=== PATIENT | female | born 1940 | race Caucasian/White ===

== ENCOUNTER 2016-05-14 21:40 | Inpatient (IN) | payer MEDICARE, MEDICAID ==
[2016-05-14 22:51] VITALS: BP 131/67
[2016-05-14] MEDS ORDERED: D5-0.45NS 1,000 ML IV SCH (23:45)
[2016-05-14] MEDS ORDERED: Maalox 30 mL Cup PO PRN (23:47)
[2016-05-14] MEDS ORDERED: Magnesium Hydroxide (MOM) 30 mL UDC PO PRN (23:47)
[2016-05-15] MEDS ORDERED: Maalox 30 mL Cup PO PRN (00:17)
[2016-05-15] MEDS ORDERED: Magnesium Hydroxide (MOM) 30 mL UDC PO PRN (00:17)
[2016-05-15] MEDS ORDERED: Diltiazem CD 120 mg 24H PO PRN ×2 (00:23→19:03)
[2016-05-15] MEDS: methylPREDNISolone SS 40 mg Vial IVP SCH ×3 (04:25→22:22)
[2016-05-15 05:41] LABS: % EOSINOPHILS 0.2 % (0.0-5.0); % LYMPHOCYTES 18.3 % (20.0-50.0); % MONOCYTES 6.9 % (2.0-10.0); % NEUTROPHILS 74.6 % (40.0-80.0); HEMATOCRIT 28.4 % (35.0-45.0); HEMOGLOBIN 9.6 gm/dL (11.7-16.1); MEAN CELL VOLUME 92.4 fl (81-100); MEAN CORPUSCULAR HEMOGLOBIN 31.4 pg (27.0-31.0); MEAN CORPUSCULAR HGB CONC 33.9 pg (28.0-36.0); MEAN PLATELET VOLUME 9.3 fl; NEUTROPHILE ABSOLUTE 6.2 Th/cmm (1.8-8.0); PLATELET COUNT 147 Th/cmm (150-400); RED BLOOD COUNT 3.07 Mil/cmm (3.80-5.20); RED CELL DISTRIBUTION WIDTH 13.2 % (11.5-20.0); WHITE BLOOD COUNT 8.3 Th/cmm (4.8-10.8)
[2016-05-15 06:04] LABS: ALKALINE PHOSPHATASE 77 U/L (34-104); ANION GAP 7.4 (7.0-16.0); BILIRUBIN,TOTAL 0.4 mg/dL (0.3-1.0); BUN - UREA NITROGEN 40 mg/dL (7-25); CALCIUM SERUM 9.4 mg/dL (8.6-10.3); CARBON DIOXIDE 27.9 mEq/L (21.0-31.0); CHLORIDE 106 mEq/L (98-107); CREATININE - SERUM 1.6 mg/dL (0.6-1.2); GLUCOSE 159 mg/dL (70-105); MAGNESIUM 1.9 mg/dL (1.9-2.7); POTASSIUM SERUM 4.3 mEq/L (3.5-5.1); SGOT 10 U/L (13-39); SGPT/ALT 11 U/L (7-52); SODIUM SERUM 137 mEq/L (136-145)
[2016-05-15] MEDS: Albuterol/Ipratropium Neb 3 ML AERS HHN SCH ×5 (07:01→19:10)
[2016-05-15] MEDS: Enoxaparin 30 mg/0.3 mL 0.3mL Syr SUBQ SCH (09:00)
[2016-05-15] MEDS: Pantoprazole 40 mg EC Tab PO SCH ×2 (09:03→16:46)
[2016-05-15] MEDS: Polyvinyl Alcohol Ophth Soln 15 mL Bottle EACH EYE SCH ×2 (09:04→16:51)
--- NOTE | 2016-05-15 10:42 | Diagnostic Imaging Report ---
CHEST X-RAY: AP view INDICATION: Pneumonia COMPARISON: None FINDINGS: The patient is rotated. Left basal density is noted. No focal consolidation identified. Cardiomegaly is noted with atherosclerosis. Degenerative changes of the spine are noted with scoliosis. IMPRESSION: Left basal density suggestive of a small left pleural effusion. Atelectasis versus less likely infiltrate of the left lung base cannot be excluded. Cardiomegaly and atherosclerotic vascular disease.
[2016-05-15] MEDS ORDERED: Sodium Chloride 0.45% 1,000 ML IV SCH (13:00)
--- NOTE | 2016-05-15 16:01 | Diagnostic Imaging Report ---
CT Chest without IV contrast HISTORY: Mass COMPARISON: Chest x-ray earlier the same day. Technique: Axial images were obtained from the base of the neck to the upper abdomen without IV contrast. Reconstructions were made. Total DLP 370, CTD I 9.5 Findings: Evaluation of mediastinum is limited due to lack of IV contrast. Few borderline prominent mediastinal lymph nodes are noted. Diffuse atherosclerotic vascular disease is noted including coronary artery calcifications. Mild cardiomegaly is noted. Trace pericardial fluid is noted. Mild chronic changes and mild emphysematous changes of the lungs are noted. There is a faint 3 mm nodule of the right upper lobe (image 3, series 32). Additional faint nodular infiltrates are seen involving the posterior/inferior aspect of the right upper lobe measuring up to 6 mm. An additional few faint nodular infiltrates of the left lung are noted. Bibasal focal infiltrates and consolidative changes also noted. No pleural effusions. Degenerative changes of the spine are noted with spinal scoliosis. The upper abdomen demonstrates diffuse pneumobilia. There appears to be previous cholecystectomy. There may be minimal fluid within the postsurgical bed. IMPRESSION: Bibasal focal infiltrates and consolidative changes which may be due to focal pneumonia in these regions. Small nodular opacities of the lungs as detailed above. Findings may be due to infectious/inflammatory or less likely neoplastic process. Clinical correlation and follow-up surveillance in 6 months is recommended for further assessment/monitoring. Mild emphysematous changes. Diffuse atherosclerotic vascular disease Mild cardiomegaly and trace pericardial effusion Borderline prominent mediastinal lymph nodes, nonspecific Diffuse pneumobilia noted. There also appears to be a probable recent cholecystectomy with small amount of fluid in the gallbladder fossa. Please correlate with patient's clinical findings. If indicated dedicated, CT abdomen and pelvis and ultrasound may be obtained for further assessment.
[2016-05-15] MEDS: Lidocaine 5% Patch TD SCH (16:42)
[2016-05-15] MEDS: Levothyroxine 0.1 Mg Tab PO SCH (16:50)
[2016-05-15] MEDS ORDERED: Diltiazem 30 mg Tab ONE (18:50)
[2016-05-15] MEDS: Budesonide 0.5 Mg/2 mL Ud HHN SCH (19:10)
[2016-05-16] MEDS: methylPREDNISolone SS 40 mg Vial IVP SCH ×3 (05:49→21:05)
--- NOTE | 2016-05-16 06:07 | Consultation ---
The patient of Dr. Olivas. Thank you very much Dr. Olivas for this consultation. HISTORY OF PRESENT ILLNESS: This is a 75-year-old female, presents with cough, congestion, and shortness of breath and also episode of hemoptysis. Her past medical history COPD, multiple admissions to different hospitals. The patient is feeling better, has less shortness of breath, difficult to deal with, it is hard to get information from her. PAST MEDICAL HISTORY: As above. SOCIAL HISTORY: Smoking for many years, quit 10 years ago. PHYSICAL EXAMINATION: GENERAL: Awake, alert, not in acute distress. VITAL SIGNS: Temperature is 98.9, pulse 85, respirations 22, blood pressure 138/58 saturating 98%. CHEST: good breath sounds, few rhonchi in the bases. HEART: Regular rate and rhythm. ABDOMEN: Soft. LOWER EXTREMITIES: No edema. DIAGNOSTIC DATA: Chest x-ray atelectasis lower lobe area. No masses. LABORATORY DATA: WBC is 8.3, hemoglobin 9.6, hematocrit 28.4. Sodium is 137, IMPRESSION: 1. Chronic obstructive pulmonary disease exacerbation. 2. Acute bronchitis. 3. Early pneumonia. PLAN: 1. IV antibiotics. 2. Nebulizer. 3. IV Solu-Medrol. 4. CT of the chest to rule out any masses. Thank you very much. I will follow the patient with you. JOB# [id number] NATALYA
[2016-05-16 07:21] LABS: BUN - UREA NITROGEN 43 mg/dL (7-25); BUN/CREATININE RATIO 26.9; CALCIUM SERUM 9.5 mg/dL (8.6-10.3); CARBON DIOXIDE 28.6 mEq/L (21.0-31.0); CHLORIDE 106 mEq/L (98-107); CREATININE - SERUM 1.6 mg/dL (0.6-1.2); GLUCOSE 176 mg/dL (70-105); POTASSIUM SERUM 4.6 mEq/L (3.5-5.1); SODIUM SERUM 134 mEq/L (136-145)
[2016-05-16] MEDS: Levothyroxine 0.1 Mg Tab PO SCH (07:21)
[2016-05-16] MEDS: Albuterol/Ipratropium Neb 3 ML AERS HHN SCH ×4 (08:10→15:43)
[2016-05-16] MEDS: Budesonide 0.5 Mg/2 mL Ud HHN SCH (08:10)
[2016-05-16] MEDS ORDERED: LEVOTHYROXINE SODIUM 200 MCG PO SCH (09:00)
[2016-05-16] MEDS: Diltiazem 30 mg Tab PO SCH ×2 (09:24→17:27)
[2016-05-16] MEDS: Pantoprazole 40 mg EC Tab PO SCH (09:24)
[2016-05-16] MEDS: Polyvinyl Alcohol Ophth Soln 15 mL Bottle EACH EYE SCH (09:27)
[2016-05-16] MEDS: Enoxaparin 30 mg/0.3 mL 0.3mL Syr SUBQ SCH (09:28)
[2016-05-16] MEDS: Lidocaine 5% Patch TD SCH (09:55)
--- NOTE | 2016-05-16 13:50 | Internal Medicine Prog Note ---
Internal Medicine Subjective - Subjective Patient seen and examined:: with staff, chart reviewed Patient is:: awake, verbal, interactive Patient Complaints of:: congestion Per staff patient is:: no adverse event, combative, noncompliant Internal Medicine Objective - Results Result Diagrams: 05/15/16 05:15 05/16/16 06:15 Recent Labs: Laboratory Last Values WBC 8.3 Th/cmm (4.8-10.8) 05/15/16 05:15 RBC 3.07 Mil/cmm (3.80-5.20) L 05/15/16 05:15 Hgb 9.6 gm/dL (11.7-16.1) L 05/15/16 05:15 Hct 28.4 % (35.0-45.0) L 05/15/16 05:15 MCV 92.4 fl (81-100) 05/15/16 05:15 MCH 31.4 pg (27.0-31.0) H 05/15/16 05:15 MCHC Differential 33.9 pg (28.0-36.0) 05/15/16 05:15 RDW 13.2 % (11.5-20.0) 05/15/16 05:15 Plt Count 147 Th/cmm (150-400) L 05/15/16 05:15 MPV 9.3 fl 05/15/16 05:15 Neutrophils % 74.6 % (40.0-80.0) 05/15/16 05:15 Lymphocytes % 18.3 % (20.0-50.0) L 05/15/16 05:15 Monocytes % 6.9 % (2.0-10.0) 05/15/16 05:15 Eosinophils % 0.2 % (0.0-5.0) 05/15/16 05:15 Basophils % 0.0 % (0.0-2.0) 05/15/16 05:15 Sodium 134 mEq/L (136-145) L 05/16/16 06:15 Potassium 4.6 mEq/L (3.5-5.1) 05/16/16 06:15 Chloride 106 mEq/L (98-107) 05/16/16 06:15 Carbon Dioxide 28.6 mEq/L (21.0-31.0) 05/16/16 06:15 Anion Gap 4.0 (7.0-16.0) L 05/16/16 06:15 BUN 43 mg/dL (7-25) H 05/16/16 06:15 Creatinine 1.6 mg/dL (0.6-1.2) H 05/16/16 06:15 Est GFR ( Amer) TNP 05/16/16 06:15 Est GFR (Non-Af Amer) TNP 05/16/16 06:15 BUN/Creatinine Ratio 26.9 05/16/16 06:15 Glucose 176 mg/dL (70-105) H 05/16/16 06:15 Hemoglobin A1c % 5.7 % (4.0-6.0) 05/16/16 06:15 Calcium 9.5 mg/dL (8.6-10.3) 05/16/16 06:15 Magnesium 1.9 mg/dL (1.9-2.7) 05/15/16 05:15 Total Bilirubin 0.4 mg/dL (0.3-1.0) 05/15/16 05:15 AST 10 U/L (13-39) L 05/15/16 05:15 ALT 11 U/L (7-52) 05/15/16 05:15 Alkaline Phosphatase 77 U/L (34-104) 05/15/16 05:15 Ammonia 53 umol/L (16-53) 05/16/16 06:15 B-Natriuretic Peptide 314.0 pg/mL (5.0-100.0) H 05/15/16 05:15 Total Protein 6.9 gm/dL (6.0-8.3) 05/15/16 05:15 Albumin 3.4 gm/dL (3.7-5.3) L 05/15/16 05:15 Globulin 3.5 gm/dL 05/15/16 05:15 Albumin/Globulin Ratio 1.0 (1.0-1.8) 05/15/16 05:15 TSH 0.09 uIU/ml (0.34-5.60) L 05/15/16 05:15 - Physical Exam Vitals and I&O: Vital Signs Temp 97.0 F 05/16/16 07:43 Pulse 91 05/16/16 12:00 Resp 18 05/16/16 12:00 BP 161/81 05/16/16 07:43 Pulse Ox 97 05/16/16 12:00 Intake & Output 05/15/16 05/16/16 05/16/16 18:59 06:59 18:59 Intake Total 600 Balance 600 Intake: Intake, IV Amount 50 Cefepime 1 gm In Dextrose 50 5% 50 ml @ 100 mls/hr IV Q12H [facility] Rx#:[id number] Oral 550 Other: # Voids 5 Active Medications: Current Medications Acetaminophen (Tylenol) 650 mg PO Q6H PRN PRN Reason: Mild Pain/Headache/T above 101 Stop: 07/13/16 23:46 Last Admin: 05/16/16 11:38 Dose: 650 mg Al Hydrox/Mg Hydrox/Simethicone (Maalox) 30 ml PO Q4HR PRN PRN Reason: GI DISTRESS Stop: 07/14/16 00:16 Albuterol Sulfate (Albuterol 2.5mg/3ml Neb Ud) 2.5 mg HHN Q6HR PRN PRN Reason: Shortness of Breath Stop: 07/14/16 00:16 Albuterol/Ipratropium (Duoneb Neb) 3 ml HHN QIDRT [facility] Stop: 07/15/16 06:59 Last Admin: 05/16/16 12:00 Dose: 3 ml Alprazolam (Xanax) 0.25 mg PO Q6HR PRN; Protocol PRN Reason: Anxiety Stop: 07/14/16 22:03 Last Admin: 05/16/16 09:46 Dose: 0.25 mg Artificial Tears (Artificial Tears Ophth Soln) 1 drop EACH EYE BID [facility] Stop: 07/14/16 08:59 Last Admin: 05/16/16 09:27 Dose: 1 drop Budesonide (Pulmicort) 0.5 mg HHN BIDRT [facility] Stop: 07/14/16 08:59 Last Admin: 05/16/16 08:10 Dose: 0.5 mg Diltiazem HCl (Cardizem) 120 mg PO BID [facility] Stop: 07/15/16 08:59 Last Admin: 05/16/16 09:24 Dose: 120 mg Enoxaparin Sodium (Lovenox) 30 mg SUBQ DAILY [facility] Stop: 07/14/16 08:59 Last Admin: 05/16/16 09:28 Dose: 30 mg Folic Acid (Folate) 1 mg PO DAILY [facility] Stop: 07/14/16 08:59 Last Admin: 05/16/16 09:24 Dose: 1 mg Cefepime HCl 1 gm/ Dextrose 50 mls @ 100 mls/hr IV Q12H [facility] Stop: 07/14/16 00:59 Last Admin: 05/16/16 00:49 Dose: 100 mls/hr Sodium Chloride (Nacl 0.45%) 1,000 mls @ 60 mls/hr IV .[id number] [facility] Stop: 07/14/16 12:59 Last Admin: 05/15/16 13:25 Dose: 60 mls/hr Levothyroxine Sodium (Synthroid) 0.2 mg PO QDAC [facility] Stop: 07/14/16 16:29 Last Admin: 05/16/16 07:21 Dose: Not Given Lidocaine (Lidoderm 5% Patch) 1 patch TD DAILY [facility] Stop: 07/14/16 13:59 Last Admin: 05/16/16 09:55 Dose: 1 patch Magnesium Hydroxide (Milk Of Magnesia) 30 ml PO Q8HR PRN PRN Reason: Constipation Stop: 07/14/16 00:16 Methylprednisolone Sodium Succinate (Solu-Medrol) 40 mg IVP Q8HR [facility] Stop: 07/14/16 14:43 Last Admin: 05/16/16 05:49 Dose: Not Given Ondansetron HCl (Zofran) 4 mg IVP Q6H PRN PRN Reason: Nausea / Vomiting Stop: 07/13/16 23:46 Pantoprazole Sodium (Protonix) 40 mg PO DAILY [facility] Stop: 07/15/16 08:59 Last Admin: 05/16/16 09:24 Dose: 40 mg Sertraline HCl (Zoloft) 25 mg PO DAILY [facility] PRN Reason: Protocol Stop: 07/15/16 08:59 Last Admin: 05/16/16 09:24 Dose: 25 mg Zolpidem Tartrate (Ambien) 5 mg PO HS PRN PRN Reason: Insomnia Stop: 07/14/16 00:16 Last Admin: 05/16/16 00:42 Dose: 5 mg General: alert, obese HEENT: NC/AT, PERRLA Neck: Supple Lungs: congested, rales Cardiovascular: RRR, Normal S1, Normal S2 Abdomen: soft non-tender, globular, positive bowel sound Extremities: excoriation, contracture Neurological: disorganized Internal Medicine Assmt/Plan - Assessment Assessment: acute copd exac acute bronchitis early pnnm obesity hypothyroidism - Plan Plan: cont on iv abx cont on steroid jonny rn had long discussion w pt at [facility]
[2016-05-16 14:11] LABS: FOLIC ACID >20.0 ng/mL (>3.0)
[2016-05-16 22:01] LABS: URINE BILIRUBIN NEGATIVE (NEGATIVE); URINE BLOOD TRACE (NEGATIVE); URINE COLOR YELLOW; URINE GLUCOSE (UA) NEGATIVE (NEGATIVE); URINE KETONE NEGATIVE (NEGATIVE); URINE PROTEIN TRACE mg/dL (NEGATIVE); URINE UROBILINOGEN 0.2 E.U./dL (0.2 - 1.0)
[2016-05-16 22:02] LABS: URINE BACTERIA FEW /hpf (NONE SEEN); URINE EPITHELIAL CELLS RARE /lpf (FEW); URINE RBC 0-1 /hpf (0-5); URINE WBC 0-2 /hpf (0-5)
[2016-05-17] MEDS: Budesonide 0.5 Mg/2 mL Ud HHN SCH ×2 (00:38→08:05)
[2016-05-17] MEDS: Albuterol/Ipratropium Neb 3 ML AERS HHN SCH ×4 (00:38→15:53)
[2016-05-17] MEDS: methylPREDNISolone SS 40 mg Vial IVP SCH ×3 (05:20→20:46)
[2016-05-17 06:02] LABS: % EOSINOPHILS 0.2 % (0.0-5.0); % LYMPHOCYTES 9.4 % (20.0-50.0); % MONOCYTES 5.1 % (2.0-10.0); % NEUTROPHILS 85.3 % (40.0-80.0); HEMOGLOBIN 10.2 gm/dL (11.7-16.1); MEAN CELL VOLUME 92.9 fl (81-100); MEAN CORPUSCULAR HEMOGLOBIN 31.5 pg (27.0-31.0); MEAN CORPUSCULAR HGB CONC 33.9 pg (28.0-36.0); MEAN PLATELET VOLUME 9.3 fl; NEUTROPHILE ABSOLUTE 7.9 Th/cmm (1.8-8.0); RED BLOOD COUNT 3.23 Mil/cmm (3.80-5.20); RED CELL DISTRIBUTION WIDTH 13.6 % (11.5-20.0); WHITE BLOOD COUNT 9.3 Th/cmm (4.8-10.8)
[2016-05-17 06:17] LABS: ALKALINE PHOSPHATASE 72 U/L (34-104); ANION GAP 10.1 (7.0-16.0); BILIRUBIN,TOTAL 0.3 mg/dL (0.3-1.0); BUN - UREA NITROGEN 51 mg/dL (7-25); CALCIUM SERUM 9.4 mg/dL (8.6-10.3); CARBON DIOXIDE 27.3 mEq/L (21.0-31.0); CHLORIDE 102 mEq/L (98-107); CREATININE - SERUM 1.7 mg/dL (0.6-1.2); GLUCOSE 142 mg/dL (70-105); MAGNESIUM 1.8 mg/dL (1.9-2.7); POTASSIUM SERUM 4.4 mEq/L (3.5-5.1); SGOT 14 U/L (13-39); SGPT/ALT 21 U/L (7-52); SODIUM SERUM 135 mEq/L (136-145)
[2016-05-17 06:24] LABS: PLATELET COUNT 186 Th/cmm (150-400)
[2016-05-17] MEDS: Albuterol Nebulizer 2.5mg/3mL HHN PRN ×2 (08:55→17:08)
[2016-05-17] MEDS: Lidocaine 5% Patch TD SCH (09:09)
[2016-05-17] MEDS: Polyvinyl Alcohol Ophth Soln 15 mL Bottle EACH EYE SCH ×2 (09:11→16:09)
[2016-05-17] MEDS: Diltiazem 30 mg Tab PO SCH ×4 (09:11→16:09)
[2016-05-17] MEDS: Pantoprazole 40 mg EC Tab PO SCH (09:11)
[2016-05-17] MEDS: Enoxaparin 30 mg/0.3 mL 0.3mL Syr SUBQ SCH (09:12)
[2016-05-17] MEDS: Levothyroxine 0.1 Mg Tab PO SCH ×2 (09:12→09:19)
--- NOTE | 2016-05-17 15:26 | Internal Medicine Prog Note ---
Internal Medicine Subjective - Subjective Patient seen and examined:: with staff, chart reviewed Patient is:: awake, verbal, interactive Patient Complaints of:: congestion Per staff patient is:: no adverse event, eating well, agitated, combative ( yells profanities at staff), noncompliant Internal Medicine Objective - Results Result Diagrams: 05/17/16 04:57 05/17/16 04:57 Recent Labs: Laboratory Last Values WBC 9.3 Th/cmm (4.8-10.8) 05/17/16 04:57 RBC 3.23 Mil/cmm (3.80-5.20) L 05/17/16 04:57 Hgb 10.2 gm/dL (11.7-16.1) L 05/17/16 04:57 Hct 30.0 % (35.0-45.0) L 05/17/16 04:57 MCV 92.9 fl (81-100) 05/17/16 04:57 MCH 31.5 pg (27.0-31.0) H 05/17/16 04:57 MCHC Differential 33.9 pg (28.0-36.0) 05/17/16 04:57 RDW 13.6 % (11.5-20.0) 05/17/16 04:57 Plt Count 186 Th/cmm (150-400) D 05/17/16 04:57 MPV 9.3 fl 05/17/16 04:57 Neutrophils % 85.3 % (40.0-80.0) H 05/17/16 04:57 Lymphocytes % 9.4 % (20.0-50.0) L 05/17/16 04:57 Monocytes % 5.1 % (2.0-10.0) 05/17/16 04:57 Eosinophils % 0.2 % (0.0-5.0) 05/17/16 04:57 Basophils % 0.0 % (0.0-2.0) 05/17/16 04:57 Sodium 135 mEq/L (136-145) L 05/17/16 04:57 Potassium 4.4 mEq/L (3.5-5.1) 05/17/16 04:57 Chloride 102 mEq/L (98-107) 05/17/16 04:57 Carbon Dioxide 27.3 mEq/L (21.0-31.0) 05/17/16 04:57 Anion Gap 10.1 (7.0-16.0) 05/17/16 04:57 BUN 51 mg/dL (7-25) H 05/17/16 04:57 Creatinine 1.7 mg/dL (0.6-1.2) H 05/17/16 04:57 Est GFR ( Amer) TNP 05/17/16 04:57 Est GFR (Non-Af Amer) TNP 05/17/16 04:57 BUN/Creatinine Ratio 30.0 05/17/16 04:57 Glucose 142 mg/dL (70-105) H 05/17/16 04:57 Hemoglobin A1c % 5.7 % (4.0-6.0) 05/16/16 06:15 Calcium 9.4 mg/dL (8.6-10.3) 05/17/16 04:57 Magnesium 1.8 mg/dL (1.9-2.7) L 05/17/16 04:57 Total Bilirubin 0.3 mg/dL (0.3-1.0) 05/17/16 04:57 AST 14 U/L (13-39) 05/17/16 04:57 ALT 21 U/L (7-52) 05/17/16 04:57 Alkaline Phosphatase 72 U/L (34-104) 05/17/16 04:57 Ammonia 53 umol/L (16-53) 05/16/16 06:15 B-Natriuretic Peptide 291.0 pg/mL (5.0-100.0) H 05/17/16 04:57 Total Protein 6.6 gm/dL (6.0-8.3) 05/17/16 04:57 Albumin 3.3 gm/dL (3.7-5.3) L 05/17/16 04:57 Globulin 3.3 gm/dL 05/17/16 04:57 Albumin/Globulin Ratio 1.0 (1.0-1.8) 05/17/16 04:57 Vitamin B12 300 pg/mL (211-946) 05/15/16 05:15 Folic Acid >20.0 ng/mL (>3.0) 05/15/16 05:15 TSH 0.09 uIU/ml (0.34-5.60) L 05/15/16 05:15 Urine Source CLEAN C 05/16/16 21:43 Urine Color YELLOW 05/16/16 21:43 Urine Clarity CLEAR (CLEAR) 05/16/16 21:43 Urine pH 5.0 05/16/16 21:43 Ur Specific Only 1.010 (1.005-1.030) 05/16/16 21:43 Urine Protein TRACE mg/dL (NEGATIVE) 05/16/16 21:43 Urine Glucose (UA) NEGATIVE mg/dL (NEGATIVE) 05/16/16 21:43 Urine Ketones NEGATIVE mg/dL (NEGATIVE) 05/16/16 21:43 Urine Blood TRACE (NEGATIVE) 05/16/16 21:43 Urine Nitrate NEGATIVE (NEGATIVE) 05/16/16 21:43 Urine Bilirubin NEGATIVE (NEGATIVE) 05/16/16 21:43 Urine Urobilinogen 0.2 E.U./dL (0.2 - 1.0) 05/16/16 21:43 Ur Leukocyte Esterase NEGATIVE (NEGATIVE) 05/16/16 21:43 Urine RBC 0-1 /hpf (0-5) 05/16/16 21:43 Urine WBC 0-2 /hpf (0-5) 05/16/16 21:43 Ur Epithelial Cells RARE /lpf (FEW) 05/16/16 21:43 Urine Bacteria FEW /hpf (NONE SEEN) 05/16/16 21:43 - Physical Exam Vitals and I&O: Vital Signs Temp 98.3 F 05/17/16 08:00 Pulse 120 05/17/16 12:01 Resp 18 05/17/16 11:25 BP 130/85 05/17/16 08:00 Pulse Ox 96 05/17/16 11:25 Intake & Output 05/16/16 05/17/16 05/17/16 18:59 06:59 18:59 Intake Total 410 450 Output Total 1 Balance 410 449 Intake: Intake, IV Amount 50 50 Cefepime 1 gm In Dextrose 50 50 5% 50 ml @ 100 mls/hr IV Q12H [facility] Rx#:[id number] Oral 360 400 Output: Stool 1 Other: # Voids 2 3 Stool Characteristics Soft Formed Active Medications: Current Medications Acetaminophen (Tylenol) 650 mg PO Q6H PRN PRN Reason: Mild Pain/Headache/T above 101 Stop: 07/13/16 23:46 Last Admin: 05/16/16 11:38 Dose: 650 mg Al Hydrox/Mg Hydrox/Simethicone (Maalox) 30 ml PO Q4HR PRN PRN Reason: GI DISTRESS Stop: 07/14/16 00:16 Albuterol Sulfate (Albuterol 2.5mg/3ml Neb Ud) 2.5 mg HHN Q6HR PRN PRN Reason: Shortness of Breath Stop: 07/14/16 00:16 Last Admin: 05/17/16 08:55 Dose: 2.5 mg Albuterol/Ipratropium (Duoneb Neb) 3 ml HHN QIDRT [facility] Stop: 07/15/16 06:59 Last Admin: 05/17/16 11:20 Dose: 3 ml Alprazolam (Xanax) 0.25 mg PO Q6HR PRN; Protocol PRN Reason: Anxiety Stop: 07/14/16 22:03 Last Admin: 05/17/16 09:19 Dose: 0.25 mg Artificial Tears (Artificial Tears Ophth Soln) 1 drop EACH EYE BID [facility] Stop: 07/14/16 08:59 Last Admin: 05/17/16 09:11 Dose: 1 drop Budesonide (Pulmicort) 0.5 mg HHN BIDRT [facility] Stop: 07/14/16 08:59 Last Admin: 05/17/16 08:05 Dose: Not Given Diltiazem HCl (Cardizem) 120 mg PO BID [facility] Stop: 07/15/16 08:59 Last Admin: 05/17/16 12:01 Dose: 120 mg Enoxaparin Sodium (Lovenox) 30 mg SUBQ DAILY [facility] Stop: 07/14/16 08:59 Last Admin: 05/17/16 09:12 Dose: 30 mg Folic Acid (Folate) 1 mg PO DAILY [facility] Stop: 07/14/16 08:59 Last Admin: 05/17/16 09:11 Dose: 1 mg Cefepime HCl 1 gm/ Dextrose 50 mls @ 100 mls/hr IV Q12H [facility] Stop: 07/14/16 00:59 Last Admin: 05/17/16 12:02 Dose: 100 mls/hr Levothyroxine Sodium (Synthroid) 0.2 mg PO QDAC [facility] Stop: 07/14/16 16:29 Last Admin: 05/17/16 09:19 Dose: 0.2 mg Lidocaine (Lidoderm 5% Patch) 1 patch TD DAILY [facility] Stop: 07/14/16 13:59 Last Admin: 05/17/16 09:09 Dose: 1 patch Magnesium Hydroxide (Milk Of Magnesia) 30 ml PO Q8HR PRN PRN Reason: Constipation Stop: 07/14/16 00:16 Methylprednisolone Sodium Succinate (Solu-Medrol) 40 mg IVP Q8HR [facility] Stop: 07/14/16 14:43 Last Admin: 05/17/16 14:21 Dose: 40 mg Ondansetron HCl (Zofran) 4 mg IVP Q6H PRN PRN Reason: Nausea / Vomiting Stop: 07/13/16 23:46 Pantoprazole Sodium (Protonix) 40 mg PO DAILY [facility] Stop: 07/15/16 08:59 Last Admin: 05/17/16 09:11 Dose: 40 mg Sertraline HCl (Zoloft) 25 mg PO DAILY [facility] PRN Reason: Protocol Stop: 07/15/16 08:59 Last Admin: 05/17/16 09:12 Dose: 25 mg Zolpidem Tartrate (Ambien) 5 mg PO HS PRN PRN Reason: Insomnia Stop: 07/14/16 00:16 Last Admin: 05/17/16 02:50 Dose: 5 mg General: alert, obese HEENT: NC/AT, PERRLA Neck: Supple, No JVD Lungs: congested, rales, ronchi Cardiovascular: RRR, Normal S1, Normal S2 Abdomen: soft non-tender, globular, distended, positive bowel sound Extremities: excoriation Neurological: no change, disorganized Internal Medicine Assmt/Plan - Assessment Assessment: acute copd exac acute bronchitis early pnnm obesity hypothyroidism noncompliance poss psych - Plan Plan: cont on iv abx cont on steroid dw rn had long discussion w pt at [facility]
[2016-05-17] MEDS: Mag Sulfate 2gm/50mL Premix 2 GM/50 ML BAG IV ONE ×2 (16:07→16:20)
[2016-05-18] MEDS: Albuterol/Ipratropium Neb 3 ML AERS HHN SCH ×5 (00:40→19:02)
[2016-05-18] MEDS: Budesonide 0.5 Mg/2 mL Ud HHN SCH ×3 (00:41→19:02)
[2016-05-18 06:39] LABS: ANION GAP 9.8 (7.0-16.0); BUN - UREA NITROGEN 54 mg/dL (7-25); BUN/CREATININE RATIO 28.4; CALCIUM SERUM 9.5 mg/dL (8.6-10.3); CARBON DIOXIDE 27.4 mEq/L (21.0-31.0); CHLORIDE 102 mEq/L (98-107); CREATININE - SERUM 1.9 mg/dL (0.6-1.2); GLUCOSE 176 mg/dL (70-105); MAGNESIUM 1.9 mg/dL (1.9-2.7); POTASSIUM SERUM 4.2 mEq/L (3.5-5.1); SODIUM SERUM 135 mEq/L (136-145)
[2016-05-18 06:42] LABS: % EOSINOPHILS 0.2 % (0.0-5.0); % LYMPHOCYTES 7.7 % (20.0-50.0); % MONOCYTES 3.9 % (2.0-10.0); % NEUTROPHILS 88.2 % (40.0-80.0); HEMATOCRIT 31.2 % (35.0-45.0); HEMOGLOBIN 10.3 gm/dL (11.7-16.1); MEAN CELL VOLUME 93.1 fl (81-100); MEAN CORPUSCULAR HEMOGLOBIN 30.8 pg (27.0-31.0); MEAN CORPUSCULAR HGB CONC 33.1 pg (28.0-36.0); MEAN PLATELET VOLUME 9.3 fl; NEUTROPHILE ABSOLUTE 7.5 Th/cmm (1.8-8.0); PLATELET COUNT 178 Th/cmm (150-400); RED BLOOD COUNT 3.34 Mil/cmm (3.80-5.20); RED CELL DISTRIBUTION WIDTH 13.5 % (11.5-20.0); WHITE BLOOD COUNT 8.5 Th/cmm (4.8-10.8)
[2016-05-18] MEDS: Polyvinyl Alcohol Ophth Soln 15 mL Bottle EACH EYE SCH ×2 (09:29→16:49)
[2016-05-18] MEDS: Enoxaparin 30 mg/0.3 mL 0.3mL Syr SUBQ SCH (09:29)
[2016-05-18] MEDS: Diltiazem 30 mg Tab PO SCH ×3 (09:30→17:34)
[2016-05-18] MEDS: Pantoprazole 40 mg EC Tab PO SCH (09:31)
[2016-05-18] MEDS: Levothyroxine 0.1 Mg Tab PO SCH (09:31)
[2016-05-18] MEDS: Lidocaine 5% Patch TD SCH (09:31)
[2016-05-18] MEDS: methylPREDNISolone SS 40 mg Vial IVP SCH ×2 (09:33→20:57)
--- NOTE | 2016-05-18 09:57 | History & Physical ---
ADMIT DATE: 05/15/2016 CHIEF COMPLAINT: Increased shortness of breath diagnosed with acute COPD exacerbation. HISTORY OF PRESENT ILLNESS: This is a 75-year-old female with history of CAD, chronic AFib, hypertension, COPD, hypothyroidism, anemia, obesity, and renal insufficiency, who was admitted from residential initially to [facility] where the patient was diagnosed with acute COPD exacerbation. The patient was transferred for continued care and treatment as the patient is a non-[employer] member. PAST MEDICAL HISTORY: As mentioned in history present illness. PAST SURGICAL HISTORY: Status post appendectomy and hernia surgery. ALLERGIES: LEVAQUIN, NIACIN, ____ TETRACYCLINE. MEDICATIONS: The patient ____ she was on Synthroid, also on Maalox, albuterol, Cardizem, ____, folic acid, magnesium, Ambien, artificial tears. FAMILY HISTORY: Noncontributory. SOCIAL HISTORY: The patient was an avid smoker and nondrinker. The patient has been 3 times, has no children. REVIEW OF SYSTEMS: GENERAL: ____ feeling well. HEENT: Complains of coughing blood tinged. There is no weight loss and no night sweats. LUNGS: ____ COPD. HEART: The patient with atrial fibrillation and hypertension. ABDOMEN: No nausea, vomiting, pain. GENITOURINARY: The patient denies increased frequency or dysuria. NEUROLOGIC: No headache, seizure or syncope. PSYCHIATRIC: Stable. PHYSICAL EXAMINATION: VITAL SIGNS: Blood pressure 140/83, respirations 19, pulse 104, temperature ____. GENERAL: Elderly female, morbidly obese. NECK: Supple. No mass. LUNGS: Equal breath sounds with few rhonchi. HEART: ____ rhythm without appreciable murmurs. ABDOMEN: Soft, nontender, positive bowel sounds, obese, globular. EXTREMITIES: Positive excoriations. NEUROLOGIC: Limited, moving all 4 extremities. Gait not seen. LABORATORY DATA: WBC 8.3, hemoglobin 9.6, platelets is 147. Sodium 137, potassium 4.3, BUN 40, creatinine 1.6, blood sugar 159, AST and ALT 10 and 11. Albumin 3.5. BNP 314, TSH 0.09. ASSESSMENT AND PLAN: Acute chronic obstructive pulmonary disease exacerbation, acute bronchitis, coronary artery disease, chronic atrial fibrillation, hypertension, hypothyroidism, anemia, chronic renal insufficiency, hyperglycemia, low albumin. We will continue the patient on ____ IV steroids. We will perform CT of the chest. We will send sputum culture for C and S. We will monitor the patient's renal function, check the patient's hemoglobin A1c. We will continue to follow. JOB# [id number]
--- NOTE | 2016-05-18 10:28 | Diagnostic Imaging Report ---
Portable chest x-ray HISTORY: Shortness of breath Compared with prior exam of May 15, 2016, patient is rotated. The heart remains enlarged. No definite focal pulmonary processes. Atherosclerotic calcination seen in the aorta. Severe degenerative changes noted throughout the spine. IMPRESSION: 1. No definite focal pulmonary processes 2. Cardiomegaly with atherosclerotic vascular changes
[2016-05-18] MEDS: Albuterol Nebulizer 2.5mg/3mL HHN PRN (11:34)
--- NOTE | 2016-05-18 15:39 | Internal Medicine Prog Note ---
Internal Medicine Subjective - Subjective Patient seen and examined:: with staff, chart reviewed Patient is:: awake, verbal, interactive, denies any new complaints, denies CP, other (agitated, apparently refused to be dc to snf) Per staff patient is:: no adverse event, no episodes of fall, eating well, agitated, noncompliant Internal Medicine Objective - Results Result Diagrams: 05/18/16 05:46 05/18/16 05:46 Recent Labs: Laboratory Last Values WBC 8.5 Th/cmm (4.8-10.8) 05/18/16 05:46 RBC 3.34 Mil/cmm (3.80-5.20) L 05/18/16 05:46 Hgb 10.3 gm/dL (11.7-16.1) L 05/18/16 05:46 Hct 31.2 % (35.0-45.0) L 05/18/16 05:46 MCV 93.1 fl (81-100) 05/18/16 05:46 MCH 30.8 pg (27.0-31.0) 05/18/16 05:46 MCHC Differential 33.1 pg (28.0-36.0) 05/18/16 05:46 RDW 13.5 % (11.5-20.0) 05/18/16 05:46 Plt Count 178 Th/cmm (150-400) 05/18/16 05:46 MPV 9.3 fl 05/18/16 05:46 Neutrophils % 88.2 % (40.0-80.0) H 05/18/16 05:46 Lymphocytes % 7.7 % (20.0-50.0) L 05/18/16 05:46 Monocytes % 3.9 % (2.0-10.0) 05/18/16 05:46 Eosinophils % 0.2 % (0.0-5.0) 05/18/16 05:46 Basophils % 0.0 % (0.0-2.0) 05/18/16 05:46 Sodium 135 mEq/L (136-145) L 05/18/16 05:46 Potassium 4.2 mEq/L (3.5-5.1) 05/18/16 05:46 Chloride 102 mEq/L (98-107) 05/18/16 05:46 Carbon Dioxide 27.4 mEq/L (21.0-31.0) 05/18/16 05:46 Anion Gap 9.8 (7.0-16.0) 05/18/16 05:46 BUN 54 mg/dL (7-25) H 05/18/16 05:46 Creatinine 1.9 mg/dL (0.6-1.2) H 05/18/16 05:46 Est GFR ( Amer) TNP 05/18/16 05:46 Est GFR (Non-Af Amer) TNP 05/18/16 05:46 BUN/Creatinine Ratio 28.4 05/18/16 05:46 Glucose 176 mg/dL (70-105) H 05/18/16 05:46 Hemoglobin A1c % 5.7 % (4.0-6.0) 05/16/16 06:15 Calcium 9.5 mg/dL (8.6-10.3) 05/18/16 05:46 Magnesium 1.9 mg/dL (1.9-2.7) 05/18/16 05:46 Total Bilirubin 0.3 mg/dL (0.3-1.0) 05/17/16 04:57 AST 14 U/L (13-39) 05/17/16 04:57 ALT 21 U/L (7-52) 05/17/16 04:57 Alkaline Phosphatase 72 U/L (34-104) 05/17/16 04:57 Ammonia 53 umol/L (16-53) 05/16/16 06:15 B-Natriuretic Peptide 336.0 pg/mL (5.0-100.0) H 05/18/16 05:46 Total Protein 6.6 gm/dL (6.0-8.3) 05/17/16 04:57 Albumin 3.3 gm/dL (3.7-5.3) L 05/17/16 04:57 Globulin 3.3 gm/dL 05/17/16 04:57 Albumin/Globulin Ratio 1.0 (1.0-1.8) 05/17/16 04:57 Vitamin B12 300 pg/mL (211-946) 05/15/16 05:15 Folic Acid >20.0 ng/mL (>3.0) 05/15/16 05:15 TSH 0.09 uIU/ml (0.34-5.60) L 05/15/16 05:15 Urine Source CLEAN C 05/16/16 21:43 Urine Color YELLOW 05/16/16 21:43 Urine Clarity CLEAR (CLEAR) 05/16/16 21:43 Urine pH 5.0 05/16/16 21:43 Ur Specific [place] 1.010 (1.005-1.030) 05/16/16 21:43 Urine Protein TRACE mg/dL (NEGATIVE) 05/16/16 21:43 Urine Glucose (UA) NEGATIVE mg/dL (NEGATIVE) 05/16/16 21:43 Urine Ketones NEGATIVE mg/dL (NEGATIVE) 05/16/16 21:43 Urine Blood TRACE (NEGATIVE) 05/16/16 21:43 Urine Nitrate NEGATIVE (NEGATIVE) 05/16/16 21:43 Urine Bilirubin NEGATIVE (NEGATIVE) 05/16/16 21:43 Urine Urobilinogen 0.2 E.U./dL (0.2 - 1.0) 05/16/16 21:43 Ur Leukocyte Esterase NEGATIVE (NEGATIVE) 05/16/16 21:43 Urine RBC 0-1 /hpf (0-5) 05/16/16 21:43 Urine WBC 0-2 /hpf (0-5) 05/16/16 21:43 Ur Epithelial Cells RARE /lpf (FEW) 05/16/16 21:43 Urine Bacteria FEW /hpf (NONE SEEN) 05/16/16 21:43 - Physical Exam Vitals and I&O: Vital Signs Temp 97.4 F 05/18/16 14:11 Pulse 140 05/18/16 14:29 Resp 20 05/18/16 14:29 BP 131/74 05/18/16 14:11 Pulse Ox 97 05/18/16 14:29 Intake & Output 05/17/16 05/18/16 05/18/16 18:59 06:59 18:59 Intake Total 1000 650 50 Balance 1000 650 50 Intake: Intake, IV Amount 50 50 50 Cefepime 1 gm In Dextrose 50 50 50 5% 50 ml @ 100 mls/hr IV Q12H [facility] Rx#:[id number] Oral 950 600 Other: # Voids 4 3 # Bowel Movements 0 1 Stool Characteristics Soft Active Medications: Current Medications Acetaminophen (Tylenol) 650 mg PO Q6H PRN PRN Reason: Mild Pain/Headache/T above 101 Stop: 07/13/16 23:46 Last Admin: 05/16/16 11:38 Dose: 650 mg Al Hydrox/Mg Hydrox/Simethicone (Maalox) 30 ml PO Q4HR PRN PRN Reason: GI DISTRESS Stop: 07/14/16 00:16 Albuterol Sulfate (Albuterol 2.5mg/3ml Neb Ud) 2.5 mg HHN Q6HR PRN PRN Reason: Shortness of Breath Stop: 07/14/16 00:16 Last Admin: 05/18/16 11:34 Dose: 2.5 mg Albuterol/Ipratropium (Duoneb Neb) 3 ml HHN QIDRT ARMAAN Stop: 07/15/16 06:59 Last Admin: 05/18/16 14:25 Dose: 3 ml Alprazolam (Xanax) 0.25 mg PO Q6HR PRN; Protocol PRN Reason: Anxiety Stop: 07/14/16 22:03 Last Admin: 05/18/16 05:00 Dose: 0.25 mg Artificial Tears (Artificial Tears Ophth Soln) 1 drop EACH EYE BID ARMAAN Stop: 07/14/16 08:59 Last Admin: 05/18/16 09:29 Dose: 1 drop Budesonide (Pulmicort) 0.5 mg HHN BIDRT ARMAAN Stop: 07/14/16 08:59 Last Admin: 05/18/16 07:11 Dose: 0.5 mg Diltiazem HCl (Cardizem) 120 mg PO BID ARMAAN Stop: 07/15/16 08:59 Last Admin: 05/18/16 09:30 Dose: 120 mg Docusate Sodium (Colace) 250 mg PO BID ARMAAN Stop: 07/16/16 20:29 Last Admin: 05/18/16 09:29 Dose: 250 mg Enoxaparin Sodium (Lovenox) 30 mg SUBQ DAILY ARMAAN Stop: 07/14/16 08:59 Last Admin: 05/18/16 09:29 Dose: 30 mg Folic Acid (Folate) 1 mg PO DAILY ARMAAN Stop: 07/14/16 08:59 Last Admin: 05/18/16 09:31 Dose: 1 mg Cefepime HCl 1 gm/ Dextrose 50 mls @ 100 mls/hr IV Q12H ARMAAN Stop: 07/14/16 00:59 Last Infusion: 05/18/16 13:30 Dose: Infused Levothyroxine Sodium (Synthroid) 0.2 mg PO QDAC ARMAAN Stop: 07/14/16 16:29 Last Admin: 05/18/16 09:31 Dose: 0.2 mg Lidocaine (Lidoderm 5% Patch) 1 patch TD DAILY ARMAAN Stop: 07/14/16 13:59 Last Admin: 05/18/16 09:31 Dose: 1 patch Magnesium Hydroxide (Milk Of Magnesia) 30 ml PO Q8HR PRN PRN Reason: Constipation Stop: 07/14/16 00:16 Methylprednisolone Sodium Succinate (Solu-Medrol) 40 mg IVP Q12HR ARMAAN Stop: 07/16/16 20:59 Last Admin: 05/18/16 09:33 Dose: 40 mg Morphine Sulfate (Morphine) 2 mg IVP Q4HR PRN PRN Reason: Chest Pain Stop: 07/16/16 15:23 Nitroglycerin (Nitrostat) 0.4 mg SL Q5MIN PRN PRN Reason: Chest Pain Stop: 07/16/16 15:22 Ondansetron HCl (Zofran) 4 mg IVP Q6H PRN PRN Reason: Nausea / Vomiting Stop: 07/13/16 23:46 Pantoprazole Sodium (Protonix) 40 mg PO DAILY ARMAAN Stop: 07/15/16 08:59 Last Admin: 05/18/16 09:31 Dose: 40 mg Sertraline HCl (Zoloft) 25 mg PO DAILY ARMAAN PRN Reason: Protocol Stop: 07/15/16 08:59 Last Admin: 05/18/16 09:30 Dose: 25 mg Zolpidem Tartrate (Ambien) 5 mg PO HS PRN PRN Reason: Insomnia Stop: 07/14/16 00:16 Last Admin: 05/17/16 23:03 Dose: 5 mg General: alert HEENT: NC/AT, PERRLA Neck: Supple, No JVD Lungs: congested Cardiovascular: RRR, Normal S1, Normal S2 Abdomen: soft non-tender, globular, positive bowel sound Extremities: excoriation Neurological: no change, alert Internal Medicine Assmt/Plan - Assessment Assessment: acute copd exac acute bronchitis early pnnm, neg cxr obesity hypothyroidism noncompliance poss psych d/o - Plan Plan: cont on iv abx cont on steroid , may switch to oral dw rn had long discussion w pt at [facility] refused placement
[2016-05-18] MEDS: Morphine Sulfate 2 mg/mL 1mL Syr IVP PRN (16:49)
--- NOTE | 2016-05-18 23:19 | Admit Criteria Form ---
Admit Criteria Forms - Admit Criteria Diagnosis: COPD Clinical Indications for Admission to Inpatient Care (Place 'X' for any and all applicable criteria): Admission is indicated for ANY ONE of the following (1)(2)(3): [X]I. Acute exacerbation by high-risk comorbidity (e.g., pneumonia, dysrhythmia, heart failure, pleural effusion, pneumothorax) or severe underlying COPD (e.g., steroid dependent) [ ]II. Inpatient admission required rather than observation care (see Chronic Obstructive Pulmonary Disease: Observation Care) because of ANY ONE of the following: [ ]a) New or pre-existing signs or symptoms of COPD (eg, dyspnea or Tachypnea at rest or with minimal activity) that persist despite outpatient and observation care treatment [ ]b) New-onset hypoxemia (room air SaO2 less than 90%, PO2 less than 60 mm Hg (8.0 kPa)) that persists despite outpatient and observation care treatment [ ]c) Worsening of pre-existing hypoxemia (eg, new or increased requirement for supplemental oxygen to maintain oxygenation at baseline level) that persists despite outpatient and observation care treatment, with oxygen treatment needs performable only in acute inpatient setting [ ]d) Hypercarbia (PCO2 greater than 40 mm Hg (5.3 kPa))-induced respiratory acidosis (pH less than 7.35) that persists despite outpatient and observation care treatment [ ]e) Supplemental oxygen or respiratory treatments for over 24 hours that are performable only in acute inpatient setting [ ]f) Chest tube placement with active evacuation (e.g., suction, drainage) (5) [ ]g) Other condition, treatment or monitoring requiring inpatient admission [ ]III. Planned invasive surgical or diagnostic procedures requiring acute- care hospitalization [ ]IV. Acute respiratory failure (e.g., uncompensated hypercarbia, severe hypoxemia) [ ]V. Severe comorbid condition (e.g., severe steroid myopathy, acute vertebral fracture) that has acutely worsened pulmonary function [ ]. Confusion state, lethargy, obtundation, stupor or coma Extended stay beyond goal length of stay may be needed for (31)(32): [ ]a ) Respiratory Failure. [ ]b) Severe or persisting hypoxemia or hypercarbia [ ]c) Severe or persistent dyspnea [ ]d) Comorbidities (e.g. chronic heart failure, atrial fibrillation with rapid response, pneumonia) [ ]e) Malnutrition The original [place] [facility] content created by [facility] has been revised. The portions of the content which have been revised are identified through the use of italic text or in bold, and [facility] has neither reviewed nor approved the modified material. All other unmodified content is copyright [facility]. Please see references footnoted in the original [facility] edition 2016 Admit Criteria Met?: Yes
[2016-05-19] MEDS: Albuterol/Ipratropium Neb 3 ML AERS HHN SCH ×4 (06:59→18:35)
[2016-05-19] MEDS: Budesonide 0.5 Mg/2 mL Ud HHN SCH ×3 (07:00→18:38)
[2016-05-19] MEDS: methylPREDNISolone SS 40 mg Vial IVP SCH ×2 (09:22→20:30)
[2016-05-19] MEDS: Pantoprazole 40 mg EC Tab PO SCH (09:23)
[2016-05-19] MEDS: Diltiazem 30 mg Tab PO SCH ×2 (09:23→16:16)
[2016-05-19] MEDS: Lidocaine 5% Patch TD SCH (09:24)
[2016-05-19] MEDS: Polyvinyl Alcohol Ophth Soln 15 mL Bottle EACH EYE SCH ×2 (09:35→16:17)
[2016-05-19] MEDS: Enoxaparin 30 mg/0.3 mL 0.3mL Syr SUBQ SCH (09:36)
[2016-05-19] MEDS: Levothyroxine 0.1 Mg Tab PO SCH (09:46)
--- NOTE | 2016-05-19 13:16 | Internal Medicine Prog Note ---
Internal Medicine Subjective - Subjective Patient seen and examined:: with staff, chart reviewed Patient is:: awake, verbal, interactive, denies CP Per staff patient is:: no adverse event, eating well Internal Medicine Objective - Results Result Diagrams: 05/18/16 05:46 05/18/16 05:46 Recent Labs: Laboratory Last Values WBC 8.5 Th/cmm (4.8-10.8) 05/18/16 05:46 RBC 3.34 Mil/cmm (3.80-5.20) L 05/18/16 05:46 Hgb 10.3 gm/dL (11.7-16.1) L 05/18/16 05:46 Hct 31.2 % (35.0-45.0) L 05/18/16 05:46 MCV 93.1 fl (81-100) 05/18/16 05:46 MCH 30.8 pg (27.0-31.0) 05/18/16 05:46 MCHC Differential 33.1 pg (28.0-36.0) 05/18/16 05:46 RDW 13.5 % (11.5-20.0) 05/18/16 05:46 Plt Count 178 Th/cmm (150-400) 05/18/16 05:46 MPV 9.3 fl 05/18/16 05:46 Neutrophils % 88.2 % (40.0-80.0) H 05/18/16 05:46 Lymphocytes % 7.7 % (20.0-50.0) L 05/18/16 05:46 Monocytes % 3.9 % (2.0-10.0) 05/18/16 05:46 Eosinophils % 0.2 % (0.0-5.0) 05/18/16 05:46 Basophils % 0.0 % (0.0-2.0) 05/18/16 05:46 Sodium 135 mEq/L (136-145) L 05/18/16 05:46 Potassium 4.2 mEq/L (3.5-5.1) 05/18/16 05:46 Chloride 102 mEq/L (98-107) 05/18/16 05:46 Carbon Dioxide 27.4 mEq/L (21.0-31.0) 05/18/16 05:46 Anion Gap 9.8 (7.0-16.0) 05/18/16 05:46 BUN 54 mg/dL (7-25) H 05/18/16 05:46 Creatinine 1.9 mg/dL (0.6-1.2) H 05/18/16 05:46 Est GFR ( Amer) TNP 05/18/16 05:46 Est GFR (Non-Af Amer) TNP 05/18/16 05:46 BUN/Creatinine Ratio 28.4 05/18/16 05:46 Glucose 176 mg/dL (70-105) H 05/18/16 05:46 Hemoglobin A1c % 5.7 % (4.0-6.0) 05/16/16 06:15 Calcium 9.5 mg/dL (8.6-10.3) 05/18/16 05:46 Magnesium 1.9 mg/dL (1.9-2.7) 05/18/16 05:46 Total Bilirubin 0.3 mg/dL (0.3-1.0) 05/17/16 04:57 AST 14 U/L (13-39) 05/17/16 04:57 ALT 21 U/L (7-52) 05/17/16 04:57 Alkaline Phosphatase 72 U/L (34-104) 05/17/16 04:57 Ammonia 53 umol/L (16-53) 05/16/16 06:15 B-Natriuretic Peptide 336.0 pg/mL (5.0-100.0) H 05/18/16 05:46 Total Protein 6.6 gm/dL (6.0-8.3) 05/17/16 04:57 Albumin 3.3 gm/dL (3.7-5.3) L 05/17/16 04:57 Globulin 3.3 gm/dL 05/17/16 04:57 Albumin/Globulin Ratio 1.0 (1.0-1.8) 05/17/16 04:57 Vitamin B12 300 pg/mL (211-946) 05/15/16 05:15 Folic Acid >20.0 ng/mL (>3.0) 05/15/16 05:15 TSH 0.09 uIU/ml (0.34-5.60) L 05/15/16 05:15 Urine Source CLEAN C 05/16/16 21:43 Urine Color YELLOW 05/16/16 21:43 Urine Clarity CLEAR (CLEAR) 05/16/16 21:43 Urine pH 5.0 05/16/16 21:43 Ur Specific [place] 1.010 (1.005-1.030) 05/16/16 21:43 Urine Protein TRACE mg/dL (NEGATIVE) 05/16/16 21:43 Urine Glucose (UA) NEGATIVE mg/dL (NEGATIVE) 05/16/16 21:43 Urine Ketones NEGATIVE mg/dL (NEGATIVE) 05/16/16 21:43 Urine Blood TRACE (NEGATIVE) 05/16/16 21:43 Urine Nitrate NEGATIVE (NEGATIVE) 05/16/16 21:43 Urine Bilirubin NEGATIVE (NEGATIVE) 05/16/16 21:43 Urine Urobilinogen 0.2 E.U./dL (0.2 - 1.0) 05/16/16 21:43 Ur Leukocyte Esterase NEGATIVE (NEGATIVE) 05/16/16 21:43 Urine RBC 0-1 /hpf (0-5) 05/16/16 21:43 Urine WBC 0-2 /hpf (0-5) 05/16/16 21:43 Ur Epithelial Cells RARE /lpf (FEW) 05/16/16 21:43 Urine Bacteria FEW /hpf (NONE SEEN) 05/16/16 21:43 - Physical Exam Vitals and I&O: Vital Signs Temp 98.8 F 05/19/16 12:00 Pulse 80 05/19/16 12:00 Resp 20 05/19/16 12:00 BP 106/60 05/19/16 12:00 Pulse Ox 97 05/19/16 12:00 Intake & Output 05/18/16 05/19/16 05/19/16 18:59 06:59 18:59 Intake Total 50 300 Balance 50 300 Intake: Intake, IV Amount 50 Cefepime 1 gm In Dextrose 50 5% 50 ml @ 100 mls/hr IV Q12H [facility] Rx#:[id number] Oral 300 Other: Stool Characteristics Soft Soft Formed Active Medications: Current Medications Acetaminophen (Tylenol) 650 mg PO Q6H PRN PRN Reason: Mild Pain/Headache/T above 101 Stop: 07/13/16 23:46 Last Admin: 05/19/16 09:50 Dose: 650 mg Al Hydrox/Mg Hydrox/Simethicone (Maalox) 30 ml PO Q4HR PRN PRN Reason: GI DISTRESS Stop: 07/14/16 00:16 Albuterol Sulfate (Albuterol 2.5mg/3ml Neb Ud) 2.5 mg HHN Q6HR PRN PRN Reason: Shortness of Breath Stop: 07/14/16 00:16 Last Admin: 05/18/16 11:34 Dose: 2.5 mg Albuterol/Ipratropium (Duoneb Neb) 3 ml HHN QIDRT ARMAAN Stop: 07/15/16 06:59 Last Admin: 05/19/16 11:24 Dose: 3 ml Alprazolam (Xanax) 0.25 mg PO Q6HR PRN; Protocol PRN Reason: Anxiety Stop: 07/14/16 22:03 Last Admin: 05/19/16 00:34 Dose: 0.25 mg Artificial Tears (Artificial Tears Ophth Soln) 1 drop EACH EYE BID ARMAAN Stop: 07/14/16 08:59 Last Admin: 05/19/16 09:35 Dose: 1 drop Budesonide (Pulmicort) 0.5 mg HHN BIDRT ARMAAN Stop: 07/14/16 08:59 Last Admin: 05/19/16 07:04 Dose: Not Given Diltiazem HCl (Cardizem) 120 mg PO BID ARMAAN Stop: 07/15/16 08:59 Last Admin: 05/19/16 09:23 Dose: 120 mg Docusate Sodium (Colace) 250 mg PO BID ARMAAN Stop: 07/16/16 20:29 Last Admin: 05/19/16 09:24 Dose: 250 mg Enoxaparin Sodium (Lovenox) 30 mg SUBQ DAILY ARMAAN Stop: 07/14/16 08:59 Last Admin: 05/19/16 09:36 Dose: 30 mg Folic Acid (Folate) 1 mg PO DAILY ARMAAN Stop: 07/14/16 08:59 Last Admin: 05/19/16 09:24 Dose: 1 mg Guaifenesin (Mucinex) 600 mg PO Q12HR PRN PRN Reason: Cough or Congestion Stop: 07/17/16 19:14 Cefepime HCl 1 gm/ Dextrose 50 mls @ 100 mls/hr IV Q12H ARMAAN Stop: 07/14/16 00:59 Last Admin: 05/19/16 00:20 Dose: 100 mls/hr Levothyroxine Sodium (Synthroid) 0.2 mg PO QDAC ARMAAN Stop: 07/14/16 16:29 Last Admin: 05/19/16 09:46 Dose: 0.2 mg Lidocaine (Lidoderm 5% Patch) 1 patch TD DAILY ARMAAN Stop: 07/14/16 13:59 Last Admin: 05/19/16 09:24 Dose: 1 patch Magnesium Hydroxide (Milk Of Magnesia) 30 ml PO Q8HR PRN PRN Reason: Constipation Stop: 07/14/16 00:16 Methylprednisolone Sodium Succinate (Solu-Medrol) 40 mg IVP Q12HR ARMAAN Stop: 07/16/16 20:59 Last Admin: 05/19/16 09:22 Dose: 40 mg Morphine Sulfate (Morphine) 2 mg IVP Q4HR PRN PRN Reason: Chest Pain Stop: 07/16/16 15:23 Last Admin: 05/18/16 16:49 Dose: 2 mg Nitroglycerin (Nitrostat) 0.4 mg SL Q5MIN PRN PRN Reason: Chest Pain Stop: 07/16/16 15:22 Ondansetron HCl (Zofran) 4 mg IVP Q6H PRN PRN Reason: Nausea / Vomiting Stop: 07/13/16 23:46 Pantoprazole Sodium (Protonix) 40 mg PO DAILY ARMAAN Stop: 07/15/16 08:59 Last Admin: 05/19/16 09:23 Dose: 40 mg Sertraline HCl (Zoloft) 25 mg PO DAILY ARMAAN PRN Reason: Protocol Stop: 07/15/16 08:59 Last Admin: 05/19/16 09:23 Dose: 25 mg Zolpidem Tartrate (Ambien) 5 mg PO HS PRN PRN Reason: Insomnia Stop: 07/14/16 00:16 Last Admin: 05/17/16 23:03 Dose: 5 mg Internal Medicine Assmt/Plan - Assessment Assessment: acute copd exac acute bronchitis early pnnm, neg cxr obesity hypothyroidism noncompliance poss psych d/o - Plan Plan: cont on iv abx cont on steroid , may switch to oral dw rn had long discussion w pt at [facility] refused placement Nutritional Asmnt/Malnutr-PDOC - Dietary Evaluation Malnutrition Findings (Please click <Entered> for more info): Nutritional Asmnt/Malnutrition Start: 05/19/16 10: 16 Text: Status: Complete Freq: Document 05/19/16 10:16 ROBB (Rec: 05/19/16 10:39 [email or web address]) Nutritional Asmnt/Malnutrition Patient General Information Nutritional Screening Moderate Risk Screening Diagnosis Acute COPD exacerbation, acute bronchitis Pertinent Medical Hx/Surgical Hx CAD, chronic AFib, HTN, COPD, hypothyroidism, anemia, obesity, chronic renal insufficiency Subjective Information 75 year old female from SNF. Pt was seen sitting in a chair next to bed eating breakfast, no difficulties noted. Pt requested for a banana, RD explained high potassium vs. declining renal labs. RD recommended a renal diet for chronic renal insufficiency, pt refused and became very agitated, stating she knows her body the best, then asked RD to leave. Avg PO intake 100 % of meals, meeting nutritional needs. Current Diet Order/ Nutrition Support Cardiac Pertinent Medications Maalox, Colace, Folate, Synthroid, MOM, Solu-Medrol, Morphine, Zofran, Protonix Pertinent Labs 05/15: BUN 40H, creaitnine 1.6H, glucose 159H, potassium 4.3 05/16: A1c 5.7 05/18: BUN 54H (declining), creatinine 1.9H (declining), glucose 176H, potassium 4.2 Nutritional Hx/Data Height 1.68 m Height (Calculated Centimeters) 167.6 Current Weight (lbs) 99.79 kg Weight (Calculated Kilograms) 99.8 Weight (Calculated Grams) 07083.3 [place] Body Weight 130 Weight Status Obese GI Symptoms Food Allergies No Skin Integrity/Comment: Pa 20. Skin intact. Current %PO Good (75-100%) Estimated Nutritional Goals BEE in Kcals: Adj wt of IBW Calories/Kcals/Kg AdjBW 152.5lb/69.3kg Kcals Calculated 1733-2079kcal (25-30kcal/kg) Protein: Adj wt of IBW Protein Calculated 55-83g (0.8-1.2g/kg) Fluid: ml 1733-2079ml (1ml/kcal) Nutritional Problem 1. Problem Problem Impaired nutrient utilization related to Etiology dx. chronic renal insuffiency aeb Signs/Symptoms: declining renal labs: rn radiation oncology 1.9, BUN 54 Intervention/Recommendation Comments 1. Continue cardiac diet. Avg PO intake is adequate. 2. RD recommended renal diet, dx chronic renal insufficiency with declining renal labs since adm noted. Pt was agitated and refused plan of care. RD will continue to monitor renal labs. Expected Outcomes/Goals Expected Outcomes/Goals 1. PO intake conitnue to meet at least 75% of estimated nutritional needs. 2. Renal labs to stabilize.
[2016-05-19] MEDS: Morphine Sulfate 2 mg/mL 1mL Syr IVP PRN ×2 (16:24→21:06)
[2016-05-19] MEDS: Albuterol Nebulizer 2.5mg/3mL HHN PRN (22:51)
[2016-05-20] MEDS ORDERED: Piperacillin Sodium/Tazobact 3.375 gm Vial IV ONE (05:24)
[2016-05-20] MEDS: Levothyroxine 0.1 Mg Tab PO SCH (06:52)
[2016-05-20] MEDS: Budesonide 0.5 Mg/2 mL Ud HHN SCH ×2 (07:30→19:17)
[2016-05-20] MEDS: Albuterol/Ipratropium Neb 3 ML AERS HHN SCH ×4 (07:30→19:17)
[2016-05-20] MEDS: Diltiazem 30 mg Tab PO SCH ×4 (09:27→17:27)
[2016-05-20] MEDS: Pantoprazole 40 mg EC Tab PO SCH ×2 (09:27→09:36)
[2016-05-20] MEDS: methylPREDNISolone SS 40 mg Vial IVP SCH ×2 (09:29→20:58)
[2016-05-20] MEDS: Enoxaparin 30 mg/0.3 mL 0.3mL Syr SUBQ SCH (09:30)
[2016-05-20] MEDS: Polyvinyl Alcohol Ophth Soln 15 mL Bottle EACH EYE SCH ×3 (10:08→17:29)
[2016-05-20] MEDS: Lidocaine 5% Patch TD SCH (10:08)
--- NOTE | 2016-05-20 23:33 | Discharge Summary ---
DATE OF DISCHARGE: 05/20/2016 CHIEF COMPLAINT: Increased shortness of breath and acute chronic obstructive pulmonary disease exacerbation. FINAL DIAGNOSES: Acute chronic obstructive pulmonary disease exacerbation, acute bronchitis, possible pneumonia, coronary artery disease, chronic atrial fibrillation, hypertension, hypothyroidism, anemia, chronic renal insufficiency, hyperglycemia, low albumin, debilitation, and morbid obesity. HISTORY: This is a 75-year-old female with history of CAD, chronic AFib, hypertension, COPD, hypothyroidism, anemia, obesity, renal insufficiency, was seen initially at [facility]. She then transported here for continued care and treatment. The patient admitted for further management. PHYSICAL EXAMINATION: VITAL SIGNS: Blood pressure 131/83, respirations 17, pulse 95, and temperature is 77. GENERAL: Elderly female, appears her stated age. NECK: Supple. No mass. LUNGS: Equal breath sounds, a few rhonchi. HEART: Regular rate and rhythm without systolic ejection murmur. ABDOMEN: Soft and nontender. EXTREMITIES: Positive excoriations, trace edema. HOSPITAL COURSE: The patient was admitted to telemetry initially. The patient was referred to Dr. Jane. The patient is on IV steroids. Chest x-ray showed no definite focal pulmonary process. CT of the chest showed old chronic lesion in the lungs. The patient was cleared for discharge, but the patient refused placement medical care. CONDITION ON DISCHARGE: Fair. DISCHARGE INSTRUCTIONS: We are [facility]. JOB# [id number]
[2016-05-21] MEDS: Levothyroxine 0.1 Mg Tab PO SCH (07:28)
[2016-05-21] MEDS: Budesonide 0.5 Mg/2 mL Ud HHN SCH (07:42)
[2016-05-21] MEDS: Albuterol/Ipratropium Neb 3 ML AERS HHN SCH (07:42)
[2016-05-21] MEDS: methylPREDNISolone SS 40 mg Vial IVP SCH (08:56)
[2016-05-21] MEDS: Pantoprazole 40 mg EC Tab PO SCH (08:56)
[2016-05-21] MEDS: Enoxaparin 30 mg/0.3 mL 0.3mL Syr SUBQ SCH (08:57)
[2016-05-21] MEDS: Lidocaine 5% Patch TD SCH (09:04)
[2016-05-21] MEDS: Polyvinyl Alcohol Ophth Soln 15 mL Bottle EACH EYE SCH (09:07)
[2016-05-21] MEDS: Diltiazem 30 mg Tab PO SCH (09:12)
[2016-05-21] MEDS: Morphine Sulfate 2 mg/mL 1mL Syr IVP PRN (09:17)
== END 2016-05-21 11:00 | DRG 190 ==
LOC: MSI 21:40 → TELE 05-15 02:54
PROVIDERS: ADMIT Internal Medicine; ATTEND Internal Medicine
DX: J44.0 Chronic obstructive pulmonary disease with (acute) lower respiratory infection (principal); J18.9 Pneumonia, unspecified organism; I48.2 Chronic atrial fibrillation; D64.9 Anemia, unspecified; E66.01 Morbid (severe) obesity due to excess calories; J44.1 Chronic obstructive pulmonary disease with (acute) exacerbation; J20.9 Acute bronchitis, unspecified; I25.10 Atherosclerotic heart disease of native coronary artery without angina pectoris; E03.9 Hypothyroidism, unspecified; I12.9 Hypertensive chronic kidney disease with stage 1 through stage 4 chronic kidney disease, or unspecified chronic kidney disease; N18.9 Chronic kidney disease, unspecified; R73.9 Hyperglycemia, unspecified; Z68.35 Body mass index [BMI] 35.0-35.9, adult; Z88.1 Allergy status to other antibiotic agents; Z88.8 Allergy status to other drugs, medicaments and biological substances; Z90.49 Acquired absence of other specified parts of digestive tract; Z91.14 Patient's other noncompliance with medication regimen
CPT/HCPCS: 36415-UA; 71010-TC; 71250-TC; 80048-TC; 80053-TC; 81001-TC; 82140-TC; 82607-90; 82746-90; 83036-90; 83735-TC; 83880-TC; 84443-TC; 85025-TC; 87070; 94760; J0692; J1650; J2270; J2543; J2920; J3475; J7040; J7613; Z7610

== ENCOUNTER 2016-08-30 01:54 | Emergency (ER) | payer MEDICARE, MEDICAID ==
[2016-08-30] MEDS ORDERED: Aspirin 81mg Chewable Tab PO ONE (02:17)
[2016-08-30] MEDS ORDERED: Aspirin 81mg Chewable Tab ONE (02:24)
--- NOTE | 2016-08-30 02:37 | ED Physician Chart ---
Chief Complaint/HPI - Patient Information Date Seen:: 08/30/16 Time Seen:: 02:00 Chief Complaint:: chest pain History of Present Illness:: 76-year-old female complains of acute, constant, moderate, aching, nonradiating , 6 out of 10, generalized, chest pain since about 1:00 yesterday afternoon. Denies nausea, vomiting, diaphoresis, shortness of breath, headache, acute vision changes, nausea, vomiting, abdominal pain, numbness, tingling. Allergies:: Allergies Allergy/AdvReac Type Severity Reaction Status Date / Time levofloxacin [From Levaquin] Allergy Verified 08/30/16 02:05 niacin Allergy Verified 08/30/16 02:05 pregabalin [From Lyrica] Allergy Verified 08/30/16 02:05 Tetracyclines Allergy Verified 08/30/16 02:05 Vitals:: Vital Signs - 8 hr 08/30/16 01:54 Temp 98.8 F HR 90 RR 20 BP 145/79 O2 Sat % 94 Historian:: Patient, EMS Review:: Nurse's Note Reviewed, EMS run form Reviewed, Transfer documents Reviewed Review of Systems - Review of Systems Other: Complete system review otherwise unremarkable except as noted in history of present illness. Past Medical History - Past Medical History Past Medical History: HTN, CAD, Asthma/COPD, PUD/GERD, Other (anemia, hypothyroidism, hyperlipidemia, depressive disorder, anxiety disorder, insomnia , dry syndrome, angina pectoris, gastroesophageal reflux disease, tachycardia, shortness of breath, edema, long-term use of antibiotics, atrial fibrillation) Family History: None Social History: Non Smoker, No Alcohol, No Drug Use, Care Facility Surgical History: None Psychiatricy History: Depression Medication: Reviewed Family Medical History - Family Member Mother History Unknown: Yes Physical Exam - Physical Examination Other:: INITIAL VITAL SIGNS: Reviewed by me GENERAL: Alert and interactive. No acute distress HEAD: Head is normocephalic and atraumatic EYES: EOMI. PERRL. No scleral icterus. No conjunctival injection ENT: Moist mucous membranes. NECK: Supple. No masses. Full range of motion RESPIRATORY: No tachypnea. Clear breath sounds bilaterally. No wheezing, rales, or rhonchi CV: Regular rate and rhythm. No murmurs, rubs, or gallops ABDOMEN: Soft, non-distended, non-tender. No guarding. No rebound. No masses. EXTREMITIES: No deformity. No cyanosis. No edema. SKIN: Warm and dry. No obvious rashes. NEUROLOGIC: Alert and oriented. Face is symmetric. Speech is normal. Moves all extremities equally. Motor and sensory distally intact. Labs/Radiology/EKG Results - Lab Results Results: Lab Results 08/30/16 08/30/16 08/30/16 Range/Units 02:20 02:20 02:20 PT 9.7 (9.5-11.5) SECONDS INR 0.93 (0.5-1.4) Sodium 133 L (136-145) mEq/L Potassium 4.3 (3.5-5.1) mEq/L Chloride 99 (98-107) mEq/L Carbon Dioxide 29.9 (21.0-31.0) mEq/L Anion Gap 8.4 (7.0-16.0) BUN 42 H (7-25) mg/dL Creatinine 1.9 H (0.6-1.2) mg/dL Est GFR ( Amer) TNP Est GFR (Non-Af Amer) TNP BUN/Creatinine Ratio 22.1 Glucose 109 H (70-105) mg/dL Calcium 9.8 (8.6-10.3) mg/dL Creatine Kinase 40 (30-223) U/L Troponin I 0.03 (0.01-0.05) ng/mL B-Natriuretic Peptide 93.4 (5.0-100.0) pg/mL Triglycerides 243 H (<150) mg/dL Cholesterol 206 H (<200) mg/dL LDL Cholesterol Direct 127 (75-193) mg/dL HDL Cholesterol 39 (23-92) mg/dL - Radiology Results Comments:: Single AP VIEW Portable Chest X-ray was interpreted independently and contemporaneously by Tatyana Calero MD: No cardiomegaly Normal mediastinum No lung infiltrates No pneumothorax No soft tissue or bony abnormalities - EKG Interpretations Comments:: 12-lead EKG Interpretation by Tatyana Calero MD: Normal Sinus Rhythm with ventricular rate of 75 beats per minute Normal axis Normal intervals No acute ST or T wave changes. No obvious STEMI ED Septic Shock - . Is Septic Shock (SBP<90, OR Lactate>4 mmol\L) present?: No - <6hrs of presentation: Vital Signs: Vital Signs - 8 hr 08/30/16 01:54 Temp 98.8 F HR 90 RR 20 BP 145/79 O2 Sat % 94 Reassessment (Disposition) - Reassessment Reassessment:: 76-year-old female with history of angina pectoris, complains of chest pain since about 1 PM this afternoon. Apparently she has already been to a different emergency room this afternoon and was discharged back to her long-term facility. Troponins are negative. EKG shows A. fib which is chronic. Patient is on Lovenox. Labs essentially unremarkable. Discussed with her primary physician. Apparently, per the primary care physician, this patient has a history of calling 911 for inappropriate nonemergency reasons. Patient discharged back to the nursing facility. Regular follow-up with primary 1-2 days recommended. Return to ER precautions given. Patient says she understands and agrees with the plan. Reassessment Condition:: Improved - Diagnosis Diagnosis:: Chest pain, acute, unspecified - Aftercare/Follow up Instructions Aftercare/Follow-Up Instructions:: Counseled pt regarding lab results/diagnosis & need follow up, Refer to Discharge Instructions - Patient Disposition Discharge/Transfer:: Home Time:: 03:17 Condition at Disposition:: Improved ED Discharge Plan - Patient Disposition Admit/Discharge/Transfer: PT DISCHARGED HOME Condition at Disposition: Improved Instructions: Chest Pain Observation
[2016-08-30 02:46] LABS: TROP I 0.03 ng/mL (0.01-0.05)
[2016-08-30 02:49] LABS: INR 0.93 (0.5-1.4)
[2016-08-30 02:59] LABS: ANION GAP 8.4 (7.0-16.0); BUN - UREA NITROGEN 42 mg/dL (7-25); BUN/CREATININE RATIO 22.1; CALCIUM SERUM 9.8 mg/dL (8.6-10.3); CARBON DIOXIDE 29.9 mEq/L (21.0-31.0); CHLORIDE 99 mEq/L (98-107); CHOLESTEROL 206 mg/dL (<200); CREATININE - SERUM 1.9 mg/dL (0.6-1.2); GLUCOSE 109 mg/dL (70-105); POTASSIUM SERUM 4.3 mEq/L (3.5-5.1); SODIUM SERUM 133 mEq/L (136-145); TRIGLYCERIDES 243 mg/dL (<150)
[2016-08-30 03:02] LABS: BNP 93.4 pg/mL (5.0-100.0)
[2016-08-30 03:34] LABS: PROTHROMBIN TIME (TEST) 9.7 SECONDS (9.5-11.5)
[2016-08-30 09:04] LABS: HEMOGLOBIN 11.5 gm/dL (11.7-16.1); RED BLOOD COUNT 3.61 Mil/cmm (3.80-5.20); WHITE BLOOD COUNT 7.8 Th/cmm (4.8-10.8)
[2016-08-30 09:05] LABS: HEMATOCRIT 35.1 % (35.0-45.0); MEAN CELL VOLUME 97.2 fl (81-100); MEAN CORPUSCULAR HEMOGLOBIN 31.9 pg (27.0-31.0); MEAN CORPUSCULAR HGB CONC 32.8 pg (28.0-36.0); RED CELL DISTRIBUTION WIDTH 14.4 % (11.5-20.0)
[2016-08-30 09:06] LABS: % BASOPHILS 0.3 % (0.0-2.0); % EOSINOPHILS 3.2 % (0.0-5.0); % LYMPHOCYTES 30.7 % (20.0-50.0); % MONOCYTES 9.7 % (2.0-10.0); % NEUTROPHILS 56.1 % (40.0-80.0)
--- NOTE | 2016-08-30 11:10 | Diagnostic Imaging Report ---
Exam: Portable examination of the chest HISTORY: Chest pain Findings: Portable upright examination of the chest at 0314 hours was reviewed. The study demonstrates severe rotation of patient. The aortic arch calcified. COPD changes are noted. Bony thorax remarkable for degenerative osteopenia. No acute pulmonic infiltrates or effusions appreciated. IMPRESSION: COPD changes, no acute disease
== END 2016-08-30 03:45 | disposition home or self-care (01) ==
LOC: ER 01:54
DX: R07.89 Other chest pain (principal); I10 Essential (primary) hypertension; I25.10 Atherosclerotic heart disease of native coronary artery without angina pectoris; J45.909 Unspecified asthma, uncomplicated; J44.9 Chronic obstructive pulmonary disease, unspecified; K21.9 Gastro-esophageal reflux disease without esophagitis; Z88.1 Allergy status to other antibiotic agents; Z88.8 Allergy status to other drugs, medicaments and biological substances
CPT/HCPCS: 36415-UA; 71010-TC; 80048-TC; 80061-TC; 82550-TC; 83880-TC; 84484-TC; 85025-TC; 85610-TC; 93005; Z7610

== ENCOUNTER 2016-10-06 20:26 | Inpatient (IN) | payer MEDICARE, MEDICAID ==
[2016-10-06] MEDS ORDERED: Hydrocodone/APAP 5mg/325mg Tab PO ONE (20:45)
[2016-10-06] MEDS ORDERED: Hydrocodone/APAP 5mg/325mg Tab ONE (20:45)
[2016-10-06] MEDS ORDERED: EPINEPHRine /Lidocaine 1% 20 mL Vial INJ ONE (20:45)
[2016-10-06] MEDS ORDERED: Morphine Sulfate 4 mg/mL 1mL Syr IM STA (20:50)
[2016-10-06] MEDS ORDERED: Morphine Sulfate 4 mg/mL 1mL Syr ONE (20:55)
--- NOTE | 2016-10-06 21:05 | ED Physician Chart ---
Chief Complaint/HPI - Patient Information Date Seen:: 10/06/16 Time Seen:: 20:52 Chief Complaint:: l leg injury History of Present Illness:: pt has l leg injury since 1 hr ago...she was in her NH and was attempting to get to bathroom on her own but walker and weelchair were not nearby so she attempted to walk by holding onto bedside table. lost balance and had a fall which she recalls well. no head impact or ALICIA or neck pain. has lrg cut on ant rt chung. can move leg ok. sensation in leg ok. bleeding ctrld. Allergies:: Allergies Allergy/AdvReac Type Severity Reaction Status Date / Time levofloxacin [From Levaquin] Allergy Verified 08/30/16 02:05 niacin Allergy Verified 08/30/16 02:05 pregabalin [From Lyrica] Allergy Verified 08/30/16 02:05 Tetracyclines Allergy Verified 08/30/16 02:05 Historian:: Patient Review of Systems - Review of Systems General/Constitutional: No fever, No chills, No weight loss, No weakness, No diaphoresis, No edema, No loss of appetite Skin: No skin lesions, No rash, No bruising Head: No headache, No light-headedness Eyes: No loss of vision, No pain, No diplopia ENT: No earache, No nasal drainage, No sore throat, No tinnitus Neck: No neck pain, No swelling, No thyromegaly, No stiffness, No mass noted Cardio Vascular: No chest pain, No palpitations, No PND, No orthopnea, No edema Pulmonary: No SOB, No cough, No sputum, No wheezing GI: No nausea, No vomiting, No diarrhea, No pain, No melena, No hematochezia, No constipation, No hematemesis G/U: No dysuria, No frequency, No hematuria Musculoskeletal: Bone or joint pain, No back pain, No muscle pain Endocrine: No polyuria, No polydipsia Psychiatric: No prior psych history, No depression, No anxiety, No suicidal ideation Hematopoietic: No bruising, No lymphadenopathy Allergic/Immuno: No urticaria, No angioedema Neurological: No syncope, No focal symptoms, No weakness, No paresthesia, No headache, No seizure, No dizziness, No confusion, No vertigo Past Medical History - Past Medical History Social History: Care Facility Medication: Reviewed Family Medical History - Family Member Mother History Unknown: Yes Physical Exam - Physical Examination General/Constitutional: Awake, Well-developed, well-nourished, Alert, No distress, GCS 15, Non-toxic appearing, Ambulatory Other Gen/Cons comments:: alert female. conversive. nad. nrml neuro status. wn/wh. lrg lac on ant rt chung. Head: Atraumatic Eyes: Lids, conjuctiva normal, PERRL, EOMI Skin: Nl inspection, No rash, No skin lesions, No ecchymosis, Well hydrated, No lymphadenopathy ENMT: External ears, nose nl, Nasal exam nl, Lips, teeth, gums nl Neck: Nontender, Full ROM w/o pain, No JVD, No nuchal rigidity, No bruit, No mass, No stridor Respiratory: Nl effort/Exclusion, Clear to Auscultation, No Wheeze/Rhonchi/Rales Cardio Vascular: RRR, No murmur, gallop, rubs, NL S1 S2 GI: No tenderness/rebounding/guarding, No organomegaly, No hernia, Normal BS's, Nondistended, No mass/bruits, No McBurney tenderness : No CVA tenderness Extremities: No tenderness or effusion, Full ROM, normal strength in all extremities, No edema, Normal digits & nails Other Extremities comments:: lrg lac on ant rt chung. sq fat exposed. pt can straight leg raise on on lower leg. ok distal pulses. Neuro/Psych: Alert/oriented, DTR's symmetric, Normal sensory exam, Normal motor strength, Judgement/insight normal, Mood normal, Normal gait, No focal deficits Misc: normal gait, Normal back, No paraspinal tenderness Labs/Radiology/EKG Results - EKG Interpretations EKG Time:: 20:00 Rate & Rhythm: a fib w vent rate 105 Ferdinand: 91 Intervals: t+st segs ok Assessment Location:: rt anterior chung LAC - scaphoid about 10 inch length large lac w exposed sq fat. clean without dirt of f.b. no vascular bleed. no nerve injury. pt can straight leg raise and has no bony pain on stress above/below wound. betadyne prep. washed w copious NS. explored. closed w 3 horrizontal mattress 3.0 nylon sutures for approximation and 15 simple 3.0 sutures to complete closure. ( of note the pts wound is very large and under sig tension. I asked pharmacist in charge owner [place] to procure a stronger suture materila than 3.0 as I was concerned it might not be strong enough for this job..especially w initial tension of first approximation sutures...I was informed stronger suture is not available as pharmacist in charge owner does not have access to OR supplies) Laceration Type:: Complex Wound Length: 25.4 cm ED Septic Shock - . Is Septic Shock (SBP<90, OR Lactate>4 mmol\L) present?: No Reassessment (Disposition) - Reassessment Reassessment:: 9:47pm case dw Dr Olivas...after a vague message from staff about Dr Shah wanting to do labs...per Dr Shah staff has had concern lately w weakness progressive...also there was a recent pneumonia that was of concern... I was not given info on this at time of arrival. Dr Shah is planning admit for obsevation. Reassessment Condition:: Improved - Diagnosis Diagnosis:: 1 10 inch leg lac s/p sutured in ed 2 progressive weakness - Patient Disposition Admitted to:: Med/Surg Condition at Disposition:: Improved ED Discharge Plan - Patient Disposition Admit/Discharge/Transfer: Acute Care w/in this hosp Condition at Disposition: Stable
[2016-10-06] MEDS ORDERED: Albuterol/Ipratropium Neb 3 ML AERS HHN PRN (21:47)
[2016-10-06] MEDS ORDERED: Bacitracin pkt 1 gm Pkt TP ONE (21:49)
[2016-10-06] MEDS ORDERED: guaiFENesin 200 MG/10 ML UDC PO PRN (21:52)
[2016-10-06] MEDS ORDERED: Bacitracin pkt 1 gm Pkt TP STA (22:05)
[2016-10-06 22:26] LABS: % EOSINOPHILS 2.1 % (0.0-5.0); HEMOGLOBIN 10.3 gm/dL (11.7-16.1)
[2016-10-06 22:29] LABS: % BASOPHILS 0.2 % (0.0-2.0); % LYMPHOCYTES 19.2 % (20.0-50.0); % MONOCYTES 6.5 % (2.0-10.0); MEAN CELL VOLUME 97.4 fl (81-100); MEAN CORPUSCULAR HEMOGLOBIN 32.5 pg (27.0-31.0); MEAN CORPUSCULAR HGB CONC 33.3 pg (28.0-36.0); MEAN PLATELET VOLUME 8.1 fl; NEUTROPHILE ABSOLUTE 7.7 Th/cmm (1.8-8.0); PLATELET COUNT 180 Th/cmm (150-400); RED BLOOD COUNT 3.18 Mil/cmm (3.80-5.20); RED CELL DISTRIBUTION WIDTH 13.4 % (11.5-20.0)
[2016-10-06 22:31] LABS: HEMATOCRIT 30.9 % (35.0-45.0); WHITE BLOOD COUNT 10.7 Th/cmm (4.8-10.8)
[2016-10-06 22:41] LABS: ALB/GLOB RATIO 1.2 (1.0-1.8); ALKALINE PHOSPHATASE 91 U/L (34-104); ANION GAP 6.7 (7.0-16.0); BILIRUBIN,TOTAL 0.3 mg/dL (0.3-1.0); BUN - UREA NITROGEN 46 mg/dL (7-25); BUN/CREATININE RATIO 21.9; CALCIUM SERUM 9.1 mg/dL (8.6-10.3); CARBON DIOXIDE 30.8 mEq/L (21.0-31.0); CHLORIDE 101 mEq/L (98-107); CREATININE - SERUM 2.1 mg/dL (0.6-1.2); GLUCOSE 145 mg/dL (70-105); POTASSIUM SERUM 4.5 mEq/L (3.5-5.1); SGOT 13 U/L (13-39); SGPT/ALT 11 U/L (7-52); SODIUM SERUM 134 mEq/L (136-145)
[2016-10-06] MEDS ORDERED: Bacitracin pkt 1 gm Pkt TP SCH (22:45)
[2016-10-06 23:59] VITALS: BP 110/65
[2016-10-07] MEDS: Atorvastatin Calcium 10 MG TAB PO SCH ×2 (00:05→09:29)
[2016-10-07] MEDS: D5-0.45NS 1,000 ML IV SCH ×2 (00:12→12:40)
[2016-10-07] MEDS: Hydrocodone/APAP 10 mg/325 mg Tab PO PRN ×4 (01:11→22:54)
[2016-10-07] MEDS: Levothyroxine 0.075 Mg Tab PO SCH (07:49)
[2016-10-07] MEDS: Levothyroxine 0.1 Mg Tab PO SCH (07:50)
[2016-10-07] MEDS ORDERED: VTE Chemical Prophylaxis Screen/Admission MC PRN (07:53)
[2016-10-07] MEDS: Albuterol Nebulizer 2.5mg/3mL HHN SCH ×4 (08:02→19:26)
[2016-10-07] MEDS ORDERED: Enoxaparin 30 mg/0.3 mL 0.3mL Syr SUBQ SCH (09:00)
[2016-10-07] MEDS: Budesonide 0.5 Mg/2 mL Ud HHN SCH ×2 (09:00→19:27)
[2016-10-07] MEDS: Lidocaine 5% Patch TD SCH (09:25)
[2016-10-07] MEDS: Polyvinyl Alcohol Ophth Soln 15 mL Bottle EACH EYE SCH ×2 (09:27→16:59)
[2016-10-07] MEDS: Diltiazem CD 120 mg 24H PO SCH (09:28)
[2016-10-07] MEDS: Aspirin 81mg Chewable Tab PO SCH (09:28)
[2016-10-07] MEDS: NIFEdipine 30 mg ER Tab PO SCH (09:31)
[2016-10-07] MEDS: Ferrous Sulfate 325 MG TAB PO SCH (09:31)
[2016-10-07] MEDS: Pantoprazole 40 mg EC Tab PO SCH (09:32)
--- NOTE | 2016-10-07 13:38 | History & Physical ---
ADMIT DATE: 10/07/2016 CHIEF COMPLAINT: Status post fall, generalized weakness. HISTORY OF PRESENT ILLNESS: This is a 76-year-old female with history of renal failure, hypothyroidism, CAD, atrial fibrillation, COPD, obesity, who was admitted from nursing facility, apparently fell in the restroom. The patient has a large laceration in the right chung, which was referred by ____ in the ER. She is complaining of being weak and sleepy. PAST MEDICAL HISTORY: As mentioned in history present illness. PAST SURGICAL HISTORY: Status post appendectomy and hernia repair, rhinoplasty. ALLERGIES: LEVAQUIN, NIACIN, PREGABALIN, TETRACYCLINE. MEDICATIONS: Tylenol, alprazolam, amiodarone, aspirin, Lipitor, Pulmicort, Colace, folic acid, Phelps, nifedipine, Zoloft. FAMILY HISTORY: Noncontributory. SOCIAL HISTORY: The patient is a fdc patient requiring 24-hour total care. REVIEW OF SYSTEMS: This is limited secondary to the patient's current mental state. We will try to obtain more detailed review of systems at a later date by talking to family member ____ service conservator, Shawna Allred from [facility] #[phone]. We will also try to get information from nursing staff at [facility], #[phone] as well as from Dr. Tran, who normally follows the patient at the nursing facility. PHYSICAL EXAMINATION: VITAL SIGNS: Blood pressure 124/60, respirations 18, pulse 103, temperature 98.0. GENERAL: Elderly female, morbidly obese. NECK: Supple. No mass. LUNGS: Equal breath sounds, few rhonchi. HEART: Regular rate and rhythm with systolic ejection murmur. Positive ectopic beats. ABDOMEN: Soft, globular, positive bowel sounds. EXTREMITIES: Positive excoriations. Wound on the right chung. NEUROLOGIC: Limited. LABORATORY DATA: WBC 7.7, hemoglobin 10.3, platelets 180. Sodium 134, potassium 4.5, BUN 46, creatinine 2.1, blood sugar 145, albumin 3.6. ASSESSMENT: Right lower extremity laceration status post suture, generalized weakness, status post fall, acute renal failure, dehydration, hyponatremia, anemia, hypothyroidism, coronary artery disease, paroxysmal atrial fibrillation, chronic obstructive pulmonary disease, obesity, hypertension. PLAN: We will continue the patient with wound care. We will provide the patient with empiric IV antibiotic. We will place the patient on fall precaution. We will referred the patient to Physical Therapy as well as Psychiatry for adjustment of her psychotropic medication. We will continue to monitor the patient closely. Case was discussed with nursing staff. JOB# [id number]
[2016-10-07] MEDS ORDERED: CEFAZOLIN IV SCH (21:00)
[2016-10-07] MEDS ORDERED: NS 0.9% IV SCH (21:00)
[2016-10-08] MEDS: Hydrocodone/APAP 10 mg/325 mg Tab PO PRN ×3 (05:56→23:04)
[2016-10-08] MEDS: Levothyroxine 0.075 Mg Tab PO SCH (06:52)
[2016-10-08] MEDS: Levothyroxine 0.1 Mg Tab PO SCH (06:52)
[2016-10-08 07:04] LABS: % BASOPHILS 0.4 % (0.0-2.0); % LYMPHOCYTES 23.3 % (20.0-50.0); % MONOCYTES 11.1 % (2.0-10.0); % NEUTROPHILS 62.2 % (40.0-80.0); HEMOGLOBIN 8.8 gm/dL (11.7-16.1); MEAN CELL VOLUME 97.4 fl (81-100); MEAN CORPUSCULAR HEMOGLOBIN 32.3 pg (27.0-31.0); MEAN CORPUSCULAR HGB CONC 33.1 pg (28.0-36.0); MEAN PLATELET VOLUME 8.2 fl; RED BLOOD COUNT 2.73 Mil/cmm (3.80-5.20); RED CELL DISTRIBUTION WIDTH 13.3 % (11.5-20.0)
[2016-10-08 07:23] LABS: ANION GAP 6.9 (7.0-16.0); BUN - UREA NITROGEN 44 mg/dL (7-25); CALCIUM SERUM 8.9 mg/dL (8.6-10.3); CARBON DIOXIDE 30.7 mEq/L (21.0-31.0); CHLORIDE 103 mEq/L (98-107); CREATININE - SERUM 2.2 mg/dL (0.6-1.2); GLUCOSE 105 mg/dL (70-105); POTASSIUM SERUM 4.6 mEq/L (3.5-5.1); SODIUM SERUM 136 mEq/L (136-145)
[2016-10-08 07:48] LABS: WHITE BLOOD COUNT 6.4 Th/cmm (4.8-10.8)
[2016-10-08 07:49] LABS: HEMATOCRIT 26.6 % (35.0-45.0); PLATELET COUNT 139 Th/cmm (150-400)
[2016-10-08] MEDS: Budesonide 0.5 Mg/2 mL Ud HHN SCH ×2 (07:52→19:48)
[2016-10-08] MEDS: Albuterol Nebulizer 2.5mg/3mL HHN SCH ×4 (07:52→19:48)
[2016-10-08 08:06] LABS: BNP 68.3 pg/mL (5.0-100.0)
[2016-10-08] MEDS: Aspirin 81mg Chewable Tab PO SCH (08:40)
[2016-10-08] MEDS: Ferrous Sulfate 325 MG TAB PO SCH (08:40)
[2016-10-08] MEDS: Atorvastatin Calcium 10 MG TAB PO SCH (08:42)
[2016-10-08] MEDS: Diltiazem CD 120 mg 24H PO SCH (08:43)
[2016-10-08] MEDS: Pantoprazole 40 mg EC Tab PO SCH (08:51)
[2016-10-08] MEDS: NIFEdipine 30 mg ER Tab PO SCH (08:52)
[2016-10-08] MEDS: Polyvinyl Alcohol Ophth Soln 15 mL Bottle EACH EYE SCH ×2 (09:37→18:39)
[2016-10-08] MEDS: Lidocaine 5% Patch TD SCH (09:38)
[2016-10-08] MEDS: D5-0.45NS 1,000 ML IV SCH ×2 (09:47→21:22)
--- NOTE | 2016-10-08 12:42 | Internal Medicine Prog Note ---
Internal Medicine Subjective - Subjective Patient seen and examined:: with staff, chart reviewed, other (co headache) Patient is:: awake, verbal, interactive, in bed, talking Patient Complaints of:: LBP Per staff patient has:: poor appetite, unstable gait, tolerating meds Internal Medicine Objective - Results Result Diagrams: 10/08/16 06:16 10/08/16 06:16 Recent Labs: Laboratory Last Values WBC 6.4 Th/cmm (4.8-10.8) D 10/08/16 06:16 RBC 2.73 Mil/cmm (3.80-5.20) L 10/08/16 06:16 Hgb 8.8 gm/dL (11.7-16.1) L 10/08/16 06:16 Hct 26.6 % (35.0-45.0) L D 10/08/16 06:16 MCV 97.4 fl (81-100) 10/08/16 06:16 MCH 32.3 pg (27.0-31.0) H 10/08/16 06:16 MCHC Differential 33.1 pg (28.0-36.0) 10/08/16 06:16 RDW 13.3 % (11.5-20.0) 10/08/16 06:16 Plt Count 139 Th/cmm (150-400) L D 10/08/16 06:16 MPV 8.2 fl 10/08/16 06:16 Neutrophils % 62.2 % (40.0-80.0) 10/08/16 06:16 Lymphocytes % 23.3 % (20.0-50.0) 10/08/16 06:16 Monocytes % 11.1 % (2.0-10.0) H 10/08/16 06:16 Eosinophils % 3.0 % (0.0-5.0) 10/08/16 06:16 Basophils % 0.4 % (0.0-2.0) 10/08/16 06:16 Sodium 136 mEq/L (136-145) 10/08/16 06:16 Potassium 4.6 mEq/L (3.5-5.1) 10/08/16 06:16 Chloride 103 mEq/L (98-107) 10/08/16 06:16 Carbon Dioxide 30.7 mEq/L (21.0-31.0) 10/08/16 06:16 Anion Gap 6.9 (7.0-16.0) L 10/08/16 06:16 BUN 44 mg/dL (7-25) H 10/08/16 06:16 Creatinine 2.2 mg/dL (0.6-1.2) H 10/08/16 06:16 Est GFR ( Amer) TNP 10/08/16 06:16 Est GFR (Non-Af Amer) TNP 10/08/16 06:16 BUN/Creatinine Ratio 20.0 10/08/16 06:16 Glucose 105 mg/dL (70-105) 10/08/16 06:16 Hemoglobin A1c % 5.2 % (4.0-6.0) 10/08/16 06:16 Calcium 8.9 mg/dL (8.6-10.3) 10/08/16 06:16 Magnesium 2.0 mg/dL (1.9-2.7) 10/08/16 06:16 Total Bilirubin 0.3 mg/dL (0.3-1.0) 10/06/16 22:01 AST 13 U/L (13-39) 10/06/16 22:01 ALT 11 U/L (7-52) 10/06/16 22:01 Alkaline Phosphatase 91 U/L (34-104) 10/06/16 22:01 B-Natriuretic Peptide 68.3 pg/mL (5.0-100.0) 10/08/16 06:16 Total Protein 6.5 gm/dL (6.0-8.3) 10/06/16 22:01 Albumin 3.6 gm/dL (3.7-5.3) L 10/06/16 22:01 Globulin 2.9 gm/dL 10/06/16 22:01 Albumin/Globulin Ratio 1.2 (1.0-1.8) 10/06/16 22:01 TSH 0.50 uIU/ml (0.34-5.60) 10/08/16 06:16 - Physical Exam Vitals and I&O: Vital Signs Temp 98.6 F 10/08/16 08:00 Pulse 103 10/08/16 11:23 Resp 18 10/08/16 11:23 BP 146/76 10/08/16 08:00 Pulse Ox 96 10/08/16 11:23 Intake & Output 10/07/16 10/08/16 10/08/16 18:59 06:59 18:59 Intake Total 2847.333 1400 Balance 2847.333 1400 Weight (lbs) 108.409 kg 108.664 kg Intake: Intake, IV Amount 5609.348 6521 D5-0.45NS 1,000 ml @ 80 732.665 4826 mls/hr IV .[id number] [facility] Rx #:[id number] ceFAZolin 1 gm In 50 Dextrose 5% 50 ml @ 100 mls/hr IV Q8H [facility] Rx#: [id number] Oral 1800 400 Other: # Voids 4 3 # Bowel Movements 0 0 Active Medications: Current Medications Acetaminophen (Tylenol) 650 mg PO Q6HR PRN PRN Reason: Pain or Fever >101 Stop: 12/05/16 21:46 Acetaminophen/Hydrocodone Bitart ([place] 10 Mg/325 Mg) 1 tab PO Q4H PRN PRN Reason: Pain (Severe) Stop: 12/05/16 21:46 Last Admin: 10/08/16 05:56 Dose: 1 tab Albuterol Sulfate (Albuterol 2.5mg/3ml Neb Ud) 2.5 mg HHN QIDRT [facility] Stop: 12/06/16 06:59 Last Admin: 10/08/16 11:23 Dose: Not Given Albuterol/Ipratropium (Duoneb Neb) 3 ml HHN Q8HRT PRN PRN Reason: Shortness of Breath Stop: 12/05/16 21:46 Alprazolam (Xanax) 0.25 mg PO Q6HR PRN; Protocol PRN Reason: Anxiety Stop: 12/05/16 21:46 Amiodarone HCl (Cordarone) 400 mg PO DAILY [facility] Stop: 12/06/16 08:59 Last Admin: 10/08/16 08:44 Dose: 400 mg Artificial Tears (Artificial Tears Ophth Soln) 2 drop EACH EYE BID [facility] Stop: 12/06/16 08:59 Last Admin: 10/08/16 09:37 Dose: 2 drop Aspirin (Aspirin Chewable) 81 mg PO DAILY [facility] Stop: 12/06/16 08:59 Last Admin: 10/08/16 08:40 Dose: Not Given Atorvastatin Calcium (Lipitor) 20 mg PO DAILY [facility] Stop: 12/05/16 22:59 Last Admin: 10/08/16 08:42 Dose: Not Given Budesonide (Pulmicort) 0.5 mg HHN BIDRT [facility] Stop: 12/06/16 08:59 Last Admin: 10/08/16 07:52 Dose: Not Given Diltiazem HCl (Cardizem Cd) 120 mg PO DAILY [facility] Stop: 12/06/16 08:59 Last Admin: 10/08/16 08:43 Dose: 120 mg Docusate Sodium (Colace) 100 mg PO DAILY [facility] Stop: 12/06/16 08:59 Last Admin: 10/08/16 08:39 Dose: 100 mg Ferrous Sulfate (Iron) 324 mg PO DAILY [facility] Stop: 12/06/16 08:59 Last Admin: 10/08/16 08:40 Dose: 324 mg Folic Acid (Folate) 1 mg PO DAILY [facility] Stop: 12/06/16 08:59 Last Admin: 10/08/16 08:51 Dose: 1 mg Guaifenesin (Robitussin) 200 mg PO Q4HR PRN PRN Reason: Cough or Congestion Stop: 12/05/16 21:51 Dextrose/Sodium Chloride (D5-0.45ns) 1,000 mls @ 80 mls/hr IV .[id number] [facility] Stop: 12/05/16 21:59 Last Admin: 10/08/16 09:47 Dose: 80 mls/hr Cefazolin Sodium 1 gm/ (Dextrose) 50 mls @ 100 mls/hr IV Q8H [facility] Stop: 12/06/16 13:59 Last Admin: 10/07/16 21:31 Dose: 100 mls/hr Levothyroxine Sodium (Synthroid) 0.1 mg PO QDAC [facility] Stop: 12/06/16 06:59 Last Admin: 10/08/16 06:52 Dose: 0.1 mg Levothyroxine Sodium (Synthroid) 0.075 mg PO QDAC [facility] Stop: 12/06/16 07:29 Last Admin: 10/08/16 06:52 Dose: 0.075 mg Lidocaine (Lidoderm 5% Patch) 1 patch TD DAILY [facility] Stop: 12/06/16 08:59 Last Admin: 10/08/16 09:38 Dose: 1 patch Magnesium Hydroxide (Milk Of Magnesia) 30 ml PO DAILY PRN PRN Reason: Constipation Stop: 12/05/16 21:46 Miscellaneous (Vte Chemical Prophylaxis Screen/ Admission) 1 ea MC PRN PRN PRN Reason: PROTOCOL Stop: 12/06/16 07:52 Miscellaneous (Clinical Monitoring) 1 ea MC DAILY PRN PRN Reason: RENAL Stop: 12/06/16 07:56 Nifedipine (Procardia Xl) 30 mg PO DAILY [facility] Stop: 12/06/16 08:59 Last Admin: 10/08/16 08:52 Dose: Not Given Nitroglycerin (Nitrostat) 0.4 mg SL Q5MIN PRN PRN Reason: Chest Pain Stop: 12/05/16 21:46 Ondansetron HCl (Zofran) 4 mg IV Q8H PRN PRN Reason: Nausea / Vomiting Stop: 12/05/16 21:51 Pantoprazole Sodium (Protonix) 40 mg PO DAILY [facility] Stop: 12/06/16 08:59 Last Admin: 10/08/16 08:51 Dose: 40 mg Sertraline HCl (Zoloft) 50 mg PO BID [facility] Stop: 12/05/16 22:59 Last Admin: 10/08/16 08:42 Dose: 50 mg Zolpidem Tartrate (Ambien) 5 mg PO HS PRN PRN Reason: Insomnia Stop: 12/05/16 21:46 Last Admin: 10/08/16 00:14 Dose: 5 mg General: obese, appears younger HEENT: NC/AT, PERRLA, EOMI Neck: Supple, No JVD Lungs: congested Cardiovascular: RRR, Normal S1, Normal S2, with murmur Abdomen: soft, globular, positive bowel sound Extremities: edema (lle), excoriation Neurological: no change, unsteady, bedbound - Procedures Procedures: Procedures Procedure Code Date REPAIR R LOW LEG SUBCU/FASCIA, OPEN APPROACH [id number] 10/06/16 SKIN TISSUE PROCEDURE 69523 10/06/16 Internal Medicine Assmt/Plan - Assessment Assessment: Right lower extremity laceration status post suture, generalized weakness, status post fall, acute renal failure, dehydration, hyponatremia, anemia, hypothyroidism, coronary artery disease, paroxysmal atrial fibrillation, chronic obstructive pulmonary disease, obesity, hypertension. headache - Plan Plan: will do head ct and xray rle PLAN: We will continue the patient with wound care. We will provide the patient with empiric IV antibiotic. We will place the patient on fall precaution. We will referred the patient to Physical Therapy as well as Psychiatry for adjustment of her psychotropic medication. We will continue to monitor the patient closely. Case was discussed with pt
--- NOTE | 2016-10-08 15:51 | Diagnostic Imaging Report ---
Right knee (2 views) HISTORY: Pain, trauma Marked medial joint space narrowing. Spur formation noted about the medial tibial plateau. Irregularity noted along the articular surfaces of the medial joint compartment. Small spur formation also noted about the lateral femoral condyle and lateral tibial plateau regions. Narrowing and hypertrophic bone formation seen about the patellofemoral joint area. Atherosclerotic vascular calcination is noted. No acute abnormalities. No fractures are seen at this time. IMPRESSION: 1. No acute bony abnormalities 2. Relatively severe degenerative joint disease 3. Atherosclerotic vascular changes
--- NOTE | 2016-10-08 23:59 | Consultation ---
DATE OF CONSULTATION: 10/08/2016 HISTORY OF PRESENT ILLNESS: A 76-year-old female apparently conserved, history of renal failure, hypothyroidism, CAD, AFib, COPD, obesity, states she was diagnosed with dementia in the past, also depression. On [id number], the patient was rambling, tangential, needs to be redirected. Denies any overt depression at this time. No sadness. States she is sleeping well and states that she wants to get off the conservatorship and wants my help. PAST PSYCHIATRIC HISTORY: Unclear, but she tells me that she was diagnosed with dementia. She states that it was a false diagnosis, also depression, and also conserved. FAMILY HISTORY: Noncontributory. SOCIAL HISTORY: The patient was born in [place]. States she was a few times. States that she was to the man who was the heir of the [employer] referring to the store, and that she is very wealthy. No children. Unclear drug history. MENTAL STATUS EXAMINATION: Overweight female appearing in poor health. Speech is rambling, pressured. Mood is "okay." Affect constricted. Thought processes were tangential. No SI, no HI, but she appears quite grandiose. Insight diminished. Judgment diminished. PROVISIONAL DIAGNOSIS: The patient notes that she was diagnosed with dementia, also mood, unspecified. MEDICAL: Multiple medical problems as noted. RECOMMENDATIONS AND PLAN: We will continue to monitor and followup. Continue Zoloft. The patient may also benefit from dosing of Aricept and Namenda. [facility]# [id number]
[2016-10-09] MEDS: D5-0.45NS 1,000 ML IV SCH ×2 (05:59→11:29)
[2016-10-09] MEDS: Levothyroxine 0.1 Mg Tab PO SCH (06:35)
[2016-10-09] MEDS: Albuterol Nebulizer 2.5mg/3mL HHN SCH ×4 (07:29→19:01)
[2016-10-09] MEDS: Budesonide 0.5 Mg/2 mL Ud HHN SCH ×2 (07:29→19:01)
[2016-10-09] MEDS: Hydrocodone/APAP 10 mg/325 mg Tab PO PRN ×3 (07:51→22:30)
[2016-10-09] MEDS: Diltiazem CD 120 mg 24H PO SCH (09:32)
[2016-10-09] MEDS: Pantoprazole 40 mg EC Tab PO SCH (09:34)
[2016-10-09] MEDS: Lidocaine 5% Patch TD SCH (09:36)
[2016-10-09] MEDS: Polyvinyl Alcohol Ophth Soln 15 mL Bottle EACH EYE SCH ×2 (09:36→17:32)
[2016-10-09] MEDS: Atorvastatin Calcium 10 MG TAB PO SCH (09:38)
[2016-10-09] MEDS: Levothyroxine 0.075 Mg Tab PO SCH ×2 (09:38→09:52)
[2016-10-09] MEDS: Ferrous Sulfate 325 MG TAB PO SCH (09:38)
[2016-10-09] MEDS: Aspirin 81mg Chewable Tab PO SCH (09:38)
[2016-10-09] MEDS: NIFEdipine 30 mg ER Tab PO SCH (09:38)
[2016-10-09] MEDS: Magnesium Hydroxide (MOM) 30 mL UDC PO PRN (11:28)
--- NOTE | 2016-10-09 11:29 | Internal Medicine Prog Note ---
Internal Medicine Subjective - Subjective Patient seen and examined:: with staff, chart reviewed Patient is:: awake, verbal, interactive, in bed, talking Patient Complaints of:: LBP Per staff patient has:: poor appetite, unstable gait, tolerating meds Internal Medicine Objective - Results Result Diagrams: 10/08/16 06:16 10/08/16 06:16 Recent Labs: Laboratory Last Values WBC 6.4 Th/cmm (4.8-10.8) D 10/08/16 06:16 RBC 2.73 Mil/cmm (3.80-5.20) L 10/08/16 06:16 Hgb 8.8 gm/dL (11.7-16.1) L 10/08/16 06:16 Hct 26.6 % (35.0-45.0) L D 10/08/16 06:16 MCV 97.4 fl (81-100) 10/08/16 06:16 MCH 32.3 pg (27.0-31.0) H 10/08/16 06:16 MCHC Differential 33.1 pg (28.0-36.0) 10/08/16 06:16 RDW 13.3 % (11.5-20.0) 10/08/16 06:16 Plt Count 139 Th/cmm (150-400) L D 10/08/16 06:16 MPV 8.2 fl 10/08/16 06:16 Neutrophils % 62.2 % (40.0-80.0) 10/08/16 06:16 Lymphocytes % 23.3 % (20.0-50.0) 10/08/16 06:16 Monocytes % 11.1 % (2.0-10.0) H 10/08/16 06:16 Eosinophils % 3.0 % (0.0-5.0) 10/08/16 06:16 Basophils % 0.4 % (0.0-2.0) 10/08/16 06:16 Sodium 136 mEq/L (136-145) 10/08/16 06:16 Potassium 4.6 mEq/L (3.5-5.1) 10/08/16 06:16 Chloride 103 mEq/L (98-107) 10/08/16 06:16 Carbon Dioxide 30.7 mEq/L (21.0-31.0) 10/08/16 06:16 Anion Gap 6.9 (7.0-16.0) L 10/08/16 06:16 BUN 44 mg/dL (7-25) H 10/08/16 06:16 Creatinine 2.2 mg/dL (0.6-1.2) H 10/08/16 06:16 Est GFR ( Amer) TNP 10/08/16 06:16 Est GFR (Non-Af Amer) TNP 10/08/16 06:16 BUN/Creatinine Ratio 20.0 10/08/16 06:16 Glucose 105 mg/dL (70-105) 10/08/16 06:16 Hemoglobin A1c % 5.2 % (4.0-6.0) 10/08/16 06:16 Calcium 8.9 mg/dL (8.6-10.3) 10/08/16 06:16 Magnesium 2.0 mg/dL (1.9-2.7) 10/08/16 06:16 Total Bilirubin 0.3 mg/dL (0.3-1.0) 10/06/16 22:01 AST 13 U/L (13-39) 10/06/16 22:01 ALT 11 U/L (7-52) 10/06/16 22:01 Alkaline Phosphatase 91 U/L (34-104) 10/06/16 22:01 B-Natriuretic Peptide 68.3 pg/mL (5.0-100.0) 10/08/16 06:16 Total Protein 6.5 gm/dL (6.0-8.3) 10/06/16 22:01 Albumin 3.6 gm/dL (3.7-5.3) L 10/06/16 22:01 Globulin 2.9 gm/dL 10/06/16 22:01 Albumin/Globulin Ratio 1.2 (1.0-1.8) 10/06/16 22:01 TSH 0.50 uIU/ml (0.34-5.60) 10/08/16 06:16 - Physical Exam Vitals and I&O: Vital Signs Temp 97.7 F 10/09/16 07:58 Pulse 105 10/09/16 09:56 Resp 18 10/09/16 07:58 BP 131/59 10/09/16 09:38 Pulse Ox 95 10/09/16 07:58 Intake & Output 10/08/16 10/09/16 10/09/16 18:59 06:59 18:59 Intake Total 50 976.667 Balance 50 976.667 Weight (lbs) 116.573 kg Intake: Intake, IV Amount 50 976.667 D5-0.45NS 1,000 ml @ 80 926.667 mls/hr IV .[id number] [facility] Rx #:[id number] ceFAZolin 1 gm In 50 50 Dextrose 5% 50 ml @ 100 mls/hr IV Q8H [facility] Rx#: [id number] Active Medications: Current Medications Acetaminophen (Tylenol) 650 mg PO Q6HR PRN PRN Reason: Pain or Fever >101 Stop: 12/05/16 21:46 Acetaminophen/Hydrocodone Bitart ([place] 10 Mg/325 Mg) 1 tab PO Q4H PRN PRN Reason: Pain (Severe) Stop: 12/05/16 21:46 Last Admin: 10/09/16 07:51 Dose: 1 tab Albuterol Sulfate (Albuterol 2.5mg/3ml Neb Ud) 2.5 mg HHN QIDRT [facility] Stop: 12/06/16 06:59 Last Admin: 10/09/16 07:29 Dose: Not Given Albuterol/Ipratropium (Duoneb Neb) 3 ml HHN Q8HRT PRN PRN Reason: Shortness of Breath Stop: 12/05/16 21:46 Alprazolam (Xanax) 0.25 mg PO Q6HR PRN; Protocol PRN Reason: Anxiety Stop: 12/05/16 21:46 Last Admin: 10/09/16 09:52 Dose: 0.25 mg Amiodarone HCl (Cordarone) 400 mg PO DAILY [facility] Stop: 12/06/16 08:59 Last Admin: 10/09/16 09:56 Dose: 400 mg Artificial Tears (Artificial Tears Ophth Soln) 2 drop EACH EYE BID [facility] Stop: 12/06/16 08:59 Last Admin: 10/09/16 09:36 Dose: 2 drop Aspirin (Aspirin Chewable) 81 mg PO DAILY [facility] Stop: 12/06/16 08:59 Last Admin: 10/09/16 09:38 Dose: Not Given Atorvastatin Calcium (Lipitor) 20 mg PO DAILY [facility] Stop: 12/05/16 22:59 Last Admin: 10/09/16 09:38 Dose: Not Given Budesonide (Pulmicort) 0.5 mg HHN BIDRT [facility] Stop: 12/06/16 08:59 Last Admin: 10/09/16 07:29 Dose: Not Given Diltiazem HCl (Cardizem Cd) 120 mg PO DAILY [facility] Stop: 12/06/16 08:59 Last Admin: 10/09/16 09:32 Dose: 120 mg Docusate Sodium (Colace) 100 mg PO DAILY [facility] Stop: 12/06/16 08:59 Last Admin: 10/09/16 09:33 Dose: 100 mg Ferrous Sulfate (Iron) 324 mg PO DAILY [facility] Stop: 12/06/16 08:59 Last Admin: 10/09/16 09:38 Dose: Not Given Folic Acid (Folate) 1 mg PO DAILY [facility] Stop: 12/06/16 08:59 Last Admin: 10/09/16 09:38 Dose: Not Given Guaifenesin (Robitussin) 200 mg PO Q4HR PRN PRN Reason: Cough or Congestion Stop: 12/05/16 21:51 Dextrose/Sodium Chloride (D5-0.45ns) 1,000 mls @ 80 mls/hr IV .[id number] [facility] Stop: 12/05/16 21:59 Last Admin: 10/09/16 05:59 Dose: Not Given Cefazolin Sodium 1 gm/ (Dextrose) 50 mls @ 100 mls/hr IV Q8H [facility] Stop: 12/06/16 13:59 Last Admin: 10/09/16 06:34 Dose: 100 mls/hr Levothyroxine Sodium (Synthroid) 0.1 mg PO QDAC [facility] Stop: 12/06/16 06:59 Last Admin: 10/09/16 06:35 Dose: 0.1 mg Levothyroxine Sodium (Synthroid) 0.075 mg PO QDAC [facility] Stop: 12/06/16 07:29 Last Admin: 10/09/16 09:52 Dose: 0.075 mg Lidocaine (Lidoderm 5% Patch) 1 patch TD DAILY [facility] Stop: 12/06/16 08:59 Last Admin: 10/09/16 09:36 Dose: 1 patch Magnesium Hydroxide (Milk Of Magnesia) 30 ml PO DAILY PRN PRN Reason: Constipation Stop: 12/05/16 21:46 Miscellaneous (Vte Chemical Prophylaxis Screen/ Admission) 1 ea MC PRN PRN PRN Reason: PROTOCOL Stop: 12/06/16 07:52 Miscellaneous (Clinical Monitoring) 1 ea MC DAILY PRN PRN Reason: RENAL Stop: 12/06/16 07:56 Mupirocin (Bactroban Oint) 1 appl NS BID [facility] Stop: 10/13/16 17:01 Last Admin: 10/09/16 09:37 Dose: 1 appl Nifedipine (Procardia Xl) 30 mg PO DAILY [facility] Stop: 12/06/16 08:59 Last Admin: 10/09/16 09:38 Dose: Not Given Nitroglycerin (Nitrostat) 0.4 mg SL Q5MIN PRN PRN Reason: Chest Pain Stop: 12/05/16 21:46 Last Admin: 10/08/16 16:48 Dose: 0.4 mg Ondansetron HCl (Zofran) 4 mg IV Q8H PRN PRN Reason: Nausea / Vomiting Stop: 12/05/16 21:51 Pantoprazole Sodium (Protonix) 40 mg PO DAILY [facility] Stop: 12/06/16 08:59 Last Admin: 10/09/16 09:34 Dose: 40 mg Sertraline HCl (Zoloft) 50 mg PO BID [facility] Stop: 12/05/16 22:59 Last Admin: 10/09/16 09:36 Dose: 50 mg Zolpidem Tartrate (Ambien) 5 mg PO HS PRN PRN Reason: Insomnia Stop: 12/05/16 21:46 Last Admin: 10/08/16 22:28 Dose: 5 mg General: obese, appears younger HEENT: NC/AT, PERRLA, EOMI Neck: Supple, No JVD Lungs: congested Cardiovascular: RRR, Normal S1, Normal S2, with murmur Abdomen: soft, globular, positive bowel sound Extremities: edema (lle), excoriation, other (dressing below r knee) Neurological: no change, unsteady, bedbound - Procedures Procedures: Procedures Procedure Code Date REPAIR R LOW LEG SUBCU/FASCIA, OPEN APPROACH [id number] 10/06/16 SKIN TISSUE PROCEDURE 28506 10/06/16 Internal Medicine Assmt/Plan - Assessment Assessment: Right lower extremity laceration status post suture, generalized weakness, status post fall, acute renal failure, dehydration, hyponatremia, anemia, hypothyroidism, coronary artery disease, paroxysmal atrial fibrillation, chronic obstructive pulmonary disease, obesity, hypertension. headache - Plan Plan: will do head ct and xray rle PLAN: We will continue the patient with wound care. We will provide the patient with empiric IV antibiotic. We will place the patient on fall precaution. We will referred the patient to Physical Therapy as well as Psychiatry for adjustment of her psychotropic medication. We will continue to monitor the patient closely. Case was discussed with pt xray rle showed djd dw pt refused head ct Nutritional Asmnt/Malnutr-PDOC - Dietary Evaluation Malnutrition Findings (Please click <Entered> for more info): Nutritional Asmnt/Malnutrition Start: 10/08/16 15: 42 Text: Status: Complete Freq: Document 10/08/16 15:42 GSUN (Rec: 10/08/16 16:03 GSUN [email or web address]) Nutritional Asmnt/Malnutrition Patient General Information Nutritional Screening Consult Diagnosis Right lower extremity laceration s/p suture, s/p fall, acute renal failure Pertinent Medical Hx/Surgical Hx Renal failure, hypothyroidism, CAD, atrial fibrillation, COPD, obesity, appendectomy, hernia repair, rhinoplasty Subjective Information 76 year old female from SNF. RD consult for large laceration right chung. Avg PO intake 75% of meals yesterday, meeting nutritional needs. Pt report usually with good appetite, however noted to be picky and meals and preference for desserts, pt has been requesting for ice cream, cookies. RD noted of pt's food preferences and explained improtance of nutrition for wound healing. Pt report UBW 200lb, stated CBW 239lb via bedscale is inaccurate. Most teeth intact, pt report unable to chew salad and bread, but able to tolerate all other food items provided. Current Diet Order/ Nutrition Support JIMBO Pertinent Medications D5-0.45ns, Colace, Iron, Folate, MOM, Zofran, Protonix Pertinent Labs 10/08: BUN 44H, creatinine 2.2H Nutritional Hx/Data Height 1.68 m Height (Calculated Centimeters) 167.6 Current Weight (lbs) 108.409 kg Weight (Calculated Kilograms) 108.4 Weight (Calculated Grams) 506249.6 Usual body Weight (lbs) 200 [place] Body Weight 130 Weight Status Obese GI Symptoms Difficult in: Chewing Usual diet at home [facility]: [facility], regular texture Skin Integrity/Comment: Pa 17. Right lower extremity laceration. Current %PO Good (75-100%) Estimated Nutritional Goals BEE in Kcals: Adj wt of IBW Calories/Kcals/Kg AdjBW 157.3lb/71.5kg Kcals Calculated 1788-2145kcal (25-30kcal/kg) Protein: Adj wt of IBW Protein Calculated 72-100g (1-1.4g/kg) Fluid: ml 1788-2145ml (1ml/kcal) Nutritional Problem 3. Problem Problem Increased protein needs related to Etiology skin integrity aeb Signs/Symptoms: right lower extremity laceration 2. Problem Problem Undesirable food choices related to Etiology pt's preference aeb Signs/Symptoms: constant request for ice cream , cookies, sweets 1. Problem Problem Impaired nutrient utilization related to Etiology acute renal failure, hx renal failure aeb Signs/Symptoms: [employer] 2.2H, BUN 44H Intervention/Recommendation Comments 1. Recommend low sodium diet to aid in renal function. Avg PO intake is adequate. Expected Outcomes/Goals Expected Outcomes/Goals 1. PO itnake continue to meet at least 75% of estimated nutritional needs.
--- NOTE | 2016-10-09 22:03 | Progress Notes ---
DATE: 10/09/2016 SUBJECTIVE: The patient was seen, chart reviewed, and discussed with staff. The patient is not really interactive during the interview, asking if I have spoken with the judges in regards to her conservatorship, I informed her that I am not involved in the conservatorship process at current level of care. The patient initially states that she does not want to go back to __SNF__ but then after some thought, considers the loss of her belongings there and does agree to go back to the half-way. The patient states she is sleeping okay, eating okay. Asks if I am getting paid for the visit today. PAST PSYCHIATRIC HISTORY: As noted. FAMILY HISTORY: Noncontributory. SOCIAL HISTORY: The patient is living at [facility]. MENTAL STATUS EXAMINATION: Overweight female of stated age, somewhat suspicious, asking if I recorded the conversation and shared with Dr. Fiore, hesitant to believe me when I say no. Mood "okay." Affect constricted. Thought processes were grossly linear, no overt SI or HI. No overt psychotic symptoms, but she is somewhat suspicious. Insight and judgment questionable. PROVISIONAL DIAGNOSIS: Major depression, recurrent, severe, no overt evidence of psychosis. It is unclear if she has an alternative diagnosis, she denies but does tell me she has been diagnosed with dementia in the past, that is what she told me yesterday. MEDICAL: Please see full H and P. RECOMMENDATIONS AND PLAN: No events per staff. No agitation. No escalation of behaviors. No SI, no HI, no 5150 criteria at this time. PLAN: We will continue to monitor, follow up as needed. JOB# [id number] NATALYA
[2016-10-10] MEDS: D5-0.45NS 1,000 ML IV SCH (06:03)
[2016-10-10] MEDS: Hydrocodone/APAP 10 mg/325 mg Tab PO PRN ×4 (06:06→22:00)
[2016-10-10] MEDS: Levothyroxine 0.075 Mg Tab PO SCH (07:21)
[2016-10-10] MEDS: Levothyroxine 0.1 Mg Tab PO SCH (07:21)
[2016-10-10] MEDS: Budesonide 0.5 Mg/2 mL Ud HHN SCH ×2 (07:32→18:51)
[2016-10-10] MEDS: Albuterol Nebulizer 2.5mg/3mL HHN SCH ×4 (07:32→18:51)
[2016-10-10 07:38] LABS: MEAN CELL VOLUME 97.7 fl (81-100); MEAN CORPUSCULAR HEMOGLOBIN 32.3 pg (27.0-31.0); MEAN CORPUSCULAR HGB CONC 33.1 pg (28.0-36.0); MEAN PLATELET VOLUME 8.2 fl; PLATELET COUNT 126 Th/cmm (150-400); RED BLOOD COUNT 2.45 Mil/cmm (3.80-5.20); RED CELL DISTRIBUTION WIDTH 13.6 % (11.5-20.0); WHITE BLOOD COUNT 5.5 Th/cmm (4.8-10.8)
[2016-10-10 07:46] LABS: ANION GAP 4.9 (7.0-16.0); BUN - UREA NITROGEN 30 mg/dL (7-25); BUN/CREATININE RATIO 16.7; CALCIUM SERUM 9.1 mg/dL (8.6-10.3); CARBON DIOXIDE 32.6 mEq/L (21.0-31.0); CHLORIDE 104 mEq/L (98-107); CREATININE - SERUM 1.8 mg/dL (0.6-1.2); GLUCOSE 117 mg/dL (70-105); POTASSIUM SERUM 4.5 mEq/L (3.5-5.1); SODIUM SERUM 137 mEq/L (136-145)
[2016-10-10 08:21] LABS: HEMOGLOBIN 7.9 gm/dL (11.7-16.1)
[2016-10-10] MEDS: Diltiazem CD 120 mg 24H PO SCH (09:08)
[2016-10-10] MEDS: Polyvinyl Alcohol Ophth Soln 15 mL Bottle EACH EYE SCH ×2 (09:09→17:17)
[2016-10-10] MEDS: Lidocaine 5% Patch TD SCH (09:09)
[2016-10-10] MEDS: Aspirin 81mg Chewable Tab PO SCH (09:14)
[2016-10-10] MEDS: Ferrous Sulfate 325 MG TAB PO SCH (09:15)
[2016-10-10] MEDS: NIFEdipine 30 mg ER Tab PO SCH (09:15)
[2016-10-10] MEDS: Pantoprazole 40 mg EC Tab PO SCH (09:15)
[2016-10-10] MEDS: Atorvastatin Calcium 10 MG TAB PO SCH (09:15)
[2016-10-10 10:44] LABS: TOTAL CELLS COUNTED 100
[2016-10-10 10:47] LABS: EOSINOPHIL 2 % (0-5); NEUTROPHILS 66 % (40-80)
[2016-10-10 10:48] LABS: PLATELET ESTIMATE DECREASED PLATELETS (NORMAL); PLATELET MORPHOLOGY NORMAL (NORMAL)
--- NOTE | 2016-10-10 11:40 | Internal Medicine Prog Note ---
Internal Medicine Subjective - Subjective Service Date: 10/10/16 Patient is:: awake, verbal, interactive, in bed, talking Patient Complaints of:: LBP Per staff patient has:: poor appetite, unstable gait, tolerating meds Internal Medicine Objective - Results Result Diagrams: 10/10/16 06:50 10/10/16 06:50 Recent Labs: Laboratory Last Values WBC 5.5 Th/cmm (4.8-10.8) 10/10/16 06:50 RBC 2.45 Mil/cmm (3.80-5.20) L 10/10/16 06:50 Hgb 7.9 gm/dL (11.7-16.1) L* 10/10/16 06:50 Hct 24.0 % (35.0-45.0) L 10/10/16 06:50 MCV 97.7 fl (81-100) 10/10/16 06:50 MCH 32.3 pg (27.0-31.0) H 10/10/16 06:50 MCHC Differential 33.1 pg (28.0-36.0) 10/10/16 06:50 RDW 13.6 % (11.5-20.0) 10/10/16 06:50 Plt Count 126 Th/cmm (150-400) L 10/10/16 06:50 MPV 8.2 fl 10/10/16 06:50 Neutrophils % 62.2 % (40.0-80.0) 10/08/16 06:16 Lymphocytes % 23.3 % (20.0-50.0) 10/08/16 06:16 Monocytes % 11.1 % (2.0-10.0) H 10/08/16 06:16 Eosinophils % 3.0 % (0.0-5.0) 10/08/16 06:16 Basophils % 0.4 % (0.0-2.0) 10/08/16 06:16 Neutrophils (Manual) 66 % (40-80) 10/10/16 06:50 Lymphocytes 28 % (20-50) 10/10/16 06:50 Monocytes 4 % (2-10) 10/10/16 06:50 Eosinophils 2 % (0-5) 10/10/16 06:50 Platelet Estimate DECREASED PLATELETS (NORMAL) 10/10/16 06:50 Platelet Morphology NORMAL (NORMAL) 10/10/16 06:50 RBC Morph Micro Appear NORMAL (NORMAL) 10/10/16 06:50 Sodium 137 mEq/L (136-145) 10/10/16 06:50 Potassium 4.5 mEq/L (3.5-5.1) 10/10/16 06:50 Chloride 104 mEq/L (98-107) 10/10/16 06:50 Carbon Dioxide 32.6 mEq/L (21.0-31.0) H 10/10/16 06:50 Anion Gap 4.9 (7.0-16.0) L 10/10/16 06:50 BUN 30 mg/dL (7-25) H 10/10/16 06:50 Creatinine 1.8 mg/dL (0.6-1.2) H 10/10/16 06:50 Est GFR ( Amer) TNP 10/10/16 06:50 Est GFR (Non-Af Amer) TNP 10/10/16 06:50 BUN/Creatinine Ratio 16.7 10/10/16 06:50 Glucose 117 mg/dL (70-105) H 10/10/16 06:50 Hemoglobin A1c % 5.2 % (4.0-6.0) 10/08/16 06:16 Calcium 9.1 mg/dL (8.6-10.3) 10/10/16 06:50 Magnesium 2.0 mg/dL (1.9-2.7) 10/08/16 06:16 Total Bilirubin 0.3 mg/dL (0.3-1.0) 10/06/16 22:01 AST 13 U/L (13-39) 10/06/16 22:01 ALT 11 U/L (7-52) 10/06/16 22:01 Alkaline Phosphatase 91 U/L (34-104) 10/06/16 22:01 B-Natriuretic Peptide 126.0 pg/mL (5.0-100.0) H 10/10/16 06:42 Total Protein 6.5 gm/dL (6.0-8.3) 10/06/16 22:01 Albumin 3.6 gm/dL (3.7-5.3) L 10/06/16 22:01 Globulin 2.9 gm/dL 10/06/16 22:01 Albumin/Globulin Ratio 1.2 (1.0-1.8) 10/06/16 22:01 TSH 0.50 uIU/ml (0.34-5.60) 10/08/16 06:16 - Physical Exam Vitals and I&O: Vital Signs Temp 97.6 F 10/09/16 11:00 Pulse 74 10/10/16 11:07 Resp 16 10/10/16 11:07 BP 121/72 10/10/16 09:15 Pulse Ox 98 10/10/16 11:07 Intake & Output 10/09/16 10/10/16 10/10/16 18:59 06:59 18:59 Intake Total 1050 1050 200 Balance 1050 1050 200 Weight (lbs) 258 lb 2 oz Intake: Intake, IV Amount 1050 1050 D5-0.45NS 1,000 ml @ 80 1000 1000 mls/hr IV .[id number] [facility] Rx #:[id number] ceFAZolin 1 gm In 50 50 Dextrose 5% 50 ml @ 100 mls/hr IV Q8H [facility] Rx#: [id number] Oral 200 Other: # Voids 2 # Bowel Movements 0 Active Medications: Current Medications Acetaminophen (Tylenol) 650 mg PO Q6HR PRN PRN Reason: Pain or Fever >101 Stop: 12/05/16 21:46 Last Admin: 10/10/16 08:32 Dose: 650 mg Acetaminophen/Hydrocodone Bitart ([place] 10 Mg/325 Mg) 1 tab PO Q4H PRN PRN Reason: Pain (Severe) Stop: 12/05/16 21:46 Last Admin: 10/10/16 06:06 Dose: 1 tab Albuterol Sulfate (Albuterol 2.5mg/3ml Neb Ud) 2.5 mg HHN QIDRT [facility] Stop: 12/06/16 06:59 Last Admin: 10/10/16 11:05 Dose: Not Given Albuterol/Ipratropium (Duoneb Neb) 3 ml HHN Q8HRT PRN PRN Reason: Shortness of Breath Stop: 12/05/16 21:46 Last Admin: 10/09/16 21:47 Dose: 3 ml Alprazolam (Xanax) 0.25 mg PO Q6HR PRN; Protocol PRN Reason: Anxiety Stop: 12/05/16 21:46 Last Admin: 10/09/16 23:14 Dose: 0.25 mg Amiodarone HCl (Cordarone) 400 mg PO DAILY [facility] Stop: 12/06/16 08:59 Last Admin: 10/10/16 09:14 Dose: Not Given Artificial Tears (Artificial Tears Ophth Soln) 2 drop EACH EYE BID [facility] Stop: 12/06/16 08:59 Last Admin: 10/10/16 09:09 Dose: 2 drop Aspirin (Aspirin Chewable) 81 mg PO DAILY [facility] Stop: 12/06/16 08:59 Last Admin: 10/10/16 09:14 Dose: Not Given Atorvastatin Calcium (Lipitor) 20 mg PO DAILY [facility] Stop: 12/05/16 22:59 Last Admin: 10/10/16 09:15 Dose: Not Given Budesonide (Pulmicort) 0.5 mg HHN BIDRT [facility] Stop: 12/06/16 08:59 Last Admin: 10/10/16 07:32 Dose: Not Given Diltiazem HCl (Cardizem Cd) 120 mg PO DAILY [facility] Stop: 12/06/16 08:59 Last Admin: 10/10/16 09:08 Dose: 120 mg Docusate Sodium (Colace) 100 mg PO DAILY [facility] Stop: 12/06/16 08:59 Last Admin: 10/10/16 09:08 Dose: 100 mg Ferrous Sulfate (Iron) 324 mg PO DAILY [facility] Stop: 12/06/16 08:59 Last Admin: 10/10/16 09:15 Dose: Not Given Folic Acid (Folate) 1 mg PO DAILY [facility] Stop: 12/06/16 08:59 Last Admin: 10/10/16 09:08 Dose: 1 mg Guaifenesin (Robitussin) 200 mg PO Q4HR PRN PRN Reason: Cough or Congestion Stop: 12/05/16 21:51 Dextrose/Sodium Chloride (D5-0.45ns) 1,000 mls @ 80 mls/hr IV .[id number] [facility] Stop: 12/05/16 21:59 Last Admin: 10/10/16 06:03 Dose: 80 mls/hr Cefazolin Sodium 1 gm/ (Dextrose) 50 mls @ 100 mls/hr IV Q8H [facility] Stop: 12/06/16 13:59 Last Infusion: 10/10/16 01:37 Dose: Infused Levothyroxine Sodium (Synthroid) 0.1 mg PO QDAC [facility] Stop: 12/06/16 06:59 Last Admin: 10/10/16 07:21 Dose: 0.1 mg Levothyroxine Sodium (Synthroid) 0.075 mg PO QDAC [facility] Stop: 12/06/16 07:29 Last Admin: 10/10/16 07:21 Dose: 0.075 mg Lidocaine (Lidoderm 5% Patch) 1 patch TD DAILY [facility] Stop: 12/06/16 08:59 Last Admin: 10/10/16 09:09 Dose: 1 patch Magnesium Hydroxide (Milk Of Magnesia) 30 ml PO DAILY PRN PRN Reason: Constipation Stop: 12/05/16 21:46 Last Admin: 10/09/16 11:28 Dose: 30 ml Miscellaneous (Vte Chemical Prophylaxis Screen/ Admission) 1 ea MC PRN PRN PRN Reason: PROTOCOL Stop: 12/06/16 07:52 Miscellaneous (Clinical Monitoring) 1 ea MC DAILY PRN PRN Reason: RENAL Stop: 12/06/16 07:56 Mupirocin (Bactroban Oint) 1 appl NS BID [facility] Stop: 10/13/16 17:01 Last Admin: 10/10/16 09:09 Dose: 1 appl Nifedipine (Procardia Xl) 30 mg PO DAILY [facility] Stop: 12/06/16 08:59 Last Admin: 10/10/16 09:15 Dose: Not Given Nitroglycerin (Nitrostat) 0.4 mg SL Q5MIN PRN PRN Reason: Chest Pain Stop: 12/05/16 21:46 Last Admin: 10/08/16 16:48 Dose: 0.4 mg Ondansetron HCl (Zofran) 4 mg IV Q8H PRN PRN Reason: Nausea / Vomiting Stop: 12/05/16 21:51 Pantoprazole Sodium (Protonix) 40 mg PO DAILY [facility] Stop: 12/06/16 08:59 Last Admin: 10/10/16 09:15 Dose: Not Given Sertraline HCl (Zoloft) 50 mg PO BID [facility] Stop: 12/05/16 22:59 Last Admin: 10/10/16 09:09 Dose: 50 mg Zolpidem Tartrate (Ambien) 5 mg PO HS PRN PRN Reason: Insomnia Stop: 12/05/16 21:46 Last Admin: 10/10/16 00:09 Dose: 5 mg General: obese, appears younger HEENT: NC/AT, PERRLA, EOMI Neck: Supple, No JVD Lungs: congested Cardiovascular: RRR, Normal S1, Normal S2, with murmur Abdomen: soft, globular, positive bowel sound Extremities: edema (lle), excoriation, other (dressing below r knee) Neurological: no change, unsteady, bedbound - Procedures Procedures: Procedures Procedure Code Date REPAIR R LOW LEG SUBCU/FASCIA, OPEN APPROACH [id number] 10/06/16 SKIN TISSUE PROCEDURE 79389 10/06/16 Internal Medicine Assmt/Plan - Assessment Assessment: Right lower extremity laceration status post suture generalized weakness status post fall acute renal failure dehydration hyponatremia anemia hypothyroidism coronary artery disease paroxysmal atrial fibrillation, chronic obstructive pulmonary disease obesity hypertension headache - Plan Plan: will add fesO4 monitor h/h dc in am once h/h stable continue current plan of care Nutritional Asmnt/Malnutr-PDOC - Dietary Evaluation Malnutrition Findings (Please click <Entered> for more info): Nutritional Asmnt/Malnutrition Start: 10/08/16 15: 42 Text: Status: Complete Freq: Document 10/08/16 15:42 GSUN (Rec: 10/08/16 16:03 GSUN [email or web address]) Nutritional Asmnt/Malnutrition Patient General Information Nutritional Screening Consult Diagnosis Right lower extremity laceration s/p suture, s/p fall, acute renal failure Pertinent Medical Hx/Surgical Hx Renal failure, hypothyroidism, CAD, atrial fibrillation, COPD, obesity, appendectomy, hernia repair, rhinoplasty Subjective Information 76 year old female from SNF. RD consult for large laceration right chung. Avg PO intake 75% of meals yesterday, meeting nutritional needs. Pt report usually with good appetite, however noted to be picky and meals and preference for desserts, pt has been requesting for ice cream, cookies. RD noted of pt's food preferences and explained improtance of nutrition for wound healing. Pt report UBW 200lb, stated CBW 239lb via bedscale is inaccurate. Most teeth intact, pt report unable to chew salad and bread, but able to tolerate all other food items provided. Current Diet Order/ Nutrition Support JIMBO Pertinent Medications D5-0.45ns, Colace, Iron, Folate, MOM, Zofran, Protonix Pertinent Labs 10/08: BUN 44H, creatinine 2.2H Nutritional Hx/Data Height 5 ft 6 in Height (Calculated Centimeters) 167.6 Current Weight (lbs) 239 lb Weight (Calculated Kilograms) 108.4 Weight (Calculated Grams) 860479.6 Usual body Weight (lbs) 200 [place] Body Weight 130 Weight Status Obese GI Symptoms Difficult in: Chewing Usual diet at home [facility]: [facility], regular texture Skin Integrity/Comment: Pa 17. Right lower extremity laceration. Current %PO Good (75-100%) Estimated Nutritional Goals BEE in Kcals: Adj wt of IBW Calories/Kcals/Kg AdjBW 157.3lb/71.5kg Kcals Calculated 1788-2145kcal (25-30kcal/kg) Protein: Adj wt of IBW Protein Calculated 72-100g (1-1.4g/kg) Fluid: ml 1788-2145ml (1ml/kcal) Nutritional Problem 3. Problem Problem Increased protein needs related to Etiology skin integrity aeb Signs/Symptoms: right lower extremity laceration 2. Problem Problem Undesirable food choices related to Etiology pt's preference aeb Signs/Symptoms: constant request for ice cream , cookies, sweets 1. Problem Problem Impaired nutrient utilization related to Etiology acute renal failure, hx renal failure aeb Signs/Symptoms: Pulverizer Tender 2.2H, BUN 44H Intervention/Recommendation Comments 1. Recommend low sodium diet to aid in renal function. Avg PO intake is adequate. Expected Outcomes/Goals Expected Outcomes/Goals 1. PO itnake continue to meet at least 75% of estimated nutritional needs.
[2016-10-11 05:39] LABS: MEAN CELL VOLUME 97.2 fl (81-100); MEAN CORPUSCULAR HGB CONC 31.9 pg (28.0-36.0); MEAN PLATELET VOLUME 8.2 fl; PLATELET COUNT 133 Th/cmm (150-400); RED BLOOD COUNT 2.44 Mil/cmm (3.80-5.20); RED CELL DISTRIBUTION WIDTH 13.2 % (11.5-20.0); WHITE BLOOD COUNT 5.2 Th/cmm (4.8-10.8)
[2016-10-11 05:53] LABS: HEMATOCRIT 23.7 % (35.0-45.0); HEMOGLOBIN 7.6 gm/dL (11.7-16.1)
[2016-10-11] MEDS: Levothyroxine 0.1 Mg Tab PO SCH (07:02)
[2016-10-11] MEDS: Levothyroxine 0.075 Mg Tab PO SCH (07:02)
[2016-10-11 07:13] LABS: BAND NEUTROPHILE 3 % (0-10); NEUTROPHILS 53 % (40-80); PLATELET ESTIMATE ADEQUATE (NORMAL); TOTAL CELLS COUNTED 100
[2016-10-11 07:14] LABS: HYPOCHROMIA 1+; POLYCHROMASIA 1+
[2016-10-11] MEDS: Hydrocodone/APAP 10 mg/325 mg Tab PO PRN ×3 (07:34→21:21)
[2016-10-11] MEDS: Albuterol Nebulizer 2.5mg/3mL HHN SCH ×2 (09:18→10:36)
[2016-10-11] MEDS: Budesonide 0.5 Mg/2 mL Ud HHN SCH ×4 (09:20→20:42)
[2016-10-11] MEDS: Diltiazem CD 120 mg 24H PO SCH (09:52)
[2016-10-11] MEDS: Pantoprazole 40 mg EC Tab PO SCH (09:52)
[2016-10-11] MEDS: Polyvinyl Alcohol Ophth Soln 15 mL Bottle EACH EYE SCH ×2 (09:54→16:51)
[2016-10-11] MEDS: Ferrous Sulfate 325 MG TAB PO SCH ×2 (09:54→15:05)
[2016-10-11] MEDS: Atorvastatin Calcium 10 MG TAB PO SCH (10:08)
[2016-10-11] MEDS: NIFEdipine 30 mg ER Tab PO SCH (10:08)
[2016-10-11] MEDS: Aspirin 81mg Chewable Tab PO SCH (10:08)
[2016-10-11] MEDS: Lidocaine 5% Patch TD SCH (10:59)
--- NOTE | 2016-10-11 13:55 | Internal Medicine Prog Note ---
Internal Medicine Subjective - Subjective Service Date: 10/11/16 (dictated dc [id number]) Patient is:: awake, verbal, interactive, in bed, talking Patient Complaints of:: LBP Per staff patient has:: poor appetite, unstable gait, tolerating meds Internal Medicine Objective - Results Result Diagrams: 10/11/16 05:25 10/10/16 06:50 Recent Labs: Laboratory Last Values WBC 5.2 Th/cmm (4.8-10.8) 10/11/16 05:25 RBC 2.44 Mil/cmm (3.80-5.20) L 10/11/16 05:25 Hgb 7.6 gm/dL (11.7-16.1) L* 10/11/16 05:25 Hct 23.7 % (35.0-45.0) L* 10/11/16 05:25 MCV 97.2 fl (81-100) 10/11/16 05:25 MCH 31.0 pg (27.0-31.0) 10/11/16 05:25 MCHC Differential 31.9 pg (28.0-36.0) 10/11/16 05:25 RDW 13.2 % (11.5-20.0) 10/11/16 05:25 Plt Count 133 Th/cmm (150-400) L 10/11/16 05:25 MPV 8.2 fl 10/11/16 05:25 Neutrophils % 62.2 % (40.0-80.0) 10/08/16 06:16 Band Neutrophils % 3 % (0-10) 10/11/16 05:25 Lymphocytes % 23.3 % (20.0-50.0) 10/08/16 06:16 Monocytes % 11.1 % (2.0-10.0) H 10/08/16 06:16 Eosinophils % 3.0 % (0.0-5.0) 10/08/16 06:16 Basophils % 0.4 % (0.0-2.0) 10/08/16 06:16 Neutrophils (Manual) 53 % (40-80) 10/11/16 05:25 Lymphocytes 34 % (20-50) 10/11/16 05:25 Monocytes 10 % (2-10) 10/11/16 05:25 Eosinophils 2 % (0-5) 10/10/16 06:50 Hypochromia 1+ 10/11/16 05:25 Platelet Estimate ADEQUATE (NORMAL) 10/11/16 05:25 Platelet Morphology NORMAL (NORMAL) 10/10/16 06:50 Polychromasia 1+ 10/11/16 05:25 RBC Morph Micro Appear NORMAL (NORMAL) 10/10/16 06:50 Sodium 137 mEq/L (136-145) 10/10/16 06:50 Potassium 4.5 mEq/L (3.5-5.1) 10/10/16 06:50 Chloride 104 mEq/L (98-107) 10/10/16 06:50 Carbon Dioxide 32.6 mEq/L (21.0-31.0) H 10/10/16 06:50 Anion Gap 4.9 (7.0-16.0) L 10/10/16 06:50 BUN 30 mg/dL (7-25) H 10/10/16 06:50 Creatinine 1.8 mg/dL (0.6-1.2) H 10/10/16 06:50 Est GFR ( Amer) TNP 10/10/16 06:50 Est GFR (Non-Af Amer) TNP 10/10/16 06:50 BUN/Creatinine Ratio 16.7 10/10/16 06:50 Glucose 117 mg/dL (70-105) H 10/10/16 06:50 Hemoglobin A1c % 5.2 % (4.0-6.0) 10/08/16 06:16 Calcium 9.1 mg/dL (8.6-10.3) 10/10/16 06:50 Magnesium 2.0 mg/dL (1.9-2.7) 10/08/16 06:16 Total Bilirubin 0.3 mg/dL (0.3-1.0) 10/06/16 22:01 AST 13 U/L (13-39) 10/06/16 22:01 ALT 11 U/L (7-52) 10/06/16 22:01 Alkaline Phosphatase 91 U/L (34-104) 10/06/16 22:01 B-Natriuretic Peptide 126.0 pg/mL (5.0-100.0) H 10/10/16 06:42 Total Protein 6.5 gm/dL (6.0-8.3) 10/06/16 22:01 Albumin 3.6 gm/dL (3.7-5.3) L 10/06/16 22:01 Globulin 2.9 gm/dL 10/06/16 22:01 Albumin/Globulin Ratio 1.2 (1.0-1.8) 10/06/16 22:01 TSH 0.50 uIU/ml (0.34-5.60) 10/08/16 06:16 - Physical Exam Vitals and I&O: Vital Signs Temp 97.1 F 10/11/16 12:00 Pulse 105 10/11/16 12:02 Resp 16 10/11/16 12:02 BP 142/68 10/11/16 12:00 Pulse Ox 95 10/11/16 12:02 Intake & Output 10/10/16 10/11/16 10/11/16 18:59 06:59 18:59 Intake Total 200 100 Balance 200 100 Weight (lbs) 258 lb 2 oz 252 lb 8 oz Intake: Intake, IV Amount 100 ceFAZolin 1 gm In 100 Dextrose 5% 50 ml @ 100 mls/hr IV Q8H [facility] Rx#: [id number] Oral 200 Other: # Voids 4 3 # Bowel Movements 2 Stool Characteristics Soft Soft Soft Formed Formed Formed Active Medications: Current Medications Acetaminophen (Tylenol) 650 mg PO Q6HR PRN PRN Reason: Pain or Fever >101 Stop: 12/05/16 21:46 Last Admin: 10/10/16 08:32 Dose: 650 mg Acetaminophen/Hydrocodone Bitart ([place] 10 Mg/325 Mg) 1 tab PO Q4H PRN PRN Reason: Pain (Severe) Stop: 12/05/16 21:46 Last Admin: 10/11/16 07:34 Dose: 1 tab Albuterol Sulfate (Albuterol 2.5mg/3ml Neb Ud) 2.5 mg HHN QIDRT [facility] Stop: 12/06/16 06:59 Last Admin: 10/11/16 10:36 Dose: 2.5 mg Albuterol/Ipratropium (Duoneb Neb) 3 ml HHN Q8HRT PRN PRN Reason: Shortness of Breath Stop: 12/05/16 21:46 Last Admin: 10/09/16 21:47 Dose: 3 ml Alprazolam (Xanax) 0.25 mg PO Q6HR PRN; Protocol PRN Reason: Anxiety Stop: 12/05/16 21:46 Last Admin: 10/11/16 07:33 Dose: 0.25 mg Amiodarone HCl (Cordarone) 400 mg PO DAILY [facility] Stop: 12/06/16 08:59 Last Admin: 10/11/16 10:08 Dose: Not Given Artificial Tears (Artificial Tears Ophth Soln) 2 drop EACH EYE BID [facility] Stop: 12/06/16 08:59 Last Admin: 10/11/16 09:54 Dose: 2 drop Aspirin (Aspirin Chewable) 81 mg PO DAILY [facility] Stop: 12/06/16 08:59 Last Admin: 10/11/16 10:08 Dose: Not Given Atorvastatin Calcium (Lipitor) 20 mg PO DAILY [facility] Stop: 12/05/16 22:59 Last Admin: 10/11/16 10:08 Dose: Not Given Budesonide (Pulmicort) 0.5 mg HHN BIDRT [facility] Stop: 12/06/16 08:59 Last Admin: 10/11/16 11:59 Dose: 0.5 mg Cephalexin Monohydrate (Keflex) 500 mg PO TID [facility] Stop: 10/21/16 08:59 Last Admin: 10/11/16 09:51 Dose: 500 mg Diltiazem HCl (Cardizem Cd) 120 mg PO DAILY [facility] Stop: 12/06/16 08:59 Last Admin: 10/11/16 09:52 Dose: 120 mg Docusate Sodium (Colace) 100 mg PO DAILY [facility] Stop: 12/06/16 08:59 Last Admin: 10/11/16 09:52 Dose: 100 mg Ferrous Sulfate (Iron) 324 mg PO TID [facility] Stop: 12/10/16 08:59 Last Admin: 10/11/16 09:54 Dose: 324 mg Folic Acid (Folate) 1 mg PO DAILY [facility] Stop: 12/06/16 08:59 Last Admin: 10/11/16 09:53 Dose: 1 mg Guaifenesin (Robitussin) 200 mg PO Q4HR PRN PRN Reason: Cough or Congestion Stop: 12/05/16 21:51 Dextrose/Sodium Chloride (D5-0.45ns) 1,000 mls @ 80 mls/hr IV .[id number] [facility] Stop: 12/05/16 21:59 Last Admin: 10/10/16 06:03 Dose: 80 mls/hr Levothyroxine Sodium (Synthroid) 0.1 mg PO QDAC [facility] Stop: 12/06/16 06:59 Last Admin: 10/11/16 07:02 Dose: 0.1 mg Levothyroxine Sodium (Synthroid) 0.075 mg PO QDAC [facility] Stop: 12/06/16 07:29 Last Admin: 10/11/16 07:02 Dose: 0.075 mg Lidocaine (Lidoderm 5% Patch) 1 patch TD DAILY [facility] Stop: 12/06/16 08:59 Last Admin: 10/11/16 10:59 Dose: 1 patch Magnesium Hydroxide (Milk Of Magnesia) 30 ml PO DAILY PRN PRN Reason: Constipation Stop: 12/05/16 21:46 Last Admin: 10/09/16 11:28 Dose: 30 ml Miscellaneous (Vte Chemical Prophylaxis Screen/ Admission) 1 ea PRN PRN PRN Reason: PROTOCOL Stop: 12/06/16 07:52 Miscellaneous (Clinical Monitoring) 1 ea DAILY PRN PRN Reason: RENAL Stop: 12/06/16 07:56 Mupirocin (Bactroban Oint) 1 appl NS BID [facility] Stop: 10/13/16 17:01 Last Admin: 10/11/16 09:54 Dose: 1 appl Nifedipine (Procardia Xl) 30 mg PO DAILY [facility] Stop: 12/06/16 08:59 Last Admin: 10/11/16 10:08 Dose: Not Given Nitroglycerin (Nitrostat) 0.4 mg SL Q5MIN PRN PRN Reason: Chest Pain Stop: 12/05/16 21:46 Last Admin: 10/08/16 16:48 Dose: 0.4 mg Ondansetron HCl (Zofran) 4 mg IV Q8H PRN PRN Reason: Nausea / Vomiting Stop: 12/05/16 21:51 Pantoprazole Sodium (Protonix) 40 mg PO DAILY [facility] Stop: 12/06/16 08:59 Last Admin: 10/11/16 09:52 Dose: 40 mg Sertraline HCl (Zoloft) 50 mg PO BID [facility] Stop: 12/05/16 22:59 Last Admin: 10/11/16 09:52 Dose: 50 mg Zolpidem Tartrate (Ambien) 5 mg PO HS PRN PRN Reason: Insomnia Stop: 12/05/16 21:46 Last Admin: 10/11/16 00:01 Dose: 5 mg General: obese, appears younger HEENT: NC/AT, PERRLA, EOMI Neck: Supple, No JVD Lungs: congested Cardiovascular: RRR, Normal S1, Normal S2, with murmur Abdomen: soft, globular, positive bowel sound Extremities: edema (lle), excoriation, other (dressing below r knee) Neurological: no change, unsteady, bedbound - Procedures Procedures: Procedures Procedure Code Date REPAIR R LOW LEG SUBCU/FASCIA, OPEN APPROACH [id number] 10/06/16 SKIN TISSUE PROCEDURE 58808 10/06/16 Internal Medicine Assmt/Plan - Assessment Assessment: Right lower extremity laceration status post suture generalized weakness status post fall acute renal failure dehydration hyponatremia anemia hypothyroidism coronary artery disease paroxysmal atrial fibrillation, chronic obstructive pulmonary disease obesity hypertension headache - Plan Plan: will add fesO4 monitor h/h dc in am once h/h stable continue current plan of care Nutritional Asmnt/Malnutr-PDOC - Dietary Evaluation Malnutrition Findings (Please click <Entered> for more info): Nutritional Asmnt/Malnutrition Start: 10/08/16 15: 42 Text: Status: Complete Freq: Document 10/08/16 15:42 GSUN (Rec: 10/08/16 16:03 GSITALIA [email or web address]) Nutritional Asmnt/Malnutrition Patient General Information Nutritional Screening Consult Diagnosis Right lower extremity laceration s/p suture, s/p fall, acute renal failure Pertinent Medical Hx/Surgical Hx Renal failure, hypothyroidism, CAD, atrial fibrillation, COPD, obesity, appendectomy, hernia repair, rhinoplasty Subjective Information 76 year old female from SNF. RD consult for large laceration right chung. Avg PO intake 75% of meals yesterday, meeting nutritional needs. Pt report usually with good appetite, however noted to be picky and meals and preference for desserts, pt has been requesting for ice cream, cookies. RD noted of pt's food preferences and explained improtance of nutrition for wound healing. Pt report UBW 200lb, stated CBW 239lb via bedscale is inaccurate. Most teeth intact, pt report unable to chew salad and bread, but able to tolerate all other food items provided. Current Diet Order/ Nutrition Support JIMBO Pertinent Medications D5-0.45ns, Colace, Iron, Folate, MOM, Zofran, Protonix Pertinent Labs 10/08: BUN 44H, creatinine 2.2H Nutritional Hx/Data Height 5 ft 6 in Height (Calculated Centimeters) 167.6 Current Weight (lbs) 239 lb Weight (Calculated Kilograms) 108.4 Weight (Calculated Grams) 386235.6 Usual body Weight (lbs) 200 [place] Body Weight 130 Weight Status Obese GI Symptoms Difficult in: Chewing Usual diet at home [facility]: [facility], regular texture Skin Integrity/Comment: Pa 17. Right lower extremity laceration. Current %PO Good (75-100%) Estimated Nutritional Goals BEE in Kcals: Adj wt of IBW Calories/Kcals/Kg AdjBW 157.3lb/71.5kg Kcals Calculated 1788-2145kcal (25-30kcal/kg) Protein: Adj wt of IBW Protein Calculated 72-100g (1-1.4g/kg) Fluid: ml 1788-2145ml (1ml/kcal) Nutritional Problem 3. Problem Problem Increased protein needs related to Etiology skin integrity aeb Signs/Symptoms: right lower extremity laceration 2. Problem Problem Undesirable food choices related to Etiology pt's preference aeb Signs/Symptoms: constant request for ice cream , cookies, sweets 1. Problem Problem Impaired nutrient utilization related to Etiology acute renal failure, hx renal failure aeb Signs/Symptoms: Research Technologist 2.2H, BUN 44H Intervention/Recommendation Comments 1. Recommend low sodium diet to aid in renal function. Avg PO intake is adequate. Expected Outcomes/Goals Expected Outcomes/Goals 1. PO itnake continue to meet at least 75% of estimated nutritional needs.
[2016-10-11] MEDS ORDERED: Ferrous Sulfate 325 MG TAB PO ONE (21:30)
--- NOTE | 2016-10-11 22:14 | Discharge Summary ---
DATE OF DISCHARGE: 10/11/2016 DISCHARGE DIAGNOSES: Right lower extremity laceration status post suture, generalized weakness status post fall, acute renal failure, dehydration, hyponatremia, which has improved, anemia, hypothyroidism, CAD, paroxysmal atrial fibrillation, chronic obstructive pulmonary disease, obesity, hypertension, noncompliance. HISTORY OF PRESENT ILLNESS: A 76-year-old female with a history of renal failure, hypothyroidism, CAD, atrial fibrillation, COPD, obesity, who was admitted from snf, apparently found in the restroom. The patient had a large laceration in the right chung. The patient had sutures done in the ER. PHYSICAL EXAMINATION: GENERAL: The patient is awake, alert, in no apparent distress. VITAL SIGNS: Stable. HEENT: Head, normocephalic, atraumatic. NECK: Supple. No mass. LUNGS: Clear bilaterally. CARDIOVASCULAR: Regular rate and rhythm. ABDOMEN: Soft, nontender. HOSPITAL COURSE: During the hospital stay, the patient was admitted to the Med/Surg Unit. The patient had a knee x-ray done due to status post fall and the impression is no acute bony abnormalities. The patient was also on empiric IV antibiotics. Psychiatry was on the case as well. The patient was given ferrous sulfate. The patient refused to have ferrous sulfate. She refused her iron supplement. The patient's hemoglobin on October 10, 2016, 7.9 and 24.0 and on October 11, 2016, 7.6 and 23.7. The patient refuses further treatment. For this reason, the patient will be discharged to SNF to continue with Keflex and to have followup outpatient GI. CONDITION UPON DISCHARGE: Fair. DISPOSITION: [facility]. JOB# [id number]
[2016-10-12] MEDS: Levothyroxine 0.1 Mg Tab PO SCH (06:57)
[2016-10-12] MEDS: Budesonide 0.5 Mg/2 mL Ud HHN SCH ×2 (07:23→18:26)
[2016-10-12] MEDS: Pantoprazole 40 mg EC Tab PO SCH (09:16)
[2016-10-12] MEDS: Aspirin 81mg Chewable Tab PO SCH (09:16)
[2016-10-12] MEDS: Ferrous Sulfate 325 MG TAB PO SCH ×3 (09:16→20:51)
[2016-10-12] MEDS: Diltiazem CD 120 mg 24H PO SCH (09:16)
[2016-10-12] MEDS: Polyvinyl Alcohol Ophth Soln 15 mL Bottle EACH EYE SCH ×2 (09:17→17:41)
[2016-10-12] MEDS: NIFEdipine 30 mg ER Tab PO SCH (09:17)
[2016-10-12] MEDS: Lidocaine 5% Patch TD SCH (09:17)
[2016-10-12] MEDS: Atorvastatin Calcium 10 MG TAB PO SCH (09:18)
[2016-10-12] MEDS: Hydrocodone/APAP 10 mg/325 mg Tab PO PRN ×3 (09:24→23:31)
[2016-10-12] MEDS: Magnesium Hydroxide (MOM) 30 mL UDC PO PRN (13:39)
--- NOTE | 2016-10-12 14:04 | Internal Medicine Prog Note ---
Internal Medicine Subjective - Subjective Service Date: 10/12/16 Patient is:: awake, verbal, interactive, in bed, talking Patient Complaints of:: LBP Per staff patient has:: poor appetite, unstable gait, tolerating meds Internal Medicine Objective - Results Result Diagrams: 10/11/16 05:25 10/10/16 06:50 Recent Labs: Laboratory Last Values WBC 5.2 Th/cmm (4.8-10.8) 10/11/16 05:25 RBC 2.44 Mil/cmm (3.80-5.20) L 10/11/16 05:25 Hgb 7.6 gm/dL (11.7-16.1) L* 10/11/16 05:25 Hct 23.7 % (35.0-45.0) L* 10/11/16 05:25 MCV 97.2 fl (81-100) 10/11/16 05:25 MCH 31.0 pg (27.0-31.0) 10/11/16 05:25 MCHC Differential 31.9 pg (28.0-36.0) 10/11/16 05:25 RDW 13.2 % (11.5-20.0) 10/11/16 05:25 Plt Count 133 Th/cmm (150-400) L 10/11/16 05:25 MPV 8.2 fl 10/11/16 05:25 Neutrophils % 62.2 % (40.0-80.0) 10/08/16 06:16 Band Neutrophils % 3 % (0-10) 10/11/16 05:25 Lymphocytes % 23.3 % (20.0-50.0) 10/08/16 06:16 Monocytes % 11.1 % (2.0-10.0) H 10/08/16 06:16 Eosinophils % 3.0 % (0.0-5.0) 10/08/16 06:16 Basophils % 0.4 % (0.0-2.0) 10/08/16 06:16 Neutrophils (Manual) 53 % (40-80) 10/11/16 05:25 Lymphocytes 34 % (20-50) 10/11/16 05:25 Monocytes 10 % (2-10) 10/11/16 05:25 Eosinophils 2 % (0-5) 10/10/16 06:50 Hypochromia 1+ 10/11/16 05:25 Platelet Estimate ADEQUATE (NORMAL) 10/11/16 05:25 Platelet Morphology NORMAL (NORMAL) 10/10/16 06:50 Polychromasia 1+ 10/11/16 05:25 RBC Morph Micro Appear NORMAL (NORMAL) 10/10/16 06:50 Sodium 137 mEq/L (136-145) 10/10/16 06:50 Potassium 4.5 mEq/L (3.5-5.1) 10/10/16 06:50 Chloride 104 mEq/L (98-107) 10/10/16 06:50 Carbon Dioxide 32.6 mEq/L (21.0-31.0) H 10/10/16 06:50 Anion Gap 4.9 (7.0-16.0) L 10/10/16 06:50 BUN 30 mg/dL (7-25) H 10/10/16 06:50 Creatinine 1.8 mg/dL (0.6-1.2) H 10/10/16 06:50 Est GFR ( Amer) TNP 10/10/16 06:50 Est GFR (Non-Af Amer) TNP 10/10/16 06:50 BUN/Creatinine Ratio 16.7 10/10/16 06:50 Glucose 117 mg/dL (70-105) H 10/10/16 06:50 Hemoglobin A1c % 5.2 % (4.0-6.0) 10/08/16 06:16 Calcium 9.1 mg/dL (8.6-10.3) 10/10/16 06:50 Magnesium 2.0 mg/dL (1.9-2.7) 10/08/16 06:16 Total Bilirubin 0.3 mg/dL (0.3-1.0) 10/06/16 22:01 AST 13 U/L (13-39) 10/06/16 22:01 ALT 11 U/L (7-52) 10/06/16 22:01 Alkaline Phosphatase 91 U/L (34-104) 10/06/16 22:01 B-Natriuretic Peptide 126.0 pg/mL (5.0-100.0) H 10/10/16 06:42 Total Protein 6.5 gm/dL (6.0-8.3) 10/06/16 22:01 Albumin 3.6 gm/dL (3.7-5.3) L 10/06/16 22:01 Globulin 2.9 gm/dL 10/06/16 22:01 Albumin/Globulin Ratio 1.2 (1.0-1.8) 10/06/16 22:01 TSH 0.50 uIU/ml (0.34-5.60) 10/08/16 06:16 - Physical Exam Vitals and I&O: Vital Signs Temp 98.2 F 10/12/16 12:00 Pulse 90 10/12/16 12:00 Resp 18 10/12/16 12:00 BP 122/55 10/12/16 12:00 Pulse Ox 98 10/12/16 12:00 Intake & Output 10/11/16 10/12/16 10/12/16 18:59 06:59 18:59 Intake Total 1000 Balance 1000 Weight (lbs) 252 lb 8 oz 257 lb 6.4 oz Intake: Oral 1000 Other: # Voids 3 3 # Bowel Movements 1 Stool Characteristics Soft Soft Soft Formed Formed Formed Active Medications: Current Medications Acetaminophen (Tylenol) 650 mg PO Q6HR PRN PRN Reason: Pain or Fever >101 Stop: 12/05/16 21:46 Last Admin: 10/12/16 12:31 Dose: 650 mg Acetaminophen/Hydrocodone Bitart ([place] 10 Mg/325 Mg) 1 tab PO Q4H PRN PRN Reason: Pain (Severe) Stop: 12/05/16 21:46 Last Admin: 10/12/16 09:24 Dose: 1 tab Albuterol/Ipratropium (Duoneb Neb) 3 ml HHN Q8HRT PRN PRN Reason: Shortness of Breath Stop: 12/05/16 21:46 Last Admin: 10/09/16 21:47 Dose: 3 ml Alprazolam (Xanax) 0.25 mg PO Q6HR PRN; Protocol PRN Reason: Anxiety Stop: 12/05/16 21:46 Last Admin: 10/12/16 09:30 Dose: 0.25 mg Amiodarone HCl (Cordarone) 400 mg PO DAILY [facility] Stop: 12/06/16 08:59 Last Admin: 10/12/16 09:17 Dose: 400 mg Artificial Tears (Artificial Tears Ophth Soln) 2 drop EACH EYE BID [facility] Stop: 12/06/16 08:59 Last Admin: 10/12/16 09:17 Dose: 2 drop Aspirin (Aspirin Chewable) 81 mg PO DAILY [facility] Stop: 12/06/16 08:59 Last Admin: 10/12/16 09:16 Dose: 81 mg Atorvastatin Calcium (Lipitor) 20 mg PO DAILY [facility] Stop: 12/05/16 22:59 Last Admin: 10/12/16 09:18 Dose: Not Given Budesonide (Pulmicort) 0.5 mg HHN BIDRT [facility] Stop: 12/06/16 08:59 Last Admin: 10/12/16 07:23 Dose: Not Given Diltiazem HCl (Cardizem Cd) 120 mg PO DAILY [facility] Stop: 12/06/16 08:59 Last Admin: 10/12/16 09:16 Dose: 120 mg Docusate Sodium (Colace) 100 mg PO DAILY [facility] Stop: 12/06/16 08:59 Last Admin: 10/12/16 09:16 Dose: 100 mg Ferrous Sulfate (Iron) 325 mg PO TID [facility] Stop: 12/10/16 08:59 Last Admin: 10/12/16 13:39 Dose: 325 mg Folic Acid (Folate) 1 mg PO DAILY [facility] Stop: 12/06/16 08:59 Last Admin: 10/12/16 09:16 Dose: 1 mg Levothyroxine Sodium (Synthroid) 0.1 mg PO QDAC [facility] Stop: 12/06/16 06:59 Last Admin: 10/12/16 06:57 Dose: 0.1 mg Lidocaine (Lidoderm 5% Patch) 1 patch TD DAILY [facility] Stop: 12/06/16 08:59 Last Admin: 10/12/16 09:17 Dose: 1 patch Magnesium Hydroxide (Milk Of Magnesia) 30 ml PO DAILY PRN PRN Reason: Constipation Stop: 12/05/16 21:46 Last Admin: 10/12/16 13:39 Dose: 30 ml Nifedipine (Procardia Xl) 30 mg PO DAILY [facility] Stop: 12/06/16 08:59 Last Admin: 10/12/16 09:17 Dose: 30 mg Nitroglycerin (Nitrostat) 0.4 mg SL Q5MIN PRN PRN Reason: Chest Pain Stop: 12/05/16 21:46 Last Admin: 10/08/16 16:48 Dose: 0.4 mg Pantoprazole Sodium (Protonix) 40 mg PO DAILY [facility] Stop: 12/06/16 08:59 Last Admin: 10/12/16 09:16 Dose: 40 mg Sertraline HCl (Zoloft) 50 mg PO BID [facility] Stop: 12/05/16 22:59 Last Admin: 10/12/16 09:16 Dose: 50 mg Zolpidem Tartrate (Ambien) 5 mg PO HS PRN PRN Reason: Insomnia Stop: 12/05/16 21:46 Last Admin: 10/11/16 23:08 Dose: 5 mg General: obese, appears younger HEENT: NC/AT, PERRLA, EOMI Neck: Supple, No JVD Lungs: congested Cardiovascular: RRR, Normal S1, Normal S2, with murmur Abdomen: soft, globular, positive bowel sound Extremities: edema (lle), excoriation, other (dressing below r knee) Neurological: no change, unsteady, bedbound - Procedures Procedures: Procedures Procedure Code Date REPAIR R LOW LEG SUBCU/FASCIA, OPEN APPROACH [id number] 10/06/16 SKIN TISSUE PROCEDURE 38413 10/06/16 Internal Medicine Assmt/Plan - Assessment Assessment: Right lower extremity laceration status post suture generalized weakness status post fall acute renal failure dehydration hyponatremia anemia hypothyroidism coronary artery disease paroxysmal atrial fibrillation, chronic obstructive pulmonary disease obesity hypertension headache - Plan Plan: dc planning in am continue current plan of care Nutritional Asmnt/Malnutr-PDOC - Dietary Evaluation Malnutrition Findings (Please click <Entered> for more info): Nutritional Asmnt/Malnutrition Start: 10/08/16 15: 42 Text: Status: Complete Freq: Document 10/08/16 15:42 GSUN (Rec: 10/08/16 16:03 GSUN [email or web address]) Nutritional Asmnt/Malnutrition Patient General Information Nutritional Screening Consult Diagnosis Right lower extremity laceration s/p suture, s/p fall, acute renal failure Pertinent Medical Hx/Surgical Hx Renal failure, hypothyroidism, CAD, atrial fibrillation, COPD, obesity, appendectomy, hernia repair, rhinoplasty Subjective Information 76 year old female from SNF. RD consult for large laceration right chung. Avg PO intake 75% of meals yesterday, meeting nutritional needs. Pt report usually with good appetite, however noted to be picky and meals and preference for desserts, pt has been requesting for ice cream, cookies. RD noted of pt's food preferences and explained improtance of nutrition for wound healing. Pt report UBW 200lb, stated CBW 239lb via bedscale is inaccurate. Most teeth intact, pt report unable to chew salad and bread, but able to tolerate all other food items provided. Current Diet Order/ Nutrition Support JIMBO Pertinent Medications D5-0.45ns, Colace, Iron, Folate, MOM, Zofran, Protonix Pertinent Labs 10/08: BUN 44H, creatinine 2.2H Nutritional Hx/Data Height 5 ft 6 in Height (Calculated Centimeters) 167.6 Current Weight (lbs) 239 lb Weight (Calculated Kilograms) 108.4 Weight (Calculated Grams) 361070.6 Usual body Weight (lbs) 200 [place] Body Weight 130 Weight Status Obese GI Symptoms Difficult in: Chewing Usual diet at home [facility]: [facility], regular texture Skin Integrity/Comment: Pa 17. Right lower extremity laceration. Current %PO Good (75-100%) Estimated Nutritional Goals BEE in Kcals: Adj wt of IBW Calories/Kcals/Kg AdjBW 157.3lb/71.5kg Kcals Calculated 1788-2145kcal (25-30kcal/kg) Protein: Adj wt of IBW Protein Calculated 72-100g (1-1.4g/kg) Fluid: ml 1788-2145ml (1ml/kcal) Nutritional Problem 3. Problem Problem Increased protein needs related to Etiology skin integrity aeb Signs/Symptoms: right lower extremity laceration 2. Problem Problem Undesirable food choices related to Etiology pt's preference aeb Signs/Symptoms: constant request for ice cream , cookies, sweets 1. Problem Problem Impaired nutrient utilization related to Etiology acute renal failure, hx renal failure aeb Signs/Symptoms: Insulation Blanket Maker 2.2H, BUN 44H Intervention/Recommendation Comments 1. Recommend low sodium diet to aid in renal function. Avg PO intake is adequate. Expected Outcomes/Goals Expected Outcomes/Goals 1. PO itnake continue to meet at least 75% of estimated nutritional needs.
--- NOTE | 2016-10-12 23:41 | Admit Criteria Form ---
Admit Criteria Forms - Admit Criteria Diagnosis: GENERAL ADMISSION CRITERIA (Place 'X' for any and all applicable criteria): Admission is indicated for ANY ONE of the following: [ ]I. Hemodynamic instability as indicated by ANY ONE of the following(1)(2) (3)(4)(5): [ ]a) Vital sign abnormality not readily corrected by appropriate treatment within 12 to 24 hours indicated by ANY ONE of the following: [ ]i) Hypotension [ ]ii) Symptomatic Tachycardia unresponsive to treatment (eg , analgesia, fluids, sedation as indicated) [ ]iii) Orthostatic vital sign changes unresponsive to treatment (eg, fluids) [ ]b) Vital sign abnormality that is severe indicated by ANY ONE of the following: [ ]i) Inadequate perfusion indicated by ANY ONE of the following: [ ]1) Lactic acidosis (greater than 2 mmol/L) [ ]2) New abnormal capillary refill (greater than 3 seconds) [ ]3) Other metabolic acidosis (arterial pH less than 7.35) not otherwise explained [ ]4) Reduced urine output [ ]5) Altered mental status [ ]6) Myocardial Ischemia [ ]v) Mean arterial pressure[A] less than 60 mm Hg [ ]vi) Mean arterial pressure[A] less than 70 mm Hg after 30 minutes of appropriate treatment (eg, fluid resuscitation) [ ]vii) IV inotropic or vasopressor medication required to maintain adequate blood pressure or perfusion [ ]viii) Sustained heart rate greater than 120 beats per minute in adult or child 6 years or older[B]] [ ]II. Hypertension requiring inpatient treatment as indicated by ANY ONE of the following(6)(7)(8): [ ]a) SBP greater than 220 mm Hg or DBP greater than 120 mm Hg despite treatment [ ]b) SBP greater than 140 mm Hg or DBP greater than 100 mm Hg with evidence of acute end organ damage as indicated by ANY ONE of the following: [ ]i) Encephalopathy [ ]ii) Acute renal failure as indicated by new onset of ANY ONE of the following(9)(10)(11)(12)(13): [ ]1) A 3-fold rise in serum creatinine from baseline [ ]2) Serum creatinine greater than 4 mg/dL ( 354 micromoles/L) with acute rise greater than 0.5 mg/dL (44.2 micromoles/L) [ ]3) Reduction of more than 75% in estimated glomerular filtration rate from baseline [ ]4) Estimated glomerular filtration rate less than 35 mL/min/1.73m2 (0.59 mL/sec/1.73m2) in child up to 18 years of age [ ]5) Cessation of urine output indicated by ALL of the following: [ ]A. Adequate volume status [ ]B. Inadequate urine output as indicated by ANY ONE of the following: [ ]a. Urine output less than 0.3 mL/kg/hr for 24 hours [ ]b. Anuria (urine output less than 0.1 mL/kg/hr) for 12 hours [ ]iii) Aortic dissection [ ]iv) Myocardial ischemia [ ]v) Left ventricular heart failure [ ]vi) Retinal hemorrhage [ ]vii) Other significant finding [ ]c) Hypertension in child requiring inpatient treatment as indicated by ALL of the following(14)(15)(16): [ ]i) Outpatient treatment not effective, not available, or not appropriate [ ]ii) SBP or DBP greater than 95th percentile for age [ ]iii) Evidence of acute end organ damage as indicated by ANY ONE of the following: [ ]1) Altered mental status [ ]2) Acute renal failure as indicated by new onset of ANY ONE of the following(9)(10)(11)(12)(13): [ ]A. A 3-fold rise in serum creatinine from baseline [ ]B. Serum creatinine greater than 4 mg/dL (354 micromoles/L) with acute rise greater than 0.5 mg/dL (44.2 micromoles/L) [ ]C. Reduction of more than 75% in estimated glomerular filtration rate from baseline [ ]D. Estimated glomerular filtration rate less than 35 mL/min/1.73m2 (0.59 mL/sec/1.73m2)in child up to 18 years of age [ ]E. Cessation of urine output indicated by ALL of the following: [ ]a. Adequate volume status [ ]b. Inadequate urine output as indicated by ANY ONE of the following: [ ]1) Urine output less than 0.3 mL/kg/hr for 24 hours [ ]2) Anuria (urine output less than 0.1 mL/kg/hr) for 12 hours [ ]3) Severe headache [ ]4) Visual disturbance [ ]5) Retinal hemorrhage [ ]6) Other significant finding [ ]III. Acute cardiac or peripheral ischemia as indicated by ANY ONE of the following: [ ]a) Acute coronary syndrome(17)(18) [ ]b) Acute peripheral ischemia (eg, pulseless, cool, mottled, or cyanotic extremity)(19) [ ]IV. Cardiac arrhythmias or findings of immediate concern indicated by ANY ONE of the following(20)(21): [ ]a) Heart rhythms that are inherently dangerous or unstable indicated by ANY ONE of the following(22)(23)(24): [ ]i) Resuscitated ventricular fibrillation or cardiac arrest [ ]ii) Ventricular escape rhythm [ ]iii) Sustained ventricular tachycardia (30 seconds or more of ventricular rhythm at greater than 100 beats per minute) [ ]iv) Nonsustained ventricular tachycardia and ANY ONE of the following: [ ]1) Suspected cardiac ischemia as cause or consequence of ventricular tachycardia [ ]2) In setting of acute myocarditis [ ]b) Unstable cardiac conduction defects indicated by ANY ONE of the following(24)(25)(26): [ ]i) Type II second-degree atrioventricular block [ ]ii) Third-degree atrioventricular block [ ]iii) New-onset left bundle branch block with suspected myocardial ischemia [ ]c) Any heart rhythm and ANY ONE of the following(22)(23)(27)(28)( 29): [ ] i) Continuous long-term ECG monitoring needed (eg, initiation of drug requiring monitoring for more than 24 hours) [ ] ii) Patient has automatic implanted cardioverter defibrillator that is repeatedly firing, malfunctioning, or in need of immediate adjustment of settings beyond the scope of ambulatory or observation care. [ ]d) Heart rhythms of concern due to ANY ONE of the following: [ ]i) Hypotension [ ]ii) Respiratory distress [ ]iii) Association with other significant symptoms (eg, bradycardia with syncope or ongoing dizziness, supraventricular tachycardia with chest pain) (27)(28) (30) [ ] V. Severe heart failure as indicated by ANY ONE of the following ( 31)(32): [ ]a) Respiratory distress [ ]b) Hypotension [ ]c) Anasarca (refractory to outpatient therapy) [ ]d) Cardiac arrhythmias of immediate concern [ ]e) Myocardial ischemia [ ]. Respiratory abnormalities, including ANY ONE of the following(33)(34) (35)(36): [ ]a) Respiratory rate greater than 30 breaths per minute unresponsive to treatment [A] [ ]b) New saturation of arterial oxygen less than 90% [ ]c) New partial pressure of carbon dioxide greater than 44 mm Hg ( 5.9 kPa) [ ]d) Supplemental oxygen or respiratory treatments needed that are new or not performable at other levels of care [ ]e) New-onset cyanosis [ ]f) Inability to protect airway [ ]g) Chronic lung disease with severe deterioration (not responsive to emergency and observation care treatment as appropriate) as indicated by ANY ONE of the following(34)(36 ): [ ]i) SaO2 5% below baseline in patient with chronic hypoxemia [ ]ii) New requirement for supplemental oxygen to keep SaO2 at baseline or acceptable level [ ]iii) Required supplemental oxygen performable only in acute inpatient setting [ ]iv) Severe airflow or ventilation abnormalities [ ]v) Previously mobile patient unable to walk between rooms [ ]vi Inability to eat or sleep due to dyspnea [ ]vii) Rapid rate of exacerbation onset [ ]viii) Altered mental status ]VII. Severe airflow or ventilation abnormalities (not responsive to emergency and observation care treatment as appropriate) as indicated by ANY ONE of the following(33)(34)(35)(37): [ ]a) PCO2 greater than 42 mm Hg (5.6 kPa) and pH less than 7.35 (new ) [ ]b) Documented PCO2 increased more than 5 mm Hg (0.7 kPa) from disease baseline [ ]c) Airflow measurements [B] less than 60% of previous best or predicted (eg, peak expiratory flow rate less than 300 L/minute) despite intensive emergent treatment [C] [ ]d) Required respiratory treatments that are performable only in acute inpatient setting [ ]VIII. Impending or actual respiratory arrest ( Also use Respiratory Failure GRG for severe respiratory disease and long-term mechanical ventilation patients) [ ]IX. Neurologic abnormalities, including ANY ONE of the following: [ ]a) New findings that suggest ANY ONE of the following: [ ]i) BARK SCALER infection(38) [ ]ii) Cerebral bleeding, ischemia, or vasospasm(39)(40) [ ]iii) Increased intracranial pressure, hydrocephalus, or cerebral edema(41)(42)(43) [ ]iv) Spinal cord injury(44) [ ]b) Uncontrolled seizures(45) [ ]c) New-onset coma (eg, Tracey coma scale score less than 9) or unexplained abnormal mental status (eg, Tracey coma scale score less than 14) [D](41)(46)(47) [ ]X. New-onset severe neurologic findings requiring inpatient care; examples include(42)(48)(49): [ ]a) Papilledema [ ]b) Cerebral edema [ ]c) Mass effect on CT scan [ ]XI. Suspected acute intra-abdominal process with peritoneal signs, abdominal mass, or similar findings (50)(51)(52) [ ]XII. Severe physiologic disorder remaining after emergency or observation level care (as appropriate) as indicated by ANY ONE of the following (53): [ ]a) Significant dehydration [ ]b) Diabetic ketoacidosis [ ]c) Hyperglycemic hyperosmolar state (eg, osmolality greater than 320 mOsm/kg (mmol/kg) [ ]d) Hypoglycemia [ ]e) Other (new) acid-base disorder with pH less than 7.35 or greater than 7.5(54) [ ]f) Thyroid storm (55) [ ]g) Myxedema coma (55) [ ]XIII. Abdominal abnormalities with ANY ONE of the following(56)(57): [ ]a) Absent bowel sounds with complete ileus [ ]b) Signs of intestinal obstruction or peritonitis [E] [ ]c) Nausea and vomiting that cannot be controlled with outpatient or observation care [ ]XIV. Acute renal failure as indicated by new onset of ANY ONE of the following(9)(10)(11)(12)(13): [ ]a) A 3-fold rise in serum creatinine from baseline [ ]b) Serum creatinine greater than 4 mg/dL (354 micromoles/L) with acute rise greater than 0.5 mg/dL (44.2 micromoles/L) [ ]c) Reduction of more than 75% in estimated glomerular filtration rate from baseline [ ]d) Estimated glomerular filtration rate less than 35 mL/min/ 1.73m2 (0.59 mL/sec/1.73m2) in child up to 18 years of age [ ]e) Cessation of urine output indicated by ALL of the following: [ ]i) Adequate volume status [ ]ii) Inadequate urine output as indicated by ANY ONE of the following: [ ]1) Urine output less than 0.3 mL/kg/hr for 24 hours [ ]2) Anuria (urine output less than 0.1 mL/kg/hr) for 12 hours [ ]XV. Significant uremic complications as indicated by ANY ONE of the following(58)(59)(60): [ ]a) Outpatient therapy is ineffective or not feasible for ANY ONE of the following: [ ]i) Severe heart failure [ ]ii) Severehypertension [ ]iii) Pleural effusion [ ]iv) Pericarditis or pericardial effusion [ ]b) Cardiac arrhythmias of immediate concern [ ]c) Intractable nausea or vomiting [ ]d) Recurrent seizures [ ]e) Encephalopathy [ ]f) Bleeding abnormalities (eg, platelet dysfunction) with active (eg, gastrointestinal) bleeding [ ]g) Dialysis indicated before long-term access or ambulatory arrangements can be made [ ]h) Significant metabolic or electrolyte abnormalities (eg, severe acidosis or hyperkalemia) [ ]XVI. High fever or other high-risk infection situation as indicated by ANY ONE of the following(61)(62)(63)(64): [ ]a) Outpatient and observation care antimicrobial treatment unavailable, not effective, or not appropriate [ ]b) Documented bacteremia [ ]c) Temperature greater than 40.5 degrees C (104.9 degrees F) ( oral) [ ]d) Temperature greater than 39.5 degrees C (103.1 degrees F) ( oral) or less than 36 degrees C (96.8 degrees F) (rectal) that does not respond to e treatment and observation care [ ] XVII. Temperature less than 95 degrees F (35 degrees C)(rectal)(65) [ ] XVIII. Severe nutritional abnormalities as indicated by ALL of the following (66)(67): [ ]a) Inability to tolerate or establish sufficient oral or other enteral nutrition in outpatient setting [ ]b) Parenteral nutrition regimen need that must be implemented on inpatient basis [ ] XIX. Severe electrolyte abnormalities indicated by ALL of the following(68) (69)(70): [ ]a) Electrolytes and associated findings are not as expected for patient baseline or acceptable treatment effects. [ ]b) Severe abnormalities indicated by ANY ONE of the following: [ ]i) Sodium less than 130 mEq/L (mmol/L) (new) [ ]ii)Sodium less than 135 mEq/L (mmol/L) with ANY ONE of the following: [ ]1) Uncorrectable (to near normal or chronic baseline) after trial of outpatient and emergency treatment [ ]2) Altered mental status [ ]3) Seizures [ ]4) Severe medical etiology requiring inpatient management (eg, heart failure, hypovolemia) [ ]iii) Sodium greater than 155 mEq/L (mmol/L) [ ]iv) Sodium greater than 150 mEq/L (mmol/L) with ANY ONE of the following: [ ]1) Uncorrectable (to near normal or chronic baseline) with outpatient and emergency treatment [ ]2) Altered mental status [ ]3) Seizures [ ]4) Severe medical etiology (eg, hypovolemia, diabetes insipidus) [ ]v) Potassium less than 2.5 mEq/L (mmol/L) despite outpatient and emergency treatment [ ]vi) Potassium less than 3 mEq/L (mmol/L) with ANY ONE of the following: [ ]1) Weakness [ ]2) Cardiac abnormality (eg, arrhythmia, conduction disturbance) [ ]3) Cardiac ischemia [ ]4) Ileus [ ]5) Ongoing medical cause requiring inpatient management (eg, acute renal wasting or SIADH) [ ]6) Other severe symptoms [ ]vii) Potassium greater than 6.5 mEq/L (mmol/L) [ ]viii) Potassium greater than 5 mEq/L (mmol/L) with ANY ONE of the following: [ ]1) Uncorrectable (to near normal or chronic baseline) with outpatient and emergency treatment [ ]2) Severe ECG findings [F] [ ]3) Acute worsening of renal failure (creatinine greater than 2.5 mg/dL (221 micromoles/L) or significant elevation for age and size) [ ]4) Severe weakness [ ]5) Severe medical etiology (eg, hemolysis, infection, drug overdose) [ ]ix) Calcium less than 7 mg/dL (1.75 mmol/L) despite outpatient and emergency treatment (72) [ ]x) Calcium less than 8 mg/dL (2 mmol/L) with significant symptoms or findings; examples include(72): [ ]1) Altered mental status [ ]2) Muscle spasms [ ]3) Seizures [ ]4) Breathing difficulty [ ]5) Cardiac abnormality (eg, arrhythmia or conduction disturbance) [ ]xi) Calcium greater than 14 mg/dL (3.5 mmol/L)(72) [ ]xii) Calcium greater than 12 mg/dL (3 mmol/L) with ANY ONE of the following(72): [ ]1) Uncorrectable (to near normal or chronic baseline) with outpatient and emergency treatment [ ]2) Significant dehydration or hypovolemia as indicated by ALL of the following(70)(73)(74): [ ]A. Not resolved with initial treatments [ ]B. Clinically significant dehydration as indicated by ANY ONE of the following: [ ]a. Vomiting refractory to outpatient treatment (ie, precluding oral rehydration) [ ]b. Inability to drink [ ]c. Hypernatremia or other electrolyte abnormality unable to be corrected with outpatient and emergency treatment [ ]d. Failure to remain hydrated with outpatient therapy [ ]e. Reduced urine output [ ]f. Hypotension [ ]g. Serious cause for dehydration requiring acute hospitalization (eg, bowel obstruction, increased intracranial pressure, infectious cause) [ ]h. Child with ANY ONE of the following(75): [ ]1) Severe abdominal tenderness [ ]2) Adequate care not available at home [ ]3) Severe dehydration ( greater than 9% loss of body weight) [ ]4) Significant symptoms or findings; examples include: [ ]A. Altered mental status [ ]B. Cardiac abnormality (eg, arrhythmia, conduction disturbance) [ ]C. Malignant etiology requiring inpatient treatment [ ]xiii) Phosphorus less than 1 mg/dL (0.32 mmol/L) [ ]xiv) Phosphorus less than 1.5 mg/dL (0.48 mmol/L) with ANY ONE of the following: [ ]1) Patient unresponsive to outpatient and emergency treatment [ ]2) Significant symptoms or findings; examples include: [ ]A. Weakness [ ]B. Altered mental status [ ]C. Breathing difficulty [ ]D. Seizures [ ]E. Rhabdomyolysis [ ]xv) Phosphorus greater than 10 mg/dL (3.2 mmol/L) [ ]xvi) Phosphorus greater than 4.5 mg/dL (1.45 mmol/L) (new) with ANY ONE of the following: [ ]1) Severe medical etiology (eg, crush injury, acute renal failure) [ ]2) Associated hypocalcemia with significant findings; examples include: [ ]A. Neurologic symptoms [ ]B. Altered mental status [ ]C. Muscle spasms [ ]D. Seizures [ ]E. Breathing difficulty [ ]F. Cardiac abnormality (eg, arrhythmia, conduction disturbance) [ ]xvii) Magnesium less than 1 mg/dL (0.41 mmol/L) [ ]xviii) Magnesium less than 1.5 mg/dL (0.62 mmol/L) with ANY ONE of the following: [ ]1) Patient unresponsive to outpatient and emergency treatment [ ]2) Associated hypocalcemia with significant findings; examples include: [ ]A. Altered mental status [ ]B. Muscle spasms [ ]C. Seizures [ ]D. Breathing difficulty [ ]E. Cardiac abnormality (eg, arrhythmia , conduction disturbance) [ ]3) Associated hypokalemia (potassium less than 3 mEq/L (mmol/L)) with risk of arrhythmia [ ]xix) Magnesium greater than 4 mEq/L (2 mmol/L) [ ]xx) Magnesium greater than 2.5 mEq/L (1.25 mmol/L) with significant symptoms or findings; examples include: [ ]1) Weakness [ ]2) Altered mental status [ ]3) Cardiac abnormality (eg, arrhythmia, conduction disturbance) [ ]4) Breathing difficulty [ ]5) Severe medical etiology (eg, renal failure, hypovolemia) [ ]xxi) Uric acid greater than 20 mg/dL (1190 micromoles/L)(76) [ ]xxii) Uric acid greater than 8 mg/dL (476 micromoles/L) with significant symptoms or findings of tumor lysis syndrome; examples include(76): [ ]1) Creatinine greater than 1.5 times upper limit of normal [ ]2) Cardiac abnormality (eg, arrhythmia, conduction disturbance) [ ]3) Seizure [ ]XX. Acute blood loss causing significant abnormality as indicated by ANY ONE of the following(77)(78): [ ]a) Hemoglobin less than 10 g/dL (100 g/L) (not baseline) [ ]b) Hematocrit less than 30% (0.30) (not baseline) [ ]c) Repeat hematocrit decreased more than 2% (0.02) [ ]d) Uncontrolled bleeding [ ]XXI. Severe anemia indicated by ANY ONE of the following(78)(79): [ ]a) Altered mental status [ ]b) Chest pain [ ]c) Exertional dyspnea [ ]d) Syncope [ ]e) Other findings suggesting inadequate perfusion [ ]f) Treatment with transfusion or volume replacement is ineffective at resolving ANY ONE of the following [G]: [ ]i) Tachycardia for age [ ]ii) Orthostatic vital sign changes as indicated by ANY ONE of the following(80): [ ]1) Fall in SBP of 20 mm Hg or more 1 to 3 minutes after patient sits or stands from recumbent position [ ]2) Fall in DBP of 10 mm Hg or more 1 to 3 minutes after patient sits or stands from recumbent position [ ]XXII. High-risk low platelet count as indicated by ANY ONE of the following( 81)(82): [ ]a) Severe or life-threatening bleeding (eg, intracranial, major gastrointestinal, or extensive mucosal bleeding), with any reduced platelet count [ ]b) Platelet count less than 20,000/mm3 (20 x109/L) with any active bleeding [ ]c) Platelet count less than 10,000/mm3 (10 x109/L) with minor purpura or petechiae [ ]d) Platelet count less than 5000/mm3 (5 x109/L) [ ]e) Low platelet count with hemolytic anemia [ ]XXIII. Disseminated intravascular coagulation(77)(83) [ ]XXIV. Severe adverse drug or systemic toxin reaction requiring inpatient treatment; examples include(84)(85): [ ]a) Serotonin syndrome(86) [ ]b) Neuroleptic malignant syndrome(86) [ ]c) Cholinergic syndrome with severe symptoms (eg, bronchorrhea, weakness, mental status changes, seizures) [ ]d) Sympathetic syndrome with severe symptoms (eg, seizures, mental status changes, cardiac dysrhythmias) [ ]e) Anticholinergic syndrome [ ]XXV. Severe pain requiring acute inpatient management as indicated by ALL of the following (87)(88)(89): [ ]a) Continuous or frequent (eg, every 2 to 4 hours) parenteral analgesics required [H] [ ]b) Rapid improvement expected from treatment or acute intervention (eg, surgery, anesthesia procedure) [ ]XXVI.Severe behavioral health issues judged unmanageable at a lower level of care (eg, residential) in a patient who is ANY ONE of the following(91) [ ]a) Acutely suicidal [ ]b) A danger to self (eg, self-mutilating or suicidal behavior) [ ]c) A danger to others (eg, assaultive or homicidal behavior) [ ]d) Incapacitated because of grave disability (eg, inability to provide for self at lower level of care) (92) [ X]XXVII. Inpatient monitoring needed; examples include(1)(3)(87)(93)(94)(95)( 96): [X ]a) Vital signs, neurologic signs, or vascular checks more frequently than every 4 hours [ ]b) Cardiac or respiratory monitoring beyond the scope (eg, over 24 hours) of observation care [ ]c) Pulmonary artery catheter monitoring [ ]d) Suspected compartment syndrome(97) (98) [ ]e) Cerebral bleeding, hydrocephalus, or vasospasm monitoring [ ]f) Increased intracranial pressure or cerebral edema monitoring [ ]g) monitoring [ ]XXVIII. Treatment requiring inpatient care; examples include: [ ]a) IV fluid to replace significant ongoing losses (greater than 3 L/m2 per day)(53) [ ]b) High concentration oxygen (greater than 40%)(33)(99)(100) [ ]c) Frequent respiratory therapy (more frequently than every 4 hours) to maintain airflow rates greater than 60% of baseline(33)(99)(100) [ ]d) Epidural analgesia(87) [ ]e) IV anticoagulation, vasoactive, or antiarrhythmic medication(19 )(23) [ ]f) Acute thrombolytics (generally require 24 hours of observation )(101)(102) [ ]XXIX. Emergency procedures needed; examples include: [ ]a) Emergency inpatient surgery [ ]b) Temporary pacemaker placement(103) [ ]c) Chest tube placement with active evacuation (eg, suction, drainage)(104) [ ]d) Emergent cardioversion(105) [ ]e) Emergent cardiac or vascular procedures (eg, cardiac catheterization, angioplasty) (17)(18) [ ]f) Emergent dialysis access placement and institution(10)(106) [ ]g) Emergent pericardiocentesis(107) [ ]h) Emergent plasmapheresis or leukapheresis(83) [ ]i) Emergent tracheostomy The original [employer] content created by [employer] has been revised. The portions of the content which have been revised are identified through the use of italic text or in bold, and [facility] has neither reviewed nor approved the modified material. All other unmodified content is copyright [employer]. Please see references footnoted in the original [employer] edition 2016 Admit Criteria Met?: Yes
[2016-10-13] MEDS: Levothyroxine 0.1 Mg Tab PO SCH (06:54)
[2016-10-13] MEDS: Budesonide 0.5 Mg/2 mL Ud HHN SCH (07:36)
[2016-10-13 08:40] LABS: WHITE BLOOD COUNT 5.1 Th/cmm (4.8-10.8)
[2016-10-13 08:41] LABS: HEMATOCRIT 23.5 % (35.0-45.0); HEMOGLOBIN 7.8 gm/dL (11.7-16.1); MEAN CELL VOLUME 97.4 fl (81-100); MEAN CORPUSCULAR HEMOGLOBIN 32.3 pg (27.0-31.0); RED BLOOD COUNT 2.41 Mil/cmm (3.80-5.20)
[2016-10-13 08:42] LABS: MEAN CORPUSCULAR HGB CONC 33.1 pg (28.0-36.0); MEAN PLATELET VOLUME 8.3 fl; PLATELET COUNT 156 Th/cmm (150-400)
[2016-10-13 08:45] LABS: EOSINOPHIL 5 % (0-5); NEUTROPHILS 50 % (40-80)
[2016-10-13] MEDS: Hydrocodone/APAP 10 mg/325 mg Tab PO PRN (08:59)
[2016-10-13] MEDS: Aspirin 81mg Chewable Tab PO SCH (09:03)
[2016-10-13] MEDS: Diltiazem CD 120 mg 24H PO SCH (09:04)
[2016-10-13] MEDS: Ferrous Sulfate 325 MG TAB PO SCH (09:05)
[2016-10-13] MEDS: Polyvinyl Alcohol Ophth Soln 15 mL Bottle EACH EYE SCH (09:09)
[2016-10-13] MEDS: Pantoprazole 40 mg EC Tab PO SCH (09:09)
[2016-10-13] MEDS: Lidocaine 5% Patch TD SCH (09:09)
[2016-10-13] MEDS: Atorvastatin Calcium 10 MG TAB PO SCH (09:10)
[2016-10-13] MEDS: NIFEdipine 30 mg ER Tab PO SCH (09:11)
--- NOTE | 2016-10-13 20:03 | Progress Notes ---
DATE: 10/13/2016 HISTORY OF PRESENT ILLNESS: The patient was seen, chart reviewed, discussed with staff. This is a 76-year-old female who I have seen after the past 1-2 days. On [id number], the patient was initially calm and friendly, but quickly escalates when finding out that I cannot help her get off her conservatorship, and I have no ties to the pot liner in regards to conservatorship. She states, "I don't want to talk to anymore. Please do not come back and visit me. I don't want to come and see me anymore." The patient does not answer any further questions that I asked at length. PAST PSYCHIATRIC HISTORY: Noted. FAMILY HISTORY: Noncontributory. SOCIAL HISTORY: Please see full H and P. The patient is living in [place]. Seems to live at a longterm facility. MENTAL STATUS EXAMINATION: Stated age, a little eye contact, irritable on exam. Mood is "fine." Affect flat. Thought processes are grossly linear. No overt SI or HI. PROVISIONAL DIAGNOSIS: No changes. MEDICAL DIAGNOSIS: Please see full H and P. RECOMMENDATIONS AND PLAN: The patient is essentially refusing to speak with me today after finding that I have no jurisdiction in regards to the conservatorship. She asked me not to come and see her anymore. Therefore, I will sign off. If there are any urgent matters, Psychiatry. JOB# [id number]
--- NOTE | 2016-10-14 20:37 | Discharge Summary ---
DATE OF DISCHARGE: 10/13/2016 DISCHARGE DIAGNOSES: Right lower extremity laceration ____ due to generalized weakness, status post fall, acute renal failure, dehydration, hyponatremia, anemia, hypothyroidism, coronary artery disease, paroxysmal atrial fibrillation, chronic obstructive pulmonary disease, obesity, hypertension. HISTORY OF PRESENT ILLNESS: A 76-year-old female with a history of renal failure, hypothyroidism, CAD, AFib, COPD, obesity, was admitted from the nursing facility secondary to status post fall. The patient obtained a laceration on the right chin. PHYSICAL EXAMINATION: GENERAL: The patient is well developed, well nourished, no acute distress. VITAL SIGNS: Stable. HEENT: Head: Normocephalic, atraumatic. NECK: Supple. No mass. LUNGS: Clear bilaterally. ABDOMEN: Soft, nontender. HOSPITAL COURSE: During the hospital stay, the patient was admitted to the Med/Surg Unit. The patient was kept on empiric IV antibiotics and wound care was also done. The patient also had a PT eval and also Psychiatry was also on board. The patient did not have any fevers during the hospital stay. For this reason, the patient was stable for discharge. The patient was refusing to be discharged. She stated that she would appeal her stay from Medicare, unfortunately Medicare denied her appeal. For this reason, the patient is stable for discharge. CONDITION UPON DISCHARGE: Fair. DISPOSITION: [facility]. JOB# [id number]
== END 2016-10-13 15:00 | DRG 580 ==
LOC: ER 20:26 → MSI 21:55
PROVIDERS: ADMIT Internal Medicine; ATTEND Internal Medicine
PROC: 0JQN0ZZ Repair Right Lower Leg Subcutaneous Tissue and Fascia, Open Approach (ICD-10-PCS; principal; 2016-10-06)
DX: S81.811A Laceration without foreign body, right lower leg, initial encounter (principal); N17.9 Acute kidney failure, unspecified; F33.2 Major depressive disorder, recurrent severe without psychotic features; I48.0 Paroxysmal atrial fibrillation; E86.0 Dehydration; F03.90 Unspecified dementia, unspecified severity, without behavioral disturbance, psychotic disturbance, mood disturbance, and anxiety; E87.1 Hypo-osmolality and hyponatremia; I10 Essential (primary) hypertension; Z68.41 Body mass index [BMI] 40.0-44.9, adult; J44.9 Chronic obstructive pulmonary disease, unspecified; E03.9 Hypothyroidism, unspecified; R51 Headache; E66.9 Obesity, unspecified; D64.9 Anemia, unspecified; I25.10 Atherosclerotic heart disease of native coronary artery without angina pectoris; W18.30XA Fall on same level, unspecified, initial encounter; Y93.89 Activity, other specified; Y92.121 Bathroom in nursing home as the place of occurrence of the external cause; Y99.8 Other external cause status; Z91.14 Patient's other noncompliance with medication regimen; Z88.1 Allergy status to other antibiotic agents; Z88.8 Allergy status to other drugs, medicaments and biological substances; Z90.49 Acquired absence of other specified parts of digestive tract
CPT/HCPCS: 36415-UA; 73560-TC-RT; 80048-TC; 80053-TC; 83036-90; 83735-TC; 83880-TC; 84443-TC; 85007-TC; 85025-TC; 85027-TC; 93005; 94640; 94760; A4217; J0690; J1650; J7042; J7613; Q0162; X6444; X6488; Z7610

== ENCOUNTER 2017-01-27 21:27 | Inpatient (IN) | payer MEDICARE, MEDICAID ==
--- NOTE | 2017-01-27 21:51 | ED Physician Chart ---
ED Chief Complaint/HPI - Patient Information Date Seen:: 01/27/17 Time Seen:: 21:20 Chief Complaint:: Chest Pain History of Present Illness:: onset x 3 days of intermittent exertional, pressuire type retrostrnal chest pain with dyspnea; no N/V, diaphoreis, Abd. Pain, A/N/V/D/c, neck pain, H/As, fever, chills, or urinary s/s Allergies:: Allergies Allergy/AdvReac Type Severity Reaction Status Date / Time levofloxacin [From Levaquin] Allergy Verified 01/27/17 21:45 niacin Allergy Verified 01/27/17 21:45 pregabalin [From Lyrica] Allergy Verified 01/27/17 21:45 Tetracyclines Allergy Verified 01/27/17 21:45 Historian:: Patient, EMS Review:: Nurse's Note Reviewed, EMS run form Reviewed ED Review of Systems - Review of Systems General/Constitutional: No fever, No chills, No weight loss, No weakness, No diaphoresis, No edema, No loss of appetite Skin: No skin lesions, No rash, No bruising Head: No headache, No light-headedness Eyes: No loss of vision, No pain, No diplopia ENT: No earache, No nasal drainage, No sore throat, No tinnitus Neck: No neck pain, No swelling, No thyromegaly, No stiffness, No mass noted Cardio Vascular: Chest pain, Palpitations, No PND, No orthopnea, No edema Pulmonary: SOB, No cough, No sputum, No wheezing GI: No nausea, No vomiting, No diarrhea, No pain, No melena, No hematochezia, No constipation, No hematemesis G/U: No dysuria, No frequency, No hematuria, No nacturia 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: No vaginal discharge, No abnormal vaginal bleed, No contraction Musculoskeletal: No bone or joint pain, No back pain, No muscle pain Endocrine: No polyuria, No polydipsia Psychiatric: Prior psych history, Depression, Anxiety, No suicidal ideation, No homicidal ideation, No auditory hallucination, No visual hallucination Hematopoietic: No bruising, No lymphadenopathy Allergic/Immuno: No urticaria, No angioedema Neurological: No syncope, No focal symptoms, No weakness, No paresthesia, No headache, No seizure, No dizziness, No confusion, No vertigo ED Past Medical History - Past Medical History Obtainable: Yes Past Medical History: HTN, CAD, Asthma/COPD, Dyslipidemia, Thyroid disorder, Arthritis, Dementia Family History: Diabetes Melitus, HTN Social History: Non Smoker, No Alcohol, No Drug Use, Single, Care Facility Surgical History: None Psychiatricy History: Depression, Bipolar, Dementia Medication: Reviewed Family Medical History - Family Member Mother History Unknown: Yes ED Physical Exam - Physical Examination General/Constitutional: Awake, Well-developed, well-nourished, Alert, No distress, GCS 15, Non-toxic appearing, Ambulatory Head: Atraumatic Eyes: Lids, conjuctiva normal, PERRL, EOMI Skin: Nl inspection, No rash, No skin lesions, No ecchymosis, Well hydrated, No lymphadenopathy ENMT: External ears, nose nl, TM canals nl, Nasal exam nl, Lips, teeth, gums nl , Oropharynx nl, Tonsils nl Neck: Nontender, Full ROM w/o pain, No JVD, No nuchal rigidity, No bruit, No mass, No stridor Respiratory: Nl effort/Exclusion, Clear to Auscultation, No Wheeze/Rhonchi/Rales Cardio Vascular: No murmur, gallop, rubs, NL S1 S2, Carotid/Femoral/Distal pulses equal bilaterally Other Cardio Vascular comments:: Irregular Irregular Rhythm GI: No tenderness/rebounding/guarding, No organomegaly, No hernia, Normal BS's, Nondistended, No mass/bruits, No McBurney tenderness : No CVA tenderness Extremities: No tenderness or effusion, Full ROM, normal strength in all extremities, No edema, Normal digits & nails Neuro/Psych: Alert/oriented, DTR's symmetric, Normal sensory exam, Normal motor strength, Judgement/insight normal, Mood normal, Normal gait, No focal deficits Misc: Normal back, No paraspinal tenderness ED Labs/Radiology/EKG Results - Lab Results Comments:: H/H: + Anemia - Radiology Results Comments:: NAD - EKG Interpretations EKG Time:: 21:30 Rate & Rhythm: 88; Atrial Fibrillation Comments:: non-specific st-t changes ED Septic Shock - . Is Septic Shock (SBP<90, OR Lactate>4 mmol\L) present?: No ED Reassessment (Disposition) - Reassessment Reassessment Condition:: Improved - Diagnosis Diagnosis:: Anemia; Chest Pain; Atrial Fibrillation; Angina Pectoris - Aftercare/Follow up Instructions Aftercare/Follow-Up Instructions:: Counseled pt regarding lab results/diagnosis & need follow up, Counseled pt & family regarding lab results/diagnosis & need follow up - Patient Disposition Discharge/Transfer:: Acute Care w/in this hosp Accepting Physician:: Dr. Tran Time Called:: 2059 Time Responded:: 23:15 Admitted to:: Telemetry Spoke to:: Dr. Tran Admitting Medical Physician:: Dr. Tran Condition at Disposition:: Stable, Improved
[2017-01-27] MEDS ORDERED: Aspirin 325 mg EC PO ONE (22:28)
[2017-01-27] MEDS ORDERED: Morphine Sulfate 2 mg/mL 1mL Syr IV STA (22:29)
[2017-01-27 23:03] LABS: % BASOPHILS 0.3 % (0.0-2.0); % EOSINOPHILS 2.6 % (0.0-5.0); % LYMPHOCYTES 22.7 % (20.0-50.0); % MONOCYTES 7.2 % (2.0-10.0); % NEUTROPHILS 67.2 % (40.0-80.0); EOSINOPHILE ABSOLUTE 0.2 Th/cmm (0.1-0.4); LYMPHOCYTE ABSOLUTE 1.3 Th/cmm (1.5-3.0); MEAN CELL VOLUME 94.3 fl (81-100); MEAN CORPUSCULAR HEMOGLOBIN 31.8 pg (27.0-31.0); MEAN CORPUSCULAR HGB CONC 33.8 pg (28.0-36.0); MEAN PLATELET VOLUME 7.6 fl; MONOCYTE ABSOLUTE 0.4 Th/cmm (0.3-1.0); PLATELET COUNT 165 Th/cmm (150-400); RED BLOOD COUNT 3.65 Mil/cmm (3.80-5.20); RED CELL DISTRIBUTION WIDTH 14.6 % (11.5-20.0); WHITE BLOOD COUNT 5.9 Th/cmm (4.8-10.8)
[2017-01-27 23:05] LABS: HEMOGLOBIN 11.6 gm/dL (12-16)
[2017-01-27 23:06] LABS: HEMATOCRIT 34.5 % (41.0-60)
[2017-01-27 23:16] LABS: INR 0.99 (0.5-1.4); PROTHROMBIN TIME (TEST) 10.3 SECONDS (9.5-11.5)
[2017-01-27 23:19] LABS: ALB/GLOB RATIO 1.3 (1.0-1.8); ALKALINE PHOSPHATASE 70 U/L (34-104); ANION GAP 12.3 (7.0-16.0); BILIRUBIN,TOTAL 0.3 mg/dL (0.3-1.0); BUN - UREA NITROGEN 40 mg/dL (7-25); CALCIUM SERUM 9.5 mg/dL (8.6-10.3); CARBON DIOXIDE 25.9 mEq/L (21.0-31.0); CHLORIDE 100 mEq/L (98-107); CHOLESTEROL 224 mg/dL (<200); CREATININE - SERUM 2.5 mg/dL (0.6-1.2); CREATININE KINASE 101 U/L (30-223); GLUCOSE 109 mg/dL (70-105); HDL -HIGH DENSITY LIPOPROTEIN 61 mg/dL (23-92); POTASSIUM SERUM 4.2 mEq/L (3.5-5.1); SGOT 18 U/L (13-39); SGPT/ALT 18 U/L (7-52); SODIUM SERUM 134 mEq/L (136-145); TRIGLYCERIDES 123 mg/dL (<150)
[2017-01-28] MEDS ORDERED: Aspirin 81mg Chewable Tab ONE
[2017-01-28] MEDS ORDERED: Morphine Sulfate 2 mg/mL 1mL Syr ONE (00:01)
[2017-01-28] MEDS ORDERED: Sodium Chloride 0.9% 1,000 ML IV SCH ×2 (03:34→07:00)
[2017-01-28 03:42] VITALS: BP 150/80
[2017-01-28] MEDS ORDERED: Potassium Chloride 20 mEq ER Tab PO PRN (06:50)
[2017-01-28] MEDS ORDERED: Morphine Sulfate 2 mg/mL 1mL Syr IVP PRN (06:50)
--- NOTE | 2017-01-28 07:45 | Diagnostic Imaging Report ---
Exam: Portable chest x-ray. HISTORY: Chest pain Findings: Portable examination of chest at 2240 hours was reviewed. The study is limited due to severe rotation of patient. The study demonstrates no evidence for active pulmonic infiltrates small left pleural effusion cannot be excluded. Extensive degenerative changes are noted throughout the thoracic spine. The aortic arch calcified. IMPRESSION: Somewhat limited examination due to severe rotation of patient. Question of small left pleural effusion. Follow-up dictation recommended. COPD changes.
[2017-01-28] MEDS ORDERED: LEVOTHYROXINE SODIUM 175 MCG PO SCH (09:00)
[2017-01-28] MEDS ORDERED: FERROUS GLUCONATE 324 MG PO SCH (09:00)
[2017-01-28] MEDS ORDERED: Enoxaparin 30 mg/0.3 mL 0.3mL Syr SUBQ SCH (09:00)
[2017-01-28] MEDS ORDERED: SERTRALINE HCL 50 MG PO SCH (09:00)
[2017-01-28] MEDS: NIFEdipine 30 mg ER Tab PO SCH (09:00)
[2017-01-28] MEDS ORDERED: Non-Formulary Item 1 EA (Atorvastatin Calcium [Lipitor] 20 MG) PO SCH (09:00)
[2017-01-28] MEDS ORDERED: Diltiazem 30 mg Tab PO SCH (09:00)
[2017-01-28] MEDS: Aspirin 81mg Chewable Tab PO SCH (09:01)
[2017-01-28] MEDS: Budesonide 0.5 Mg/2 mL Ud HHN SCH ×3 (10:06→19:03)
[2017-01-28] MEDS: Lidocaine 5% Patch TD SCH (10:49)
[2017-01-28 12:41] LABS: A1C % 5.9 % (4.0-6.0)
--- NOTE | 2017-01-28 12:46 | History & Physical ---
ADMIT DATE: 01/28/2017 CHIEF COMPLAINT: Chest pain. HISTORY OF PRESENT ILLNESS: The patient is a 76-year-old female who is a longstanding patient of mine at alf facility. She has history of AFib, hypertension, dyslipidemia, COPD, hypothyroidism. She takes nitroglycerin for chest pain. She has been to hospital several times before for chest pain. Yesterday, in spite of nitroglycerin her chest pain did not resolve, so she was sent to the hospital for further workup and treatment. PAST MEDICAL HISTORY: Significant for dyslipidemia, AFib, COPD, hypothyroidism and history of chest pain in the past. SOCIAL HISTORY: She lives in a alf facility. Denies any alcohol, tobacco or drug abuse. FAMILY HISTORY: Noncontributory. ALLERGIES: She is allergic to LEVAQUIN, NIACIN, PREGABALIN, TETRACYCLINE. PAST SURGICAL HISTORY: Denies any recent major surgeries. SOCIAL HISTORY: Denies any alcohol, tobacco, or drug abuse. MEDICATIONS: All medication reviewed and reconciled. REVIEW OF SYSTEMS: GENERAL: Positive for recent fatigue, but no fevers or chills. HEENT: Denies any head trauma or change in vision, taste, hearing, or smell. Oral: Denies any pain or discharge. NECK: No recent tracheal deviation. CARDIOVASCULAR: Positive for history of AFib and chest pain. ABDOMEN: No recent pain or distention. GASTROINTESTINAL: Denies any nausea, vomiting or diarrhea. GENITOURINARY: Positive for increased urinary frequency and mild dysuria according to the patient. SKIN: No recent rashes. NEUROLOGIC: No history of stroke or seizures. MUSCULOSKELETAL: Positive for muscle weakness. PHYSICAL EXAMINATION: VITAL SIGNS: Temperature is 98.2 degrees, heart rate is 84, respirations 18, blood pressure 150/80. Currently, no pain. GENERAL: No acute distress, awake, alert. HEENT: No acute issues. NECK: Trachea is midline. CARDIOVASCULAR: Regular rate and rhythm. ABDOMEN: Nontender, nondistended. SKIN: No rashes. PSYCHIATRIC: No psychosis or hallucinations, but she feels depressed. She states that she has had thoughts of ending her life in the past, but she is not actively suicidal. EXTREMITIES: 1+ edema in lower extremities. GENITOURINARY: No hematuria is noted. LABORATORY DATA: UA is pending. White count is 5.9, hemoglobin 11.6, platelet count is 165,000. Sodium 134, potassium 4.2, chloride 100, bicarbonate 25.9, BUN 40, creatinine 2.5, glucose is 109. The patient's chest x-ray does not show any acute abnormalities. There is a question of small left pleural effusion. ASSESSMENT/PLAN: 1. Chest pain. 2. Vasomotor nephropathy. 3. Dyslipidemia. 4. Atrial fibrillation. 5. Chronic obstructive pulmonary disease. 6. Hypothyroidism. 7. Obesity. 8. Hyponatremia. PLAN: The patient is on IV fluids. Check chem panel tomorrow. Continue anticoagulation. She is on amiodarone as well. She has been monitored on telemetry. Cardiology already saw the patient. Echo has been ordered. Follow up on UA. Continue rest of the medications. JOB# [id number]
[2017-01-28] MEDS: Hydrocodone/APAP 10 mg/325 mg Tab PO PRN ×2 (15:03→21:01)
[2017-01-28] MEDS: Polyvinyl Alcohol Ophth Soln 15 mL Bottle EACH EYE SCH (17:10)
--- NOTE | 2017-01-28 17:35 | Consultation ---
DATE OF CONSULTATION: 01/28/[address] Tran. HISTORY AND PHYSICAL: This is 76 years old morbidly obese female patient who apparently has been complaining of chest pain. Following this, the patient came to the Emergency Room. The patient is depressed. PAST MEDICAL HISTORY: The patient has a history of CKD, stage III; morbid obesity; hyperlipidemia; iron deficiency anemia; atrial fibrillation; COPD; hypothyroidism and dementia. FAMILY HISTORY: Unremarkable. SOCIAL HISTORY: No history of smoking or alcohol abuse. ALLERGIES: No known allergies. PHYSICAL EXAMINATION: VITAL SIGNS: Blood pressure 130/80, pulse 70 and irregular and respirations 28. HEAD: Normocephalic. No lumps or bumps. EYES: Pupils equal, reactive to light. Fundi show AV nicking, sclerae white, conjunctivae pink. NECK: Carotid 2+. Normal upstroke. JVD flat. Thyroid not palpable. Lymph nodes not palpable. CHEST: Shows increased AP diameter. No kyphosis or scoliosis. LUNGS: Bilateral bronchovesicular breath sounds. HEART: PMI, fifth intercostal space with lateral to midclavicular line. S1 irregular. S2, S3, S4, soft systolic murmur. ABDOMEN: Soft. Liver and spleen not palpable. No organomegaly. Bowel sounds active. NEUROLOGIC: Unremarkable. EXTREMITIES: Peripheral pulses 2+. No pedal edema. CLINICAL IMPRESSION: Atrial fibrillation and chest pain, unlikely coronary artery disease. The patient recently had been admitted and worked up at [facility]. Morbid obesity, hyperlipidemia, iron deficiency anemia, hypothyroidism, chronic obstructive pulmonary disease, dementia, atrial fibrillation, bipolar and psychosis. PLAN: Admit the patient. We will get troponin level, EKG and monitor the patient. JOB# [id number]
[2017-01-29] MEDS: Atorvastatin Calcium 10 MG TAB PO SCH ×2 (00:12→20:36)
[2017-01-29] MEDS: Budesonide 0.5 Mg/2 mL Ud HHN SCH ×2 (08:15→19:28)
--- NOTE | 2017-01-29 08:44 | Discharge Progress Note ---
Discharge Progress Notes Admitting Diagnoses: Diagnoses HYPOTHYROIDISM, UNSPECIFIED 01/28/17 OBESITY, UNSPECIFIED 01/28/17 HYPERLIPIDEMIA, UNSPECIFIED 01/28/17 HYPO-OSMOLALITY AND HYPONATREMIA 01/28/17 UNSPECIFIED ATRIAL FIBRILLATION 01/28/17 CHRONIC OBSTRUCTIVE PULMONARY DISEASE, UNSPECIFIED 01/28/17 ACUTE KIDNEY FAILURE WITH TUBULAR NECROSIS 01/28/17 CHEST PAIN, UNSPECIFIED 01/28/17 BODY MASS INDEX (BMI) 40.0-44.9, ADULT 01/28/17 Discharge Diagnoses: chest pain, acs ruled out vmn DLD a fib copd hypothyroidism obesity hyponatremia psychosis bipolar disorder Disposition: Discharge/Transfered to [facility] Procedures Performed: 01/28/17 PULSE OXIMETRY CHECK [RT] Routine 01/28/17 01:28 Transfer Order Routine 01/28/17 03:34 ADMIT ORDERS ONCE PHYSICIAN [CONS] ONCE Sodium Chloride 0.9% [NaCL 0.9%] 1,000 ml IV 70 mls/hr 01/28/17 06:46 Acetaminophen [Tylenol] 650 mg PO Q6HR PRN Hydrocodone/APAP 10 mg/325 mg [Decker 10 mg/325 mg] 1 tab PO Q4H PRN Nitroglycerin [Nitrostat] 0.4 mg SL Q5MIN PRN 01/28/17 06:50 A1C PANEL Routine URINALYSIS W/REFLEX Routine Lorazepam [Ativan] 2 mg IVP Q4HR PRN Morphine Sulfate [Morphine] 2 mg IVP Q4H PRN Ondansetron HCl [Zofran] 4 mg IVP Q6H PRN Potassium Chloride ER [Klor-Con] 40 meq PO DAILY PRN Zolpidem Tartrate [Ambien] 10 mg PO HS PRN 01/28/17 07:00 Sodium Chloride 0.9% [NaCL 0.9%] 1,000 ml IV 80 mls/hr 01/28/17 09:00 Amiodarone [Cordarone] 400 mg PO DAILY Aspirin [Aspirin Chewable] 81 mg PO DAILY Atorvastatin Calcium [Lipitor] 20 mg PO DAILY Budesonide [Pulmicort] 0.5 mg HHN BID Diltiazem [Cardizem] 120 mg PO DAILY Enoxaparin [Lovenox] 30 mg SUBQ DAILY Ferrous Gluconate [Ferrous Gluconate] 324 mg PO DAILY Folic Acid [Folate] 1 mg PO DAILY Levothyroxine Sodium [Levothyroxine Sodium] 175 mcg PO DAILY Lidocaine 5% Patch [Lidoderm 5% Patch] 1 patch TD DAILY NIFEdipine [Procardia XL] 30 mg PO DAILY Polyvinyl Alcohol Ophth Soln [Artificial Tears Ophth Soln] 2 drop EACH EYE BID Sertraline HCl [Zoloft] 50 mg PO BID 01/28/17 11:47 ECHOCARDIOGRAM Routine 01/28/17 12:16 PHYSICIAN [CONS] ONCE 01/28/17 12:22 Docusate Sodium [Colace] 100 mg PO BID PRN 01/28/17 17:00 Docusate Sodium [Colace] 100 mg PO BID Sertraline [Zoloft] 50 mg PO BID 01/28/17 21:00 Atorvastatin Calcium [Lipitor] 20 mg PO HS 01/28/17 Breakfast CARDIAC [DIET] 01/29/17 06:00 BMP (BASIC METABOLIC) DAILY 01/29/17 08:31 DISCHARGE PATIENT ONCE 01/29/17 09:00 Diltiazem CD [Cardizem CD] 120 mg PO DAILY Ferrous Sulfate [Iron] 325 mg PO DAILY Levothyroxine [Synthroid] 0.175 mg PO DAILY Rivaroxaban [Xarelto] 20 mg PO DAILY Sertraline [Zoloft] 50 mg PO DAILY EKG-ELECTROCARDIOGRAM Routine 01/30/17 06:00 BMP (BASIC METABOLIC) DAILY 01/31/17 06:00 BMP (BASIC METABOLIC) DAILY 02/01/17 06:00 BMP (BASIC METABOLIC) DAILY 02/02/17 06:00 BMP (BASIC METABOLIC) DAILY 01/28/17 06:50 A1C PANEL Routine URINALYSIS W/REFLEX Routine 01/29/17 06:00 BMP (BASIC METABOLIC) DAILY 01/30/17 06:00 BMP (BASIC METABOLIC) DAILY 01/31/17 06:00 BMP (BASIC METABOLIC) DAILY 02/01/17 06:00 BMP (BASIC METABOLIC) DAILY 02/02/17 06:00 BMP (BASIC METABOLIC) DAILY 01/29/17 07:36 Nurse Notes by Kindra Marie RN INITIAL CARE RECEIVED PATIENT IN BED LYING IN BED ASLEPT RESP EVEN AND UNLABORED PATIENT IS AFIB IN TELE MONITOR HR 81 ANTICIPATED NEEDS AND SAFETY ENSURED WILL CONTINUE TO PROVIDE CARE Initialized on 01/29/17 07:36 - END OF NOTE 01/29/17 06:46 Nurse Notes by Vicki Figueroa NURSE NOTE PT REFUSED TO TURN SIDE TO SIDE LIKES TO TURN ON SUPINE POSITION ONLY Initialized on 01/29/17 06:46 - END OF NOTE 01/29/17 06:39 Nurse Notes by Vicki Figueroa NURSE NOTE PT REFUSED AM LAB DRAW AND AM CARE SLEPT 5-6 HRS VITAL SIGN WNL Initialized on 01/29/17 06:39 - END OF NOTE 01/29/17 01:41 Nurse Notes by Vicki Figueroa NURSE NOTE 2100 PT REFUSEDTO TAKE LIPITOR COMPLAINE OF GENERALIZED PAIN NORCO 10 GIVEN 2240 PT ANXIOS AND RESTLESS ASKING FOR SLEEPING PILL AMBIEN 10 MG PO GIVEN 2400 PT SLEEPING VITAL SIGN WNL CONTINUE TO MONITOR Initialized on 01/29/17 01:41 - END OF NOTE 01/28/17 19:52 Nurse Notes by Kindra Marie PATIENT CON MEDS AND PLAN OF CARE PATIENT REFUSED IVF REINSERTION 2 D ECHO DONRE TO FOLLOW UP MED DR TRAN DC LOVENOX AND CONT XARELTO PATIENT COBT TO FABRICATE STORIES Initialized on 01/28/17 19:52 - END OF NOTE 01/28/17 19:47 Nurse Notes by Vicki Figueroa NURSE NOTE RECIEVED PT AWAKE ALERT AND ORIENTED RESP EVEN AND EASY VITAL SIGN WNL DENIES PAIN AT THIS TIME NO IV ACCESS NOTED PT REFUSED TO HAVE ONE A-FIB ON BIN WORKER WITH HR 100-107 PM CARE GIVEN REPOSITIONED Initialized on 01/28/17 19:47 - END OF NOTE 01/28/17 09:30 (created 01/28/17 11:39) Nurse Notes by Kindra Marie RN INITIAL NOTES 0730 RECEIVED PATIENT IN BED ALERT AWAKE AND SAID SHE IS COLD NOT IN ANY DISTRESS NO FACIAL GRIMACE PATIENT IS COVERED WITH THICK BLANKETS PATIENT ABLE TO SIT IN THE BSC AND ASSISTED PATIENT CONSTANTLY CALLED AND STATED THAT SHE WAS NEVER HELPED AT ALL PATIENT NEEDS ATTENDED AND WHEN HAUL CANE BRAKEMAN GOES AND ATTENDS HER SHE WOULD SAY LATER PATIENT ALSO WITNESSED THAT WHEN HAUL CANE BRAKEMAN ASKED WHAT SHE NEEDS SHE WILL FABRICATE STORY VERIFIED WITH PATIENT WHAT SHE NEEDS SHE STATES SHE FEEL TERRIBLE THAT DR CHEN NOT COME EXPLAINED TO PATIENT THAT DR TRAN WILL MAKE HIS AM ROUNDS ANY TIME TODAY PATIENT UNDERSTOOD AND STATED THAT SHE COULD WAIT AM MEDS GIVEN AND [id number] PATIENT CONSTANTLY CALLS BEC. SHE FELT LEFT OUT CONSTANT VISIT TRIP TO THE ROOM AND PATIENT STATED SHE DONT NEED ANYTHING AT THIS TIME WILL ANTICIPATE NEEDS AND ATTEND PATIENT Initialized on 01/28/17 11:39 - END OF NOTE 01/28/17 04:50 Nurse Notes by Vicki Figueroa NURSE NOTE RECIEVED PT AWAKE ALERT UNCOPPERATIVE RESP EVEN AND EASY WITH 2L NC SATS 96 % VITAL SIGN WNL A-FIB WITH HR 80-84 ON THE MONITOR DENIES ANY CHEST PAIN NS @ 75 INFUSING ON LT HAND CONTINUE TO MONITOR Initialized on 01/28/17 04:50 - END OF NOTE 01/28/17 02:37 Nurse Notes by Raeann Stahl 0230 - TRANSFERRED TO ROOM VIA GURNEY Initialized on 01/28/17 02:37 - END OF NOTE 01/28/17 02:37 Nurse Notes by Raeann Stahl 0215 - REPORT GIVEN TO LUDIN BERGER Initialized on 01/28/17 02:37 - END OF NOTE 01/28/17 01:27 Nurse Notes by Raeann Stahl 0125 - DR LYNNE SPOKE TO DR TRAN AND DISCUSSED MORENA'S CONDITION AND ADMISSION Initialized on 01/28/17 01:27 - END OF NOTE 01/28/17 01:25 Nurse Notes by Raeann Stahl 0030 - IV INSERTION: IV PLACEMENT: #[22] gauge angiocath placed to [LEFT HAND]. Use of aseptic technique. Opsite placed over site. Blood return noted. . Flushed with [10] cc of normal saline. No evidence of infiltration noted. Patient tolerated [WELL]. Initialized on 01/28/17 01:25 - END OF NOTE Reason for Hospitalization: chest pain Hospital Course (Significant Findings/Progress/Treatments): This 76-year-old female presented from [facility] with the complaint of chest pain for 1 day. The patient has a history of atrial fibrillation, hypertension, dyslipidemia, psychosis, bipolar disorder and COPD who presented with the complaint of chest pain for 1 day. The patient has a history of using nitroglycerin for coronary artery disease and intermittent chest pain. She has been known to abuse the nitroglycerin while the nursing homes and attempt to come to the hospital because she no longer wants to stay at [facility] and she has been sent to the hospital approximately 15-20 times the last year. ACS protocol was initiated and her troponins were within normal limits. Cardiology was consult and to assess the patient for acute coronary syndrome. Cardiology stated patient was not experiencing acute coronary syndrome at this time and she was cleared from a cardiac standpoint. Due to her psychiatric history the patient attempts to use the nitroglycerin and attempt to go to the hospital and there is concern that patient may want to harm herself and Dr. So was consulted. Dr. So evaluated the patient and deemed that she did not meet requirements for geropsych. Dr. So restart the patient's sertraline and stated that she needed to have continued psychiatric workup at [facility]. Patient Aware of Diagnosis & Prognosis?: Yes Complications: None Allergies/Adverse Reactions: Allergies Allergy/AdvReac Type Severity Reaction Status Date / Time levofloxacin [From Levaquin] Allergy Verified 01/27/17 21:45 niacin Allergy Verified 01/27/17 21:45 pregabalin [From Lyrica] Allergy Verified 01/27/17 21:45 Tetracyclines Allergy Verified 01/27/17 21:45 Condition at Discharge: Stable Treatment Plan: continue care at [facility] Home Medications: Home Medication Medication Instructions Recorded Type Amiodarone [Cordarone] 400 mg PO DAILY 08/30/16 History Aspirin [Aspirin Chewable] 81 mg PO DAILY 08/30/16 History Budesonide [Pulmicort] 0.5 mg IH BID 08/30/16 History Nifedipine [Nifedipine ER] 30 mg PO DAILY 08/30/16 History Nitroglycerin [Nitrostat*] 0.4 mg SL Q5MIN PRN 08/30/16 History Polyvinyl Alcohol Ophth Soln 2 drop EACH EYE BID 08/30/16 History [Artificial Tears Ophth Soln*] Folic Acid [Folate*] 1 mg PO DAILY 10/06/16 History Acetaminophen [Tylenol] 650 mg PO Q6HR PRN tab 01/29/17 Rx Atorvastatin Calcium [Lipitor] 20 mg PO HS #30 tab 01/29/17 Rx Diltiazem CD [Cardizem Cd] 120 mg PO DAILY c24 01/29/17 Rx Docusate Sodium [Colace] 100 mg PO BID cap 01/29/17 Rx Ferrous Sulfate [Iron] 325 mg PO DAILY tab 01/29/17 Rx Levothyroxine [Synthroid] 0.175 mg PO DAILY tab 01/29/17 Rx Lidocaine 5% Patch [Lidoderm 5% 1 patch TD DAILY tdm 01/29/17 Rx Patch] Rivaroxaban [Xarelto] 20 mg PO DAILY #0 tab 01/29/17 Rx Sertraline [Zoloft] 50 mg PO DAILY tab 01/29/17 Rx Zolpidem Tartrate [Ambien] 10 mg PO HS PRN tab 01/29/17 Rx Pain Management: none Referrals: Lenin Tran [Primary Care Provider] - Rehab Potential: Good Diet: CCHO, 60 grams Reason for Transfer (If applicable): none Copy Given to Patient & Patient's Legal [employer]in[employer] 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
[2017-01-29] MEDS: Aspirin 81mg Chewable Tab PO SCH (09:10)
[2017-01-29] MEDS: Ferrous Sulfate 325 MG TAB PO SCH ×2 (09:12→09:18)
[2017-01-29] MEDS: Lidocaine 5% Patch TD SCH (09:13)
[2017-01-29] MEDS: Diltiazem CD 120 mg 24H PO SCH (09:13)
[2017-01-29] MEDS: NIFEdipine 30 mg ER Tab PO SCH (09:14)
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
[2017-01-29] MEDS: Polyvinyl Alcohol Ophth Soln 15 mL Bottle EACH EYE SCH ×3 (10:14→17:04)
[2017-01-29] MEDS: Hydrocodone/APAP 10 mg/325 mg Tab PO PRN ×3 (10:15→20:28)
[2017-01-29 10:31] LABS: ANION GAP 11.3 (7.0-16.0); BUN - UREA NITROGEN 30 mg/dL (7-25); CARBON DIOXIDE 28.9 mEq/L (21.0-31.0); CHLORIDE 101 mEq/L (98-107); CREATININE - SERUM 2.2 mg/dL (0.6-1.2); GLUCOSE 127 mg/dL (70-105); POTASSIUM SERUM 4.2 mEq/L (3.5-5.1); SODIUM SERUM 137 mEq/L (136-145)
--- NOTE | 2017-01-29 16:44 | Cardiology ---
01/28/[address] Tran. PROCEDURE: Echocardiogram. M-MODE ECHOCARDIOGRAM: Mitral valve, anterior leaflet of mitral valve shows normal excursion, EF velocity. Posterior leaflet of mitral valve shows normal excursion. Left ventricular posterior wall shows increased thickness, normal excursion. Interventricular septum shows increased thickness, normal excursion, hypertrophy of the left ventricle, ejection fraction 50%. Left atrium enlarged at 4.1 cm. Aortic root shows normal dimension, normal excursion of aortic leaflets. CONCLUSION: Hypertrophy of the left ventricle, left atrial enlargement, ejection fraction 50%. 2D ECHO: Long axis view showed normal sized left ventricle with hypertrophy of the left ventricle. Left atrium enlarged. Aortic root showed normal dimension, normal excursion of aortic leaflets. Short axis view of mitral valve normal. Short axis view of aortic valve normal. Apical four chamber view showed normal sized left ventricle with hypertrophy of the left ventricle. Left atrium enlarged. Right ventricular cavity, right atrium normal, no pericardial effusion. CONCLUSION: Hypertrophy of the left ventricle. Left atrial enlargement, ejection fraction 50%. Doppler study shows mild tricuspid regurgitation, mild pulmonary regurgitation, right ventricular systolic pressure 22 mmHg. JOB# [id number]
[2017-01-30] MEDS: Hydrocodone/APAP 10 mg/325 mg Tab PO PRN ×4 (04:57→21:08)
[2017-01-30 06:57] LABS: ANION GAP 11.2 (7.0-16.0); BUN - UREA NITROGEN 34 mg/dL (7-25); CARBON DIOXIDE 28.9 mEq/L (21.0-31.0); CHLORIDE 102 mEq/L (98-107); CREATININE - SERUM 2.3 mg/dL (0.6-1.2); GLUCOSE 106 mg/dL (70-105); POTASSIUM SERUM 4.1 mEq/L (3.5-5.1); SODIUM SERUM 138 mEq/L (136-145)
[2017-01-30] MEDS: Budesonide 0.5 Mg/2 mL Ud HHN SCH ×2 (08:38→20:11)
[2017-01-30] MEDS: Polyvinyl Alcohol Ophth Soln 15 mL Bottle EACH EYE SCH ×3 (09:52→17:22)
[2017-01-30] MEDS: Diltiazem CD 120 mg 24H PO SCH (10:51)
[2017-01-30] MEDS: Aspirin 81mg Chewable Tab PO SCH (10:51)
[2017-01-30] MEDS: NIFEdipine 30 mg ER Tab PO SCH (10:52)
[2017-01-30] MEDS: Ferrous Sulfate 325 MG TAB PO SCH (10:52)
[2017-01-30] MEDS: Lidocaine 5% Patch TD SCH (13:08)
--- NOTE | 2017-01-30 14:15 | General Progress Note ---
Subjective - Review of Systems Service Date: 01/30/17 Events since last encounter: The patient was to be discharged back to [facility], however, she appealed the discharge with medicare and were awaiting medicares response. Subjective: The patient is resting comfortably in bed and she has no compliants. No fevers, chills, abd pain, dysuria or falls. Objective - Results Result Diagrams: 01/27/17 22:53 01/30/17 05:40 Recent Labs: Laboratory Last Values WBC 5.9 Th/cmm (4.8-10.8) 01/27/17 22:53 RBC 3.65 Mil/cmm (3.80-5.20) L 01/27/17 22:53 Hgb 11.6 gm/dL (12-16) L D 01/27/17 22:53 Hct 34.5 % (41.0-60) L D 01/27/17 22:53 MCV 94.3 fl (81-100) 01/27/17 22:53 MCH 31.8 pg (27.0-31.0) H 01/27/17 22:53 MCHC Differential 33.8 pg (28.0-36.0) 01/27/17 22:53 RDW 14.6 % (11.5-20.0) 01/27/17 22:53 Plt Count 165 Th/cmm (150-400) 01/27/17 22:53 MPV 7.6 fl 01/27/17 22:53 Neutrophils % 67.2 % (40.0-80.0) 01/27/17 22:53 Lymphocytes % 22.7 % (20.0-50.0) 01/27/17 22:53 Monocytes % 7.2 % (2.0-10.0) 01/27/17 22:53 Eosinophils % 2.6 % (0.0-5.0) 01/27/17 22:53 Basophils % 0.3 % (0.0-2.0) 01/27/17 22:53 PT 10.3 SECONDS (9.5-11.5) 01/27/17 22:53 INR 0.99 (0.5-1.4) 01/27/17 22:53 Sodium 138 mEq/L (136-145) 01/30/17 05:40 Potassium 4.1 mEq/L (3.5-5.1) 01/30/17 05:40 Chloride 102 mEq/L (98-107) 01/30/17 05:40 Carbon Dioxide 28.9 mEq/L (21.0-31.0) 01/30/17 05:40 Anion Gap 11.2 (7.0-16.0) 01/30/17 05:40 BUN 34 mg/dL (7-25) H 01/30/17 05:40 Creatinine 2.3 mg/dL (0.6-1.2) H 01/30/17 05:40 Est GFR ( Amer) TNP 01/30/17 05:40 Est GFR (Non-Af Amer) TNP 01/30/17 05:40 BUN/Creatinine Ratio 14.8 01/30/17 05:40 Glucose 106 mg/dL (70-105) H 01/30/17 05:40 Hemoglobin A1c % 5.9 % (4.0-6.0) 01/27/17 22:53 Calcium 9.0 mg/dL (8.6-10.3) 01/30/17 05:40 Total Bilirubin 0.3 mg/dL (0.3-1.0) 01/27/17 22:53 AST 18 U/L (13-39) 01/27/17 22:53 ALT 18 U/L (7-52) 01/27/17 22:53 Alkaline Phosphatase 70 U/L (34-104) 01/27/17 22:53 Creatine Kinase 101 U/L (30-223) 01/27/17 22:53 Troponin I 0.03 ng/mL (0.01-0.05) 01/27/17 22:53 B-Natriuretic Peptide 68.4 pg/mL (5.0-100.0) 01/30/17 05:40 Total Protein 7.0 gm/dL (6.0-8.3) 01/27/17 22:53 Albumin 4.0 gm/dL (3.7-5.3) 01/27/17 22:53 Globulin 3.0 gm/dL 01/27/17 22:53 Albumin/Globulin Ratio 1.3 (1.0-1.8) 01/27/17 22:53 Triglycerides 123 mg/dL (<150) 01/27/17 22:53 Cholesterol 224 mg/dL (<200) H 01/27/17 22:53 LDL Cholesterol Direct 183 mg/dL (75-193) 01/27/17 22:53 HDL Cholesterol 61 mg/dL (23-92) 01/27/17 22:53 - Physical Exam Vitals and I&O: Vital Signs Temp 98.0 F 01/30/17 12:00 Pulse 99 01/30/17 12:00 Resp 18 01/30/17 12:00 BP 133/70 01/30/17 12:00 Pulse Ox 97 01/30/17 12:00 Intake & Output 01/29/17 01/30/17 01/30/17 18:59 06:59 18:59 Intake Total 600 Balance 600 Weight (lbs) 121.563 kg 121.563 kg Intake: Oral 600 Other: # Voids 4 # Bowel Movements 0 Active Medications: Current Medications Acetaminophen (Tylenol) 650 mg PO Q6HR PRN PRN Reason: Pain or Fever >101 Stop: 03/29/17 06:45 Acetaminophen/Hydrocodone Bitart (Christiana 10 Mg/325 Mg) 1 tab PO Q4H PRN PRN Reason: Pain (Severe) Stop: 03/29/17 06:45 Last Admin: 01/30/17 10:35 Dose: 1 tab Amiodarone HCl (Cordarone) 400 mg PO DAILY [facility] Stop: 03/29/17 08:59 Last Admin: 01/30/17 10:36 Dose: 400 mg Artificial Tears (Artificial Tears Ophth Soln) 2 drop EACH EYE BID [facility] Stop: 03/29/17 08:59 Last Admin: 01/30/17 10:52 Dose: Not Given Aspirin (Aspirin Chewable) 81 mg PO DAILY [facility] Stop: 03/29/17 08:59 Last Admin: 01/30/17 10:51 Dose: 81 mg Atorvastatin Calcium (Lipitor) 20 mg PO HS [facility] Stop: 03/29/17 20:59 Last Admin: 01/29/17 20:36 Dose: Not Given Budesonide (Pulmicort) 0.5 mg HHN BID [facility] Stop: 03/29/17 08:59 Last Admin: 01/30/17 08:38 Dose: Not Given Diltiazem HCl (Cardizem Cd) 120 mg PO DAILY [facility] Stop: 03/30/17 08:59 Last Admin: 01/30/17 10:51 Dose: 120 mg Docusate Sodium (Colace) 100 mg PO BID [facility] Stop: 03/29/17 16:59 Last Admin: 01/30/17 10:51 Dose: 100 mg Ferrous Sulfate (Iron) 325 mg PO DAILY [facility] Stop: 03/30/17 08:59 Last Admin: 01/30/17 10:52 Dose: Not Given Folic Acid (Folate) 1 mg PO DAILY [facility] Stop: 03/29/17 08:59 Last Admin: 01/30/17 10:51 Dose: 1 mg Levothyroxine Sodium 0.075 mg/ (Levothyroxine Sodium 0.1 mg) 0.175 mg PO DAILY [facility] Stop: 03/30/17 08:59 Last Admin: 01/30/17 10:36 Dose: 0.175 mg Lidocaine (Lidoderm 5% Patch) 1 patch TD DAILY [facility] Stop: 03/29/17 08:59 Last Admin: 01/30/17 13:08 Dose: Not Given Lorazepam (Ativan) 0.5 mg PO Q4H PRN; Protocol PRN Reason: Anxiety Stop: 03/30/17 14:22 Nifedipine (Procardia Xl) 30 mg PO DAILY [facility] Stop: 03/29/17 08:59 Last Admin: 01/30/17 10:52 Dose: 30 mg Nitroglycerin (Nitrostat) 0.4 mg SL Q5MIN PRN PRN Reason: Chest Pain Stop: 03/29/17 06:45 Last Admin: 01/29/17 21:36 Dose: 0.4 mg Rivaroxaban (Xarelto) 20 mg PO DAILY [facility] Stop: 03/30/17 08:59 Last Admin: 01/30/17 10:51 Dose: 20 mg Sertraline HCl (Zoloft) 50 mg PO DAILY [facility] PRN Reason: Protocol Stop: 03/30/17 16:59 Last Admin: 01/30/17 10:52 Dose: 50 mg Zolpidem Tartrate (Ambien) 10 mg PO HS PRN PRN Reason: Insomnia Stop: 03/29/17 06:49 Last Admin: 01/29/17 22:09 Dose: 10 mg General: Alert, Oriented x3, Cooperative HEENT: Atraumatic, PERRLA Neck: Supple, JVD Cardiovascular: Regular rate, Normal S1, Normal S2 Lungs: Clear to auscultation, Normal air movement Abdomen: Bowel sounds, Soft Extremities: no Clubbing, no Cyanosis, no Edema, no Pulses, no Tender, no Other Neurological: no Normal gait, no Normal speech, no 9, no Strength at 5/5 X4 ext , no Normal tone, no Sensation intact, no Cranial nerves 3-12 NL, no Reflexes 2+ , no 10, no Other, no 11 Skin: no Rash, no Breakdown, no Significant lesion, no Other Psych/Mental Status: no Mental status NL, no Mood NL, no 10, no Other, no 6, no 9, no 4, no 7, no 5, no 8 - Procedures Procedures: Procedures Procedure Code Date REPAIR R LOW LEG SUBCU/FASCIA, OPEN APPROACH [id number] 10/06/16 SKIN TISSUE PROCEDURE 97560 10/06/16 Assessment/Plan - Assessment Assessment: chest pain, acs ruled out vmn DLD a fib copd hypothyroidism obesity hyponatremia psychosis bipolar disorder - Plan Plan: Medicare appeal has been placed. Pending dc back to [facility]. Continue zoloft for bipolar disorder. Dr So is following. Nitro for chest pain. Ambulate with assistance.
[2017-01-31] MEDS: Atorvastatin Calcium 10 MG TAB PO SCH (00:32)
[2017-01-31 07:08] LABS: ANION GAP 8.6 (7.0-16.0); BUN - UREA NITROGEN 34 mg/dL (7-25); CALCIUM SERUM 8.9 mg/dL (8.6-10.3); CARBON DIOXIDE 29.7 mEq/L (21.0-31.0); CHLORIDE 103 mEq/L (98-107); CREATININE - SERUM 2.3 mg/dL (0.6-1.2); GLUCOSE 100 mg/dL (70-105); POTASSIUM SERUM 4.3 mEq/L (3.5-5.1); SODIUM SERUM 137 mEq/L (136-145)
[2017-01-31] MEDS: Budesonide 0.5 Mg/2 mL Ud HHN SCH ×2 (07:15→08:01)
[2017-01-31] MEDS: Aspirin 81mg Chewable Tab PO SCH (09:19)
[2017-01-31] MEDS: Polyvinyl Alcohol Ophth Soln 15 mL Bottle EACH EYE SCH (09:19)
[2017-01-31] MEDS: Diltiazem CD 120 mg 24H PO SCH (09:19)
[2017-01-31] MEDS: NIFEdipine 30 mg ER Tab PO SCH (09:20)
[2017-01-31] MEDS: Lidocaine 5% Patch TD SCH (09:20)
[2017-01-31] MEDS: Hydrocodone/APAP 10 mg/325 mg Tab PO PRN (09:26)
[2017-01-31] MEDS: Ferrous Sulfate 325 MG TAB PO SCH (10:26)
--- NOTE | 2017-01-31 20:00 | Progress Notes ---
DATE: 01/31/[address] Tran. SUBJECTIVE: This 76-year-old morbidly obese female patient who has depression complained of chest pain. The patient's troponin level was unremarkable. The patient had palpitation with atrial fibrillation, which is controlled. OBJECTIVE: VITAL SIGNS: Blood pressure 130/80, pulse 70, respirations 20, temperature 98. LUNGS: Clear. HEART: Regular rhythm S1, S2. No S3, S4. S1 irregular. ABDOMEN: Soft. Liver, spleen not palpable. Obesity. No organomegaly. EXTREMITIES: No pedal edema. ASSESSMENT: Chest pain, unlikely coronary artery disease, atrial fibrillation, stable angina, morbid obesity, iron deficiency anemia, hypothyroidism, chronic obstructive pulmonary disease, dementia, bipolar, and psychosis. PLAN: The patient to continue present care. The patient is stable. The patient can be discharged. JOB# [id number]
--- NOTE | 2017-02-02 03:31 | Discharge Summary ---
DATE OF DISCHARGE: 01/31/2017 DISCHARGE DIAGNOSES: Chest pain, acute coronary syndrome ruled out; vasomotor nephropathy, hyperlipidemia, atrial fibrillation, chronic obstructive pulmonary disease, hypothyroidism, obesity, hyponatremia, psychosis, bipolar disorder, anxiety and depression. The patient is going to be discharged to [facility]. ADMITTING DIAGNOSES: Hypothyroidism, obesity, hyperlipidemia, hyponatremia, AFib, chronic obstructive pulmonary disease, acute kidney injury, chest pain and obesity. MEDICATIONS: Reviewed and reconciled. There were no procedures performed. REASON FOR ACUTE HOSPITALIZATION: Chest pain. HOSPITAL COURSE: This is a 76-year-old female who presented from [facility] with complaint of chest pain for 1 day. The patient has history of atrial fibrillation, hypertension, dyslipidemia, psychosis, bipolar disorder, and COPD who presented with chest pain for 1 day. The patient has history of using nitroglycerin for coronary artery disease and intermittent chest pain. She has been known to abuse the nitroglycerin while at the retirement and attempt to come to the hospital because she no longer wants to stat at [facility] and she has been sent to the hospital approximately 15-20 times in the last year for the same reason. The ACS protocol was initiated and troponins were within normal limits. Cardio was consulted and assessed the patient for acute coronary syndrome and ruled out. Due to patient's psychiatric history, Dr. So was consulted for possible placement per Geropsych. Dr. So evaluated the patient and said the patient did not meet the requirements for Geropsych and he restarted the patient's home medication, sertraline. The patient was stable and will be discharged back to [place]. ALLERGIES: LEVAQUIN, RASH; NIACIN, RASH; PREGABALIN, RASH; TETRACYCLINE, RASH. CONDITION UPON DISCHARGE: Stable. TREATMENT PLAN: Continue care at [facility]. Followup is Dr. Goss. Rehabilitation potential is good. DIET: CCHO. JOB# [id number]
== END 2017-01-31 12:25 | disposition home or self-care (01) | DRG 391 ==
LOC: ER 21:27 → TELE 01-28 01:15
PROVIDERS: ADMIT General Practice; ATTEND General Practice
DX: K21.9 Gastro-esophageal reflux disease without esophagitis (principal); N17.0 Acute kidney failure with tubular necrosis; F33.2 Major depressive disorder, recurrent severe without psychotic features; J90 Pleural effusion, not elsewhere classified; E87.1 Hypo-osmolality and hyponatremia; Z68.41 Body mass index [BMI] 40.0-44.9, adult; I25.119 Atherosclerotic heart disease of native coronary artery with unspecified angina pectoris; F41.9 Anxiety disorder, unspecified; E78.5 Hyperlipidemia, unspecified; I48.91 Unspecified atrial fibrillation; J44.9 Chronic obstructive pulmonary disease, unspecified; E03.9 Hypothyroidism, unspecified; M19.90 Unspecified osteoarthritis, unspecified site; F03.90 Unspecified dementia, unspecified severity, without behavioral disturbance, psychotic disturbance, mood disturbance, and anxiety; E66.01 Morbid (severe) obesity due to excess calories; N18.3 Chronic kidney disease, stage 3 (moderate); I12.9 Hypertensive chronic kidney disease with stage 1 through stage 4 chronic kidney disease, or unspecified chronic kidney disease; D50.9 Iron deficiency anemia, unspecified; Z88.1 Allergy status to other antibiotic agents; Z88.8 Allergy status to other drugs, medicaments and biological substances; Z83.3 Family history of diabetes mellitus; Z82.49 Family history of ischemic heart disease and other diseases of the circulatory system
CPT/HCPCS: 36415-UA; 71010-TC; 80048-TC; 80053-TC; 80061-TC; 82550-TC; 83036-90; 83880-TC; 84484-TC; 85025-TC; 85610-TC; 93005; 94760; 96374; J1650; J2270; J7030; Z7610

== ENCOUNTER 2017-04-14 12:38 | Inpatient (IN) | payer MEDICARE, MEDICAID ==
--- NOTE | 2017-04-14 12:49 | ED Physician Chart ---
ED Chief Complaint/HPI - Patient Information Date Seen:: 04/14/17 Time Seen:: 12:40 Chief Complaint:: Fall History of Present Illness:: onset since last night of a reported unwitnessed fall with C/O of right frontal H/As and head bruise; ? syncopal episode; pt denies neck pain, C/P, SOB, Abd. Pain, A/N/V/D/C, fever, chills, or urinary s/s; pt 's last tetanus shot: < 5 years; UTD Allergies:: Allergies Allergy/AdvReac Type Severity Reaction Status Date / Time levofloxacin [From Levaquin] Allergy Verified 01/27/17 21:45 niacin Allergy Verified 01/27/17 21:45 pregabalin [From Lyrica] Allergy Verified 01/27/17 21:45 Tetracyclines Allergy Verified 01/27/17 21:45 Historian:: Patient, EMS Review:: Nurse's Note Reviewed, Old Chart Reviewed, EMS run form Reviewed ED Review of Systems - Review of Systems General/Constitutional: No fever, No chills, No weight loss, No weakness, No diaphoresis, No edema, No loss of appetite Skin: No skin lesions, No rash, No bruising Head: No headache, No light-headedness Eyes: No loss of vision, No pain, No diplopia ENT: No earache, No nasal drainage, No sore throat, No tinnitus Neck: No neck pain, No swelling, No thyromegaly, No stiffness, No mass noted Cardio Vascular: No chest pain, No palpitations, No PND, No orthopnea, No edema Pulmonary: SOB, Cough, No sputum, No wheezing GI: No nausea, No vomiting, No diarrhea, No pain, No melena, No hematochezia, No constipation, No hematemesis G/U: No dysuria, No frequency, No hematuria, No nacturia Drill Doctor: No vaginal discharge, No abnormal vaginal bleed, No contraction Musculoskeletal: No bone or joint pain, No back pain, No muscle pain Endocrine: No polyuria, No polydipsia Psychiatric: Prior psych history, Depression, Anxiety, No suicidal ideation, No homicidal ideation, No auditory hallucination, No visual hallucination Hematopoietic: No bruising, No lymphadenopathy Allergic/Immuno: No urticaria, No angioedema Neurological: No syncope, No focal symptoms, No weakness, No paresthesia, Headache, No seizure, No dizziness, No confusion, No vertigo ED Past Medical History - Past Medical History Obtainable: Yes Past Medical History: HTN, CAD, Asthma/COPD, Dyslipidemia, Thyroid disorder, Arthritis Family History: Diabetes Melitus, HTN Social History: Non Smoker, No Alcohol, No Drug Use, Single, Care Facility Surgical History: None Psychiatricy History: Depression, Bipolar Medication: Reviewed Family Medical History - Family Member Mother History Unknown: Yes Ethnicity: Hx Family Cancer: No Hx Family Coronary Artery Disease: No Hx Family Congestive Heart Failure: No Hx Family Hypertension: No Hx Family Stroke: No Hx Family Diabetes: No Hx Family Seizures: Yes Hx Family Dementia: No Hx Family AIDS: No Hx Family HIV: No Hx Family COPD: No Hx Family Hepatitis: No Hx Family Psychiatric Problems: No Hx Family Tuberculosis: No ED Physical Exam - Physical Examination General/Constitutional: Awake, Well-developed, well-nourished, Alert, No distress, GCS 15, Non-toxic appearing, Ambulatory Other Head comments:: Right Frontal scalp Contusion Eyes: Lids, conjuctiva normal, PERRL, EOMI Skin: Nl inspection, No rash, No skin lesions, No ecchymosis, Well hydrated, No lymphadenopathy ENMT: External ears, nose nl, Nasal exam nl, Lips, teeth, gums nl Neck: Nontender, Full ROM w/o pain, No JVD, No nuchal rigidity, No bruit, No mass, No stridor Other Neck comments:: supple; no meningeal signs; no cervical tenderness; no bruits Respiratory: Nl effort/Exclusion, Clear to Auscultation, No Wheeze/Rhonchi/Rales Cardio Vascular: No murmur, gallop, rubs, NL S1 S2, Carotid/Femoral/Distal pulses equal bilaterally Other Cardio Vascular comments:: Irregular Irregular Rhythm GI: No tenderness/rebounding/guarding, No organomegaly, No hernia, Normal BS's, Nondistended, No mass/bruits, No McBurney tenderness : No CVA tenderness Extremities: No tenderness or effusion, Full ROM, normal strength in all extremities, No edema, Normal digits & nails Neuro/Psych: Alert/oriented, DTR's symmetric, Normal sensory exam, Normal motor strength, Judgement/insight normal, Mood normal, Normal gait, No focal deficits Misc: Normal back, No paraspinal tenderness ED Labs/Radiology/EKG Results - Lab Results Comments:: + Anemia; Hyponatremia; Elevated BUN and Cr - Radiology Results Comments:: NAD - EKG Interpretations EKG Time:: 13:29 Rate & Rhythm: 87; Atrial Fibrillation Comments:: non-specific st-t changes ED Septic Shock - . Is Septic Shock (SBP<90, OR Lactate>4 mmol\L) present?: No ED Reassessment (Disposition) - Reassessment Reassessment Condition:: Improved - Diagnosis Diagnosis:: Syncope; S/P Fall; Scalp Contusions; Hyponatremia; renal Insufficiency; Anemia; dehydration - Aftercare/Follow up Instructions Aftercare/Follow-Up Instructions:: Counseled pt regarding lab results/diagnosis & need follow up, Counseled pt & family regarding lab results/diagnosis & need follow up - Patient Disposition Discharge/Transfer:: Acute Care w/in this hosp Accepting Physician:: Dr. Tran Time Called:: 1445 Time Responded:: 14:45 Admitted to:: Telemetry Spoke to:: Dr. Tran Admitting Medical Physician:: Dr. Tran Condition at Disposition:: Stable, Improved
[2017-04-14 13:14] LABS: % BASOPHILS 0.9 % (0.0-2.0); % EOSINOPHILS 2.6 % (0.0-5.0); % MONOCYTES 8.6 % (2.0-10.0); % NEUTROPHILS 69.9 % (40.0-80.0); BASOPHILE ABSOLUTE 0.1 Th/cumm (0-0.2); EOSINOPHILE ABSOLUTE 0.2 Th/cmm (0.1-0.4); HEMATOCRIT 30.1 % (41.0-60); HEMOGLOBIN 10.2 gm/dL (12-16); LYMPHOCYTE ABSOLUTE 1.1 Th/cmm (1.5-3.0); MEAN CELL VOLUME 100.6 fl (81-100); MEAN CORPUSCULAR HGB CONC 33.8 pg (28.0-36.0); MEAN PLATELET VOLUME 7.6 fl; MONOCYTE ABSOLUTE 0.5 Th/cmm (0.3-1.0); NEUTROPHILE ABSOLUTE 4.3 Th/cmm (1.8-8.0); PLATELET COUNT 200 Th/cmm (150-400); RED BLOOD COUNT 2.99 Mil/cmm (3.80-5.20); WHITE BLOOD COUNT 6.2 Th/cmm (4.8-10.8)
[2017-04-14 13:21] LABS: INR 1.04 (0.5-1.4); PROTHROMBIN TIME (TEST) 10.8 SECONDS (9.5-11.5)
[2017-04-14 13:37] LABS: ALB/GLOB RATIO 1.1 (1.0-1.8); ALBUMIN 3.6 gm/dL (3.7-5.3); ALKALINE PHOSPHATASE 88 U/L (34-104); ANION GAP 9.4 (7.0-16.0); BILIRUBIN,TOTAL 0.3 mg/dL (0.3-1.0); BUN - UREA NITROGEN 29 mg/dL (7-25); CALCIUM SERUM 9.2 mg/dL (8.6-10.3); CARBON DIOXIDE 29.8 mEq/L (21.0-31.0); CHLORIDE 100 mEq/L (98-107); CHOLESTEROL 202 mg/dL (<200); CREATININE - SERUM 2.2 mg/dL (0.6-1.2); CREATININE KINASE 44 U/L (30-223); GLUCOSE 112 mg/dL (70-105); HDL -HIGH DENSITY LIPOPROTEIN 48 mg/dL (23-92); POTASSIUM SERUM 4.2 mEq/L (3.5-5.1); SGOT 14 U/L (13-39); SGPT/ALT 15 U/L (7-52); SODIUM SERUM 135 mEq/L (136-145); TOTAL PROTEIN,SERUM 6.8 gm/dL (6.0-8.3); TRIGLYCERIDES 89 mg/dL (<150)
--- NOTE | 2017-04-14 14:10 | Diagnostic Imaging Report ---
Head CT without intravenous contrast Indication: Trauma Comparison: None Technique: Axial images were obtained from the vertex to the skull base without IV contrast. Coronal reconstructions were made. Total DLP: 784, CTDI44 FINDINGS: Images of the brain obtained without contrast demonstrate no evidence of an acute hemorrhage. Atrophy is noted. Moderate white matter disease is noted. The ventricles and basal cisterns are patent. No mass effect or midline shift. Note exam is limited due to motion. No obvious skull fracture identified. There is soft tissue swelling involving the right frontal scalp. Mild atherosclerosis is noted. IMPRESSION: Soft tissue swelling of the right frontal scalp. No gross skull fracture identified. No evidence of acute intracranial hemorrhage. Atrophy. Moderate supratentorial white matter disease which is nonspecific and may be due to chronic microvessel ischemia.
--- NOTE | 2017-04-14 14:22 | Diagnostic Imaging Report ---
CT cervical spine without IV contrast HISTORY: Trauma COMPARISON: None Technique: Axial images were obtained from the skull base to the upper thoracic spine without IV contrast. Multiplanar reconstructions were made. Total DLP: 1014, CTDI41 FINDINGS: Exam is limited as patient was uncooperative including limited assessment for subtle fractures due to motion. No acute compression fracture or subluxation is identified. Multilevel moderate to advanced degenerative changes are noted with multilevel marginal osteophytic spurring and mild to moderate disc space loss of height. No prevertebral soft tissue swelling. Atherosclerosis is noted. Emphysematous changes of the visualized lungs is seen with faint right upper lobe nodular infiltrates. IMPRESSION: Markedly limited exam due to motion as patient was uncooperative. No acute compression fracture or subluxation. Repeat examination is recommended when clinically feasible. Moderate to advanced multilevel degenerative changes. Atherosclerotic vascular disease. Faint right upper lobe nodular infiltrate. Please correlate with clinical history and old exams. Consider follow up if indicated.
[2017-04-14] MEDS ORDERED: Potassium Chloride 20 mEq ER Tab PO PRN (17:44)
[2017-04-14] MEDS ORDERED: Mag Sulfate 2gm/50mL Premix 2 GM/50 ML BAG IV PRN (17:44)
[2017-04-14] MEDS: Sodium Chloride 0.9% 1,000 ML IV SCH (20:10)
[2017-04-14] MEDS: Atorvastatin Calcium 10 MG TAB PO SCH (21:08)
[2017-04-14] MEDS: Morphine Sulfate 2 mg/mL 1mL Syr IVP PRN (21:08)
[2017-04-15] MEDS: Morphine Sulfate 2 mg/mL 1mL Syr IVP PRN ×3 (01:43→20:17)
[2017-04-15 05:50] LABS: % BASOPHILS 0.3 % (0.0-2.0); % EOSINOPHILS 3.3 % (0.0-5.0); % LYMPHOCYTES 27.4 % (20.0-50.0); % MONOCYTES 9.7 % (2.0-10.0); % NEUTROPHILS 59.3 % (40.0-80.0); EOSINOPHILE ABSOLUTE 0.2 Th/cmm (0.1-0.4); HEMATOCRIT 27.1 % (41.0-60); LYMPHOCYTE ABSOLUTE 1.4 Th/cmm (1.5-3.0); MEAN CELL VOLUME 98.9 fl (81-100); MEAN CORPUSCULAR HEMOGLOBIN 32.8 pg (27.0-31.0); MEAN CORPUSCULAR HGB CONC 33.1 pg (28.0-36.0); MEAN PLATELET VOLUME 7.8 fl; MONOCYTE ABSOLUTE 0.5 Th/cmm (0.3-1.0); NEUTROPHILE ABSOLUTE 2.9 Th/cmm (1.8-8.0); PLATELET COUNT 169 Th/cmm (150-400); RED BLOOD COUNT 2.74 Mil/cmm (3.80-5.20); RED CELL DISTRIBUTION WIDTH 14.7 % (11.5-20.0)
[2017-04-15 05:58] LABS: ANION GAP 6.4 (7.0-16.0); BUN - UREA NITROGEN 27 mg/dL (7-25); CALCIUM SERUM 9.1 mg/dL (8.6-10.3); CARBON DIOXIDE 31.7 mEq/L (21.0-31.0); CHLORIDE 102 mEq/L (98-107); CREATININE - SERUM 2.1 mg/dL (0.6-1.2); GLUCOSE 107 mg/dL (70-105); POTASSIUM SERUM 4.1 mEq/L (3.5-5.1); SODIUM SERUM 136 mEq/L (136-145)
[2017-04-15] MEDS ORDERED: Levothyroxine 0.1 Mg Tab PO SCH (07:30)
--- NOTE | 2017-04-15 07:55 | Diagnostic Imaging Report ---
Exam: Chest x-ray portable. HISTORY: Pain and dyspnea. Findings: Portable examination of the chest at 1847 hours reviewed compatible prior study of 01/27/2017. The study is limited due to underexposure. The heart is enlarged. Mild congestion is present. There is a question of left basilar infiltrate and effusion. Follow-up examination recommended. Arch calcified. The patient is rotated. IMPRESSION: Limited examination due to poor positioning and exposure. Cardiomegaly, mild congestion Question of left basilar infiltrate and effusion. Follow-up examination recommended if clinically indicated.
[2017-04-15 10:04] LABS: URINE SOURCE CATH
[2017-04-15] MEDS: Budesonide 0.5 Mg/2 mL Ud HHN SCH ×2 (10:27→19:01)
[2017-04-15 10:42] LABS: URINE BILIRUBIN NEGATIVE (NEGATIVE); URINE BLOOD NEGATIVE (NEGATIVE); URINE GLUCOSE (UA) NEGATIVE (NEGATIVE); URINE KETONE NEGATIVE (NEGATIVE); URINE LEUKOCYTE ESTERASE NEGATIVE (NEGATIVE); URINE NITRATE NEGATIVE (NEGATIVE); URINE PROTEIN NEGATIVE (NEGATIVE); URINE UROBILINOGEN 0.2 E.U./dL (0.2 - 1.0)
[2017-04-15 10:51] LABS: URINE CLARITY CLEAR (CLEAR); URINE COLOR YELLOW; URINE MICROSCOPIC INDICATED? NO
[2017-04-15] MEDS: Diltiazem CD 120 mg 24H PO SCH (11:02)
[2017-04-15] MEDS: Aspirin 81mg Chewable Tab PO SCH (11:02)
[2017-04-15] MEDS: Lidocaine 5% Patch TD SCH (11:05)
[2017-04-15] MEDS: NIFEdipine 30 mg ER Tab PO SCH (11:05)
[2017-04-15] MEDS: Ferrous Sulfate 325 MG TAB PO SCH (11:17)
--- NOTE | 2017-04-15 12:16 | History & Physical ---
ADMIT DATE: 04/14/2017 CHIEF COMPLAINT: Syncope and fall. HISTORY OF PRESENT ILLNESS: The patient is a 76-year-old female who is well known to me, she is my patient at the senior care facility. She has history of multiple hospitalizations usually there for chest pain. She has history of AFib, depression, obesity, along with anemia and mood disorder along with psychosis as well. She had a syncopal episode at the facility, she fell down and sustained a scalp laceration and closed head injury as well. She was sent to the hospital for further workup and treatment. In the hospital, she was found to have pneumonia along with acute kidney injury as well. PAST MEDICAL HISTORY: Significant for AFib, depression, chronic kidney disease, mood disorder, and anemia. SOCIAL HISTORY: She lives at a senior care facility. No history of alcohol, tobacco or drug abuse. FAMILY HISTORY: Noncontributory. ALLERGIES: She is apparently allergic to Levaquin, niacin, pregabalin, and tetracycline. She states that she does not feel well or they did not work for her, so she listed them as allergies. SURGICAL HISTORY: No significant surgeries. REVIEW OF SYSTEMS: GENERAL: Positive recent fatigue, decreased appetite and low-grade fevers. HEENT: Positive for head trauma yesterday after the fall. Positive history of facial contusion yesterday from the fall. No change in vision, taste, hearing or smell, however. Oral: No recent pain or discharge. NECK: No recent tracheal deviation. CARDIOVASCULAR: No recent chest pain, no palpitation. She does have history of AFib and hypertension and CHF. EXTREMITIES: She has history of edema. PSYCHIATRIC: History of psychosis, depression and anxiety. RESPIRATORY: Positive for recent shortness of breath and congestion as well. NEUROLOGIC: No history of stroke or seizure. MUSCULOSKELETAL: Positive history of unsteady gait and falls. PHYSICAL EXAMINATION: VITAL SIGNS: Temperature is 98.8 degrees, heart rate is 109, respiration is 18, blood pressure 134/67. Currently, no pain. GENERAL: No acute distress. She is awake. She has a labile mood. HEAD: She has a scalp laceration on the right side. No open wound right now. She has ecchymosis on both eyes from the fall. NECK: Trachea is midline. No JVD. CARDIOVASCULAR: Regular rate and rhythm. ABDOMEN: Nontender, nondistended. RESPIRATORY: Clear to auscultation bilaterally with some congestion and rales on the right side. PSYCHIATRIC: She has a labile mood. EXTREMITIES: 1+ edema. SKIN: No rashes. NEUROLOGIC: No evidence of acute stroke or seizure activity. LABORATORY DATA: White count is 6.2, hemoglobin is 10.2, platelet count is 200,000. Sodium 137, potassium 4.2, chloride 100, bicarbonate 29.8, BUN 29, creatinine 2.2, glucose 112, albumin is 3.6. CT of the head does not show any acute abnormalities. Chest x-ray does show right-sided infiltrate. C-spine CT was done which did not show any acute abnormalities. It does recognize the right-sided infiltrate in the chest. ASSESSMENT: 1. 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 3. Atrial fibrillation. 4. Depression. 5. Obese. 6. Closed head injury. 7. Aspiration pneumonia. 8. Scalp laceration. 9. Anemia of chronic illness. 10. Mild malnutrition. PLAN: The patient has been started on IV Zosyn. I will follow up on the UA. Dr. Haynes has been consulted for Nephrology. Follow up on chemistry panel. She is on gentle IV hydration. Avoid fluid overload. Labs reviewed with the patient in detail. Continue fall precautions as well. Continue medications. I have started her on heparin for DVT prophylaxis and the fact that she has AFib as well. JOB# [id number]
--- NOTE | 2017-04-15 13:17 | Consultation ---
Consult Note - Consult Note Service Date: 04/15/17 Referring Physician: Lenin Tran Consult Note: PHYSICIAN Consultation Note: Date of Admission: 04/14/17 Purpose of Consultation: ARF Chief Complaint: SYNCOPE AND FALL History of Present Illness: Patient AGATA ESPINOSA was admitted to location Telemetry with SYNCOPE. 76 year old female admitted with syncope. She is from SNF. Multiple admissions for chest pain. She had a syncope and injured her head. She was brought to ER and found to have ARF. Past Medical History: AFIB, depression, Obesity, Mood disorder, CKD, Anemia Allergies Allergy/AdvReac Type Severity Reaction Status Date / Time levofloxacin [From Levaquin] Allergy Verified 01/27/17 21:45 niacin Allergy Verified 01/27/17 21:45 pregabalin [From Lyrica] Allergy Verified 01/27/17 21:45 Tetracyclines Allergy Verified 01/27/17 21:45 Vital Signs Temp 98.8 F 04/15/17 08:00 Pulse 86 04/15/17 11:05 Resp 22 04/15/17 10:27 BP 149/57 04/15/17 11:05 Pulse Ox 97 04/15/17 10:27 Intake & Output 04/14/17 04/15/17 04/15/17 18:59 06:59 18:59 Weight (lbs) 122.787 kg Other: # Voids 3 # Bowel Movements 0 Laboratory Results - last 24 hr 04/15/17 04/15/17 04/15/17 05:00 05:00 09:10 WBC 5.0 RBC 2.74 L Hgb 9.0 L Hct 27.1 L MCV 98.9 MCH 32.8 H MCHC Differential 33.1 RDW 14.7 Plt Count 169 MPV 7.8 Neutrophils % 59.3 Lymphocytes % 27.4 Monocytes % 9.7 Eosinophils % 3.3 Basophils % 0.3 Sodium 136 Potassium 4.1 Chloride 102 Carbon Dioxide 31.7 H Anion Gap 6.4 L BUN 27 H Creatinine 2.1 H Est GFR ( Amer) TNP Est GFR (Non-Af Amer) TNP BUN/Creatinine Ratio 12.9 Glucose 107 H Calcium 9.1 Urine Source CATH Urine Color YELLOW Urine Clarity CLEAR Urine pH 6.0 Ur Specific [place] <= 1.005 Urine Protein NEGATIVE Urine Glucose (UA) NEGATIVE Urine Ketones NEGATIVE Urine Blood NEGATIVE Urine Nitrate NEGATIVE Urine Bilirubin NEGATIVE Urine Urobilinogen 0.2 Ur Leukocyte Esterase NEGATIVE Home Medication Medication Instructions Recorded Type Amiodarone [Cordarone] 400 mg PO DAILY 08/30/16 History Aspirin [Aspirin Chewable] 81 mg PO DAILY 08/30/16 History Budesonide [Pulmicort] 0.5 mg IH BID 08/30/16 History Nifedipine [Nifedipine ER] 30 mg PO DAILY 08/30/16 History Nitroglycerin [Nitrostat*] 0.4 mg SL Q5MIN PRN 08/30/16 History Polyvinyl Alcohol Ophth Soln 2 drop EACH EYE BID 08/30/16 History [Artificial Tears Ophth Soln*] Folic Acid [Folate*] 1 mg PO DAILY 10/06/16 History Acetaminophen [Tylenol] 650 mg PO Q6HR PRN tab 01/29/17 Rx Atorvastatin Calcium [Lipitor] 20 mg PO HS #30 tab 01/29/17 Rx Diltiazem CD [Cardizem Cd] 120 mg PO DAILY c24 01/29/17 Rx Docusate Sodium [Colace] 100 mg PO BID cap 01/29/17 Rx Ferrous Sulfate [Iron] 325 mg PO DAILY tab 01/29/17 Rx Levothyroxine [Synthroid] 0.175 mg PO DAILY tab 01/29/17 Rx Lidocaine 5% Patch [Lidoderm 5% 1 patch TD DAILY tdm 01/29/17 Rx Patch] Rivaroxaban [Xarelto] 20 mg PO DAILY #0 tab 01/29/17 Rx Sertraline [Zoloft] 50 mg PO DAILY tab 01/29/17 Rx Zolpidem Tartrate [Ambien] 10 mg PO HS PRN tab 01/29/17 Rx Current Medications Generic Name Dose Route Start Last Admin Trade Name Freq PRN Reason Stop Dose Admin Acetaminophen 650 mg 04/14/17 17:44 04/15/17 08:50 Tylenol PO 06/13/17 17:43 650 mg Q6H PRN Administration HEADACHE/TEMP ABOVE 100F Amiodarone HCl 400 mg 04/15/17 09:00 04/15/17 11:03 Cordarone PO 06/14/17 08:59 400 mg DAILY [facility]MAAN Administration Aspirin 81 mg 04/15/17 09:00 04/15/17 11:02 Aspirin Chewable PO 06/14/17 08:59 81 mg DAILY [facility]MAAN Administration Atorvastatin Calcium 20 mg 04/14/17 21:00 04/14/17 21:08 Lipitor PO 06/13/17 20:59 20 mg HS ARMAAN Administration Protocol Budesonide 0.5 mg 04/15/17 09:00 04/15/17 10:27 Pulmicort HHN 06/14/17 08:59 0.5 mg BID [facility]MAAN Administration Diltiazem HCl 120 mg 04/15/17 09:00 04/15/17 11:02 Cardizem Cd PO 06/14/17 08:59 120 mg DAILY [facility]MAAN Administration Docusate Sodium 100 mg 04/15/17 09:00 04/15/17 11:03 Colace PO 06/14/17 08:59 100 mg BID [facility]MAAN Administration Ferrous Sulfate 325 mg 04/15/17 09:00 04/15/17 11:17 Iron PO 06/14/17 08:59 325 mg DAILY [facility]MAAN Administration Heparin Sodium (Porcine) 5,000 units 04/14/17 21:00 04/15/17 11:17 Heparin SUBQ 06/13/17 20:59 5,000 units Q12HR [facility]MAAN Administration Magnesium Sulfate 2 gm in 50 mls @ 25 mls/hr 04/14/17 17:44 Magnesium Sulfate Premix IV 06/13/17 17:43 DAILY PRN Magnesium level less than 1.6 Sodium Chloride 1,000 mls @ 75 mls/hr 04/14/17 17:45 04/14/17 20:10 Nacl 0.9% IV 06/13/17 17:44 75 mls/hr .[id number] [facility]MAAN Administration Piperacillin Sod/Tazobactam 50 mls @ 100 mls/hr 04/15/17 13:00 Sod 2.25 gm/ Sodium Chloride IV 06/14/17 12:59 Q8HR ARMAAN Levothyroxine Sodium 0.075 mg/ 0.175 mg 04/15/17 07:30 04/15/17 07:50 Levothyroxine Sodium 0.1 mg PO 06/14/17 07:29 0.175 mg QDAC [facility]MAAN Administration Lidocaine 1 patch 04/15/17 09:00 04/15/17 11:05 Lidoderm 5% Patch TD 06/14/17 08:59 1 patch DAILY [facility]MAAN Administration Lorazepam 1 mg 04/14/17 17:44 04/15/17 11:17 Ativan IVP 06/13/17 17:43 1 mg Q4HR PRN Administration Anxiety Protocol Magnesium Oxide 400 mg 04/14/17 17:44 04/15/17 11:04 Mag-Oxide PO 06/13/17 17:43 400 mg BID PRN Administration Mg less than 1.9 Morphine Sulfate 1 mg 04/14/17 17:44 04/15/17 08:06 Morphine IVP 06/13/17 17:43 1 mg Q4HR PRN Administration Severe Pain Nifedipine 30 mg 04/15/17 09:00 04/15/17 11:05 Procardia Xl PO 06/14/17 08:59 30 mg DAILY [facility]AN Administration Ondansetron HCl 4 mg 04/14/17 17:44 Zofran IVP 06/13/17 17:43 Q6H PRN Nausea / Vomiting Potassium Chloride 40 meq 04/14/17 17:44 04/15/17 11:04 Klor-Con PO 06/13/17 17:43 40 meq DAILY PRN Administration k level less than 3.5 Sertraline HCl 50 mg 04/15/17 09:00 04/15/17 11:04 Zoloft PO 06/14/17 08:59 50 mg DAILY [facility]MAAN Administration Protocol Review of Systems: A 12 point ROS was reviewed with the pertinent positive and negatives noted in the HPI. Social History Smoking Status Never smoker Drug Use No Alcohol Use No Family Medical History Family Medical History Start: 04/14/17 18: 43 Freq: ONCE Status: Active Document 04/14/17 20:00 CRISTHIAN (Rec: 04/15/17 03:16 CRISTHIAN [id number]) Family Medical History Mother History Unknown Yes Physical Exam: General: low grade fever HEENT: TATA, WOMI Neck: Supple no JVD Cardio: IRRR Respiratory: CTA B/L Abdominal: Soft , NT, ND Genital/Urinary: Extremities: + edema Neurological: No focal deficit Assessment: 1. Syncope. 2. Acute renal failure on chronic kidney disease. 3. Temperature fibrillation. 4. Depression. 5. Obesity. 6. Head injury. 7. Aspiration pneumonia. 8. Scalp laceration. 9. Anemia of chronic kidney disease. 10. Malnutrition. Plan: Agree with current management plan. Patient appears to be dehydrated. Patient will require IV hydration. Patient does have history of chronic kidney disease stage III. She is off of her baseline serum creatinine. This appears to be secondary to prerenal as ischemia/vasomotor nephropathy. He may be some component of acute tubular necrosis. At this time patient's renal function stable. We'll continue to monitor renal function over the next several days. Signed, Ramirez Haynes M.D. [id number]
--- NOTE | 2017-04-15 13:30 | Diagnostic Imaging Report ---
Carotid ultrasound HISTORY: Syncope COMPARISON: None Technique: Longitudinal and transverse sonographic sector images of the carotid arteries were obtained with doppler analysis. FINDINGS: Exam of the right side demonstrates intimal thickening and mild to moderate atherosclerotic vascular disease. There is markedly elevated velocity of the right external carotid artery at 213 cm/second. The right ICA/CCA ratio is within normal limits. Right-sided antegrade vertebral artery flow is demonstrated. Patient refused the remaining portion of exam including assessment of the left side. IMPRESSION: Incomplete exam as patient refused assessment of the left carotid arterial vasculature. Recommend additional images of the left side for completion of the exam Mild to moderate right-sided atherosclerotic vascular disease. Increased velocity of the right external carotid artery which is nonspecific and may be accentuated by atherosclerotic vascular disease and vessel tortuosity.
[2017-04-15 15:40] LABS: A1C % 5.2 % (4.0-6.0)
[2017-04-15] MEDS: Piperacillin/Tazobact 2.25 gm in 0.9% NS 50 ML IV SCH ×2 (16:51→20:29)
[2017-04-15] MEDS: Atorvastatin Calcium 10 MG TAB PO SCH (20:16)
[2017-04-15] MEDS: Sodium Chloride 0.9% 1,000 ML IV SCH (20:31)
[2017-04-16] MEDS: Piperacillin/Tazobact 2.25 gm in 0.9% NS 50 ML IV SCH ×3 (05:34→20:26)
[2017-04-16 07:43] LABS: % BASOPHILS 0.2 % (0.0-2.0); % EOSINOPHILS 3.5 % (0.0-5.0); % LYMPHOCYTES 23.3 % (20.0-50.0); % MONOCYTES 11.9 % (2.0-10.0); % NEUTROPHILS 61.1 % (40.0-80.0); EOSINOPHILE ABSOLUTE 0.2 Th/cmm (0.1-0.4); HEMATOCRIT 27.8 % (41.0-60); HEMOGLOBIN 9.2 gm/dL (12-16); MEAN CELL VOLUME 100.7 fl (81-100); MEAN CORPUSCULAR HEMOGLOBIN 33.3 pg (27.0-31.0); MEAN CORPUSCULAR HGB CONC 33.1 pg (28.0-36.0); MEAN PLATELET VOLUME 7.9 fl; MONOCYTE ABSOLUTE 0.5 Th/cmm (0.3-1.0); NEUTROPHILE ABSOLUTE 2.6 Th/cmm (1.8-8.0); PLATELET COUNT 170 Th/cmm (150-400); RED BLOOD COUNT 2.76 Mil/cmm (3.80-5.20); WHITE BLOOD COUNT 4.3 Th/cmm (4.8-10.8)
[2017-04-16 07:46] LABS: ANION GAP 5.3 (7.0-16.0); BUN - UREA NITROGEN 20 mg/dL (7-25); CALCIUM SERUM 9.1 mg/dL (8.6-10.3); CARBON DIOXIDE 34.1 mEq/L (21.0-31.0); CHLORIDE 104 mEq/L (98-107); CREATININE - SERUM 1.9 mg/dL (0.6-1.2); GLUCOSE 105 mg/dL (70-105); POTASSIUM SERUM 4.4 mEq/L (3.5-5.1); SODIUM SERUM 139 mEq/L (136-145)
--- NOTE | 2017-04-16 09:12 | General Progress Note ---
Subjective - Review of Systems Service Date: 04/16/17 Subjective: Pt seen and eval. NAD. In bed. No n,v,d or cp. No falls or sz. On IV zosyn for pna. Breathing better today. On IV fluids for MARY. Dr. Haynes following. Objective - Results Result Diagrams: 04/16/17 07:00 04/16/17 07:00 Recent Labs: Laboratory Last Values WBC 4.3 Th/cmm (4.8-10.8) L 04/16/17 07:00 RBC 2.76 Mil/cmm (3.80-5.20) L 04/16/17 07:00 Hgb 9.2 gm/dL (12-16) L 04/16/17 07:00 Hct 27.8 % (41.0-60) L 04/16/17 07:00 MCV 100.7 fl (81-100) H 04/16/17 07:00 MCH 33.3 pg (27.0-31.0) H 04/16/17 07:00 MCHC Differential 33.1 pg (28.0-36.0) 04/16/17 07:00 RDW 15.0 % (11.5-20.0) 04/16/17 07:00 Plt Count 170 Th/cmm (150-400) 04/16/17 07:00 MPV 7.9 fl 04/16/17 07:00 Neutrophils % 61.1 % (40.0-80.0) 04/16/17 07:00 Lymphocytes % 23.3 % (20.0-50.0) 04/16/17 07:00 Monocytes % 11.9 % (2.0-10.0) H 04/16/17 07:00 Eosinophils % 3.5 % (0.0-5.0) 04/16/17 07:00 Basophils % 0.2 % (0.0-2.0) 04/16/17 07:00 PT 10.8 SECONDS (9.5-11.5) 04/14/17 13:00 INR 1.04 (0.5-1.4) 04/14/17 13:00 Sodium 139 mEq/L (136-145) 04/16/17 07:00 Potassium 4.4 mEq/L (3.5-5.1) 04/16/17 07:00 Chloride 104 mEq/L (98-107) 04/16/17 07:00 Carbon Dioxide 34.1 mEq/L (21.0-31.0) H 04/16/17 07:00 Anion Gap 5.3 (7.0-16.0) L 04/16/17 07:00 BUN 20 mg/dL (7-25) 04/16/17 07:00 Creatinine 1.9 mg/dL (0.6-1.2) H 04/16/17 07:00 Est GFR ( Amer) TNP 04/16/17 07:00 Est GFR (Non-Af Amer) TNP 04/16/17 07:00 BUN/Creatinine Ratio 10.5 04/16/17 07:00 Glucose 105 mg/dL (70-105) 04/16/17 07:00 Hemoglobin A1c % 5.2 % (4.0-6.0) 04/14/17 13:00 Calcium 9.1 mg/dL (8.6-10.3) 04/16/17 07:00 Magnesium 2.2 mg/dL (1.9-2.7) 04/14/17 13:00 Total Bilirubin 0.3 mg/dL (0.3-1.0) 04/14/17 13:00 AST 14 U/L (13-39) 04/14/17 13:00 ALT 15 U/L (7-52) 04/14/17 13:00 Alkaline Phosphatase 88 U/L (34-104) 04/14/17 13:00 Creatine Kinase 44 U/L (30-223) 04/14/17 13:00 Troponin I 0.02 ng/mL (0.01-0.05) 04/14/17 13:00 B-Natriuretic Peptide 61.2 pg/mL (5.0-100.0) 04/14/17 13:00 Total Protein 6.8 gm/dL (6.0-8.3) 04/14/17 13:00 Albumin 3.6 gm/dL (3.7-5.3) L 04/14/17 13:00 Globulin 3.2 gm/dL 04/14/17 13:00 Albumin/Globulin Ratio 1.1 (1.0-1.8) 03/07/18 13:00 Triglycerides 89 mg/dL (<150) 04/14/17 13:00 Cholesterol 202 mg/dL (<200) H 04/14/17 13:00 LDL Cholesterol Direct 136 mg/dL (75-193) 04/14/17 13:00 HDL Cholesterol 48 mg/dL (23-92) 04/14/17 13:00 Urine Source CATH 04/15/17 09:10 Urine Color YELLOW 04/15/17 09:10 Urine Clarity CLEAR (CLEAR) 04/15/17 09:10 Urine pH 6.0 (4.6 - 8.0) 04/15/17 09:10 Ur Specific [place] <= 1.005 (1.005-1.030) 04/15/17 09:10 Urine Protein NEGATIVE mg/dL (NEGATIVE) 04/15/17 09:10 Urine Glucose (UA) NEGATIVE mg/dL (NEGATIVE) 04/15/17 09:10 Urine Ketones NEGATIVE mg/dL (NEGATIVE) 04/15/17 09:10 Urine Blood NEGATIVE (NEGATIVE) 04/15/17 09:10 Urine Nitrate NEGATIVE (NEGATIVE) 04/15/17 09:10 Urine Bilirubin NEGATIVE (NEGATIVE) 04/15/17 09:10 Urine Urobilinogen 0.2 E.U./dL (0.2 - 1.0) 04/15/17 09:10 Ur Leukocyte Esterase NEGATIVE (NEGATIVE) 04/15/17 09:10 - Physical Exam Vitals and I&O: Vital Signs Temp 96.9 F 04/16/17 04:00 Pulse 86 04/16/17 04:00 Resp 18 04/16/17 04:00 BP 151/79 04/16/17 04:00 Pulse Ox 99 04/16/17 04:00 Intake & Output 04/15/17 04/16/17 04/16/17 18:59 06:59 18:59 Intake Total 1050 1840 Balance 1050 1840 Weight (lbs) 119.975 kg Intake: Intake, IV Amount 1050 Piperacillin Sodium/ 50 Tazobact 2.25 gm In Sodium Chloride 0.9% 50 ml @ 100 mls/hr IV Q8HR [facility]MAAN Rx#:[id number] Sodium Chloride 0.9% 1, 1000 000 ml @ 75 mls/hr IV . [id number] ARMAAN Rx#:[id number] Oral 1840 Other: # Voids 3 # Bowel Movements 0 Active Medications: Current Medications Acetaminophen (Tylenol) 650 mg PO Q6H PRN PRN Reason: HEADACHE/TEMP ABOVE 100F Stop: 06/13/17 17:43 Last Admin: 04/15/17 21:25 Dose: 650 mg Amiodarone HCl (Cordarone) 400 mg PO DAILY [facility] Stop: 06/14/17 08:59 Last Admin: 04/15/17 11:03 Dose: 400 mg Aspirin (Aspirin Chewable) 81 mg PO DAILY [facility] Stop: 06/14/17 08:59 Last Admin: 04/15/17 11:02 Dose: 81 mg Atorvastatin Calcium (Lipitor) 20 mg PO HS ARMAAN PRN Reason: Protocol Stop: 06/13/17 20:59 Last Admin: 04/15/17 20:16 Dose: 20 mg Budesonide (Pulmicort) 0.5 mg HHN BID [facility] Stop: 06/14/17 08:59 Last Admin: 04/15/17 19:01 Dose: 0.5 mg Diltiazem HCl (Cardizem Cd) 120 mg PO DAILY [facility] Stop: 06/14/17 08:59 Last Admin: 04/15/17 11:02 Dose: 120 mg Docusate Sodium (Colace) 100 mg PO BID [facility] Stop: 06/14/17 08:59 Last Admin: 04/15/17 18:48 Dose: 100 mg Ferrous Sulfate (Iron) 325 mg PO DAILY [facility] Stop: 06/14/17 08:59 Last Admin: 04/15/17 11:17 Dose: 325 mg Heparin Sodium (Porcine) (Heparin) 5,000 units SUBQ Q12HR [facility] Stop: 06/13/17 20:59 Last Admin: 04/15/17 20:17 Dose: 5,000 units Magnesium Sulfate (Magnesium Sulfate Premix) 2 gm in 50 mls @ 25 mls/hr IV DAILY PRN PRN Reason: Magnesium level less than 1.6 Stop: 06/13/17 17:43 Sodium Chloride (Nacl 0.9%) 1,000 mls @ 75 mls/hr IV .[id number] [facility] Stop: 06/13/17 17:44 Last Admin: 04/15/17 20:31 Dose: 75 mls/hr Piperacillin Sod/Tazobactam (Sod 2.25 gm/ Sodium Chloride) 50 mls @ 100 mls/hr IV Q8HR [facility] Stop: 06/14/17 12:59 Last Admin: 04/16/17 05:34 Dose: 100 mls/hr Levothyroxine Sodium 0.075 mg/ (Levothyroxine Sodium 0.1 mg) 0.175 mg PO QDAC [facility] Stop: 06/14/17 07:29 Last Admin: 04/15/17 07:50 Dose: 0.175 mg Lidocaine (Lidoderm 5% Patch) 1 patch TD DAILY [facility] Stop: 06/14/17 08:59 Last Admin: 04/15/17 11:05 Dose: 1 patch Lorazepam (Ativan) 1 mg IVP Q4HR PRN; Protocol PRN Reason: Anxiety Stop: 06/13/17 17:43 Last Admin: 04/15/17 11:17 Dose: 1 mg Magnesium Oxide (Mag-Oxide) 400 mg PO BID PRN PRN Reason: Mg less than 1.9 Stop: 06/13/17 17:43 Last Admin: 04/15/17 11:04 Dose: 400 mg Morphine Sulfate (Morphine) 1 mg IVP Q4HR PRN PRN Reason: Severe Pain Stop: 06/13/17 17:43 Last Admin: 04/15/17 20:17 Dose: 1 mg Nifedipine (Procardia Xl) 30 mg PO DAILY [facility] Stop: 06/14/17 08:59 Last Admin: 04/15/17 11:05 Dose: 30 mg Ondansetron HCl (Zofran) 4 mg IVP Q6H PRN PRN Reason: Nausea / Vomiting Stop: 06/13/17 17:43 Potassium Chloride (Klor-Con) 40 meq PO DAILY PRN PRN Reason: k level less than 3.5 Stop: 06/13/17 17:43 Last Admin: 04/15/17 11:04 Dose: 40 meq Sertraline HCl (Zoloft) 50 mg PO DAILY [facility] PRN Reason: Protocol Stop: 06/14/17 08:59 Last Admin: 04/15/17 11:04 Dose: 50 mg General: No acute distress, Other (has confusion at times) HEENT: Atraumatic, PERRLA, EOMI Neck: Supple, no JVD Cardiovascular: Regular rate, Normal S1, Normal S2 Lungs: Other (has congestion) Abdomen: Bowel sounds - Procedures Procedures: Procedures Procedure Code Date REPAIR R LOW LEG SUBCU/FASCIA, OPEN APPROACH [id number] 10/06/16 SKIN TISSUE PROCEDURE 92182 10/06/16 Assessment/Plan - Problem List Patient Problems: Asp PNA D/O of ANS due to syncope VMN A Fib CHI Obese Depression Scalp Lac Anemia of ch ill Mild [place] AVD - Assessment Assessment: Asp PNA D/O of ANS due to syncope VMN A Fib CHI Obese Depression Scalp Lac Anemia of ch ill Mild [place] AVD - Plan Plan: Continue IV Zosyn for Asp PNA. On A fib meds and Tele monitoring. Carotid US done. CT head done. Continue fall prec. On IV fluids. Renal fx improving. Dr. Haynes following.
[2017-04-16] MEDS: Lidocaine 5% Patch TD SCH (09:25)
[2017-04-16] MEDS: Morphine Sulfate 2 mg/mL 1mL Syr IVP PRN ×4 (09:30→21:42)
[2017-04-16] MEDS: Diltiazem CD 120 mg 24H PO SCH (09:46)
[2017-04-16] MEDS: Aspirin 81mg Chewable Tab PO SCH (09:46)
[2017-04-16] MEDS: Ferrous Sulfate 325 MG TAB PO SCH (09:47)
[2017-04-16] MEDS: NIFEdipine 30 mg ER Tab PO SCH (09:48)
[2017-04-16] MEDS: Budesonide 0.5 Mg/2 mL Ud HHN SCH ×2 (11:17→19:38)
--- NOTE | 2017-04-16 13:18 | General Progress Note ---
Subjective - Review of Systems Service Date: 04/16/17 Subjective: resting comfortably in bed renal function slightly better Objective - Results Result Diagrams: 04/16/17 07:00 04/16/17 07:00 Recent Labs: Laboratory Last Values WBC 4.3 Th/cmm (4.8-10.8) L 04/16/17 07:00 RBC 2.76 Mil/cmm (3.80-5.20) L 04/16/17 07:00 Hgb 9.2 gm/dL (12-16) L 04/16/17 07:00 Hct 27.8 % (41.0-60) L 04/16/17 07:00 MCV 100.7 fl (81-100) H 04/16/17 07:00 MCH 33.3 pg (27.0-31.0) H 04/16/17 07:00 MCHC Differential 33.1 pg (28.0-36.0) 04/16/17 07:00 RDW 15.0 % (11.5-20.0) 04/16/17 07:00 Plt Count 170 Th/cmm (150-400) 04/16/17 07:00 MPV 7.9 fl 04/16/17 07:00 Neutrophils % 61.1 % (40.0-80.0) 04/16/17 07:00 Lymphocytes % 23.3 % (20.0-50.0) 04/16/17 07:00 Monocytes % 11.9 % (2.0-10.0) H 04/16/17 07:00 Eosinophils % 3.5 % (0.0-5.0) 04/16/17 07:00 Basophils % 0.2 % (0.0-2.0) 04/16/17 07:00 PT 10.8 SECONDS (9.5-11.5) 04/14/17 13:00 INR 1.04 (0.5-1.4) 04/14/17 13:00 Sodium 139 mEq/L (136-145) 04/16/17 07:00 Potassium 4.4 mEq/L (3.5-5.1) 04/16/17 07:00 Chloride 104 mEq/L (98-107) 04/16/17 07:00 Carbon Dioxide 34.1 mEq/L (21.0-31.0) H 04/16/17 07:00 Anion Gap 5.3 (7.0-16.0) L 04/16/17 07:00 BUN 20 mg/dL (7-25) 04/16/17 07:00 Creatinine 1.9 mg/dL (0.6-1.2) H 04/16/17 07:00 Est GFR ( Amer) TNP 04/16/17 07:00 Est GFR (Non-Af Amer) TNP 04/16/17 07:00 BUN/Creatinine Ratio 10.5 04/16/17 07:00 Glucose 105 mg/dL (70-105) 04/16/17 07:00 Hemoglobin A1c % 5.2 % (4.0-6.0) 04/14/17 13:00 Calcium 9.1 mg/dL (8.6-10.3) 04/16/17 07:00 Magnesium 2.2 mg/dL (1.9-2.7) 04/14/17 13:00 Total Bilirubin 0.3 mg/dL (0.3-1.0) 04/14/17 13:00 AST 14 U/L (13-39) 04/14/17 13:00 ALT 15 U/L (7-52) 04/14/17 13:00 Alkaline Phosphatase 88 U/L (34-104) 04/14/17 13:00 Creatine Kinase 44 U/L (30-223) 04/14/17 13:00 Troponin I 0.02 ng/mL (0.01-0.05) 04/14/17 13:00 B-Natriuretic Peptide 61.2 pg/mL (5.0-100.0) 04/14/17 13:00 Total Protein 6.8 gm/dL (6.0-8.3) 04/14/17 13:00 Albumin 3.6 gm/dL (3.7-5.3) L 04/14/17 13:00 Globulin 3.2 gm/dL 04/14/17 13:00 Albumin/Globulin Ratio 1.1 (1.0-1.8) 04/14/17 13:00 Triglycerides 89 mg/dL (<150) 04/14/17 13:00 Cholesterol 202 mg/dL (<200) H 04/14/17 13:00 LDL Cholesterol Direct 136 mg/dL (75-193) 04/14/17 13:00 HDL Cholesterol 48 mg/dL (23-92) 04/14/17 13:00 Urine Source CATH 04/15/17 09:10 Urine Color YELLOW 04/15/17 09:10 Urine Clarity CLEAR (CLEAR) 04/15/17 09:10 Urine pH 6.0 (4.6 - 8.0) 04/15/17 09:10 Ur Specific [place] <= 1.005 (1.005-1.030) 04/15/17 09:10 Urine Protein NEGATIVE mg/dL (NEGATIVE) 04/15/17 09:10 Urine Glucose (UA) NEGATIVE mg/dL (NEGATIVE) 04/15/17 09:10 Urine Ketones NEGATIVE mg/dL (NEGATIVE) 04/15/17 09:10 Urine Blood NEGATIVE (NEGATIVE) 04/15/17 09:10 Urine Nitrate NEGATIVE (NEGATIVE) 04/15/17 09:10 Urine Bilirubin NEGATIVE (NEGATIVE) 04/15/17 09:10 Urine Urobilinogen 0.2 E.U./dL (0.2 - 1.0) 04/15/17 09:10 Ur Leukocyte Esterase NEGATIVE (NEGATIVE) 04/15/17 09:10 - Physical Exam Vitals and I&O: Vital Signs Temp 98 F 04/16/17 12:00 Pulse 91 04/16/17 12:00 Resp 20 04/16/17 12:00 BP 139/70 04/16/17 12:00 Pulse Ox 100 04/16/17 12:00 Intake & Output 04/15/17 04/16/17 04/16/17 18:59 06:59 18:59 Intake Total 1050 1840 Balance 1050 1840 Weight (lbs) 119.975 kg Intake: Intake, IV Amount 1050 Piperacillin Sodium/ 50 Tazobact 2.25 gm In Sodium Chloride 0.9% 50 ml @ 100 mls/hr IV Q8HR [facility] Rx#:[id number] Sodium Chloride 0.9% 1, 1000 000 ml @ 75 mls/hr IV . [id number] [facility]MA[facility] Rx#:[id number] Oral 1840 Other: # Voids 3 # Bowel Movements 0 Active Medications: Current Medications Acetaminophen (Tylenol) 650 mg PO Q6H PRN PRN Reason: HEADACHE/TEMP ABOVE 100F Stop: 06/13/17 17:43 Last Admin: 04/16/17 09:59 Dose: 650 mg Amiodarone HCl (Cordarone) 400 mg PO DAILY [facility] Stop: 06/14/17 08:59 Last Admin: 04/16/17 09:55 Dose: 400 mg Aspirin (Aspirin Chewable) 81 mg PO DAILY [facility] Stop: 06/14/17 08:59 Last Admin: 04/16/17 09:46 Dose: 81 mg Atorvastatin Calcium (Lipitor) 20 mg PO HS [facility]MAAN PRN Reason: Protocol Stop: 06/13/17 20:59 Last Admin: 04/15/17 20:16 Dose: 20 mg Budesonide (Pulmicort) 0.5 mg HHN BID [facility] Stop: 06/14/17 08:59 Last Admin: 04/16/17 11:17 Dose: 0.5 mg Diltiazem HCl (Cardizem Cd) 120 mg PO DAILY [facility] Stop: 06/14/17 08:59 Last Admin: 04/16/17 09:46 Dose: 120 mg Docusate Sodium (Colace) 100 mg PO BID [facility] Stop: 06/14/17 08:59 Last Admin: 04/16/17 09:47 Dose: 100 mg Ferrous Sulfate (Iron) 325 mg PO DAILY [facility] Stop: 06/14/17 08:59 Last Admin: 04/16/17 09:47 Dose: 325 mg Heparin Sodium (Porcine) (Heparin) 5,000 units SUBQ Q12HR [facility] Stop: 06/13/17 20:59 Last Admin: 04/16/17 09:52 Dose: 5,000 units Magnesium Sulfate (Magnesium Sulfate Premix) 2 gm in 50 mls @ 25 mls/hr IV DAILY PRN PRN Reason: Magnesium level less than 1.6 Stop: 06/13/17 17:43 Sodium Chloride (Nacl 0.9%) 1,000 mls @ 75 mls/hr IV .[id number] [facility] Stop: 06/13/17 17:44 Last Admin: 04/15/17 20:31 Dose: 75 mls/hr Piperacillin Sod/Tazobactam (Sod 2.25 gm/ Sodium Chloride) 50 mls @ 100 mls/hr IV Q8HR [facility] Stop: 06/14/17 12:59 Last Admin: 04/16/17 05:34 Dose: 100 mls/hr Levothyroxine Sodium 0.075 mg/ (Levothyroxine Sodium 0.1 mg) 0.175 mg PO QDAC [facility] Stop: 06/14/17 07:29 Last Admin: 04/16/17 12:09 Dose: 0.175 mg Lidocaine (Lidoderm 5% Patch) 1 patch TD DAILY [facility] Stop: 06/14/17 08:59 Last Admin: 04/16/17 09:25 Dose: 1 patch Lorazepam (Ativan) 1 mg IVP Q4HR PRN; Protocol PRN Reason: Anxiety Stop: 06/13/17 17:43 Last Admin: 04/15/17 11:17 Dose: 1 mg Magnesium Oxide (Mag-Oxide) 400 mg PO BID PRN PRN Reason: Mg less than 1.9 Stop: 06/13/17 17:43 Last Admin: 04/15/17 11:04 Dose: 400 mg Morphine Sulfate (Morphine) 1 mg IVP Q4HR PRN PRN Reason: Severe Pain Stop: 06/13/17 17:43 Last Admin: 04/16/17 09:30 Dose: 1 mg Nifedipine (Procardia Xl) 30 mg PO DAILY [facility] Stop: 06/14/17 08:59 Last Admin: 04/16/17 09:48 Dose: 30 mg Ondansetron HCl (Zofran) 4 mg IVP Q6H PRN PRN Reason: Nausea / Vomiting Stop: 06/13/17 17:43 Potassium Chloride (Klor-Con) 40 meq PO DAILY PRN PRN Reason: k level less than 3.5 Stop: 06/13/17 17:43 Last Admin: 04/15/17 11:04 Dose: 40 meq Sertraline HCl (Zoloft) 50 mg PO DAILY [facility] PRN Reason: Protocol Stop: 06/14/17 08:59 Last Admin: 04/16/17 09:45 Dose: 50 mg General: No acute distress, Other (has confusion at times) HEENT: Atraumatic, PERRLA, EOMI Neck: Supple, no JVD Cardiovascular: Regular rate, Normal S1, Normal S2 Lungs: Other (has congestion) Abdomen: Bowel sounds - Procedures Procedures: Procedures Procedure Code Date REPAIR R LOW LEG SUBCU/FASCIA, OPEN APPROACH [id number] 10/06/16 SKIN TISSUE PROCEDURE 13644 10/06/16 Assessment/Plan - Assessment Assessment: syncope aspiration pneumonia ARF secondary to ATN - Plan Plan: renal function gradually improving
[2017-04-16] MEDS: Atorvastatin Calcium 10 MG TAB PO SCH (20:27)
--- NOTE | 2017-04-16 21:13 | Consultation ---
DATE OF CONSULTATION: 04/16/2017 PSYCHIATRIC CONSULTATION The patient was seen, chart reviewed, discussed with staff. HISTORY OF PRESENT ILLNESS: The patient is a 76-year-old female with multiple medical problems, currently admitted to the hospital, has been very anxious, restless, care keeps saying that someone is making decisions for her, a public guardian does not need to be involved, said they took everything away from her. The patient admits to feeling very anxious and she feels everybody is against her and she said she worked hard. She has high education and she has a master's degree and now she is in a skilled nursing and nobody is listening to her. PAST PSYCHIATRIC HISTORY: Depression, anxiety, possible bipolar disorder. The patient denies prior psychiatric hospitalizations, but then she said she was in the company of some people with psychiatric issues, maybe she was in a psychiatric hospital, unclear. She is a reliable historian. PAST MEDICAL HISTORY: Multiple medical issues. Referred to [facility] PSYCHOSOCIAL HISTORY: The patient resides in a skilled nursing facility requires complete care. MENTAL STATUS EXAMINATION: Speech is rapid. Affect dysphoric, irritable and depressed. Insight is poor. Judgment is somewhat impaired. The patient is minimizing the seriousness of her issues. The patient is very tangential and circumstantial. She is oriented to person, knew she was in the hospital, did not know the name of the hospital. When asked about any of the presence, said she was presently divorce, then she stopped it, is not a setting, "it is not him. I cannot remember his name." The patient knew the year, knew the month with some difficulty, did not know the exact date. Short term memory is impaired, 2/3 after 1 minute, 1/3 after 5 minutes. ASSESSMENT: Depressive disorder, not otherwise specified; rule out bipolar disorder, rule out dementia, Alzheimer's type. MEDICAL: As in medical history. PLAN: At this time, would recommend continuation of medical management. Add Depakote 125 mg p.o. t.i.d., use Ativan as needed for anxiety. We will follow the patient closely in the hospital. Thank you for the consultation. JOB# [id number]
[2017-04-16] MEDS: Sodium Chloride 0.9% 1,000 ML IV SCH (21:41)
[2017-04-17] MEDS: Piperacillin/Tazobact 2.25 gm in 0.9% NS 50 ML IV SCH ×3 (05:17→20:19)
[2017-04-17 06:25] LABS: % BASOPHILS 0.8 % (0.0-2.0); % EOSINOPHILS 4.8 % (0.0-5.0); % LYMPHOCYTES 27.9 % (20.0-50.0); % MONOCYTES 12.1 % (2.0-10.0); % NEUTROPHILS 54.4 % (40.0-80.0); EOSINOPHILE ABSOLUTE 0.2 Th/cmm (0.1-0.4); HEMOGLOBIN 9.5 gm/dL (12-16); LYMPHOCYTE ABSOLUTE 1.3 Th/cmm (1.5-3.0); MEAN CORPUSCULAR HGB CONC 32.7 pg (28.0-36.0); MEAN PLATELET VOLUME 7.7 fl; MONOCYTE ABSOLUTE 0.6 Th/cmm (0.3-1.0); NEUTROPHILE ABSOLUTE 2.6 Th/cmm (1.8-8.0); PLATELET COUNT 168 Th/cmm (150-400); RED BLOOD COUNT 2.87 Mil/cmm (3.80-5.20); RED CELL DISTRIBUTION WIDTH 15.3 % (11.5-20.0); WHITE BLOOD COUNT 4.7 Th/cmm (4.8-10.8)
[2017-04-17 06:28] LABS: ANION GAP 8.5 (7.0-16.0); BUN - UREA NITROGEN 20 mg/dL (7-25); CALCIUM SERUM 9.1 mg/dL (8.6-10.3); CARBON DIOXIDE 33.8 mEq/L (21.0-31.0); CHLORIDE 101 mEq/L (98-107); CREATININE - SERUM 1.9 mg/dL (0.6-1.2); GLUCOSE 95 mg/dL (70-105); POTASSIUM SERUM 4.3 mEq/L (3.5-5.1); SODIUM SERUM 139 mEq/L (136-145)
[2017-04-17] MEDS: Budesonide 0.5 Mg/2 mL Ud HHN SCH ×2 (08:21→19:01)
--- NOTE | 2017-04-17 09:03 | General Progress Note ---
Subjective - Review of Systems Service Date: 04/17/17 Subjective: Pt seen and eval. NAD. In bed. No n,v,d or cp. No falls or sz. On IV zosyn for pna. Breathing better today. On IV fluids for MARY. Dr. Haynes following. Dr. Haro saw pt and started Depakote. Objective - Results Result Diagrams: 04/17/17 05:37 04/17/17 05:37 Recent Labs: Laboratory Last Values WBC 4.7 Th/cmm (4.8-10.8) L 04/17/17 05:37 RBC 2.87 Mil/cmm (3.80-5.20) L 04/17/17 05:37 Hgb 9.5 gm/dL (12-16) L 04/17/17 05:37 Hct 29.0 % (41.0-60) L 04/17/17 05:37 MCV 101.0 fl (81-100) H 04/17/17 05:37 MCH 33.0 pg (27.0-31.0) H 04/17/17 05:37 MCHC Differential 32.7 pg (28.0-36.0) 04/17/17 05:37 RDW 15.3 % (11.5-20.0) 04/17/17 05:37 Plt Count 168 Th/cmm (150-400) 04/17/17 05:37 MPV 7.7 fl 04/17/17 05:37 Neutrophils % 54.4 % (40.0-80.0) 04/17/17 05:37 Lymphocytes % 27.9 % (20.0-50.0) 04/17/17 05:37 Monocytes % 12.1 % (2.0-10.0) H 04/17/17 05:37 Eosinophils % 4.8 % (0.0-5.0) 04/17/17 05:37 Basophils % 0.8 % (0.0-2.0) 04/17/17 05:37 PT 10.8 SECONDS (9.5-11.5) 04/14/17 13:00 INR 1.04 (0.5-1.4) 04/14/17 13:00 Sodium 139 mEq/L (136-145) 04/17/17 05:37 Potassium 4.3 mEq/L (3.5-5.1) 04/17/17 05:37 Chloride 101 mEq/L (98-107) 04/17/17 05:37 Carbon Dioxide 33.8 mEq/L (21.0-31.0) H 04/17/17 05:37 Anion Gap 8.5 (7.0-16.0) 04/17/17 05:37 BUN 20 mg/dL (7-25) 04/17/17 05:37 Creatinine 1.9 mg/dL (0.6-1.2) H 04/17/17 05:37 Est GFR ( Amer) TNP 04/17/17 05:37 Est GFR (Non-Af Amer) TNP 04/17/17 05:37 BUN/Creatinine Ratio 10.5 04/17/17 05:37 Glucose 95 mg/dL (70-105) 04/17/17 05:37 Hemoglobin A1c % 5.2 % (4.0-6.0) 04/14/17 13:00 Calcium 9.1 mg/dL (8.6-10.3) 04/17/17 05:37 Magnesium 2.2 mg/dL (1.9-2.7) 04/14/17 13:00 Total Bilirubin 0.3 mg/dL (0.3-1.0) 04/14/17 13:00 AST 14 U/L (13-39) 04/14/17 13:00 ALT 15 U/L (7-52) 04/14/17 13:00 Alkaline Phosphatase 88 U/L (34-104) 04/14/17 13:00 Creatine Kinase 44 U/L (30-223) 04/14/17 13:00 Troponin I 0.02 ng/mL (0.01-0.05) 04/14/17 13:00 B-Natriuretic Peptide 61.2 pg/mL (5.0-100.0) 04/14/17 13:00 Total Protein 6.8 gm/dL (6.0-8.3) 04/14/17 13:00 Albumin 3.6 gm/dL (3.7-5.3) L 04/14/17 13:00 Globulin 3.2 gm/dL 04/14/17 13:00 Albumin/Globulin Ratio 1.1 (1.0-1.8) 04/14/17 13:00 Triglycerides 89 mg/dL (<150) 04/14/17 13:00 Cholesterol 202 mg/dL (<200) H 04/14/17 13:00 LDL Cholesterol Direct 136 mg/dL (75-193) 04/14/17 13:00 HDL Cholesterol 48 mg/dL (23-92) 04/14/17 13:00 Urine Source CATH 04/15/17 09:10 Urine Color YELLOW 04/15/17 09:10 Urine Clarity CLEAR (CLEAR) 04/15/17 09:10 Urine pH 6.0 (4.6 - 8.0) 04/15/17 09:10 Ur Specific [place] <= 1.005 (1.005-1.030) 04/15/17 09:10 Urine Protein NEGATIVE mg/dL (NEGATIVE) 04/15/17 09:10 Urine Glucose (UA) NEGATIVE mg/dL (NEGATIVE) 04/15/17 09:10 Urine Ketones NEGATIVE mg/dL (NEGATIVE) 04/15/17 09:10 Urine Blood NEGATIVE (NEGATIVE) 04/15/17 09:10 Urine Nitrate NEGATIVE (NEGATIVE) 04/15/17 09:10 Urine Bilirubin NEGATIVE (NEGATIVE) 04/15/17 09:10 Urine Urobilinogen 0.2 E.U./dL (0.2 - 1.0) 04/15/17 09:10 Ur Leukocyte Esterase NEGATIVE (NEGATIVE) 04/15/17 09:10 - Physical Exam Vitals and I&O: Vital Signs Temp 97.4 F 04/17/17 04:00 Pulse 87 04/17/17 04:00 Resp 17 04/17/17 04:00 BP 148/61 04/17/17 04:00 Pulse Ox 98 04/17/17 04:00 Intake & Output 04/16/17 04/17/17 04/17/17 18:59 06:59 18:59 Intake Total 2550 340 Balance 2550 340 Weight (lbs) 120.882 kg 120.656 kg Intake: Intake, IV Amount 1100 100 Piperacillin Sodium/ 100 100 Tazobact 2.25 gm In Sodium Chloride 0.9% 50 ml @ 100 mls/hr IV Q8HR [facility] Rx#:[id number] Sodium Chloride 0.9% 1, 1000 000 ml @ 75 mls/hr IV . [id number] [facility] Rx#:[id number] Oral 1450 240 Other: # Voids 3 3 Active Medications: Current Medications Acetaminophen (Tylenol) 650 mg PO Q4H PRN PRN Reason: HEADACHE/TEMP ABOVE 100F Stop: 06/13/17 17:43 Last Admin: 04/17/17 06:20 Dose: 650 mg Amiodarone HCl (Cordarone) 400 mg PO DAILY [facility] Stop: 06/14/17 08:59 Last Admin: 04/16/17 09:55 Dose: 400 mg Aspirin (Aspirin Chewable) 81 mg PO DAILY [facility] Stop: 06/14/17 08:59 Last Admin: 04/16/17 09:46 Dose: 81 mg Atorvastatin Calcium (Lipitor) 20 mg PO HS [facility] PRN Reason: Protocol Stop: 06/13/17 20:59 Last Admin: 04/16/17 20:27 Dose: 20 mg Budesonide (Pulmicort) 0.5 mg HHN BID [facility] Stop: 06/14/17 08:59 Last Admin: 04/17/17 08:21 Dose: 0.5 mg Diltiazem HCl (Cardizem Cd) 120 mg PO DAILY [facility] Stop: 06/14/17 08:59 Last Admin: 04/16/17 09:46 Dose: 120 mg Diphenhydramine HCl (Benadryl) 25 mg PO Q4HR PRN PRN Reason: Itching Stop: 06/15/17 15:42 Last Admin: 04/17/17 06:20 Dose: 25 mg Divalproex Sodium (Depakote Sprinkle) 125 mg PO Q8HR [facility] PRN Reason: Protocol Stop: 06/15/17 20:59 Docusate Sodium (Colace) 100 mg PO BID [facility] Stop: 06/14/17 08:59 Last Admin: 04/16/17 16:42 Dose: 100 mg Ferrous Sulfate (Iron) 325 mg PO DAILY [facility] Stop: 06/14/17 08:59 Last Admin: 04/16/17 09:47 Dose: 325 mg Heparin Sodium (Porcine) (Heparin) 5,000 units SUBQ Q12HR [facility] Stop: 06/13/17 20:59 Last Admin: 04/16/17 20:26 Dose: 5,000 units Magnesium Sulfate (Magnesium Sulfate Premix) 2 gm in 50 mls @ 25 mls/hr IV DAILY PRN PRN Reason: Magnesium level less than 1.6 Stop: 06/13/17 17:43 Sodium Chloride (Nacl 0.9%) 1,000 mls @ 75 mls/hr IV .[id number] [facility] Stop: 06/13/17 17:44 Last Admin: 04/16/17 21:41 Dose: 75 mls/hr Piperacillin Sod/Tazobactam (Sod 2.25 gm/ Sodium Chloride) 50 mls @ 100 mls/hr IV Q8HR [facility] Stop: 06/14/17 12:59 Last Infusion: 04/17/17 05:47 Dose: Infused Levothyroxine Sodium 0.075 mg/ (Levothyroxine Sodium 0.1 mg) 0.175 mg PO QDAC [facility] Stop: 06/14/17 07:29 Last Admin: 04/17/17 06:30 Dose: 0.175 mg Lidocaine (Lidoderm 5% Patch) 1 patch TD DAILY [facility] Stop: 06/14/17 08:59 Last Admin: 04/16/17 09:25 Dose: 1 patch Lorazepam (Ativan) 1 mg IVP Q4HR PRN; Protocol PRN Reason: Anxiety Stop: 06/13/17 17:43 Last Admin: 04/16/17 20:27 Dose: 1 mg Lorazepam (Ativan) 1 mg PO Q6HR PRN; Protocol PRN Reason: Anxiety Stop: 06/15/17 17:36 Magnesium Oxide (Mag-Oxide) 400 mg PO BID PRN PRN Reason: Mg less than 1.9 Stop: 06/13/17 17:43 Last Admin: 04/15/17 11:04 Dose: 400 mg Morphine Sulfate (Morphine) 1 mg IVP Q4HR PRN PRN Reason: Severe Pain Stop: 06/13/17 17:43 Last Admin: 04/16/17 21:42 Dose: 1 mg Nifedipine (Procardia Xl) 30 mg PO DAILY [facility] Stop: 06/14/17 08:59 Last Admin: 04/16/17 09:48 Dose: 30 mg Ondansetron HCl (Zofran) 4 mg IVP Q6H PRN PRN Reason: Nausea / Vomiting Stop: 06/13/17 17:43 Potassium Chloride (Klor-Con) 40 meq PO DAILY PRN PRN Reason: k level less than 3.5 Stop: 06/13/17 17:43 Last Admin: 04/15/17 11:04 Dose: 40 meq Sertraline HCl (Zoloft) 50 mg PO DAILY [facility] PRN Reason: Protocol Stop: 06/14/17 08:59 Last Admin: 04/16/17 09:45 Dose: 50 mg General: No acute distress, Other (has confusion at times) HEENT: Atraumatic, PERRLA, EOMI Neck: Supple, no JVD Cardiovascular: Regular rate, Normal S1, Normal S2 Lungs: Other (has congestion) Abdomen: Bowel sounds - Procedures Procedures: Procedures Procedure Code Date REPAIR R LOW LEG SUBCU/FASCIA, OPEN APPROACH [id number] 10/06/16 SKIN TISSUE PROCEDURE 04448 10/06/16 Assessment/Plan - Assessment Assessment: Asp PNA D/O of ANS due to syncope VMN A Fib CHI Obese Depression [place] Anemia of ch ill Mild [place] AVD Bipolar D/O with possible depression - Plan Plan: Continue IV Zosyn for Asp PNA. On A fib meds and Tele monitoring. Carotid US done. CT head done. Continue fall prec. On IV fluids. Renal fx improving. Dr. Haynes following. Dr. Haro saw pt. Started Depakote.
[2017-04-17] MEDS: Lidocaine 5% Patch TD SCH ×2 (09:28→11:33)
[2017-04-17] MEDS: Diltiazem CD 120 mg 24H PO SCH ×2 (09:29→11:33)
[2017-04-17] MEDS: Aspirin 81mg Chewable Tab PO SCH ×2 (09:29→11:34)
[2017-04-17] MEDS: Ferrous Sulfate 325 MG TAB PO SCH ×2 (09:30→11:34)
[2017-04-17] MEDS: NIFEdipine 30 mg ER Tab PO SCH ×2 (09:30→11:33)
--- NOTE | 2017-04-17 11:59 | General Progress Note ---
Subjective - Review of Systems Service Date: 04/17/17 Subjective: resting comfortably in bed renal function the same Objective - Results Result Diagrams: 04/17/17 05:37 04/17/17 05:37 Recent Labs: Laboratory Last Values WBC 4.7 Th/cmm (4.8-10.8) L 04/17/17 05:37 RBC 2.87 Mil/cmm (3.80-5.20) L 04/17/17 05:37 Hgb 9.5 gm/dL (12-16) L 04/17/17 05:37 Hct 29.0 % (41.0-60) L 04/17/17 05:37 MCV 101.0 fl (81-100) H 04/17/17 05:37 MCH 33.0 pg (27.0-31.0) H 04/17/17 05:37 MCHC Differential 32.7 pg (28.0-36.0) 04/17/17 05:37 RDW 15.3 % (11.5-20.0) 04/17/17 05:37 Plt Count 168 Th/cmm (150-400) 04/17/17 05:37 MPV 7.7 fl 04/17/17 05:37 Neutrophils % 54.4 % (40.0-80.0) 04/17/17 05:37 Lymphocytes % 27.9 % (20.0-50.0) 04/17/17 05:37 Monocytes % 12.1 % (2.0-10.0) H 04/17/17 05:37 Eosinophils % 4.8 % (0.0-5.0) 04/17/17 05:37 Basophils % 0.8 % (0.0-2.0) 04/17/17 05:37 PT 10.8 SECONDS (9.5-11.5) 04/14/17 13:00 INR 1.04 (0.5-1.4) 04/14/17 13:00 Sodium 139 mEq/L (136-145) 04/17/17 05:37 Potassium 4.3 mEq/L (3.5-5.1) 04/17/17 05:37 Chloride 101 mEq/L (98-107) 04/17/17 05:37 Carbon Dioxide 33.8 mEq/L (21.0-31.0) H 04/17/17 05:37 Anion Gap 8.5 (7.0-16.0) 04/17/17 05:37 BUN 20 mg/dL (7-25) 04/17/17 05:37 Creatinine 1.9 mg/dL (0.6-1.2) H 04/17/17 05:37 Est GFR ( Amer) TNP 04/17/17 05:37 Est GFR (Non-Af Amer) TNP 04/17/17 05:37 BUN/Creatinine Ratio 10.5 04/17/17 05:37 Glucose 95 mg/dL (70-105) 04/17/17 05:37 Hemoglobin A1c % 5.2 % (4.0-6.0) 04/14/17 13:00 Calcium 9.1 mg/dL (8.6-10.3) 04/17/17 05:37 Magnesium 2.2 mg/dL (1.9-2.7) 04/14/17 13:00 Total Bilirubin 0.3 mg/dL (0.3-1.0) 04/14/17 13:00 AST 14 U/L (13-39) 04/14/17 13:00 ALT 15 U/L (7-52) 04/14/17 13:00 Alkaline Phosphatase 88 U/L (34-104) 04/14/17 13:00 Creatine Kinase 44 U/L (30-223) 04/14/17 13:00 Troponin I 0.02 ng/mL (0.01-0.05) 04/14/17 13:00 B-Natriuretic Peptide 61.2 pg/mL (5.0-100.0) 04/14/17 13:00 Total Protein 6.8 gm/dL (6.0-8.3) 04/14/17 13:00 Albumin 3.6 gm/dL (3.7-5.3) L 04/14/17 13:00 Globulin 3.2 gm/dL 04/14/17 13:00 Albumin/Globulin Ratio 1.1 (1.0-1.8) 04/14/17 13:00 Triglycerides 89 mg/dL (<150) 04/14/17 13:00 Cholesterol 202 mg/dL (<200) H 04/14/17 13:00 LDL Cholesterol Direct 136 mg/dL (75-193) 04/14/17 13:00 HDL Cholesterol 48 mg/dL (23-92) 04/14/17 13:00 Urine Source CATH 04/15/17 09:10 Urine Color YELLOW 04/15/17 09:10 Urine Clarity CLEAR (CLEAR) 04/15/17 09:10 Urine pH 6.0 (4.6 - 8.0) 04/15/17 09:10 Ur Specific [place] <= 1.005 (1.005-1.030) 04/15/17 09:10 Urine Protein NEGATIVE mg/dL (NEGATIVE) 04/15/17 09:10 Urine Glucose (UA) NEGATIVE mg/dL (NEGATIVE) 04/15/17 09:10 Urine Ketones NEGATIVE mg/dL (NEGATIVE) 04/15/17 09:10 Urine Blood NEGATIVE (NEGATIVE) 04/15/17 09:10 Urine Nitrate NEGATIVE (NEGATIVE) 04/15/17 09:10 Urine Bilirubin NEGATIVE (NEGATIVE) 04/15/17 09:10 Urine Urobilinogen 0.2 E.U./dL (0.2 - 1.0) 04/15/17 09:10 Ur Leukocyte Esterase NEGATIVE (NEGATIVE) 04/15/17 09:10 - Physical Exam Vitals and I&O: Vital Signs Temp 97.9 F 04/17/17 10:14 Pulse 80 04/17/17 11:34 Resp 17 04/17/17 10:14 BP 153/65 04/17/17 11:33 Pulse Ox 97 04/17/17 10:14 Intake & Output 04/16/17 04/17/17 04/17/17 18:59 06:59 18:59 Intake Total 2550 340 Balance 2550 340 Weight (lbs) 120.882 kg 120.656 kg Intake: Intake, IV Amount 1100 100 Piperacillin Sodium/ 100 100 Tazobact 2.25 gm In Sodium Chloride 0.9% 50 ml @ 100 mls/hr IV Q8HR [facility] Rx#:[id number] Sodium Chloride 0.9% 1, 1000 000 ml @ 75 mls/hr IV . [id number] [facility] Rx#:[id number] Oral 1450 240 Other: # Voids 3 3 Active Medications: Current Medications Acetaminophen (Tylenol) 650 mg PO Q4H PRN PRN Reason: HEADACHE/TEMP ABOVE 100F Stop: 06/13/17 17:43 Last Admin: 04/17/17 11:15 Dose: 650 mg Amiodarone HCl (Cordarone) 400 mg PO DAILY [facility] Stop: 06/14/17 08:59 Last Admin: 04/17/17 11:34 Dose: 400 mg Aspirin (Aspirin Chewable) 81 mg PO DAILY [facility] Stop: 06/14/17 08:59 Last Admin: 04/17/17 11:34 Dose: 81 mg Atorvastatin Calcium (Lipitor) 20 mg PO HS [facility] PRN Reason: Protocol Stop: 06/13/17 20:59 Last Admin: 04/16/17 20:27 Dose: 20 mg Budesonide (Pulmicort) 0.5 mg HHN BID [facility] Stop: 06/14/17 08:59 Last Admin: 04/17/17 08:21 Dose: 0.5 mg Diltiazem HCl (Cardizem Cd) 120 mg PO DAILY [facility] Stop: 06/14/17 08:59 Last Admin: 04/17/17 11:33 Dose: 120 mg Diphenhydramine HCl (Benadryl) 25 mg PO Q4HR PRN PRN Reason: Itching Stop: 06/15/17 15:42 Last Admin: 04/17/17 06:20 Dose: 25 mg Divalproex Sodium (Depakote Sprinkle) 125 mg PO Q8HR [facility] PRN Reason: Protocol Stop: 06/15/17 20:59 Docusate Sodium (Colace) 100 mg PO BID [facility] Stop: 06/14/17 08:59 Last Admin: 04/17/17 11:33 Dose: 100 mg Ferrous Sulfate (Iron) 325 mg PO DAILY [facility] Stop: 06/14/17 08:59 Last Admin: 04/17/17 11:34 Dose: 325 mg Heparin Sodium (Porcine) (Heparin) 5,000 units SUBQ Q12HR [facility] Stop: 06/13/17 20:59 Last Admin: 04/17/17 11:41 Dose: 5,000 units Magnesium Sulfate (Magnesium Sulfate Premix) 2 gm in 50 mls @ 25 mls/hr IV DAILY PRN PRN Reason: Magnesium level less than 1.6 Stop: 06/13/17 17:43 Sodium Chloride (Nacl 0.9%) 1,000 mls @ 75 mls/hr IV .[id number] [facility] Stop: 06/13/17 17:44 Last Admin: 04/16/17 21:41 Dose: 75 mls/hr Piperacillin Sod/Tazobactam (Sod 2.25 gm/ Sodium Chloride) 50 mls @ 100 mls/hr IV Q8HR [facility] Stop: 06/14/17 12:59 Last Infusion: 04/17/17 05:47 Dose: Infused Levothyroxine Sodium 0.075 mg/ (Levothyroxine Sodium 0.1 mg) 0.175 mg PO QDAC [facility] Stop: 06/14/17 07:29 Last Admin: 04/17/17 06:30 Dose: 0.175 mg Lidocaine (Lidoderm 5% Patch) 1 patch TD DAILY [facility] Stop: 06/14/17 08:59 Last Admin: 04/17/17 11:33 Dose: 1 patch Lorazepam (Ativan) 1 mg IVP Q4HR PRN; Protocol PRN Reason: Anxiety Stop: 06/13/17 17:43 Last Admin: 04/17/17 11:15 Dose: 1 mg Lorazepam (Ativan) 1 mg PO Q6HR PRN; Protocol PRN Reason: Anxiety Stop: 06/15/17 17:36 Magnesium Oxide (Mag-Oxide) 400 mg PO BID PRN PRN Reason: Mg less than 1.9 Stop: 06/13/17 17:43 Last Admin: 04/15/17 11:04 Dose: 400 mg Morphine Sulfate (Morphine) 1 mg IVP Q4HR PRN PRN Reason: Severe Pain Stop: 06/13/17 17:43 Last Admin: 04/16/17 21:42 Dose: 1 mg Nifedipine (Procardia Xl) 30 mg PO DAILY [facility] Stop: 06/14/17 08:59 Last Admin: 04/17/17 11:33 Dose: 30 mg Ondansetron HCl (Zofran) 4 mg IVP Q6H PRN PRN Reason: Nausea / Vomiting Stop: 06/13/17 17:43 Potassium Chloride (Klor-Con) 40 meq PO DAILY PRN PRN Reason: k level less than 3.5 Stop: 06/13/17 17:43 Last Admin: 04/15/17 11:04 Dose: 40 meq Sertraline HCl (Zoloft) 50 mg PO DAILY [facility] PRN Reason: Protocol Stop: 06/14/17 08:59 Last Admin: 04/17/17 11:33 Dose: 50 mg General: No acute distress, Other (has confusion at times) HEENT: Atraumatic, PERRLA, EOMI Neck: Supple, no JVD Cardiovascular: Regular rate, Normal S1, Normal S2 Lungs: Other (has congestion) Abdomen: Bowel sounds - Procedures Procedures: Procedures Procedure Code Date REPAIR R LOW LEG SUBCU/FASCIA, OPEN APPROACH [id number] 10/06/16 SKIN TISSUE PROCEDURE 38488 10/06/16 Assessment/Plan - Assessment Assessment: syncope aspiration pneumonia ARF secondary to ATN - Plan Plan: renal function gradually improving
[2017-04-17] MEDS: Morphine Sulfate 2 mg/mL 1mL Syr IVP PRN (14:17)
[2017-04-17] MEDS: Morphine Sulfate 4 mg/mL 1mL Syr IVP PRN (20:18)
[2017-04-17] MEDS: Atorvastatin Calcium 10 MG TAB PO SCH (20:19)
[2017-04-18] MEDS: Sodium Chloride 0.9% 1,000 ML IV SCH ×2 (03:22→17:22)
[2017-04-18] MEDS: Piperacillin/Tazobact 2.25 gm in 0.9% NS 50 ML IV SCH ×3 (05:23→20:24)
[2017-04-18 06:55] LABS: % BASOPHILS 0.8 % (0.0-2.0); % LYMPHOCYTES 27.2 % (20.0-50.0); % MONOCYTES 10.7 % (2.0-10.0); % NEUTROPHILS 56.3 % (40.0-80.0); EOSINOPHILE ABSOLUTE 0.2 Th/cmm (0.1-0.4); HEMATOCRIT 27.8 % (41.0-60); HEMOGLOBIN 9.1 gm/dL (12-16); LYMPHOCYTE ABSOLUTE 1.2 Th/cmm (1.5-3.0); MEAN CELL VOLUME 101.6 fl (81-100); MEAN CORPUSCULAR HEMOGLOBIN 33.3 pg (27.0-31.0); MEAN CORPUSCULAR HGB CONC 32.7 pg (28.0-36.0); MEAN PLATELET VOLUME 7.6 fl; MONOCYTE ABSOLUTE 0.5 Th/cmm (0.3-1.0); NEUTROPHILE ABSOLUTE 2.5 Th/cmm (1.8-8.0); PLATELET COUNT 164 Th/cmm (150-400); RED BLOOD COUNT 2.73 Mil/cmm (3.80-5.20); RED CELL DISTRIBUTION WIDTH 14.6 % (11.5-20.0); WHITE BLOOD COUNT 4.4 Th/cmm (4.8-10.8)
[2017-04-18 07:02] LABS: ANION GAP 5.8 (7.0-16.0); BUN - UREA NITROGEN 22 mg/dL (7-25); CALCIUM SERUM 9.1 mg/dL (8.6-10.3); CARBON DIOXIDE 32.6 mEq/L (21.0-31.0); CHLORIDE 102 mEq/L (98-107); GLUCOSE 93 mg/dL (70-105); POTASSIUM SERUM 4.4 mEq/L (3.5-5.1); SODIUM SERUM 136 mEq/L (136-145)
[2017-04-18] MEDS: Budesonide 0.5 Mg/2 mL Ud HHN SCH ×2 (08:14→19:29)
[2017-04-18] MEDS: Morphine Sulfate 4 mg/mL 1mL Syr IVP PRN ×3 (08:40→20:39)
[2017-04-18] MEDS: NIFEdipine 30 mg ER Tab PO SCH (08:42)
[2017-04-18] MEDS: Diltiazem CD 120 mg 24H PO SCH (08:45)
[2017-04-18] MEDS: Ferrous Sulfate 325 MG TAB PO SCH (08:45)
[2017-04-18] MEDS: Aspirin 81mg Chewable Tab PO SCH (08:46)
[2017-04-18] MEDS: Lidocaine 5% Patch TD SCH (10:00)
--- NOTE | 2017-04-18 10:21 | General Progress Note ---
Subjective - Review of Systems Service Date: 04/18/17 Subjective: Pt seen and eval. NAD. In bed. No n,v,d or cp. No falls or sz. On IV zosyn for pna. Breathing better today. On IV fluids for MARY. Dr. Haynes following. Dr. Haro saw pt and started Depakote. Objective - Results Result Diagrams: 04/18/17 05:47 04/18/17 05:47 Recent Labs: Laboratory Last Values WBC 4.4 Th/cmm (4.8-10.8) L 04/18/17 05:47 RBC 2.73 Mil/cmm (3.80-5.20) L 04/18/17 05:47 Hgb 9.1 gm/dL (12-16) L 04/18/17 05:47 Hct 27.8 % (41.0-60) L 04/18/17 05:47 MCV 101.6 fl (81-100) H 04/18/17 05:47 MCH 33.3 pg (27.0-31.0) H 04/18/17 05:47 MCHC Differential 32.7 pg (28.0-36.0) 04/18/17 05:47 RDW 14.6 % (11.5-20.0) 04/18/17 05:47 Plt Count 164 Th/cmm (150-400) 04/18/17 05:47 MPV 7.6 fl 04/18/17 05:47 Neutrophils % 56.3 % (40.0-80.0) 04/18/17 05:47 Lymphocytes % 27.2 % (20.0-50.0) 04/18/17 05:47 Monocytes % 10.7 % (2.0-10.0) H 04/18/17 05:47 Eosinophils % 5.0 % (0.0-5.0) 04/18/17 05:47 Basophils % 0.8 % (0.0-2.0) 04/18/17 05:47 PT 10.8 SECONDS (9.5-11.5) 04/14/17 13:00 INR 1.04 (0.5-1.4) 04/14/17 13:00 Sodium 136 mEq/L (136-145) 04/18/17 05:47 Potassium 4.4 mEq/L (3.5-5.1) 04/18/17 05:47 Chloride 102 mEq/L (98-107) 04/18/17 05:47 Carbon Dioxide 32.6 mEq/L (21.0-31.0) H 04/18/17 05:47 Anion Gap 5.8 (7.0-16.0) L 04/18/17 05:47 BUN 22 mg/dL (7-25) 04/18/17 05:47 Creatinine 2.0 mg/dL (0.6-1.2) H 04/18/17 05:47 Est GFR ( Amer) TNP 04/18/17 05:47 Est GFR (Non-Af Amer) TNP 04/18/17 05:47 BUN/Creatinine Ratio 11.0 04/18/17 05:47 Glucose 93 mg/dL (70-105) 04/18/17 05:47 Hemoglobin A1c % 5.2 % (4.0-6.0) 04/14/17 13:00 Calcium 9.1 mg/dL (8.6-10.3) 04/18/17 05:47 Magnesium 2.2 mg/dL (1.9-2.7) 04/14/17 13:00 Total Bilirubin 0.3 mg/dL (0.3-1.0) 04/14/17 13:00 AST 14 U/L (13-39) 04/14/17 13:00 ALT 15 U/L (7-52) 04/14/17 13:00 Alkaline Phosphatase 88 U/L (34-104) 04/14/17 13:00 Creatine Kinase 44 U/L (30-223) 04/14/17 13:00 Troponin I 0.02 ng/mL (0.01-0.05) 04/14/17 13:00 B-Natriuretic Peptide 61.2 pg/mL (5.0-100.0) 04/14/17 13:00 Total Protein 6.8 gm/dL (6.0-8.3) 04/14/17 13:00 Albumin 3.6 gm/dL (3.7-5.3) L 04/14/17 13:00 Globulin 3.2 gm/dL 04/14/17 13:00 Albumin/Globulin Ratio 1.1 (1.0-1.8) 04/14/17 13:00 Triglycerides 89 mg/dL (<150) 04/14/17 13:00 Cholesterol 202 mg/dL (<200) H 04/14/17 13:00 LDL Cholesterol Direct 136 mg/dL (75-193) 04/14/17 13:00 HDL Cholesterol 48 mg/dL (23-92) 04/14/17 13:00 Urine Source CATH 04/15/17 09:10 Urine Color YELLOW 04/15/17 09:10 Urine Clarity CLEAR (CLEAR) 04/15/17 09:10 Urine pH 6.0 (4.6 - 8.0) 04/15/17 09:10 Ur Specific [place] <= 1.005 (1.005-1.030) 04/15/17 09:10 Urine Protein NEGATIVE mg/dL (NEGATIVE) 04/15/17 09:10 Urine Glucose (UA) NEGATIVE mg/dL (NEGATIVE) 04/15/17 09:10 Urine Ketones NEGATIVE mg/dL (NEGATIVE) 04/15/17 09:10 Urine Blood NEGATIVE (NEGATIVE) 04/15/17 09:10 Urine Nitrate NEGATIVE (NEGATIVE) 04/15/17 09:10 Urine Bilirubin NEGATIVE (NEGATIVE) 04/15/17 09:10 Urine Urobilinogen 0.2 E.U./dL (0.2 - 1.0) 04/15/17 09:10 Ur Leukocyte Esterase NEGATIVE (NEGATIVE) 04/15/17 09:10 - Physical Exam Vitals and I&O: Vital Signs Temp 97.2 F 04/18/17 04:00 Pulse 91 04/18/17 08:46 Resp 18 04/18/17 08:15 BP 130/62 04/18/17 08:42 Pulse Ox 97 04/18/17 08:15 Intake & Output 04/17/17 04/18/17 04/18/17 17:59 06:59 18:59 Intake Total Balance Weight (lbs) Intake: Intake, IV Amount Piperacillin Sodium/ Tazobact 2.25 gm In Sodium Chloride 0.9% 50 ml @ 100 mls/hr IV Q8HR [facility] Rx#:[id number] Sodium Chloride 0.9% 1, 000 ml @ 75 mls/hr IV . [id number] [facility] Rx#:[id number] Oral Other: # Voids Active Medications: Current Medications Acetaminophen (Tylenol) 650 mg PO Q4H PRN PRN Reason: HEADACHE/TEMP ABOVE 100F Stop: 06/13/17 17:43 Last Admin: 04/17/17 16:23 Dose: 650 mg Amiodarone HCl (Cordarone) 400 mg PO DAILY [facility] Stop: 06/14/17 08:59 Last Admin: 04/18/17 08:46 Dose: 400 mg Aspirin (Aspirin Chewable) 81 mg PO DAILY [facility] Stop: 06/14/17 08:59 Last Admin: 04/18/17 08:46 Dose: 81 mg Atorvastatin Calcium (Lipitor) 20 mg PO HS [facility] PRN Reason: Protocol Stop: 06/13/17 20:59 Last Admin: 04/17/17 20:19 Dose: 20 mg Budesonide (Pulmicort) 0.5 mg HHN BID [facility] Stop: 06/14/17 08:59 Last Admin: 04/18/17 08:14 Dose: 0.5 mg Diltiazem HCl (Cardizem Cd) 120 mg PO DAILY [facility] Stop: 06/14/17 08:59 Last Admin: 04/18/17 08:45 Dose: 120 mg Diphenhydramine HCl (Benadryl) 25 mg PO Q4HR PRN PRN Reason: Itching Stop: 06/15/17 15:42 Last Admin: 04/17/17 20:52 Dose: 25 mg Divalproex Sodium (Depakote Sprinkle) 125 mg PO Q8HR [facility] PRN Reason: Protocol Stop: 06/15/17 20:59 Docusate Sodium (Colace) 100 mg PO BID [facility] Stop: 06/14/17 08:59 Last Admin: 04/18/17 08:46 Dose: 100 mg Ferrous Sulfate (Iron) 325 mg PO DAILY [facility] Stop: 06/14/17 08:59 Last Admin: 04/18/17 08:45 Dose: 325 mg Heparin Sodium (Porcine) (Heparin) 5,000 units SUBQ Q12HR [facility] Stop: 06/13/17 20:59 Last Admin: 04/18/17 08:46 Dose: 5,000 units Magnesium Sulfate (Magnesium Sulfate Premix) 2 gm in 50 mls @ 25 mls/hr IV DAILY PRN PRN Reason: Magnesium level less than 1.6 Stop: 06/13/17 17:43 Sodium Chloride (Nacl 0.9%) 1,000 mls @ 75 mls/hr IV .[id number] [facility] Stop: 06/13/17 17:44 Last Admin: 04/18/17 03:22 Dose: 75 mls/hr Piperacillin Sod/Tazobactam (Sod 2.25 gm/ Sodium Chloride) 50 mls @ 100 mls/hr IV Q8HR [facility] Stop: 06/14/17 12:59 Last Infusion: 04/18/17 05:53 Dose: Infused Levothyroxine Sodium 0.075 mg/ (Levothyroxine Sodium 0.1 mg) 0.175 mg PO QDAC [facility] Stop: 06/14/17 07:29 Last Admin: 04/18/17 08:45 Dose: 0.175 mg Lidocaine (Lidoderm 5% Patch) 1 patch TD DAILY [facility] Stop: 06/14/17 08:59 Last Admin: 04/17/17 11:33 Dose: 1 patch Lorazepam (Ativan) 1 mg IVP Q4HR PRN; Protocol PRN Reason: Anxiety Stop: 06/13/17 17:43 Last Admin: 04/17/17 22:38 Dose: 1 mg Lorazepam (Ativan) 1 mg PO Q6HR PRN; Protocol PRN Reason: Anxiety Stop: 06/15/17 17:36 Magnesium Oxide (Mag-Oxide) 400 mg PO BID PRN PRN Reason: Mg less than 1.9 Stop: 06/13/17 17:43 Last Admin: 04/15/17 11:04 Dose: 400 mg Morphine Sulfate (Morphine) 1 mg IVP Q4HR PRN PRN Reason: Severe Pain Stop: 06/13/17 17:43 Last Admin: 04/18/17 08:40 Dose: 1 mg Nifedipine (Procardia Xl) 30 mg PO DAILY [facility] Stop: 06/14/17 08:59 Last Admin: 04/18/17 08:42 Dose: 30 mg Ondansetron HCl (Zofran) 4 mg IVP Q6H PRN PRN Reason: Nausea / Vomiting Stop: 06/13/17 17:43 Potassium Chloride (Klor-Con) 40 meq PO DAILY PRN PRN Reason: k level less than 3.5 Stop: 06/13/17 17:43 Last Admin: 04/15/17 11:04 Dose: 40 meq Sertraline HCl (Zoloft) 50 mg PO DAILY [facility] PRN Reason: Protocol Stop: 06/14/17 08:59 Last Admin: 04/18/17 08:46 Dose: 50 mg General: No acute distress, Other (has confusion at times) HEENT: Atraumatic, PERRLA, EOMI Neck: Supple, no JVD Cardiovascular: Regular rate, Normal S1, Normal S2 Lungs: Other (has congestion) Abdomen: Bowel sounds - Procedures Procedures: Procedures Procedure Code Date REPAIR R LOW LEG SUBCU/FASCIA, OPEN APPROACH [id number] 10/06/16 SKIN TISSUE PROCEDURE 68559 10/06/16 Assessment/Plan - Assessment Assessment: Asp PNA D/O of ANS due to syncope VMN A Fib CHI Obese Depression Scalp Lac Anemia of ch ill Mild [place] AVD Bipolar D/O with possible depression - Plan Plan: Continue IV Zosyn for Asp PNA. On A fib meds and Tele monitoring. Carotid US done. CT head done. Continue fall prec. On IV fluids. Renal fx improving. Dr. Haynes following. Dr. Haro saw pt. Started Depakote.
--- NOTE | 2017-04-18 17:38 | General Progress Note ---
Subjective - Review of Systems Service Date: 04/18/17 Subjective: resting comfortably in bed renal function the same Objective - Results Result Diagrams: 04/18/17 05:47 04/18/17 05:47 Recent Labs: Laboratory Last Values WBC 4.4 Th/cmm (4.8-10.8) L 04/18/17 05:47 RBC 2.73 Mil/cmm (3.80-5.20) L 04/18/17 05:47 Hgb 9.1 gm/dL (12-16) L 04/18/17 05:47 Hct 27.8 % (41.0-60) L 04/18/17 05:47 MCV 101.6 fl (81-100) H 04/18/17 05:47 MCH 33.3 pg (27.0-31.0) H 04/18/17 05:47 MCHC Differential 32.7 pg (28.0-36.0) 04/18/17 05:47 RDW 14.6 % (11.5-20.0) 04/18/17 05:47 Plt Count 164 Th/cmm (150-400) 04/18/17 05:47 MPV 7.6 fl 04/18/17 05:47 Neutrophils % 56.3 % (40.0-80.0) 04/18/17 05:47 Lymphocytes % 27.2 % (20.0-50.0) 04/18/17 05:47 Monocytes % 10.7 % (2.0-10.0) H 04/18/17 05:47 Eosinophils % 5.0 % (0.0-5.0) 04/18/17 05:47 Basophils % 0.8 % (0.0-2.0) 04/18/17 05:47 PT 10.8 SECONDS (9.5-11.5) 04/14/17 13:00 INR 1.04 (0.5-1.4) 04/14/17 13:00 Sodium 136 mEq/L (136-145) 04/18/17 05:47 Potassium 4.4 mEq/L (3.5-5.1) 04/18/17 05:47 Chloride 102 mEq/L (98-107) 04/18/17 05:47 Carbon Dioxide 32.6 mEq/L (21.0-31.0) H 04/18/17 05:47 Anion Gap 5.8 (7.0-16.0) L 04/18/17 05:47 BUN 22 mg/dL (7-25) 04/18/17 05:47 Creatinine 2.0 mg/dL (0.6-1.2) H 04/18/17 05:47 Est GFR ( Amer) TNP 04/18/17 05:47 Est GFR (Non-Af Amer) TNP 04/18/17 05:47 BUN/Creatinine Ratio 11.0 04/18/17 05:47 Glucose 93 mg/dL (70-105) 04/18/17 05:47 Hemoglobin A1c % 5.2 % (4.0-6.0) 04/14/17 13:00 Calcium 9.1 mg/dL (8.6-10.3) 04/18/17 05:47 Magnesium 2.2 mg/dL (1.9-2.7) 04/14/17 13:00 Total Bilirubin 0.3 mg/dL (0.3-1.0) 04/14/17 13:00 AST 14 U/L (13-39) 04/14/17 13:00 ALT 15 U/L (7-52) 04/14/17 13:00 Alkaline Phosphatase 88 U/L (34-104) 04/14/17 13:00 Creatine Kinase 44 U/L (30-223) 04/14/17 13:00 Troponin I 0.02 ng/mL (0.01-0.05) 04/14/17 13:00 B-Natriuretic Peptide 61.2 pg/mL (5.0-100.0) 04/14/17 13:00 Total Protein 6.8 gm/dL (6.0-8.3) 04/14/17 13:00 Albumin 3.6 gm/dL (3.7-5.3) L 04/14/17 13:00 Globulin 3.2 gm/dL 04/14/17 13:00 Albumin/Globulin Ratio 1.1 (1.0-1.8) 04/14/17 13:00 Triglycerides 89 mg/dL (<150) 04/14/17 13:00 Cholesterol 202 mg/dL (<200) H 04/14/17 13:00 LDL Cholesterol Direct 136 mg/dL (75-193) 04/14/17 13:00 HDL Cholesterol 48 mg/dL (23-92) 04/14/17 13:00 Urine Source CATH 04/15/17 09:10 Urine Color YELLOW 04/15/17 09:10 Urine Clarity CLEAR (CLEAR) 04/15/17 09:10 Urine pH 6.0 (4.6 - 8.0) 04/15/17 09:10 Ur Specific [place] <= 1.005 (1.005-1.030) 04/15/17 09:10 Urine Protein NEGATIVE mg/dL (NEGATIVE) 04/15/17 09:10 Urine Glucose (UA) NEGATIVE mg/dL (NEGATIVE) 04/15/17 09:10 Urine Ketones NEGATIVE mg/dL (NEGATIVE) 04/15/17 09:10 Urine Blood NEGATIVE (NEGATIVE) 04/15/17 09:10 Urine Nitrate NEGATIVE (NEGATIVE) 04/15/17 09:10 Urine Bilirubin NEGATIVE (NEGATIVE) 04/15/17 09:10 Urine Urobilinogen 0.2 E.U./dL (0.2 - 1.0) 04/15/17 09:10 Ur Leukocyte Esterase NEGATIVE (NEGATIVE) 04/15/17 09:10 - Physical Exam Vitals and I&O: Vital Signs Temp 98.4 F 04/18/17 17:00 Pulse 87 04/18/17 17:00 Resp 18 04/18/17 17:00 BP 139/59 04/18/17 17:00 Pulse Ox 97 04/18/17 17:00 Intake & Output 04/17/17 04/18/17 04/18/17 17:59 06:59 18:59 Intake Total 1350 Balance 1350 Weight (lbs) 120.656 kg Intake: Intake, IV Amount 1050 Piperacillin Sodium/ 50 Tazobact 2.25 gm In Sodium Chloride 0.9% 50 ml @ 100 mls/hr IV Q8HR [facility] Rx#:[id number] Sodium Chloride 0.9% 1, 1000 000 ml @ 75 mls/hr IV . [id number] [facility] Rx#:[id number] Oral 300 Other: # Voids Active Medications: Current Medications Acetaminophen (Tylenol) 650 mg PO Q4H PRN PRN Reason: HEADACHE/TEMP ABOVE 100F Stop: 06/13/17 17:43 Last Admin: 04/17/17 16:23 Dose: 650 mg Amiodarone HCl (Cordarone) 400 mg PO DAILY [facility] Stop: 06/14/17 08:59 Last Admin: 04/18/17 08:46 Dose: 400 mg Aspirin (Aspirin Chewable) 81 mg PO DAILY [facility] Stop: 06/14/17 08:59 Last Admin: 04/18/17 08:46 Dose: 81 mg Atorvastatin Calcium (Lipitor) 20 mg PO HS [facility] PRN Reason: Protocol Stop: 06/13/17 20:59 Last Admin: 04/17/17 20:19 Dose: 20 mg Budesonide (Pulmicort) 0.5 mg HHN BID [facility] Stop: 06/14/17 08:59 Last Admin: 04/18/17 08:14 Dose: 0.5 mg Diltiazem HCl (Cardizem Cd) 120 mg PO DAILY [facility] Stop: 06/14/17 08:59 Last Admin: 04/18/17 08:45 Dose: 120 mg Diphenhydramine HCl (Benadryl) 25 mg PO Q4HR PRN PRN Reason: Itching Stop: 06/15/17 15:42 Last Admin: 04/18/17 12:43 Dose: 25 mg Divalproex Sodium (Depakote Sprinkle) 125 mg PO Q8HR [facility] PRN Reason: Protocol Stop: 06/15/17 20:59 Last Admin: 04/18/17 12:44 Dose: 125 mg Docusate Sodium (Colace) 100 mg PO BID [facility] Stop: 06/14/17 08:59 Last Admin: 04/18/17 17:24 Dose: 100 mg Ferrous Sulfate (Iron) 325 mg PO DAILY [facility] Stop: 06/14/17 08:59 Last Admin: 04/18/17 08:45 Dose: 325 mg Heparin Sodium (Porcine) (Heparin) 5,000 units SUBQ Q12HR [facility] Stop: 06/13/17 20:59 Last Admin: 04/18/17 08:46 Dose: 5,000 units Magnesium Sulfate (Magnesium Sulfate Premix) 2 gm in 50 mls @ 25 mls/hr IV DAILY PRN PRN Reason: Magnesium level less than 1.6 Stop: 06/13/17 17:43 Sodium Chloride (Nacl 0.9%) 1,000 mls @ 75 mls/hr IV .[id number] [facility] Stop: 06/13/17 17:44 Last Admin: 04/18/17 17:22 Dose: 75 mls/hr Piperacillin Sod/Tazobactam (Sod 2.25 gm/ Sodium Chloride) 50 mls @ 100 mls/hr IV Q8HR [facility] Stop: 06/14/17 12:59 Last Infusion: 04/18/17 14:15 Dose: Infused Levothyroxine Sodium 0.075 mg/ (Levothyroxine Sodium 0.1 mg) 0.175 mg PO QDAC [facility] Stop: 06/14/17 07:29 Last Admin: 04/18/17 08:45 Dose: 0.175 mg Lidocaine (Lidoderm 5% Patch) 1 patch TD DAILY [facility] Stop: 06/14/17 08:59 Last Admin: 04/18/17 10:00 Dose: 1 patch Lorazepam (Ativan) 1 mg IVP Q4HR PRN; Protocol PRN Reason: Anxiety Stop: 06/13/17 17:43 Last Admin: 04/17/17 22:38 Dose: 1 mg Lorazepam (Ativan) 1 mg PO Q6HR PRN; Protocol PRN Reason: Anxiety Stop: 06/15/17 17:36 Magnesium Oxide (Mag-Oxide) 400 mg PO BID PRN PRN Reason: Mg less than 1.9 Stop: 06/13/17 17:43 Last Admin: 04/15/17 11:04 Dose: 400 mg Morphine Sulfate (Morphine) 1 mg IVP Q4HR PRN PRN Reason: Severe Pain Stop: 06/13/17 17:43 Last Admin: 04/18/17 15:50 Dose: 1 mg Nifedipine (Procardia Xl) 30 mg PO DAILY [facility] Stop: 06/14/17 08:59 Last Admin: 04/18/17 08:42 Dose: 30 mg Ondansetron HCl (Zofran) 4 mg IVP Q6H PRN PRN Reason: Nausea / Vomiting Stop: 06/13/17 17:43 Potassium Chloride (Klor-Con) 40 meq PO DAILY PRN PRN Reason: k level less than 3.5 Stop: 06/13/17 17:43 Last Admin: 04/15/17 11:04 Dose: 40 meq Sertraline HCl (Zoloft) 50 mg PO DAILY [facility] PRN Reason: Protocol Stop: 06/14/17 08:59 Last Admin: 04/18/17 08:46 Dose: 50 mg General: No acute distress, Other (has confusion at times) HEENT: Atraumatic, PERRLA, EOMI Neck: Supple, no JVD Cardiovascular: Regular rate, Normal S1, Normal S2 Lungs: Other (has congestion) Abdomen: Bowel sounds - Procedures Procedures: Procedures Procedure Code Date REPAIR R LOW LEG SUBCU/FASCIA, OPEN APPROACH [id number] 10/06/16 SKIN TISSUE PROCEDURE 96020 10/06/16 Assessment/Plan - Assessment Assessment: syncope aspiration pneumonia ARF secondary to ATN - Plan Plan: renal function gradually improving
[2017-04-18] MEDS: Atorvastatin Calcium 10 MG TAB PO SCH ×2 (20:28→20:48)
[2017-04-19] MEDS: Morphine Sulfate 4 mg/mL 1mL Syr IVP PRN ×2 (01:15→12:02)
[2017-04-19] MEDS: Piperacillin/Tazobact 2.25 gm in 0.9% NS 50 ML IV SCH ×2 (04:19→12:23)
[2017-04-19 05:13] LABS: % BASOPHILS 0.9 % (0.0-2.0); % EOSINOPHILS 4.9 % (0.0-5.0); % LYMPHOCYTES 22.1 % (20.0-50.0); % MONOCYTES 9.3 % (2.0-10.0); % NEUTROPHILS 62.8 % (40.0-80.0); EOSINOPHILE ABSOLUTE 0.3 Th/cmm (0.1-0.4); HEMATOCRIT 27.8 % (41.0-60); HEMOGLOBIN 9.1 gm/dL (12-16); LYMPHOCYTE ABSOLUTE 1.2 Th/cmm (1.5-3.0); MEAN CORPUSCULAR HEMOGLOBIN 32.9 pg (27.0-31.0); MEAN CORPUSCULAR HGB CONC 32.6 pg (28.0-36.0); MEAN PLATELET VOLUME 7.5 fl; MONOCYTE ABSOLUTE 0.5 Th/cmm (0.3-1.0); NEUTROPHILE ABSOLUTE 3.3 Th/cmm (1.8-8.0); PLATELET COUNT 168 Th/cmm (150-400); RED BLOOD COUNT 2.75 Mil/cmm (3.80-5.20); RED CELL DISTRIBUTION WIDTH 14.8 % (11.5-20.0)
[2017-04-19 05:29] LABS: ANION GAP 7.6 (7.0-16.0); BUN - UREA NITROGEN 23 mg/dL (7-25); CARBON DIOXIDE 33.7 mEq/L (21.0-31.0); CHLORIDE 102 mEq/L (98-107); GLUCOSE 137 mg/dL (70-105); POTASSIUM SERUM 4.3 mEq/L (3.5-5.1); SODIUM SERUM 139 mEq/L (136-145); WHITE BLOOD COUNT 5.3 Th/cmm (4.8-10.8)
[2017-04-19] MEDS: Budesonide 0.5 Mg/2 mL Ud HHN SCH (06:53)
[2017-04-19] MEDS: Lidocaine 5% Patch TD SCH (09:04)
[2017-04-19] MEDS: Diltiazem CD 120 mg 24H PO SCH (09:07)
[2017-04-19] MEDS: Ferrous Sulfate 325 MG TAB PO SCH (09:07)
[2017-04-19] MEDS: NIFEdipine 30 mg ER Tab PO SCH (09:08)
[2017-04-19] MEDS: Aspirin 81mg Chewable Tab PO SCH (09:09)
--- NOTE | 2017-04-19 20:30 | Discharge Summary ---
DATE OF DISCHARGE: 04/19/2017 CAUSE OF ADMISSION: The patient is a 76-year-old female who is [facility]. She has history of multiple hospitalizations, usually for chest pain. She has history of AFib, depression, and obesity along with anemia and mood disorder and psychosis. She had a syncopal episode at the facility. She fell down and sustained a scalp laceration and closed head injury as well. She was sent to the hospital for further workup and treatment. In the hospital, she was found to have pneumonia and acute kidney injury as well. ADMITTING DIAGNOSES: 1. 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 3. Atrial fibrillation. 4. Depression. 5. Obese. 6. Closed head injury. 7. Aspiration pneumonia. 8. Scalp laceration. 9. Anemia of chronic illness. 10. Mild malnutrition. DISCHARGE DIAGNOSES: As above. SUMMARY OF HOSPITAL COURSE: The patient was started on IV Zosyn. UA was done. Dr. Haynes was the rv servicer on the case. We followed up on the chemistry panel. She received IV hydration. Her renal function has been improving overall. Right now, she is stable at her baseline what appears to be her baseline creatinine. We continue fall precautions. PT evaluation was ordered as well. She was started on heparin for DVT prophylaxis and she has history of AFib as well. PHYSICAL EXAMINATION: VITAL SIGNS: Temperature is 98.5 degrees, heart rate is 84, respirations 18, blood pressure 129/55. Currently, no pain. GENERAL: No acute distress, awake, alert. HEENT: The patient's ecchymosis around the orbital areas has improved. Head laceration area appears stable. No open wounds. NECK: Trachea is midline. CARDIOVASCULAR: Regular rate and rhythm. SKIN: No rashes. EXTREMITIES: 1+ edema. RESPIRATORY: Decreased breath sounds bilaterally. LABORATORY DATA: Sodium 136, potassium 4.4, chloride 102, bicarbonate 32.6, BUN 22, creatinine 2.0, glucose is 93. White count is 5.3, hemoglobin is 9.1, platelet count 168,000. MRSA screen is negative. Carotid artery ultrasound does not show any acute abnormalities. Chest x-ray did show an infiltration and head CT did not show any acute abnormalities with the exception of soft tissue swelling in the right frontal scalp. C-spine CT was done which did not show any acute abnormalities. 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 MEDICATIONS: All medication reviewed and reconciled. I have also given instructions to continue IV antibiotics for 3 more days. PROGNOSIS: Fair. ACTIVITY: As tolerated. DISPOSITION: [facility]. PROCEDURES: None. Dr. Haynes for Nephrology. JOB# [id number]
== END 2017-04-19 13:30 | disposition home or self-care (01) | DRG 177 ==
LOC: ER 12:38 → TELE 16:00
PROVIDERS: ADMIT General Practice; ATTEND General Practice
DX: J69.0 Pneumonitis due to inhalation of food and vomit (principal); N17.0 Acute kidney failure with tubular necrosis; I38 Endocarditis, valve unspecified; G90.9 Disorder of the autonomic nervous system, unspecified; E44.1 Mild protein-calorie malnutrition; E87.1 Hypo-osmolality and hyponatremia; I48.91 Unspecified atrial fibrillation; Z68.41 Body mass index [BMI] 40.0-44.9, adult; F31.9 Bipolar disorder, unspecified; W18.39XA Other fall on same level, initial encounter; S01.01XA Laceration without foreign body of scalp, initial encounter; D63.1 Anemia in chronic kidney disease; E86.0 Dehydration; E66.9 Obesity, unspecified; F41.9 Anxiety disorder, unspecified; N18.3 Chronic kidney disease, stage 3 (moderate); I25.10 Atherosclerotic heart disease of native coronary artery without angina pectoris; J44.9 Chronic obstructive pulmonary disease, unspecified; E78.5 Hyperlipidemia, unspecified; I12.9 Hypertensive chronic kidney disease with stage 1 through stage 4 chronic kidney disease, or unspecified chronic kidney disease; Z83.3 Family history of diabetes mellitus; Z82.49 Family history of ischemic heart disease and other diseases of the circulatory system; Z88.1 Allergy status to other antibiotic agents; Y93.89 Activity, other specified; Y92.128 Other place in nursing home as the place of occurrence of the external cause; Y99.8 Other external cause status; Z79.82 Long term (current) use of aspirin; Z79.899 Other long term (current) drug therapy; Z88.8 Allergy status to other drugs, medicaments and biological substances
CPT/HCPCS: 36415-UA; 70450-TC; 71045-TC; 72125-TC; 80048-TC; 80053-TC; 80061-TC; 81003-TC; 82550-TC; 83036-90; 83735-TC; 83880-TC; 84484-TC; 85025-TC; 85610-TC; 87449-90; 93005; 93880-TC; 94640; 94760; 97530; J1644; J2060; J2270; J2543; J7030; Z7610

== ENCOUNTER 2017-06-21 04:17 | Inpatient (IN) | payer MEDICARE, MEDICAID ==
[2017-06-21 05:01] LABS: % BASOPHILS 0.4 % (0.0-2.0); % EOSINOPHILS 2.7 % (0.0-5.0); % LYMPHOCYTES 22.9 % (20.0-50.0); % MONOCYTES 7.4 % (2.0-10.0); % NEUTROPHILS 66.6 % (40.0-80.0); EOSINOPHILE ABSOLUTE 0.1 Th/cmm (0.1-0.4); HEMATOCRIT 33.9 % (41.0-60); HEMOGLOBIN 11.2 gm/dL (12-16); LYMPHOCYTE ABSOLUTE 1.2 Th/cmm (1.5-3.0); MEAN CORPUSCULAR HEMOGLOBIN 33.4 pg (27.0-31.0); MEAN PLATELET VOLUME 7.2 fl; MONOCYTE ABSOLUTE 0.4 Th/cmm (0.3-1.0); NEUTROPHILE ABSOLUTE 3.4 Th/cmm (1.8-8.0); PLATELET COUNT 202 Th/cmm (150-400); RED BLOOD COUNT 3.35 Mil/cmm (3.80-5.20); RED CELL DISTRIBUTION WIDTH 13.4 % (11.5-20.0); WHITE BLOOD COUNT 5.1 Th/cmm (4.8-10.8)
[2017-06-21 05:27] LABS: INR 0.96 (0.5-1.4)
[2017-06-21 05:29] LABS: ALB/GLOB RATIO 1.2 (1.0-1.8); ALBUMIN 3.7 gm/dL (3.7-5.3); ALKALINE PHOSPHATASE 120 U/L (34-104); ANION GAP 10.1 (7.0-16.0); BILIRUBIN,TOTAL 0.4 mg/dL (0.3-1.0); BUN - UREA NITROGEN 16 mg/dL (7-25); CALCIUM SERUM 9.5 mg/dL (8.6-10.3); CARBON DIOXIDE 31.6 mEq/L (21.0-31.0); CHLORIDE 97 mEq/L (98-107); CREATININE - SERUM 1.8 mg/dL (0.6-1.2); GLUCOSE 115 mg/dL (70-105); POTASSIUM SERUM 3.7 mEq/L (3.5-5.1); SGOT 18 U/L (13-39); SGPT/ALT 18 U/L (7-52); SODIUM SERUM 135 mEq/L (136-145); TOTAL PROTEIN,SERUM 6.9 gm/dL (6.0-8.3)
--- NOTE | 2017-06-21 06:36 | ED Physician Chart ---
ED Chief Complaint/HPI - Patient Information Date Seen:: 06/21/17 Time Seen:: 04:30 Chief Complaint:: shakes possible seizure History of Present Illness:: 76 yr old female fron avera [facility] with major depression bipolar disorder anxiety gerd for [facility] psych admission pt awake alert following commands well kempt Allergies:: Allergies Allergy/AdvReac Type Severity Reaction Status Date / Time levofloxacin [From Levaquin] Allergy Verified 06/21/17 04:37 niacin Allergy Verified 06/21/17 04:37 pregabalin [From Lyrica] Allergy Verified 06/21/17 04:37 Tetracyclines Allergy Verified 06/21/17 04:37 Vitals:: Vital Signs - 8 hr 06/21/17 06/21/17 04:20 06:03 Temp 98.2 F 98.4 F HR 92 88 RR 18 20 BP 138/77 133/70 O2 Sat % 94 98 Historian:: Patient, Medical Records ED Review of Systems - Review of Systems General/Constitutional: No fever, No chills, No weight loss, No weakness, No diaphoresis, No edema, No loss of appetite Skin: No skin lesions, No rash, No bruising Head: No headache, No light-headedness Eyes: No loss of vision, No pain, No diplopia ENT: No earache, No nasal drainage, No sore throat, No tinnitus Neck: No neck pain, No swelling, No thyromegaly, No stiffness, No mass noted Cardio Vascular: No chest pain, No palpitations, No PND, No orthopnea, No edema Pulmonary: No SOB, No cough, No sputum, No wheezing GI: No nausea, No vomiting, No diarrhea, No pain, No melena, No hematochezia, No constipation, No hematemesis G/U: No dysuria, No frequency, No hematuria Supervisor Locomotive: No abnormal vaginal bleed Musculoskeletal: No bone or joint pain, No back pain, No muscle pain Endocrine: No polyuria, No polydipsia Psychiatric: No prior psych history, Depression, No depression, Anxiety, No anxiety, No suicidal ideation Hematopoietic: No bruising, No lymphadenopathy Allergic/Immuno: No urticaria, No angioedema Neurological: No syncope ED Past Medical History - Past Medical History Past Medical History: PUD/GERD Family History: HTN Social History: Non Smoker Surgical History: None Psychiatricy History: Depression, Bipolar Medication: Reviewed Family Medical History - Family Member Mother History Unknown: Yes Ethnicity: Living Status: Hx Family Cancer: No Hx Family Coronary Artery Disease: No Hx Family Congestive Heart Failure: No Hx Family Hypertension: No Hx Family Stroke: No Hx Family Diabetes: No Hx Family Seizures: Yes Hx Family Dementia: No Hx Family AIDS: No Hx Family HIV: No Hx Family COPD: No Hx Family Hepatitis: No Hx Family Psychiatric Problems: No Hx Family Tuberculosis: No ED Physical Exam - Physical Examination General/Constitutional: Alert, No distress Head: Atraumatic Eyes: Lids, conjuctiva normal, PERRL, EOMI Skin: Nl inspection, No rash, No skin lesions, No ecchymosis, Well hydrated, No lymphadenopathy ENMT: External ears, nose nl, Nasal exam nl, Lips, teeth, gums nl Neck: Nontender, Full ROM w/o pain, No JVD, No nuchal rigidity, No bruit, No mass, No stridor Respiratory: Nl effort/Exclusion, Clear to Auscultation, No Wheeze/Rhonchi/Rales Cardio Vascular: RRR, No murmur, gallop, rubs, NL S1 S2 GI: No tenderness/rebounding/guarding, No organomegaly, No hernia, Normal BS's, Nondistended, No mass/bruits, No McBurney tenderness : No CVA tenderness Extremities: Full ROM, normal strength in all extremities, No edema, Normal digits & nails Neuro/Psych: Alert/oriented, DTR's symmetric, Normal sensory exam, Normal motor strength, Judgement/insight normal, Mood normal, Normal gait Misc: Normal back ED Labs/Radiology/EKG Results - Lab Results Results: Laboratory Tests 06/21/17 06/21/17 06/21/17 04:53 04:53 04:53 WBC 5.1 RBC 3.35 L Hgb 11.2 L Hct 33.9 L MCV 101.0 H MCH 33.4 H MCHC Differential 33.0 RDW 13.4 Plt Count 202 MPV 7.2 Neutrophils % 66.6 Lymphocytes % 22.9 Monocytes % 7.4 Eosinophils % 2.7 Basophils % 0.4 PT 10.0 INR 0.96 PTT (Actin FS) 22.7 L Sodium 135 L Potassium 3.7 Chloride 97 L Carbon Dioxide 31.6 H Anion Gap 10.1 BUN 16 Creatinine 1.8 H Est GFR ( Amer) TNP Est GFR (Non-Af Amer) TNP BUN/Creatinine Ratio 8.9 Glucose 115 H Calcium 9.5 Total Bilirubin 0.4 AST 18 ALT 18 Alkaline Phosphatase 120 H Total Protein 6.9 Albumin 3.7 Globulin 3.2 Albumin/Globulin Ratio 1.2 ED Assessment - Assessment General Assessment: bipolar disorder depression for psych ED Septic Shock - . Is Septic Shock (SBP<90, OR Lactate>4 mmol\L) present?: No - <6hrs of presentation: Vital Signs: Vital Signs - 8 hr 06/21/17 06/21/17 04:20 06:03 Temp 98.2 F 98.4 F HR 92 88 RR 18 20 BP 138/77 133/70 O2 Sat % 94 98 Assessment of Lungs: Lung CTA bilateral EKG Interpretation: NSR Capillary refill evaluation: Capillary refill < 2 secs ED Discharge Plan - Patient Disposition Admit/Discharge/Transfer: Other Care w/in this hosp Condition at Disposition: Stable
[2017-06-21 09:59] VITALS: BP 135/77
[2017-06-21] MEDS ORDERED: Magnesium Hydroxide (MOM) 30 mL UDC PO PRN (10:00)
[2017-06-21] MEDS ORDERED: Maalox 30 mL Cup PO PRN (10:00)
[2017-06-21] MEDS ORDERED: Potassium Chloride 20 mEq ER Tab PO PRN (10:13)
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
[2017-06-21] MEDS: Aspirin 81mg Chewable Tab PO SCH (11:44)
[2017-06-21] MEDS: Polyvinyl Alcohol Ophth Soln 15 mL Bottle EACH EYE SCH (16:38)
[2017-06-21] MEDS: Diltiazem CD 120 mg 24H PO SCH (16:38)
[2017-06-21] MEDS: Budesonide 0.5 Mg/2 mL Ud HHN SCH (19:10)
[2017-06-21] MEDS: Atorvastatin Calcium 10 MG TAB PO SCH (20:31)
[2017-06-22] MEDS: Budesonide 0.5 Mg/2 mL Ud HHN SCH ×2 (07:19→18:41)
[2017-06-22] MEDS: NIFEdipine 30 mg ER Tab PO SCH (09:24)
[2017-06-22] MEDS: Diltiazem CD 120 mg 24H PO SCH ×2 (09:24→16:50)
[2017-06-22] MEDS: Ferrous Sulfate 325 MG TAB PO SCH (09:24)
[2017-06-22] MEDS: Aspirin 81mg Chewable Tab PO SCH (09:25)
[2017-06-22] MEDS: Levothyroxine 0.075 Mg Tab PO SCH (09:52)
[2017-06-22] MEDS: Multivitamin Tab PO SCH (09:53)
[2017-06-22] MEDS: Polyvinyl Alcohol Ophth Soln 15 mL Bottle EACH EYE SCH ×2 (09:53→16:50)
[2017-06-22] MEDS: Multivitamin w/ Minerals Tab PO SCH (09:53)
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
--- NOTE | 2017-06-22 14:34 | Progress Notes ---
DATE: 06/22/2017 SUBJECTIVE: Staff was spoken to. The patient is interviewed. Mood is noted to be irritable. Affect is constricted. Coping skills are noted to be still poor. The patient is angry and upset. The patient is stating that we need to call the magnetic tape typewriter operator right away. The patient has no insight into her illness. Coping skills are noted to be poor at this. The patient is currently on 50 mg of the Zoloft and has been able to tolerate the medication, but the patient is demanding that we should contact the magnetic tape typewriter operator right away. The patient has no insight into her illness. The patient is going to be closely monitored for any of the psychotic symptoms depending on her impulsivity. The patient is going to be encouraged to participate in the groups and verbalize the concerns and an antipsychotic is going to be considered. JOB# [id number]
[2017-06-22] MEDS: Atorvastatin Calcium 10 MG TAB PO SCH (21:27)
[2017-06-23] MEDS: Budesonide 0.5 Mg/2 mL Ud HHN SCH ×2 (07:02→19:18)
[2017-06-23] MEDS: Diltiazem CD 120 mg 24H PO SCH ×3 (09:47→17:10)
[2017-06-23] MEDS: Aspirin 81mg Chewable Tab PO SCH ×2 (09:47→11:06)
[2017-06-23] MEDS: NIFEdipine 30 mg ER Tab PO SCH ×2 (09:48→11:06)
[2017-06-23] MEDS: Multivitamin w/ Minerals Tab PO SCH ×2 (09:48→11:04)
[2017-06-23] MEDS: Levothyroxine 0.075 Mg Tab PO SCH ×2 (09:48→11:04)
[2017-06-23] MEDS: Polyvinyl Alcohol Ophth Soln 15 mL Bottle EACH EYE SCH ×3 (09:48→17:11)
[2017-06-23] MEDS: Multivitamin Tab PO SCH ×2 (09:48→11:10)
[2017-06-23] MEDS: Ferrous Sulfate 325 MG TAB PO SCH ×2 (09:48→11:06)
[2017-06-23] MEDS: Hydrocodone/APAP 10 mg/325 mg Tab PO PRN ×2 (10:48→14:52)
[2017-06-23] MEDS: NYSTATIN 100000 UNITS/GM POWD TP SCH (17:11)
[2017-06-23] MEDS: Atorvastatin Calcium 10 MG TAB PO SCH (21:02)
--- NOTE | 2017-06-23 22:37 | Progress Notes ---
DATE: 06/23/2017 SUBJECTIVE: Staff was spoken to. The patient is interviewed. Mood is noted to be irritable. Affect is constricted. Insight and judgment are noted be still impaired. The patient is still demanding that she has been having a lot of breathing problems, I need to call a waxer. The patient has been coming with one excuse or the other. ASSESSMENT: The patient is still depressed and is currently on 50 mg of the Zoloft and has been able to tolerate the medications. The patient is still not able to contract for safety and hence the patient is not ready to be discharged to a lower level of care. JOB# [id number]
[2017-06-24] MEDS: Hydrocodone/APAP 10 mg/325 mg Tab PO PRN ×3 (06:49→14:53)
[2017-06-24] MEDS: Budesonide 0.5 Mg/2 mL Ud HHN SCH ×2 (06:58→19:29)
--- NOTE | 2017-06-24 08:54 | General Progress Note ---
Subjective - Review of Systems Service Date: 06/24/17 Subjective: Pt seen and eval. In bed. Being seen by psych daily. No n,v,d or cp. Reviewed labs. No fevers or chills. No falls or sz. Objective - Results Result Diagrams: 06/21/17 04:53 06/21/17 04:53 Recent Labs: Laboratory Last Values WBC 5.1 Th/cmm (4.8-10.8) 06/21/17 04:53 RBC 3.35 Mil/cmm (3.80-5.20) L 06/21/17 04:53 Hgb 11.2 gm/dL (12-16) L 06/21/17 04:53 Hct 33.9 % (41.0-60) L 06/21/17 04:53 MCV 101.0 fl (81-100) H 06/21/17 04:53 MCH 33.4 pg (27.0-31.0) H 06/21/17 04:53 MCHC Differential 33.0 pg (28.0-36.0) 06/21/17 04:53 RDW 13.4 % (11.5-20.0) 06/21/17 04:53 Plt Count 202 Th/cmm (150-400) 06/21/17 04:53 MPV 7.2 fl 06/21/17 04:53 Neutrophils % 66.6 % (40.0-80.0) 06/21/17 04:53 Lymphocytes % 22.9 % (20.0-50.0) 06/21/17 04:53 Monocytes % 7.4 % (2.0-10.0) 06/21/17 04:53 Eosinophils % 2.7 % (0.0-5.0) 06/21/17 04:53 Basophils % 0.4 % (0.0-2.0) 06/21/17 04:53 PT 10.0 SECONDS (9.5-11.5) 06/21/17 04:53 INR 0.96 (0.5-1.4) 06/21/17 04:53 PTT (Actin FS) 22.7 SECONDS (26.0-38.0) L 06/21/17 04:53 Sodium 135 mEq/L (136-145) L 06/21/17 04:53 Potassium 3.7 mEq/L (3.5-5.1) 06/21/17 04:53 Chloride 97 mEq/L (98-107) L 06/21/17 04:53 Carbon Dioxide 31.6 mEq/L (21.0-31.0) H 06/21/17 04:53 Anion Gap 10.1 (7.0-16.0) 06/21/17 04:53 BUN 16 mg/dL (7-25) 06/21/17 04:53 Creatinine 1.8 mg/dL (0.6-1.2) H 06/21/17 04:53 Est GFR ( Amer) TNP 06/21/17 04:53 Est GFR (Non-Af Amer) TNP 06/21/17 04:53 BUN/Creatinine Ratio 8.9 06/21/17 04:53 Glucose 115 mg/dL (70-105) H 06/21/17 04:53 Calcium 9.5 mg/dL (8.6-10.3) 06/21/17 04:53 Total Bilirubin 0.4 mg/dL (0.3-1.0) 06/21/17 04:53 AST 18 U/L (13-39) 06/21/17 04:53 ALT 18 U/L (7-52) 06/21/17 04:53 Alkaline Phosphatase 120 U/L (34-104) H 06/21/17 04:53 Total Protein 6.9 gm/dL (6.0-8.3) 06/21/17 04:53 Albumin 3.7 gm/dL (3.7-5.3) 06/21/17 04:53 Globulin 3.2 gm/dL 06/21/17 04:53 Albumin/Globulin Ratio 1.2 (1.0-1.8) 06/21/17 04:53 - Physical Exam Vitals and I&O: Vital Signs Temp 97.4 F 06/24/17 07:03 Pulse 74 06/24/17 07:03 Resp 19 06/24/17 07:03 BP 130/75 06/24/17 07:03 Pulse Ox 100 06/24/17 07:03 Active Medications: Current Medications Acetaminophen (Tylenol) 650 mg PO Q4HR PRN PRN Reason: Mild Pain / Temp above 100 Stop: 08/20/17 09:59 Acetaminophen/Hydrocodone Bitart (Seligman 10 Mg/325 Mg) 1 tab PO Q4H PRN PRN Reason: Pain (Severe) Stop: 08/20/17 10:10 Last Admin: 06/24/17 06:49 Dose: 1 tab Al Hydrox/Mg Hydrox/Simethicone (Maalox) 30 ml PO Q4HR PRN PRN Reason: GI DISTRESS Stop: 08/20/17 09:59 Amiodarone HCl (Cordarone) 400 mg PO DAILY ARMAAN Stop: 08/20/17 10:59 Last Admin: 06/23/17 11:05 Dose: 400 mg Artificial Tears (Artificial Tears Ophth Soln) 2 drop EACH EYE BID ARMAAN Stop: 08/20/17 16:59 Last Admin: 06/23/17 17:11 Dose: 2 drop Aspirin (Aspirin Chewable) 81 mg PO DAILY ARMAAN Stop: 08/20/17 10:59 Last Admin: 06/23/17 11:06 Dose: 81 mg Atorvastatin Calcium (Lipitor) 20 mg PO HS [facility] PRN Reason: Protocol Stop: 08/20/17 20:59 Last Admin: 06/23/17 21:02 Dose: Not Given Budesonide (Pulmicort) 0.5 mg HHN BIDRT ARMAAN Stop: 08/20/17 18:59 Last Admin: 06/24/17 06:58 Dose: 0.5 mg Diltiazem HCl (Cardizem Cd) 120 mg PO BID ARMAAN Stop: 08/20/17 16:59 Last Admin: 06/23/17 17:10 Dose: 120 mg Docusate Sodium (Colace) 200 mg PO DAILY ARMAAN Stop: 08/21/17 08:59 Last Admin: 06/23/17 11:08 Dose: 200 mg Ferrous Sulfate (Iron) 325 mg PO DAILY ARMAAN Stop: 08/21/17 08:59 Last Admin: 06/23/17 11:06 Dose: 325 mg Folic Acid (Folate) 1 mg PO DAILY ARMAAN Stop: 08/21/17 08:59 Last Admin: 06/23/17 11:04 Dose: 1 mg Levothyroxine Sodium (Synthroid) 0.175 mg PO DAILY ARMAAN Stop: 08/21/17 08:59 Last Admin: 06/23/17 11:04 Dose: 0.175 mg Lorazepam (Ativan) 0.5 mg PO Q4HR PRN; Protocol PRN Reason: Agitation Stop: 07/21/17 09:59 Last Admin: 06/23/17 17:09 Dose: 0.5 mg Magnesium Hydroxide (Milk Of Magnesia) 30 ml PO HS PRN PRN Reason: Constipation Multivitamins/Vitamin C (Theragran) 1 tab PO DAILY ARMAAN Stop: 08/21/17 08:59 Last Admin: 06/23/17 11:10 Dose: 1 tab Nifedipine (Procardia Xl) 30 mg PO DAILY [facility]MAAN Stop: 08/21/17 08:59 Last Admin: 06/23/17 11:06 Dose: 30 mg Nitroglycerin (Nitrostat) 0.4 mg SL Q5MIN PRN PRN Reason: Chest Pain Stop: 08/20/17 10:10 Nystatin (Nystop) 100,000 units TP BID ARMAAN Stop: 08/22/17 16:59 Last Admin: 06/23/17 17:11 Dose: 100,000 units Potassium Chloride (Klor-Con) 40 meq PO DAILY PRN PRN Reason: k level less than 3.5 Stop: 08/20/17 10:12 Rivaroxaban (Xarelto) 15 mg PO DAILY [facility] Stop: 08/21/17 08:59 Last Admin: 06/23/17 11:04 Dose: 15 mg Sertraline HCl (Zoloft) 50 mg PO DAILY [facility] PRN Reason: Protocol Stop: 08/21/17 08:59 Last Admin: 06/23/17 11:06 Dose: 50 mg Zolpidem Tartrate (Ambien) 5 mg PO HS PRN PRN Reason: Insomnia Stop: 08/20/17 09:59 Last Admin: 06/23/17 21:01 Dose: 5 mg General: No acute distress HEENT: Atraumatic, PERRLA, EOMI Neck: Supple, no JVD, no Thyromegaly Cardiovascular: Regular rate, Normal S1, Normal S2 Lungs: Clear to auscultation - Procedures Procedures: Procedures Procedure Code Date REPAIR R LOW LEG SUBCU/FASCIA, OPEN APPROACH [id number] 10/06/16 SKIN TISSUE PROCEDURE [id number] 10/06/16 Assessment/Plan - Assessment Assessment: VMN Obese CAD Anemia of Ch Ill - Plan Plan: Encourage fluids. Discussed care with staff as well. FU on repeat chem panel tomorrow. Cr is 1.8
[2017-06-24] MEDS: Multivitamin Tab PO SCH (09:47)
[2017-06-24] MEDS: Multivitamin w/ Minerals Tab PO SCH (09:47)
[2017-06-24] MEDS: NIFEdipine 30 mg ER Tab PO SCH (09:48)
[2017-06-24] MEDS: NYSTATIN 100000 UNITS/GM POWD TP SCH ×2 (09:49→16:56)
[2017-06-24] MEDS: Ferrous Sulfate 325 MG TAB PO SCH (09:49)
[2017-06-24] MEDS: Diltiazem CD 120 mg 24H PO SCH ×2 (09:49→16:55)
[2017-06-24] MEDS: Aspirin 81mg Chewable Tab PO SCH (09:49)
[2017-06-24] MEDS: Polyvinyl Alcohol Ophth Soln 15 mL Bottle EACH EYE SCH ×2 (09:49→16:56)
[2017-06-24] MEDS: Levothyroxine 0.075 Mg Tab PO SCH (11:10)
[2017-06-24] MEDS: Atorvastatin Calcium 10 MG TAB PO SCH (20:44)
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
--- NOTE | 2017-06-25 01:15 | Progress Notes ---
DATE: 06/24/2017 PSYCHIATRIC PROGRESS NOTE SUBJECTIVE: Staff was spoken to. The patient is interviewed. Mood is noted to be irritable. Affect is constricted. Insight and judgment at this time are noted to be still impaired. Impulse control seems to be limited. Coping skills are noted to be limited. The patient is getting easily frustrated. The patient is having difficult time to cope with the stress. The patient is stating that the Zoloft that she has been taking has been of some help. The patient; however, has been presenting with a lot of somatic complaints and is stating that she needs to have the foot specialist and vice president & general manager [employer] [place] to come and then see her. ASSESSMENT: The patient is still depressed. PLAN: To continue the patient with the supportive therapy and followup. JOB# [id number]
[2017-06-25] MEDS: Hydrocodone/APAP 10 mg/325 mg Tab PO PRN ×4 (04:28→22:10)
[2017-06-25 07:20] LABS: ALB/GLOB RATIO 1.1 (1.0-1.8); ALBUMIN 3.5 gm/dL (3.7-5.3); ALKALINE PHOSPHATASE 99 U/L (34-104); BILIRUBIN,TOTAL 0.3 mg/dL (0.3-1.0); BUN - UREA NITROGEN 29 mg/dL (7-25); CARBON DIOXIDE 31.5 mEq/L (21.0-31.0); CREATININE - SERUM 2.1 mg/dL (0.6-1.2); GLUCOSE 118 mg/dL (70-105); SGOT 16 U/L (13-39); SGPT/ALT 17 U/L (7-52); TOTAL PROTEIN,SERUM 6.6 gm/dL (6.0-8.3)
[2017-06-25] MEDS: Budesonide 0.5 Mg/2 mL Ud HHN SCH ×2 (07:44→19:24)
[2017-06-25 08:22] LABS: ANION GAP 9.5 (7.0-16.0); CHLORIDE 97 mEq/L (98-107); SODIUM SERUM 134 mEq/L (136-145)
[2017-06-25] MEDS: Multivitamin Tab PO SCH (09:15)
[2017-06-25] MEDS: Diltiazem CD 120 mg 24H PO SCH ×2 (09:16→16:26)
[2017-06-25] MEDS: Ferrous Sulfate 325 MG TAB PO SCH (09:17)
[2017-06-25] MEDS: Aspirin 81mg Chewable Tab PO SCH (09:17)
[2017-06-25] MEDS: Multivitamin w/ Minerals Tab PO SCH (09:17)
[2017-06-25] MEDS: NYSTATIN 100000 UNITS/GM POWD TP SCH ×2 (09:19→16:26)
[2017-06-25] MEDS: NIFEdipine 30 mg ER Tab PO SCH (09:19)
[2017-06-25] MEDS: Polyvinyl Alcohol Ophth Soln 15 mL Bottle EACH EYE SCH ×2 (09:19→16:26)
--- NOTE | 2017-06-25 10:19 | General Progress Note ---
Subjective - Review of Systems Service Date: 06/25/17 Subjective: Pt seen and eval. In bed. Being seen by psych daily. No n,v,d or cp. Reviewed labs. Cr is worse today. No fevers or chills. No falls or sz. Objective - Results Result Diagrams: 06/21/17 04:53 06/25/17 06:20 Recent Labs: Laboratory Last Values WBC 5.1 Th/cmm (4.8-10.8) 06/21/17 04:53 RBC 3.35 Mil/cmm (3.80-5.20) L 06/21/17 04:53 Hgb 11.2 gm/dL (12-16) L 06/21/17 04:53 Hct 33.9 % (41.0-60) L 06/21/17 04:53 MCV 101.0 fl (81-100) H 06/21/17 04:53 MCH 33.4 pg (27.0-31.0) H 06/21/17 04:53 MCHC Differential 33.0 pg (28.0-36.0) 06/21/17 04:53 RDW 13.4 % (11.5-20.0) 06/21/17 04:53 Plt Count 202 Th/cmm (150-400) 06/21/17 04:53 MPV 7.2 fl 06/21/17 04:53 Neutrophils % 66.6 % (40.0-80.0) 06/21/17 04:53 Lymphocytes % 22.9 % (20.0-50.0) 06/21/17 04:53 Monocytes % 7.4 % (2.0-10.0) 06/21/17 04:53 Eosinophils % 2.7 % (0.0-5.0) 06/21/17 04:53 Basophils % 0.4 % (0.0-2.0) 06/21/17 04:53 PT 10.0 SECONDS (9.5-11.5) 06/21/17 04:53 INR 0.96 (0.5-1.4) 06/21/17 04:53 PTT (Actin FS) 22.7 SECONDS (26.0-38.0) L 06/21/17 04:53 Sodium 134 mEq/L (136-145) L 06/25/17 06:20 Potassium 4.0 mEq/L (3.5-5.1) 06/25/17 06:20 Chloride 97 mEq/L (98-107) L 06/25/17 06:20 Carbon Dioxide 31.5 mEq/L (21.0-31.0) H 06/25/17 06:20 Anion Gap 9.5 (7.0-16.0) 06/25/17 06:20 BUN 29 mg/dL (7-25) H 06/25/17 06:20 Creatinine 2.1 mg/dL (0.6-1.2) H 06/25/17 06:20 Est GFR ( Amer) TNP 06/25/17 06:20 Est GFR (Non-Af Amer) TNP 06/25/17 06:20 BUN/Creatinine Ratio 13.8 06/25/17 06:20 Glucose 118 mg/dL (70-105) H 06/25/17 06:20 Calcium 9.0 mg/dL (8.6-10.3) 06/25/17 06:20 Total Bilirubin 0.3 mg/dL (0.3-1.0) 06/25/17 06:20 AST 16 U/L (13-39) 06/25/17 06:20 ALT 17 U/L (7-52) 06/25/17 06:20 Alkaline Phosphatase 99 U/L (34-104) 06/25/17 06:20 Total Protein 6.6 gm/dL (6.0-8.3) 06/25/17 06:20 Albumin 3.5 gm/dL (3.7-5.3) L 06/25/17 06:20 Globulin 3.1 gm/dL 06/25/17 06:20 Albumin/Globulin Ratio 1.1 (1.0-1.8) 06/25/17 06:20 - Physical Exam Vitals and I&O: Vital Signs Temp 98.1 F 06/25/17 06:16 Pulse 82 06/25/17 09:19 Resp 18 06/25/17 07:47 BP 126/70 06/25/17 09:19 Pulse Ox 95 06/25/17 07:47 Active Medications: Current Medications Acetaminophen (Tylenol) 650 mg PO Q4HR PRN PRN Reason: Mild Pain / Temp above 100 Stop: 08/20/17 09:59 Last Admin: 06/24/17 10:20 Dose: 650 mg Acetaminophen/Hydrocodone Bitart (Maurice 10 Mg/325 Mg) 1 tab PO Q4H PRN PRN Reason: Pain (Severe) Stop: 08/20/17 10:10 Last Admin: 06/25/17 09:14 Dose: 1 tab Al Hydrox/Mg Hydrox/Simethicone (Maalox) 30 ml PO Q4HR PRN PRN Reason: GI DISTRESS Stop: 08/20/17 09:59 Amiodarone HCl (Cordarone) 400 mg PO DAILY ARMAAN Stop: 08/20/17 10:59 Last Admin: 06/25/17 09:17 Dose: 400 mg Artificial Tears (Artificial Tears Ophth Soln) 2 drop EACH EYE BID ARMAAN Stop: 08/20/17 16:59 Last Admin: 06/25/17 09:19 Dose: 2 drop Aspirin (Aspirin Chewable) 81 mg PO DAILY ARMAAN Stop: 08/20/17 10:59 Last Admin: 06/25/17 09:17 Dose: 81 mg Atorvastatin Calcium (Lipitor) 20 mg PO HS [facility]MA[facility] PRN Reason: Protocol Stop: 08/20/17 20:59 Last Admin: 06/24/17 20:44 Dose: 20 mg Budesonide (Pulmicort) 0.5 mg HHN BIDRT ARMAAN Stop: 08/20/17 18:59 Last Admin: 06/25/17 07:44 Dose: 0.5 mg Diltiazem HCl (Cardizem Cd) 120 mg PO BID ARMAAN Stop: 08/20/17 16:59 Last Admin: 06/25/17 09:16 Dose: 120 mg Docusate Sodium (Colace) 200 mg PO DAILY ARMAAN Stop: 08/21/17 08:59 Last Admin: 06/25/17 09:16 Dose: 200 mg Ferrous Sulfate (Iron) 325 mg PO DAILY ARMAAN Stop: 08/21/17 08:59 Last Admin: 06/25/17 09:17 Dose: 325 mg Folic Acid (Folate) 1 mg PO DAILY ARMAAN Stop: 08/21/17 08:59 Last Admin: 06/25/17 09:16 Dose: 1 mg Levothyroxine Sodium 0.1 mg/ (Levothyroxine Sodium 0.075 mg) 0.175 mg PO DAILY [facility] Stop: 08/23/17 09:59 Last Admin: 06/25/17 09:15 Dose: 0.175 mg Lorazepam (Ativan) 0.5 mg PO Q4HR PRN; Protocol PRN Reason: Agitation Stop: 07/21/17 09:59 Last Admin: 06/24/17 17:16 Dose: 0.5 mg Magnesium Hydroxide (Milk Of Magnesia) 30 ml PO HS PRN PRN Reason: Constipation Multivitamins/Vitamin C (Theragran) 1 tab PO DAILY ARMAAN Stop: 08/21/17 08:59 Last Admin: 06/25/17 09:15 Dose: 1 tab Nifedipine (Procardia Xl) 30 mg PO DAILY ARMAAN Stop: 08/21/17 08:59 Last Admin: 06/25/17 09:19 Dose: 30 mg Nitroglycerin (Nitrostat) 0.4 mg SL Q5MIN PRN PRN Reason: Chest Pain Stop: 08/20/17 10:10 Nystatin (Nystop) 100,000 units TP BID ARMAAN Stop: 08/22/17 16:59 Last Admin: 06/25/17 09:19 Dose: 100,000 units Potassium Chloride (Klor-Con) 40 meq PO DAILY PRN PRN Reason: k level less than 3.5 Stop: 08/20/17 10:12 Rivaroxaban (Xarelto) 15 mg PO DAILY [facility] Stop: 08/21/17 08:59 Last Admin: 06/25/17 09:15 Dose: 15 mg Sertraline HCl (Zoloft) 50 mg PO DAILY [facility]MAAN PRN Reason: Protocol Stop: 08/21/17 08:59 Last Admin: 06/25/17 09:16 Dose: 50 mg Zolpidem Tartrate (Ambien) 5 mg PO HS PRN PRN Reason: Insomnia Stop: 08/20/17 09:59 Last Admin: 06/24/17 20:44 Dose: 5 mg General: No acute distress HEENT: Atraumatic, PERRLA, EOMI Neck: Supple, no JVD, no Thyromegaly Cardiovascular: Regular rate, Normal S1, Normal S2 Lungs: Clear to auscultation - Procedures Procedures: Procedures Procedure Code Date REPAIR R LOW LEG SUBCU/FASCIA, OPEN APPROACH [id number] 10/06/16 SKIN TISSUE PROCEDURE [id number] 10/06/16 Assessment/Plan - Assessment Assessment: VMN Obese CAD Anemia of Ch Ill - Plan Plan: Encourage fluids. Discussed care with staff as well. FU on repeat chem panel tomorrow. Cr went from 1.8 to 2.1 Met with Pt and staff-in fact staff has been encouraging fluids. FU on chem panel in 2-3 days.
[2017-06-25] MEDS: Atorvastatin Calcium 10 MG TAB PO SCH (21:08)
--- NOTE | 2017-06-26 02:25 | Progress Notes ---
DATE: 06/25/2017 IDENTIFICATION: Staff was spoken to. The patient is interviewed. Mood is noted to be irritable. Affect is constricted. The patient coping skills are noted to be very poor. The patient is demanding that she needs to see the specialist and the patient has been coming with one side effects or the other. The patient has been having difficult time to cope with the stress. No side effects to the medications are noted. The patient is isolative and withdrawn with limited participation in the groups. ASSESSMENT: The patient is still depressed. PLAN: To continue the patient with Seroquel 50 mg in view of her depression and the impulsivity. The patient is going to be started with low dose of the Abilify, which is going to be given at 2 mg in the morning and the patient is going to be followed up with the supportive therapy. The patient at this time is noted ready to be discharged to a lower level of care because of her depression and somatic preoccupation and then paranoia. JOB# [id number]
[2017-06-26] MEDS: Hydrocodone/APAP 10 mg/325 mg Tab PO PRN ×2 (07:00→21:03)
[2017-06-26] MEDS: Budesonide 0.5 Mg/2 mL Ud HHN SCH ×2 (07:11→19:32)
[2017-06-26] MEDS: Diltiazem CD 120 mg 24H PO SCH ×2 (09:30→16:45)
[2017-06-26] MEDS: Ferrous Sulfate 325 MG TAB PO SCH (09:31)
[2017-06-26] MEDS: Multivitamin w/ Minerals Tab PO SCH (09:31)
[2017-06-26] MEDS: Aspirin 81mg Chewable Tab PO SCH (09:31)
[2017-06-26] MEDS: Multivitamin Tab PO SCH (09:31)
[2017-06-26] MEDS: Polyvinyl Alcohol Ophth Soln 15 mL Bottle EACH EYE SCH ×2 (09:34→16:46)
[2017-06-26] MEDS: NIFEdipine 30 mg ER Tab PO SCH (10:00)
[2017-06-26] MEDS: NYSTATIN 100000 UNITS/GM POWD TP SCH ×2 (10:00→16:48)
[2017-06-26] MEDS: Atorvastatin Calcium 10 MG TAB PO SCH (20:45)
--- NOTE | 2017-06-26 23:18 | Progress Notes ---
DATE: 06/26/2017 PSYCHIATRIC PROGRESS NOTE SUBJECTIVE: Staff was spoken to. The patient is interviewed. Mood is noted to be irritable. Affect is constricted. The patient is stating that by being in the hospital she is not going to be doing anything. 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 The patient is insisting on leaving the hospital. The patient has no insight into her illness. ASSESSMENT: The patient is still depressed. PLAN: To continue the patient with the supportive therapy. I encouraged the patient to verbalize the concerns rather than to act out. JOB# [id number]
[2017-06-27] MEDS: Hydrocodone/APAP 10 mg/325 mg Tab PO PRN ×4 (03:09→22:22)
[2017-06-27] MEDS: Budesonide 0.5 Mg/2 mL Ud HHN SCH ×2 (06:51→19:21)
[2017-06-27] MEDS: Aspirin 81mg Chewable Tab PO SCH (09:36)
[2017-06-27] MEDS: Diltiazem CD 120 mg 24H PO SCH ×2 (09:36→17:33)
[2017-06-27] MEDS: NIFEdipine 30 mg ER Tab PO SCH (09:37)
[2017-06-27] MEDS: Multivitamin w/ Minerals Tab PO SCH (09:37)
[2017-06-27] MEDS: Ferrous Sulfate 325 MG TAB PO SCH (09:39)
[2017-06-27] MEDS: Multivitamin Tab PO SCH (09:39)
[2017-06-27] MEDS: NYSTATIN 100000 UNITS/GM POWD TP SCH ×2 (09:40→17:33)
[2017-06-27] MEDS: Polyvinyl Alcohol Ophth Soln 15 mL Bottle EACH EYE SCH ×2 (09:40→17:34)
--- NOTE | 2017-06-27 17:41 | Progress Notes ---
DATE: 06/27/2017 SUBJECTIVE: Staff was spoken to. The patient is interviewed. Mood is noted to be less irritable. Affect is appropriate. Not suicidal or homicidal. Insight and judgment are noted to be improving. Impulse control seems to be fair today, but the patient is getting frustrated that her problems are more of medical and she has a lot to offer and she would like to go back to the facility to continue her treatment. Except for the demand for her physical condition, the patient is not presenting with any major behavioral problems. PLAN: To continue the patient with the current medications and possibly discharge the patient tomorrow for followup on outpatient basis. JOB# [id number]
[2017-06-27] MEDS: Atorvastatin Calcium 10 MG TAB PO SCH ×2 (21:19→21:22)
[2017-06-28 07:00] LABS: ALB/GLOB RATIO 1.2 (1.0-1.8); ALBUMIN 3.5 gm/dL (3.7-5.3); ALKALINE PHOSPHATASE 109 U/L (34-104); ANION GAP 8.9 (7.0-16.0); BILIRUBIN,TOTAL 0.4 mg/dL (0.3-1.0); BUN - UREA NITROGEN 31 mg/dL (7-25); CALCIUM SERUM 9.3 mg/dL (8.6-10.3); CARBON DIOXIDE 33.3 mEq/L (21.0-31.0); CHLORIDE 98 mEq/L (98-107); GLUCOSE 104 mg/dL (70-105); POTASSIUM SERUM 4.2 mEq/L (3.5-5.1); SGOT 19 U/L (13-39); SGPT/ALT 18 U/L (7-52); SODIUM SERUM 136 mEq/L (136-145); TOTAL PROTEIN,SERUM 6.5 gm/dL (6.0-8.3)
[2017-06-28] MEDS: Budesonide 0.5 Mg/2 mL Ud HHN SCH (07:18)
[2017-06-28] MEDS: Hydrocodone/APAP 10 mg/325 mg Tab PO PRN (09:42)
[2017-06-28] MEDS: Multivitamin Tab PO SCH (09:45)
[2017-06-28] MEDS: NIFEdipine 30 mg ER Tab PO SCH (09:45)
[2017-06-28] MEDS: Aspirin 81mg Chewable Tab PO SCH (09:46)
[2017-06-28] MEDS: Diltiazem CD 120 mg 24H PO SCH (09:46)
[2017-06-28] MEDS: Ferrous Sulfate 325 MG TAB PO SCH (09:47)
[2017-06-28] MEDS: Multivitamin w/ Minerals Tab PO SCH (09:47)
[2017-06-28] MEDS: NYSTATIN 100000 UNITS/GM POWD TP SCH (09:54)
[2017-06-28] MEDS: Polyvinyl Alcohol Ophth Soln 15 mL Bottle EACH EYE SCH (09:54)
--- NOTE | 2017-06-29 00:26 | Progress Notes ---
DATE: 06/28/2017 PSYCHIATRIC PROGRESS NOTE SUBJECTIVE: Staff was spoken to. The patient is interviewed. Mood is noted to be irritable. Affect is constricted. Insight and judgment at this time are noted to be still impaired. Impulse control seems to be limited. Coping skills are noted to be limited. The patient has been having difficult time to accept that she is mentally ill, but the patient is stating that she is feeling much better since she came in here and there is no reason for her to be in here and wants to be getting treatment on an outpatient basis. ASSESSMENT: The patient is stabilizing. PLAN: To discharge the patient today for followup on outpatient basis. JOB# [id number]
== END 2017-06-28 14:20 | DRG 885 ==
LOC: ER 04:17 → GERO2 06:10
PROVIDERS: ADMIT Psychiatry & Neurology Psychiatry; ATTEND Psychiatry & Neurology Psychiatry
DX: F31.9 Bipolar disorder, unspecified (principal); N18.9 Chronic kidney disease, unspecified; N17.0 Acute kidney failure with tubular necrosis; E44.1 Mild protein-calorie malnutrition; Z68.41 Body mass index [BMI] 40.0-44.9, adult; F03.91 Unspecified dementia, unspecified severity, with behavioral disturbance; F41.1 Generalized anxiety disorder; I48.91 Unspecified atrial fibrillation; E66.01 Morbid (severe) obesity due to excess calories; F39 Unspecified mood [affective] disorder; I12.9 Hypertensive chronic kidney disease with stage 1 through stage 4 chronic kidney disease, or unspecified chronic kidney disease; D63.1 Anemia in chronic kidney disease; K21.9 Gastro-esophageal reflux disease without esophagitis; D63.8 Anemia in other chronic diseases classified elsewhere; I25.10 Atherosclerotic heart disease of native coronary artery without angina pectoris; Z88.1 Allergy status to other antibiotic agents; Z88.8 Allergy status to other drugs, medicaments and biological substances
CPT/HCPCS: 36415-UA; 80053-TC; 85025-TC; 85610-TC; 93005; 94760; Z7610

== ENCOUNTER 2017-07-01 21:14 | Inpatient (IN) | payer MEDICARE, MEDICAID ==
--- NOTE | 2017-07-01 22:11 | ED Physician Chart ---
ED Chief Complaint/HPI - Patient Information Date Seen:: 07/01/17 Time Seen:: 22:10 Chief Complaint:: Hemoptysis History of Present Illness:: 76 yo female was brought from [facility] to ER for evaluation of coughing blood 2-3 times earlier today. Patient had not had any active bleeding since then. Allergies:: Allergies Allergy/AdvReac Type Severity Reaction Status Date / Time levofloxacin [From Levaquin] Allergy Verified 06/21/17 04:37 niacin Allergy Verified 06/21/17 04:37 pregabalin [From Lyrica] Allergy Verified 06/21/17 04:37 Tetracyclines Allergy Verified 06/21/17 04:37 ED Review of Systems - Review of Systems General/Constitutional: No fever, Weakness Skin: No bruising Head: No headache Eyes: No pain ENT: No nasal drainage Neck: No neck pain Cardio Vascular: No chest pain Pulmonary: Cough (hemoptysis) GI: No nausea, No vomiting Musculoskeletal: No bone or joint pain Psychiatric: Prior psych history Neurological: No focal symptoms ED Past Medical History - Past Medical History Past Medical History: HTN, CHF, Asthma/COPD, Dyslipidemia, Seizures, Thyroid disorder, Other (A-FIB, ANEMIA, OBESITY) Social History: Non Smoker, No Alcohol, No Drug Use Psychiatricy History: Depression, Bipolar Family Medical History - Family Member Mother History Unknown: Yes Ethnicity: Unknown Living Status: Unknown Hx Family Cancer: No Hx Family Coronary Artery Disease: No Hx Family Congestive Heart Failure: No Hx Family Hypertension: No Hx Family Stroke: No Hx Family Diabetes: No Hx Family Seizures: Yes Hx Family Dementia: No Hx Family AIDS: No Hx Family HIV: No Hx Family COPD: No Hx Family Hepatitis: No Hx Family Psychiatric Problems: No Hx Family Tuberculosis: No ED Physical Exam - Physical Examination General/Constitutional: Awake Head: Atraumatic Eyes: PERRL Skin: No ecchymosis ENMT: Nasal exam nl Neck: No nuchal rigidity Respiratory: No Wheeze/Rhonchi/Rales Cardio Vascular: RRR, No murmur, gallop, rubs, NL S1 S2 GI: No tenderness/rebounding/guarding Extremities: Full ROM Neuro/Psych: No focal deficits ED Labs/Radiology/EKG Results - Radiology Results Results: CXR: COPD, cardiomegaly, questionable left basilar infiltrate and effusion ED Assessment - Assessment General Assessment: Hemoptysis Hyponatremia Macrocytic anemia CKD Generalized pain Assessment/Comments:: CBC, BMP, PT/PTT CXR, EKG Toradol Admit to telemetry for further evaluation and management ED Septic Shock - . Is Septic Shock (SBP<90, OR Lactate>4 mmol\L) present?: No ED Reassessment (Disposition) - Reassessment Reassessment Condition:: Improved - Patient Disposition Discharge/Transfer:: Acute Care w/in this hosp Admitting Medical Physician:: Deidra Hughes ED Discharge Plan - Patient Disposition Admit/Discharge/Transfer: Acute Care w/in this hosp
[2017-07-02 01:12] LABS: % BASOPHILS 0.7 % (0.0-2.0); % EOSINOPHILS 3.6 % (0.0-5.0); % LYMPHOCYTES 26.2 % (20.0-50.0); % MONOCYTES 11.3 % (2.0-10.0); % NEUTROPHILS 58.2 % (40.0-80.0); EOSINOPHILE ABSOLUTE 0.2 Th/cmm (0.1-0.4); HEMATOCRIT 34.3 % (41.0-60); HEMOGLOBIN 11.5 gm/dL (12-16); LYMPHOCYTE ABSOLUTE 1.5 Th/cmm (1.5-3.0); MEAN CELL VOLUME 100.3 fl (81-100); MEAN CORPUSCULAR HEMOGLOBIN 33.5 pg (27.0-31.0); MEAN CORPUSCULAR HGB CONC 33.4 pg (28.0-36.0); MEAN PLATELET VOLUME 7.8 fl; MONOCYTE ABSOLUTE 0.6 Th/cmm (0.3-1.0); NEUTROPHILE ABSOLUTE 3.3 Th/cmm (1.8-8.0); PLATELET COUNT 184 Th/cmm (150-400); RED BLOOD COUNT 3.42 Mil/cmm (3.80-5.20); RED CELL DISTRIBUTION WIDTH 13.5 % (11.5-20.0); WHITE BLOOD COUNT 5.6 Th/cmm (4.8-10.8)
[2017-07-02 01:34] LABS: ANION GAP 9.8 (7.0-16.0); BUN - UREA NITROGEN 33 mg/dL (7-25); CALCIUM SERUM 9.3 mg/dL (8.6-10.3); CARBON DIOXIDE 32.7 mEq/L (21.0-31.0); CHLORIDE 97 mEq/L (98-107); CREATININE - SERUM 2.1 mg/dL (0.6-1.2); GLUCOSE 106 mg/dL (70-105); POTASSIUM SERUM 4.5 mEq/L (3.5-5.1); SODIUM SERUM 135 mEq/L (136-145)
[2017-07-02 01:46] LABS: PROTHROMBIN TIME (TEST) 10.4 SECONDS (9.5-11.5)
--- NOTE | 2017-07-02 08:09 | Diagnostic Imaging Report ---
Exam: Portable chest x-ray HISTORY: Hemoptysis. Findings: Portable upright examination of the chest at 0034 hours reviewed and compared to prior study of 04/14/2017 demonstrates cardiomegaly with blunting of the left costophrenic angle might be related to effusion and pneumonia. The right lung parenchyma is well aerated. The heart is enlarged the aortic arch calcified. COPD changes are noted. Bony thorax is intact. IMPRESSION: Cardiomegaly, question of left basilar infiltrate and effusion. COPD changes Follow-up exam is recommended
[2017-07-02] MEDS ORDERED: Maalox 30 mL Cup PO PRN (08:23)
[2017-07-02] MEDS ORDERED: Levothyroxine 0.075 Mg Tab PO SCH (09:00)
[2017-07-02] MEDS: cefTRIAXone 1 GM in Sodium Chloride 0.9% 50 ML IV SCH (10:00)
[2017-07-02] MEDS: Diltiazem CD 120 mg 24H PO SCH ×2 (10:41→17:10)
[2017-07-02] MEDS: Ferrous Sulfate 325 MG TAB PO SCH (10:43)
[2017-07-02] MEDS: Aspirin 81mg Chewable Tab PO SCH (10:43)
[2017-07-02] MEDS: Multivitamin w/ Minerals Tab PO SCH (10:44)
[2017-07-02] MEDS: NIFEdipine 30 mg ER Tab PO SCH (10:45)
[2017-07-02] MEDS: Polyvinyl Alcohol Ophth Soln 15 mL Bottle EACH EYE SCH ×2 (10:46→19:49)
[2017-07-02] MEDS ORDERED: Albuterol Nebulizer 2.5mg/3mL HHN PRN (17:32)
[2017-07-02] MEDS: Albuterol/Ipratropium Neb 3 ML AERS HHN SCH (19:22)
[2017-07-02] MEDS: Atorvastatin Calcium 10 MG TAB PO SCH (21:37)
--- NOTE | 2017-07-02 21:42 | History and Physical ---
History of Present Illness - HPI Chief Complaint: vomiting blood HPI: This is a 76 year old female who is well known to me from [facility] admitted for 1 day history of vomiting blood. Vital Signs: Last Vital Signs Temp 98 F 07/02/17 20:00 Pulse 79 07/02/17 20:36 Resp 18 07/02/17 20:00 BP 151/76 07/02/17 20:36 Pulse Ox 99 07/02/17 20:00 Past Medical History Other History: anemia acute renal failure Family Medical History - Family Member Mother History Unknown: Yes Ethnicity: Unknown Living Status: Unknown Hx Family Cancer: No Hx Family Coronary Artery Disease: No Hx Family Congestive Heart Failure: No Hx Family Hypertension: No Hx Family Stroke: No Hx Family Diabetes: No Hx Family Seizures: Yes Hx Family Dementia: No Hx Family AIDS: No Hx Family HIV: No Hx Family COPD: No Hx Family Hepatitis: No Hx Family Psychiatric Problems: No Hx Family Tuberculosis: No Social History Smoke: No Alcohol: None Drugs: None Lives: Long Term - Medications Home Medications: Home Medication Medication Instructions Recorded Type Acetaminophen [Tylenol] 650 mg PO Q4HR PRN tab 06/28/17 Rx Al Hyd/Mg Hyd/Simethicone [Maalox] 30 ml PO Q4HR PRN udc 06/28/17 Rx Amiodarone [Cordarone] 400 mg PO DAILY tab 06/28/17 Rx Aspirin [Aspirin Chewable] 81 mg PO DAILY ctb 06/28/17 Rx Atorvastatin Calcium [Lipitor] 20 mg PO HS tab 06/28/17 Rx Diltiazem CD [Cardizem Cd] 120 mg PO BID c24 06/28/17 Rx Docusate Sodium [Colace] 200 mg PO DAILY cap 06/28/17 Rx Ferrous Sulfate [Iron] 325 mg PO DAILY tab 06/28/17 Rx Folic Acid [Folate*] 1 mg PO DAILY tab 06/28/17 Rx Hydrocodone/APAP 10 mg/325 mg 1 tab PO Q4H PRN tab 06/28/17 Rx [[place] 10 mg/325 mg] Levothyroxine [Synthroid] 0.175 mg PO DAILY tab 06/28/17 Rx Magnesium Hydroxide [Milk of 30 ml PO HS PRN udc 06/28/17 Rx Magnesia] Multivitamin w/ Minerals 1 tab PO DAILY tab 06/28/17 Rx [Theragran M] NIFEdipine [Procardia Xl] [address] 06/28/17 Rx Nitroglycerin [Nitrostat*] 0.4 mg SL Q5MIN PRN tab 06/28/17 Rx Polyvinyl Alcohol Ophth Soln 2 drop EACH EYE BID drops 06/28/17 Rx [Artificial Tears Ophth Soln*] Rivaroxaban [Xarelto] 15 mg PO DAILY tab 06/28/17 Rx Zolpidem Tartrate [Ambien] 5 mg PO HS PRN tab 06/28/17 Rx aripIPRAZOLE [Abilify] 2 mg PO DAILY tab 06/28/17 Rx Lorazepam [Ativan] 0.5 mg PO Q4HR PRN 07/01/17 History Sertraline [Zoloft] 50 mg PO HS 07/01/17 History - Allergies Allergies/Adverse Reactions: Allergies Allergy/AdvReac Type Severity Reaction Status Date / Time levofloxacin [From Levaquin] Allergy Verified 07/01/17 22:23 niacin Allergy Verified 07/01/17 22:23 pregabalin [From Lyrica] Allergy Verified 07/01/17 22:23 Tetracyclines Allergy Verified 07/01/17 22:23 Review of Systems - Review of Systems Constitutional: Report: No Significant Eyes: Report: No Significant ENT: Report: No Significant Respiratory: Report: No Significant Cardiovascular: Report: No Significant Neurological: Report: No Significant Physical Exam - Physical Exam HEENT: Report: Ears Nose Throat within normal limits Neck: Report: Within normal limits Cardiovascular Systems: Report: +s1/s2 noted, Regular, Rate and Rhythm Respiratory: Report: Breath Sounds are within normal limits Skin: Report: Color of skin is within normal limits Neuro/Psych: Report: Mood affect is within normal limits - Assessment Assessment: hemopytsis anemia acute renal failure - Plan Plan: continue current orders monitor h/h pulmo consult
[2017-07-03 06:49] LABS: % BASOPHILS 0.6 % (0.0-2.0); % EOSINOPHILS 3.3 % (0.0-5.0); % LYMPHOCYTES 22.1 % (20.0-50.0); % MONOCYTES 11.7 % (2.0-10.0); % NEUTROPHILS 62.3 % (40.0-80.0); EOSINOPHILE ABSOLUTE 0.1 Th/cmm (0.1-0.4); HEMATOCRIT 31.8 % (41.0-60); HEMOGLOBIN 10.8 gm/dL (12-16); LYMPHOCYTE ABSOLUTE 0.9 Th/cmm (1.5-3.0); MEAN CELL VOLUME 100.4 fl (81-100); MEAN CORPUSCULAR HGB CONC 33.9 pg (28.0-36.0); MONOCYTE ABSOLUTE 0.5 Th/cmm (0.3-1.0); NEUTROPHILE ABSOLUTE 2.4 Th/cmm (1.8-8.0); PLATELET COUNT 156 Th/cmm (150-400); RED BLOOD COUNT 3.16 Mil/cmm (3.80-5.20); RED CELL DISTRIBUTION WIDTH 13.3 % (11.5-20.0)
[2017-07-03 07:01] LABS: WHITE BLOOD COUNT 3.9 Th/cmm (4.8-10.8)
[2017-07-03 07:12] LABS: ALB/GLOB RATIO 1.3 (1.0-1.8); ALBUMIN 3.4 gm/dL (3.7-5.3); ALKALINE PHOSPHATASE 101 U/L (34-104); ANION GAP 7.7 (7.0-16.0); BILIRUBIN,TOTAL 0.3 mg/dL (0.3-1.0); BUN - UREA NITROGEN 27 mg/dL (7-25); CARBON DIOXIDE 34.6 mEq/L (21.0-31.0); CHLORIDE 97 mEq/L (98-107); CREATININE - SERUM 1.9 mg/dL (0.6-1.2); GLUCOSE 108 mg/dL (70-105); MAGNESIUM 2.8 mg/dL (1.9-2.7); PHOSPHOROUS 4.7 mg/dL (2.5-5.0); POTASSIUM SERUM 4.3 mEq/L (3.5-5.1); SGOT 19 U/L (13-39); SGPT/ALT 23 U/L (7-52); SODIUM SERUM 135 mEq/L (136-145); TOTAL PROTEIN,SERUM 6.1 gm/dL (6.0-8.3); URIC ACID 4.1 mg/dL (2.3-6.6)
[2017-07-03] MEDS: Albuterol/Ipratropium Neb 3 ML AERS HHN SCH ×2 (07:30→19:52)
[2017-07-03] MEDS: cefTRIAXone 1 GM in Sodium Chloride 0.9% 50 ML IV SCH (07:51)
[2017-07-03] MEDS ORDERED: Pneumococcal Vaccine 0.5 mL Vial IM ONE (09:00)
[2017-07-03] MEDS ORDERED: Probiotic Screen MC PRN (09:00)
--- NOTE | 2017-07-03 09:57 | Consultation ---
DATE OF CONSULTATION: 07/02/2017 REASON FOR CONSULTATION: Worsening kidney function, electrolyte imbalance, and fluid management. HISTORY OF PRESENT ILLNESS: History is limited because the patient has history of bipolar disorder and psychosis. This is a 76-year-old female with past medical history of chronic kidney disease, who was brought in because of hemoptysis. Three days prior to admission, the patient complained of hemoptysis. She was brought to the Emergency Room. Her hemoglobin/hematocrit were 11.5/34.3. She had no further episode of hemoptysis since admission. She was admitted 1-1/2 weeks ago because of decompensation of psychosis. At that time, she had a creatinine of 1.3. Her BUN/creatinine today were 33/2.1. Chest x-ray done revealed cardiomegaly with questionable left infiltrate/effusion. She did not have any nausea, vomiting, diarrhea, fever/chills, night sweats, weight loss, cough, congestion, or shortness of breath. PAST MEDICAL HISTORY: 1. Bipolar disorder with psychotic symptoms. 2. Alzheimer dementia. 3. CKD. 4. Chronic atrial fibrillation. 5. Morbid obesity. 6. Anemia of chronic disease. 7. HANH/major depression. 8. Essential hypertension. MEDICATIONS: She is currently on acetaminophen, amiodarone, Abilify, aspirin, atorvastatin, ceftriaxone, diltiazem, docusate sodium, ferrous sulfate, folic acid, hydrocodone/APAP, levothyroxine, lorazepam, magnesium hydroxide, multivitamins, nifedipine, Xarelto, Zoloft, and zolpidem. ALLERGIES: Allergic to LEVOFLOXACIN, NIACIN, PREGABALIN, and TETRACYCLINE. SOCIAL AND FAMILY HISTORY: I was not able to obtain from the patient because she remains uncooperative at the present time. REVIEW OF SYSTEMS: Again, I was not able to decipher from the patient because of the above reasons. PHYSICAL EXAMINATION: GENERAL: This patient is a morbidly obese, not in any form of distress. VITAL SIGNS: Temperature was 98.2 degrees, pulse 111, and BP 138/98. SKIN: Dry, good turgor, warm, and no rash. HEENT: Head normocephalic and atraumatic. Eyes: Extraocular muscles intact, unable to assess her pupils because the patient not cooperative at the present time. She has pale conjunctivae. Nose, midline nasal septum. Mouth: Dry mucosa, adequate dentition. NECK: Supple, no adenopathy, no thyromegaly, no bruits. Trachea palpated in the midline. CHEST AND CARDIOVASCULAR: S1, S2. No rub, murmur, no gallop appreciated. Point of maximal impulse fifth intercostal space, left midclavicular line. No abdominal or femoral bruits appreciated. LUNGS: Equal expansion, no use of accessory muscles. No supraclavicular retractions. Decreased breath sounds, but no rhonchi, rales, nor wheezes appreciated. BREASTS: Pendulous symmetrical, without any discharge. ABDOMEN: Obese, soft, positive for bowel sounds. No bruits either diastolic or systolic. RECTAL: The patient refused. GENITOURINARY: She also refused. MUSCULOSKELETAL: No effusions present in her joints, but unable to assess her range of motion. EXTREMITIES: She has minimal bipedal edema, but no evidence of cyanosis, clubbing. She has adequate femoral pulse, but unable to fully appreciate popliteal and dorsalis pedis pulses due to her size. NEUROLOGIC: The patient is awake, but at this point she is not cooperative, so I was not able to pursue further my neuro exam. LABORATORY DATA: Did reveal white count 5.6, hemoglobin 11.5, hematocrit 34.3, platelets 184, and polys 58.2%. PT 10.4, INR 1, and PTT 23.4. Sodium 135, potassium 4.5, chloride 97, bicarbonate 32, BUN 33, creatinine 2.1, glucose 106, and calcium 9.3. IMPRESSION: 1. Chronic kidney disease. The patient has longstanding history of hypertension, which may have given rise to a development of hypertensive nephrosclerosis throughout the years. 2. History of hemoptysis, probably may have resolved. 3. Hypothyroidism. 4. Bipolar disorder with psychotic symptoms. 5. Alzheimer dementia. 6. Chronic atrial fibrillation. 7. Morbid obesity. 8. Anemia of chronic disease. 9. Generalized anxiety disorder/major depression. 10. Essential hypertension. PLAN: 1. IV fluids. 2. Renal ultrasound. 3. Urinalysis. 4. Urine sodium, eosinophils, and creatinine. 5. Urine microalbumin to creatinine ratio. 6. Follow up electrolytes, CBC. 7. Consider CT scan of chest without contrast. 8. Consider also discontinuing aspirin and Xarelto if the patient has recurrence of her hemoptysis as well as there is progressive decrease in hemoglobin/hematocrit. 9. Sputum Gram stain, culture and sensitivity. Thank you Dr. Hughes for this consult. We will follow the patient closely with you. [facility]# [id number]
[2017-07-03] MEDS: Diltiazem CD 120 mg 24H PO SCH ×2 (10:01→16:35)
[2017-07-03] MEDS: Ferrous Sulfate 325 MG TAB PO SCH (10:01)
[2017-07-03] MEDS: Aspirin 81mg Chewable Tab PO SCH (10:01)
[2017-07-03] MEDS: Lactobacillus Rhamnosus GG 15 Billion CFU CAP.SPRINK PO SCH (10:02)
[2017-07-03] MEDS: Multivitamin w/ Minerals Tab PO SCH (10:02)
[2017-07-03] MEDS: NIFEdipine 30 mg ER Tab PO SCH (10:02)
[2017-07-03] MEDS: Polyvinyl Alcohol Ophth Soln 15 mL Bottle EACH EYE SCH ×2 (10:07→16:37)
[2017-07-03] MEDS: Sodium Chloride 0.45% 1,000 ML IV SCH (14:43)
[2017-07-03] MEDS: Magnesium Hydroxide (MOM) 30 mL UDC PO PRN (16:17)
[2017-07-03] MEDS: Hydrocodone/APAP 10 mg/325 mg Tab PO PRN ×2 (16:35→22:44)
--- NOTE | 2017-07-03 16:43 | Consultation ---
DATE OF CONSULTATION: 07/02/[address] Hughes. Thank you very much Dr. Hughes for this consultation. HISTORY OF PRESENT ILLNESS: This is a 76-year-old female with history of COPD who presented with a cough, congestion, shortness of breath. She mentioned she coughed up blood, but now she said she thinks it is might be some food rather than blood. PAST MEDICAL HISTORY: Psychiatric issues and COPD. SOCIAL HISTORY: History of smoking in the past, quit a few years ago. REVIEW OF SYSTEMS: GENERAL: Weakness, fatigue. CARDIOVASCULAR: No chest pain. RESPIRATORY: Shortness of breath, cough. GASTROINTESTINAL: No nausea or vomiting. PHYSICAL EXAMINATION: GENERAL: Awake, alert, not in acute distress. VITAL SIGNS: Temperature is 98.0, pulse 70, respiration is 18, blood pressure 140/89, saturation 98%. HEENT: Atraumatic, normocephalic. Pupils are equal and reactive to light and accommodation. Ears, nose and throat normal. NECK: Supple. No JVD. CHEST: There are scattered rhonchi, minimal wheezing. HEART: Regular rhythm. ABDOMEN: Soft. EXTREMITIES: No edema. LABORATORY DATA: Sodium 135, potassium 4.5, BUN is 33, creatinine 2.1. WBC is 5.6, hemoglobin 11.5, hematocrit 34.3, platelets is 184. Chest x-ray: Cardiomegaly, COPD changes, bibasilar atelectasis. IMPRESSION: 1. Chronic obstructive pulmonary disease exacerbation. 2. Acute bronchitis or early pneumonia. PLAN: 1. IV antibiotics. 2. Nebulizer treatment. 3. Low dose steroids. I will follow the patient with you. JOB# [id number]
[2017-07-03] MEDS: Atorvastatin Calcium 10 MG TAB PO SCH (20:54)
--- NOTE | 2017-07-04 04:04 | Consultation ---
DATE OF CONSULTATION: 07/03/2017 INFECTIOUS DISEASE CONSULTATION REFERRING PHYSICIAN: Dr. Hughes. REASON FOR CONSULTATION: Bleeding blister from the tongue. HISTORY OF PRESENT ILLNESS: The patient is a 76-year-old female with a past medical history of bipolar disorder with psychotic symptoms, dementia, CKD, chronic atrial fibrillation, morbid obesity, anemia of chronic disease, major depression, hypertension, CKD, developed blister-like lesion on top of the tongue. It broke, open and developed open ulcer with bleeding. Now her bleeding has stopped and she feels better. On initial evaluation, the patient's temperature was 97.9 degrees Fahrenheit and WBC count was 5600. Infectious Disease consultation was called for antibiotic management. Meanwhile, the patient was started on Rocephin. PAST MEDICAL HISTORY: As mentioned above, chronic atrial fibrillation, bipolar disorder with psychotic symptoms, dementia, CKD, morbid obesity, anemia of chronic disease, GERD, major depression and essential hypertension. ALLERGIES: THE PATIENT IS ALLERGIC TO LEVOFLOXACIN, NIACIN, PREGABALIN AND TETRACYCLINE. MEDICATIONS: As per medication reconciliation sheet. Antibiotic chase, the patient is receiving Rocephin. SOCIAL HISTORY: The patient lives at nursing facility. No history of smoking, alcohol or drug use. FAMILY HISTORY: Not available. REVIEW OF SYSTEMS: The patient is a poor historian, but the patient's only complaint was bleeding tongue ulcer, otherwise, it has improved. Otherwise, no new change. PHYSICAL EXAMINATION: VITAL SIGNS: Current vital signs shows temperature is 98.1 degrees Fahrenheit, pulse 99, respirations 18, blood pressure 125/71. GENERAL: The patient is comfortable, obese, not in acute distress. HEENT: Head is normocephalic, atraumatic. Oral cavity moist, pink tongue. The open ulcer with a little bleeding. No acute bleeding. Eyes: No pallor, no icterus. Pupils PERRLA, EOMI. NECK: Supple, no JVD, no carotid bruit. Trachea midline. CHEST: Bilateral breath sounds. No crackles or wheezing. HEART: S1, S2 within normal limits. Regular rhythm. No murmur, no gallop. ABDOMEN: Soft, nontender, nondistended. Bowel sounds present. EXTREMITIES: No cyanosis, no clubbing, no edema. NEUROLOGIC: Alert, awake, oriented x 3. No focal deficit. LABORATORY DATA: Current lab shows WBC count is 3900, hemoglobin 10.8, hematocrit 31.8, platelets are 156,000, neutrophils 62.3%. Sodium 135, potassium 4.3, chloride 97, bicarbonate is 35, BUN is 27, creatinine 1.9, glucose is 108. MRSA screen is negative and a chest x-ray suggested cardiomegaly, questionable left basilar infiltrate and effusion. IMPRESSION: 1. Leukopenia. 2. Left lower lobe pneumonia with parapneumonic effusion. 3. Tongue ulcer. 4. Bipolar disorder. 5. Dementia. 6. Chronic kidney disease. 7. Chronic atrial fibrillation. 8. Morbid obesity. 9. Anemia of chronic disease. 10. Major depression. 11. Essential hypertension. 12. Chronic obstructive pulmonary disease. 13. May have sleep apnea. 14. Acute kidney injury on chronic kidney disease. Creatinine improving. RECOMMENDATION: Continue Rocephin. Thank you Dr. Hughes for involving me in taking care of this patient. JOB# [id number]
[2017-07-04] MEDS: cefTRIAXone 1 GM in Sodium Chloride 0.9% 50 ML IV SCH (05:51)
[2017-07-04] MEDS: Sodium Chloride 0.45% 1,000 ML IV SCH (05:53)
[2017-07-04] MEDS: Albuterol/Ipratropium Neb 3 ML AERS HHN SCH ×2 (06:55→19:42)
[2017-07-04] MEDS: Lactobacillus Rhamnosus GG 15 Billion CFU CAP.SPRINK PO SCH (08:27)
[2017-07-04] MEDS: Multivitamin w/ Minerals Tab PO SCH (08:27)
[2017-07-04] MEDS: Diltiazem CD 120 mg 24H PO SCH ×2 (08:27→17:26)
[2017-07-04] MEDS: Polyvinyl Alcohol Ophth Soln 15 mL Bottle EACH EYE SCH ×2 (08:28→17:27)
[2017-07-04] MEDS: Ferrous Sulfate 325 MG TAB PO SCH (08:28)
[2017-07-04] MEDS: NIFEdipine 30 mg ER Tab PO SCH (08:29)
[2017-07-04] MEDS: Aspirin 81mg Chewable Tab PO SCH (08:30)
--- NOTE | 2017-07-04 09:00 | Diagnostic Imaging Report ---
Abdominal ultrasound HISTORY: Pain, abnormal renal function Exam is limited due to patient's size, body habitus, and lack of patient cooperation. No focal hepatic lesions are seen. The gallbladder is not seen. The patient reports a prior cholecystectomy. No biliary dilatation (common bile duct equals 0.4 cm). No definite abnormality seen in the region of the pancreas. The right kidney is normal in size. There are multiple subcentimeter echogenic foci noted. These may be associated with calculi. No hydronephrosis. The left kidney appears normal. No focal lesions or hydronephrosis. The spleen is normal in size. No other retroperitoneal or intra-abdominal abnormalities. IMPRESSION: 1. Limited exam due to patient size, body habitus, bowel gas, and lack of patient cooperation 2. Nonvisualization of the gallbladder (patient reports a history of a prior cholecystectomy) 3. Punctate echogenic foci within the right kidney. Small calculi cannot be excluded. No hydronephrosis.
[2017-07-04] MEDS: Hydrocodone/APAP 10 mg/325 mg Tab PO PRN ×3 (11:19→22:01)
--- NOTE | 2017-07-04 11:38 | General Progress Note ---
Subjective - Review of Systems Events since last encounter: blister like lesion on tongue Objective - Results Result Diagrams: 07/03/17 05:20 07/03/17 05:20 Recent Labs: Laboratory Last Values WBC 3.9 Th/cmm (4.8-10.8) L 07/03/17 05:20 RBC 3.16 Mil/cmm (3.80-5.20) L 07/03/17 05:20 Hgb 10.8 gm/dL (12-16) L 07/03/17 05:20 Hct 31.8 % (41.0-60) L 07/03/17 05:20 MCV 100.4 fl (81-100) H 07/03/17 05:20 MCH 34.0 pg (27.0-31.0) H 07/03/17 05:20 MCHC Differential 33.9 pg (28.0-36.0) 07/03/17 05:20 RDW 13.3 % (11.5-20.0) 07/03/17 05:20 Plt Count 156 Th/cmm (150-400) 07/03/17 05:20 MPV 8.0 fl 07/03/17 05:20 Neutrophils % 62.3 % (40.0-80.0) 07/03/17 05:20 Lymphocytes % 22.1 % (20.0-50.0) 07/03/17 05:20 Monocytes % 11.7 % (2.0-10.0) H 07/03/17 05:20 Eosinophils % 3.3 % (0.0-5.0) 07/03/17 05:20 Basophils % 0.6 % (0.0-2.0) 07/03/17 05:20 PT 10.4 SECONDS (9.5-11.5) 07/02/17 00:45 INR 1.00 (0.5-1.4) 07/02/17 00:45 PTT (Actin FS) 23.4 SECONDS (26.0-38.0) L 07/02/17 00:45 Sodium 135 mEq/L (136-145) L 07/03/17 05:20 Potassium 4.3 mEq/L (3.5-5.1) 07/03/17 05:20 Chloride 97 mEq/L (98-107) L 07/03/17 05:20 Carbon Dioxide 34.6 mEq/L (21.0-31.0) H 07/03/17 05:20 Anion Gap 7.7 (7.0-16.0) 07/03/17 05:20 BUN 27 mg/dL (7-25) H 07/03/17 05:20 Creatinine 1.9 mg/dL (0.6-1.2) H 07/03/17 05:20 Est GFR ( Amer) TNP 07/03/17 05:20 Est GFR (Non-Af Amer) TNP 07/03/17 05:20 BUN/Creatinine Ratio 14.2 07/03/17 05:20 Glucose 108 mg/dL (70-105) H 07/03/17 05:20 Uric Acid 4.1 mg/dL (2.3-6.6) 07/03/17 05:20 Calcium 9.0 mg/dL (8.6-10.3) 07/03/17 05:20 Phosphorus 4.7 mg/dL (2.5-5.0) 07/03/17 05:20 Magnesium 2.8 mg/dL (1.9-2.7) H 07/03/17 05:20 Total Bilirubin 0.3 mg/dL (0.3-1.0) 07/03/17 05:20 AST 19 U/L (13-39) 07/03/17 05:20 ALT 23 U/L (7-52) 07/03/17 05:20 Alkaline Phosphatase 101 U/L (34-104) 07/03/17 05:20 Total Protein 6.1 gm/dL (6.0-8.3) 07/03/17 05:20 Albumin 3.4 gm/dL (3.7-5.3) L 07/03/17 05:20 Globulin 2.7 gm/dL 07/03/17 05:20 Albumin/Globulin Ratio 1.3 (1.0-1.8) 07/03/17 05:20 - Physical Exam Vitals and I&O: Vital Signs Temp 96.6 F 07/04/17 08:00 Pulse 96 07/04/17 08:29 Resp 20 07/04/17 08:00 BP 133/73 07/04/17 08:29 Pulse Ox 98 07/04/17 08:00 Intake & Output 07/03/17 07/04/17 07/04/17 18:59 06:59 18:59 Intake Total 162.5 200 Output Total 1 Balance 162.5 199 Weight (lbs) 117.027 kg Intake: Intake, IV Amount 162.5 0 Sodium Chloride 0.45% 1, 112.5 0 000 ml @ 75 mls/hr IV . [id number] [facility] Rx#:[id number] cefTRIAXone 1 gm In 50 Sodium Chloride 0.9% 50 ml @ 100 mls/hr IV Q24H [facility] Rx#:[id number] Oral 200 Output: Stool 1 Other: # Voids 2 # Bowel Movements 0 Stool Characteristics Formed Formed Weight Source Bedscale Active Medications: Current Medications Acetaminophen (Tylenol) 650 mg PO Q4HR PRN PRN Reason: Mild Pain / Temp above 100 Stop: 08/31/17 08:22 Last Admin: 07/03/17 20:54 Dose: 650 mg Acetaminophen/Hydrocodone Bitart ([place] 10 Mg/325 Mg) 1 tab PO Q4H PRN PRN Reason: Pain (Severe) Stop: 08/31/17 08:22 Last Admin: 07/04/17 11:19 Dose: 1 tab Al Hydrox/Mg Hydrox/Simethicone (Maalox) 30 ml PO Q4HR PRN PRN Reason: GI DISTRESS Stop: 08/31/17 08:22 Albuterol Sulfate (Albuterol 2.5mg/3ml Neb Ud) 2.5 mg HHN Q4HRT PRN PRN Reason: Respiratory Distress Stop: 08/31/17 17:31 Last Admin: 07/03/17 23:11 Dose: 2.5 mg Albuterol/Ipratropium (Duoneb Neb) 3 ml HHN Q12HRT [facility] Stop: 08/31/17 18:59 Last Admin: 07/04/17 06:55 Dose: 3 ml Amiodarone HCl (Cordarone) 400 mg PO DAILY [facility] Stop: 08/31/17 08:59 Last Admin: 07/04/17 08:29 Dose: 400 mg Aripiprazole (Abilify) 2 mg PO DAILY [facility] PRN Reason: Protocol Stop: 08/31/17 08:59 Last Admin: 07/04/17 11:17 Dose: Not Given Artificial Tears (Artificial Tears Ophth Soln) 2 drop EACH EYE BID [facility] Stop: 08/31/17 08:59 Last Admin: 07/04/17 08:28 Dose: 2 drop Aspirin (Aspirin Chewable) 81 mg PO DAILY [facility] Stop: 08/31/17 08:59 Last Admin: 07/04/17 08:30 Dose: Not Given Atorvastatin Calcium (Lipitor) 20 mg PO HS [facility] PRN Reason: Protocol Stop: 08/31/17 20:59 Last Admin: 07/03/17 20:54 Dose: 20 mg Diltiazem HCl (Cardizem Cd) 120 mg PO BID [facility] Stop: 08/31/17 08:59 Last Admin: 07/04/17 08:27 Dose: 120 mg Docusate Sodium (Colace) 200 mg PO DAILY [facility] Stop: 08/31/17 08:59 Last Admin: 07/04/17 08:27 Dose: 200 mg Ferrous Sulfate (Iron) 325 mg PO DAILY [facility] Stop: 08/31/17 08:59 Last Admin: 07/04/17 08:28 Dose: 325 mg Folic Acid (Folate) 1 mg PO DAILY [facility] Stop: 08/31/17 08:59 Last Admin: 07/04/17 08:29 Dose: 1 mg Ceftriaxone Sodium 1 gm/ (Sodium Chloride) 50 mls @ 100 mls/hr IV Q24H [facility] Stop: 08/31/17 06:29 Last Admin: 07/04/17 05:51 Dose: 100 mls/hr Sodium Chloride (Nacl 0.45%) 1,000 mls @ 75 mls/hr IV .[id number] [facility] Stop: 08/31/17 06:12 Last Admin: 07/04/17 05:53 Dose: 75 mls/hr Lactobacillus Rhamnosus (Culturelle 15b) 1 each PO DAILY [facility] Stop: 09/01/17 08:59 Last Admin: 07/04/17 08:27 Dose: 1 each Levothyroxine Sodium 0.1 mg/ (Levothyroxine Sodium 0.075 mg) 0.175 mg PO QDAC [facility] Stop: 08/31/17 10:29 Last Admin: 07/04/17 06:54 Dose: 0.175 mg Lorazepam (Ativan) 0.5 mg PO Q4HR PRN; Protocol PRN Reason: Anxiety Stop: 08/31/17 08:22 Last Admin: 07/03/17 23:43 Dose: 0.5 mg Magnesium Hydroxide (Milk Of Magnesia) 30 ml PO HS PRN PRN Reason: Constipation Stop: 08/31/17 08:22 Last Admin: 07/03/17 16:17 Dose: 30 ml Miscellaneous (Probiotic Screen) 1 ea MC PRN PRN PRN Reason: PROTOCOL Stop: 09/01/17 08:59 Nifedipine (Procardia Xl) 30 mg PO DAILY [facility] Stop: 08/31/17 08:59 Last Admin: 07/04/17 08:29 Dose: 30 mg Nitroglycerin (Nitrostat) 0.4 mg SL Q5MIN PRN PRN Reason: Chest Pain Stop: 08/31/17 08:22 Last Admin: 07/02/17 20:36 Dose: 0.4 mg Rivaroxaban (Xarelto) 15 mg PO DAILY [facility] Stop: 08/31/17 16:59 Last Admin: 07/04/17 08:30 Dose: Not Given Sertraline HCl (Zoloft) 50 mg PO HS [facility] PRN Reason: Protocol Stop: 08/31/17 20:59 Last Admin: 07/03/17 20:54 Dose: 50 mg Zolpidem Tartrate (Ambien) 5 mg PO HS PRN PRN Reason: Insomnia Stop: 08/31/17 08:22 Last Admin: 07/04/17 02:20 Dose: 5 mg - Procedures Procedures: Procedures Procedure Code Date REPAIR R LOW LEG SUBCU/FASCIA, OPEN APPROACH [id number] 10/06/16 SKIN TISSUE PROCEDURE 56867 10/06/16 Assessment/Plan - Assessment Assessment: hemopytsis anemia acute renal failure - Plan Plan: continue current orders monitor h/h pulmo consult
--- NOTE | 2017-07-04 14:32 | Infectious Disease Prog Note ---
Infectious Disease Subjective - Review of Systems Service Date: 07/04/17 Subjective: There is no new change, no fever. Infectious Disease Objective - Results Result Diagrams: 07/03/17 05:20 07/03/17 05:20 Recent Labs: Laboratory Last Values WBC 3.9 Th/cmm (4.8-10.8) L 07/03/17 05:20 RBC 3.16 Mil/cmm (3.80-5.20) L 07/03/17 05:20 Hgb 10.8 gm/dL (12-16) L 07/03/17 05:20 Hct 31.8 % (41.0-60) L 07/03/17 05:20 MCV 100.4 fl (81-100) H 07/03/17 05:20 MCH 34.0 pg (27.0-31.0) H 07/03/17 05:20 MCHC Differential 33.9 pg (28.0-36.0) 07/03/17 05:20 RDW 13.3 % (11.5-20.0) 07/03/17 05:20 Plt Count 156 Th/cmm (150-400) 07/03/17 05:20 MPV 8.0 fl 07/03/17 05:20 Neutrophils % 62.3 % (40.0-80.0) 07/03/17 05:20 Lymphocytes % 22.1 % (20.0-50.0) 07/03/17 05:20 Monocytes % 11.7 % (2.0-10.0) H 07/03/17 05:20 Eosinophils % 3.3 % (0.0-5.0) 07/03/17 05:20 Basophils % 0.6 % (0.0-2.0) 07/03/17 05:20 PT 10.4 SECONDS (9.5-11.5) 07/02/17 00:45 INR 1.00 (0.5-1.4) 07/02/17 00:45 PTT (Actin FS) 23.4 SECONDS (26.0-38.0) L 07/02/17 00:45 Sodium 135 mEq/L (136-145) L 07/03/17 05:20 Potassium 4.3 mEq/L (3.5-5.1) 07/03/17 05:20 Chloride 97 mEq/L (98-107) L 07/03/17 05:20 Carbon Dioxide 34.6 mEq/L (21.0-31.0) H 07/03/17 05:20 Anion Gap 7.7 (7.0-16.0) 07/03/17 05:20 BUN 27 mg/dL (7-25) H 07/03/17 05:20 Creatinine 1.9 mg/dL (0.6-1.2) H 07/03/17 05:20 Est GFR ( Amer) TNP 07/03/17 05:20 Est GFR (Non-Af Amer) TNP 07/03/17 05:20 BUN/Creatinine Ratio 14.2 07/03/17 05:20 Glucose 108 mg/dL (70-105) H 07/03/17 05:20 Uric Acid 4.1 mg/dL (2.3-6.6) 07/03/17 05:20 Calcium 9.0 mg/dL (8.6-10.3) 07/03/17 05:20 Phosphorus 4.7 mg/dL (2.5-5.0) 07/03/17 05:20 Magnesium 2.8 mg/dL (1.9-2.7) H 07/03/17 05:20 Total Bilirubin 0.3 mg/dL (0.3-1.0) 07/03/17 05:20 AST 19 U/L (13-39) 07/03/17 05:20 ALT 23 U/L (7-52) 07/03/17 05:20 Alkaline Phosphatase 101 U/L (34-104) 07/03/17 05:20 Total Protein 6.1 gm/dL (6.0-8.3) 07/03/17 05:20 Albumin 3.4 gm/dL (3.7-5.3) L 07/03/17 05:20 Globulin 2.7 gm/dL 07/03/17 05:20 Albumin/Globulin Ratio 1.3 (1.0-1.8) 07/03/17 05:20 - Physical Exam Vitals and I&O: Vital Signs Temp 98.0 F 07/04/17 13:03 Pulse 80 07/04/17 13:03 Resp 20 07/04/17 13:03 BP 125/54 07/04/17 13:03 Pulse Ox 97 07/04/17 13:03 Intake & Output 07/03/17 07/04/17 07/04/17 18:59 06:59 18:59 Intake Total 162.5 200 Output Total 1 Balance 162.5 199 Weight (lbs) 117.027 kg Intake: Intake, IV Amount 162.5 0 Sodium Chloride 0.45% 1, 112.5 0 000 ml @ 75 mls/hr IV . [id number] [facility] Rx#:[id number] cefTRIAXone 1 gm In 50 Sodium Chloride 0.9% 50 ml @ 100 mls/hr IV Q24H [facility] Rx#:[id number] Oral 200 Output: Stool 1 Other: # Voids 2 # Bowel Movements 0 Stool Characteristics Formed Formed Weight Source Bedscale Active Medications: Current Medications Acetaminophen (Tylenol) 650 mg PO Q4HR PRN PRN Reason: Mild Pain / Temp above 100 Stop: 08/31/17 08:22 Last Admin: 07/03/17 20:54 Dose: 650 mg Acetaminophen/Hydrocodone Bitart ([place] 10 Mg/325 Mg) 1 tab PO Q4H PRN PRN Reason: Pain (Severe) Stop: 08/31/17 08:22 Last Admin: 07/04/17 11:19 Dose: 1 tab Al Hydrox/Mg Hydrox/Simethicone (Maalox) 30 ml PO Q4HR PRN PRN Reason: GI DISTRESS Stop: 08/31/17 08:22 Albuterol Sulfate (Albuterol 2.5mg/3ml Neb Ud) 2.5 mg HHN Q4HRT PRN PRN Reason: Respiratory Distress Stop: 08/31/17 17:31 Last Admin: 07/03/17 23:11 Dose: 2.5 mg Albuterol/Ipratropium (Duoneb Neb) 3 ml HHN Q12HRT [facility] Stop: 08/31/17 18:59 Last Admin: 07/04/17 06:55 Dose: 3 ml Amiodarone HCl (Cordarone) 400 mg PO DAILY [facility] Stop: 08/31/17 08:59 Last Admin: 07/04/17 08:29 Dose: 400 mg Aripiprazole (Abilify) 2 mg PO DAILY [facility] PRN Reason: Protocol Stop: 08/31/17 08:59 Last Admin: 07/04/17 11:17 Dose: Not Given Artificial Tears (Artificial Tears Ophth Soln) 2 drop EACH EYE BID [facility] Stop: 08/31/17 08:59 Last Admin: 07/04/17 08:28 Dose: 2 drop Aspirin (Aspirin Chewable) 81 mg PO DAILY [facility] Stop: 08/31/17 08:59 Last Admin: 07/04/17 08:30 Dose: Not Given Atorvastatin Calcium (Lipitor) 20 mg PO HS [facility] PRN Reason: Protocol Stop: 08/31/17 20:59 Last Admin: 07/03/17 20:54 Dose: 20 mg Diltiazem HCl (Cardizem Cd) 120 mg PO BID [facility] Stop: 08/31/17 08:59 Last Admin: 07/04/17 08:27 Dose: 120 mg Docusate Sodium (Colace) 200 mg PO DAILY [facility] Stop: 08/31/17 08:59 Last Admin: 07/04/17 08:27 Dose: 200 mg Ferrous Sulfate (Iron) 325 mg PO DAILY [facility] Stop: 08/31/17 08:59 Last Admin: 07/04/17 08:28 Dose: 325 mg Folic Acid (Folate) 1 mg PO DAILY [facility] Stop: 08/31/17 08:59 Last Admin: 07/04/17 08:29 Dose: 1 mg Ceftriaxone Sodium 1 gm/ (Sodium Chloride) 50 mls @ 100 mls/hr IV Q24H [facility] Stop: 08/31/17 06:29 Last Admin: 07/04/17 05:51 Dose: 100 mls/hr Sodium Chloride (Nacl 0.45%) 1,000 mls @ 75 mls/hr IV .[id number] [facility] Stop: 08/31/17 06:12 Last Admin: 07/04/17 05:53 Dose: 75 mls/hr Lactobacillus Rhamnosus (Culturelle 15b) 1 each PO DAILY [facility] Stop: 09/01/17 08:59 Last Admin: 07/04/17 08:27 Dose: 1 each Levothyroxine Sodium 0.1 mg/ (Levothyroxine Sodium 0.075 mg) 0.175 mg PO QDAC [facility] Stop: 08/31/17 10:29 Last Admin: 07/04/17 06:54 Dose: 0.175 mg Lorazepam (Ativan) 0.5 mg PO Q4HR PRN; Protocol PRN Reason: Anxiety Stop: 08/31/17 08:22 Last Admin: 07/03/17 23:43 Dose: 0.5 mg Magnesium Hydroxide (Milk Of Magnesia) 30 ml PO HS PRN PRN Reason: Constipation Stop: 08/31/17 08:22 Last Admin: 07/03/17 16:17 Dose: 30 ml Miscellaneous (Probiotic Screen) 1 ea MC PRN PRN PRN Reason: PROTOCOL Stop: 09/01/17 08:59 Nifedipine (Procardia Xl) 30 mg PO DAILY [facility] Stop: 08/31/17 08:59 Last Admin: 07/04/17 08:29 Dose: 30 mg Nitroglycerin (Nitrostat) 0.4 mg SL Q5MIN PRN PRN Reason: Chest Pain Stop: 08/31/17 08:22 Last Admin: 07/02/17 20:36 Dose: 0.4 mg Rivaroxaban (Xarelto) 15 mg PO DAILY [facility] Stop: 08/31/17 16:59 Last Admin: 07/04/17 08:30 Dose: Not Given Sertraline HCl (Zoloft) 50 mg PO HS [facility] PRN Reason: Protocol Stop: 08/31/17 20:59 Last Admin: 07/03/17 20:54 Dose: 50 mg Zolpidem Tartrate (Ambien) 5 mg PO HS PRN PRN Reason: Insomnia Stop: 08/31/17 08:22 Last Admin: 07/04/17 02:20 Dose: 5 mg General: no acute distress, well developed, well nourished HEENT: atraumatic, normocephalic, PERRLA, EOMI, moist mucous membrane, other ( ortonue, no bleeding.) Neck: supple, no thyromegaly Cardiovascular: S1S2, regular Lungs: clear to auscultation bilaterally, clear to percussion, crackles Abdomen: soft, no tender, no distended Extremities: no cyanosis, no clubbing Neurological: awake, alert, oriented Skin: intact - Procedures Procedures: Procedures Procedure Code Date REPAIR R LOW LEG SUBCU/FASCIA, OPEN APPROACH [id number] 10/06/16 SKIN TISSUE PROCEDURE 66111 10/06/16 Infectious Disease Assmt/Plan - Assessment Assessment: 1. Leukopenia. 2. Left lower lobe pneumonia with parapneumonic effusion. 3. Tongue ulcer. 4. Bipolar disorder. 5. Dementia. 6. Chronic kidney disease. 7. Chronic atrial fibrillation. 8. Morbid obesity. 9. Anemia of chronic disease. 10. Major depression. 11. Essential hypertension. 12. Chronic obstructive pulmonary disease. 13. May have sleep apnea. 14. Acute kidney injury on chronic kidney disease. Creatinine improving. - Plan Plan: Continue rocephin
[2017-07-04] MEDS: Atorvastatin Calcium 10 MG TAB PO SCH (20:14)
[2017-07-04] MEDS: Magnesium Hydroxide (MOM) 30 mL UDC PO PRN (22:32)
[2017-07-05 06:10] LABS: % BASOPHILS 0.9 % (0.0-2.0); % EOSINOPHILS 4.1 % (0.0-5.0); % LYMPHOCYTES 30.5 % (20.0-50.0); % MONOCYTES 10.6 % (2.0-10.0); % NEUTROPHILS 53.9 % (40.0-80.0); EOSINOPHILE ABSOLUTE 0.2 Th/cmm (0.1-0.4); HEMATOCRIT 31.6 % (41.0-60); HEMOGLOBIN 10.7 gm/dL (12-16); LYMPHOCYTE ABSOLUTE 1.4 Th/cmm (1.5-3.0); MEAN CELL VOLUME 100.4 fl (81-100); MEAN CORPUSCULAR HEMOGLOBIN 33.8 pg (27.0-31.0); MEAN CORPUSCULAR HGB CONC 33.7 pg (28.0-36.0); MEAN PLATELET VOLUME 7.7 fl; MONOCYTE ABSOLUTE 0.5 Th/cmm (0.3-1.0); NEUTROPHILE ABSOLUTE 2.4 Th/cmm (1.8-8.0); PLATELET COUNT 162 Th/cmm (150-400); RED BLOOD COUNT 3.15 Mil/cmm (3.80-5.20); RED CELL DISTRIBUTION WIDTH 13.7 % (11.5-20.0); WHITE BLOOD COUNT 4.5 Th/cmm (4.8-10.8)
[2017-07-05] MEDS: cefTRIAXone 1 GM in Sodium Chloride 0.9% 50 ML IV SCH (06:20)
[2017-07-05 06:21] LABS: ANION GAP 7.5 (7.0-16.0); BUN - UREA NITROGEN 26 mg/dL (7-25); CALCIUM SERUM 8.9 mg/dL (8.6-10.3); CHLORIDE 99 mEq/L (98-107); CREATININE - SERUM 2.1 mg/dL (0.6-1.2); GLUCOSE 101 mg/dL (70-105); POTASSIUM SERUM 4.5 mEq/L (3.5-5.1); SODIUM SERUM 137 mEq/L (136-145)
[2017-07-05] MEDS: Albuterol/Ipratropium Neb 3 ML AERS HHN SCH ×2 (07:34→19:32)
[2017-07-05] MEDS: Hydrocodone/APAP 10 mg/325 mg Tab PO PRN ×3 (09:23→17:26)
[2017-07-05] MEDS: Lactobacillus Rhamnosus GG 15 Billion CFU CAP.SPRINK PO SCH (09:24)
[2017-07-05] MEDS: NIFEdipine 30 mg ER Tab PO SCH (09:24)
[2017-07-05] MEDS: Diltiazem CD 120 mg 24H PO SCH ×2 (09:24→17:26)
[2017-07-05] MEDS: Ferrous Sulfate 325 MG TAB PO SCH (09:24)
[2017-07-05] MEDS: Multivitamin w/ Minerals Tab PO SCH (09:24)
[2017-07-05] MEDS: Aspirin 81mg Chewable Tab PO SCH (09:25)
[2017-07-05] MEDS: Polyvinyl Alcohol Ophth Soln 15 mL Bottle EACH EYE SCH ×2 (09:26→17:26)
--- NOTE | 2017-07-05 10:01 | Diagnostic Imaging Report ---
Exam: Chest x-ray HISTORY: Shortness of breath. Findings: Frontal summation of chest at 0825 hours reviewed compatible prior study 07/02/2017 demonstrates the rotation of patient. There is evidence of blunting left costophrenic angle might represent effusion or infiltrate. The aortic arch calcified bony thorax intact. IMPRESSION: Questionable left basilar infiltrate and effusions follow-up dictation recommended.
--- NOTE | 2017-07-05 11:01 | General Progress Note ---
Subjective - Review of Systems Events since last encounter: no change no distress Objective - Results Result Diagrams: 07/05/17 05:40 07/05/17 05:40 Recent Labs: Laboratory Last Values WBC 4.5 Th/cmm (4.8-10.8) L 07/05/17 05:40 RBC 3.15 Mil/cmm (3.80-5.20) L 07/05/17 05:40 Hgb 10.7 gm/dL (12-16) L 07/05/17 05:40 Hct 31.6 % (41.0-60) L 07/05/17 05:40 MCV 100.4 fl (81-100) H 07/05/17 05:40 MCH 33.8 pg (27.0-31.0) H 07/05/17 05:40 MCHC Differential 33.7 pg (28.0-36.0) 07/05/17 05:40 RDW 13.7 % (11.5-20.0) 07/05/17 05:40 Plt Count 162 Th/cmm (150-400) 07/05/17 05:40 MPV 7.7 fl 07/05/17 05:40 Neutrophils % 53.9 % (40.0-80.0) 07/05/17 05:40 Lymphocytes % 30.5 % (20.0-50.0) 07/05/17 05:40 Monocytes % 10.6 % (2.0-10.0) H 07/05/17 05:40 Eosinophils % 4.1 % (0.0-5.0) 07/05/17 05:40 Basophils % 0.9 % (0.0-2.0) 07/05/17 05:40 PT 10.4 SECONDS (9.5-11.5) 07/02/17 00:45 INR 1.00 (0.5-1.4) 07/02/17 00:45 PTT (Actin FS) 23.4 SECONDS (26.0-38.0) L 07/02/17 00:45 Sodium 137 mEq/L (136-145) 07/05/17 05:40 Potassium 4.5 mEq/L (3.5-5.1) 07/05/17 05:40 Chloride 99 mEq/L (98-107) 07/05/17 05:40 Carbon Dioxide 35.0 mEq/L (21.0-31.0) H 07/05/17 05:40 Anion Gap 7.5 (7.0-16.0) 07/05/17 05:40 BUN 26 mg/dL (7-25) H 07/05/17 05:40 Creatinine 2.1 mg/dL (0.6-1.2) H 07/05/17 05:40 Est GFR ( Amer) TNP 07/05/17 05:40 Est GFR (Non-Af Amer) TNP 07/05/17 05:40 BUN/Creatinine Ratio 12.4 07/05/17 05:40 Glucose 101 mg/dL (70-105) 07/05/17 05:40 Uric Acid 4.1 mg/dL (2.3-6.6) 07/03/17 05:20 Calcium 8.9 mg/dL (8.6-10.3) 07/05/17 05:40 Phosphorus 4.7 mg/dL (2.5-5.0) 07/03/17 05:20 Magnesium 2.8 mg/dL (1.9-2.7) H 07/03/17 05:20 Total Bilirubin 0.3 mg/dL (0.3-1.0) 07/03/17 05:20 AST 19 U/L (13-39) 07/03/17 05:20 ALT 23 U/L (7-52) 07/03/17 05:20 Alkaline Phosphatase 101 U/L (34-104) 07/03/17 05:20 Total Protein 6.1 gm/dL (6.0-8.3) 07/03/17 05:20 Albumin 3.4 gm/dL (3.7-5.3) L 07/03/17 05:20 Globulin 2.7 gm/dL 07/03/17 05:20 Albumin/Globulin Ratio 1.3 (1.0-1.8) 07/03/17 05:20 - Physical Exam Vitals and I&O: Vital Signs Temp 98.0 F 07/05/17 07:46 Pulse 84 07/05/17 09:24 Resp 19 07/05/17 07:46 BP 139/92 07/05/17 09:24 Pulse Ox 97 07/05/17 07:46 Intake & Output 07/04/17 07/05/17 07/05/17 18:59 06:59 18:59 Intake Total 500 Balance 500 Weight (lbs) 117.027 kg Intake: Oral 500 Other: # Voids 3 # Bowel Movements 1 Stool Characteristics Formed Soft Weight Source Bedscale Active Medications: Current Medications Acetaminophen (Tylenol) 650 mg PO Q4HR PRN PRN Reason: Mild Pain / Temp above 100 Stop: 08/31/17 08:22 Last Admin: 07/04/17 20:14 Dose: 650 mg Acetaminophen/Hydrocodone Bitart ([place] 10 Mg/325 Mg) 1 tab PO Q4H PRN PRN Reason: Pain (Severe) Stop: 08/31/17 08:22 Last Admin: 07/05/17 09:23 Dose: 1 tab Al Hydrox/Mg Hydrox/Simethicone (Maalox) 30 ml PO Q4HR PRN PRN Reason: GI DISTRESS Stop: 08/31/17 08:22 Albuterol Sulfate (Albuterol 2.5mg/3ml Neb Ud) 2.5 mg HHN Q4HRT PRN PRN Reason: Respiratory Distress Stop: 08/31/17 17:31 Last Admin: 07/03/17 23:11 Dose: 2.5 mg Albuterol/Ipratropium (Duoneb Neb) 3 ml HHN Q12HRT [facility] Stop: 08/31/17 18:59 Last Admin: 07/05/17 07:34 Dose: Not Given Amiodarone HCl (Cordarone) 400 mg PO DAILY [facility] Stop: 08/31/17 08:59 Last Admin: 07/05/17 09:23 Dose: 400 mg Aripiprazole (Abilify) 2 mg PO DAILY [facility] PRN Reason: Protocol Stop: 08/31/17 08:59 Last Admin: 07/05/17 09:26 Dose: 2 mg Artificial Tears (Artificial Tears Ophth Soln) 2 drop EACH EYE BID [facility] Stop: 08/31/17 08:59 Last Admin: 07/05/17 09:26 Dose: 2 drop Aspirin (Aspirin Chewable) 81 mg PO DAILY [facility] Stop: 08/31/17 08:59 Last Admin: 07/05/17 09:25 Dose: Not Given Atorvastatin Calcium (Lipitor) 20 mg PO HS [facility] PRN Reason: Protocol Stop: 08/31/17 20:59 Last Admin: 07/04/17 20:14 Dose: 20 mg Diltiazem HCl (Cardizem Cd) 120 mg PO BID [facility] Stop: 08/31/17 08:59 Last Admin: 07/05/17 09:24 Dose: 120 mg Docusate Sodium (Colace) 200 mg PO DAILY [facility] Stop: 08/31/17 08:59 Last Admin: 07/05/17 09:24 Dose: 200 mg Ferrous Sulfate (Iron) 325 mg PO DAILY [facility] Stop: 08/31/17 08:59 Last Admin: 07/05/17 09:24 Dose: 325 mg Folic Acid (Folate) 1 mg PO DAILY [facility] Stop: 08/31/17 08:59 Last Admin: 07/05/17 09:24 Dose: 1 mg Ceftriaxone Sodium 1 gm/ (Sodium Chloride) 50 mls @ 100 mls/hr IV Q24H [facility] Stop: 08/31/17 06:29 Last Admin: 07/05/17 06:20 Dose: 100 mls/hr Sodium Chloride (Nacl 0.45%) 1,000 mls @ 75 mls/hr IV .[id number] [facility] Stop: 08/31/17 06:12 Last Admin: 07/04/17 05:53 Dose: 75 mls/hr Lactobacillus Rhamnosus (Culturelle 15b) 1 each PO DAILY [facility] Stop: 09/01/17 08:59 Last Admin: 07/05/17 09:24 Dose: 1 each Levothyroxine Sodium 0.1 mg/ (Levothyroxine Sodium 0.075 mg) 0.175 mg PO QDAC [facility] Stop: 08/31/17 10:29 Last Admin: 07/05/17 09:23 Dose: 0.175 mg Lorazepam (Ativan) 0.5 mg PO Q4HR PRN; Protocol PRN Reason: Anxiety Stop: 08/31/17 08:22 Last Admin: 07/04/17 20:14 Dose: 0.5 mg Magnesium Hydroxide (Milk Of Magnesia) 30 ml PO HS PRN PRN Reason: Constipation Stop: 08/31/17 08:22 Last Admin: 07/04/17 22:32 Dose: 30 ml Miscellaneous (Probiotic Screen) 1 ea MC PRN PRN PRN Reason: PROTOCOL Stop: 09/01/17 08:59 Nifedipine (Procardia Xl) 30 mg PO DAILY [facility] Stop: 08/31/17 08:59 Last Admin: 07/05/17 09:24 Dose: 30 mg Nitroglycerin (Nitrostat) 0.4 mg SL Q5MIN PRN PRN Reason: Chest Pain Stop: 08/31/17 08:22 Last Admin: 07/02/17 20:36 Dose: 0.4 mg Pantoprazole Sodium (Protonix) 40 mg IVP DAILY ARMAAN Stop: 09/03/17 10:44 Last Admin: 07/05/17 10:59 Dose: 40 mg Rivaroxaban (Xarelto) 15 mg PO DAILY ARMAAN Stop: 08/31/17 16:59 Last Admin: 07/05/17 09:25 Dose: Not Given Sertraline HCl (Zoloft) 50 mg PO HS ARMAAN PRN Reason: Protocol Stop: 08/31/17 20:59 Last Admin: 07/04/17 20:14 Dose: 50 mg Zolpidem Tartrate (Ambien) 5 mg PO HS PRN PRN Reason: Insomnia Stop: 08/31/17 08:22 Last Admin: 07/05/17 00:14 Dose: 5 mg - Procedures Procedures: Procedures Procedure Code Date REPAIR R LOW LEG SUBCU/FASCIA, OPEN APPROACH [id number] 10/06/16 SKIN TISSUE PROCEDURE 27299 10/06/16 Assessment/Plan - Assessment Assessment: hemopytsis anemia acute renal failure - Plan Plan: continue current orders monitor h/h pulmo consult
--- NOTE | 2017-07-05 13:05 | General Progress Note ---
Subjective - Review of Systems Service Date: 07/05/17 Subjective: alert, uncooperative Objective - Results Result Diagrams: 07/05/17 05:40 07/05/17 05:40 Recent Labs: Laboratory Last Values WBC 4.5 Th/cmm (4.8-10.8) L 07/05/17 05:40 RBC 3.15 Mil/cmm (3.80-5.20) L 07/05/17 05:40 Hgb 10.7 gm/dL (12-16) L 07/05/17 05:40 Hct 31.6 % (41.0-60) L 07/05/17 05:40 MCV 100.4 fl (81-100) H 07/05/17 05:40 MCH 33.8 pg (27.0-31.0) H 07/05/17 05:40 MCHC Differential 33.7 pg (28.0-36.0) 07/05/17 05:40 RDW 13.7 % (11.5-20.0) 07/05/17 05:40 Plt Count 162 Th/cmm (150-400) 07/05/17 05:40 MPV 7.7 fl 07/05/17 05:40 Neutrophils % 53.9 % (40.0-80.0) 07/05/17 05:40 Lymphocytes % 30.5 % (20.0-50.0) 07/05/17 05:40 Monocytes % 10.6 % (2.0-10.0) H 07/05/17 05:40 Eosinophils % 4.1 % (0.0-5.0) 07/05/17 05:40 Basophils % 0.9 % (0.0-2.0) 07/05/17 05:40 PT 10.4 SECONDS (9.5-11.5) 07/02/17 00:45 INR 1.00 (0.5-1.4) 07/02/17 00:45 PTT (Actin FS) 23.4 SECONDS (26.0-38.0) L 07/02/17 00:45 Sodium 137 mEq/L (136-145) 07/05/17 05:40 Potassium 4.5 mEq/L (3.5-5.1) 07/05/17 05:40 Chloride 99 mEq/L (98-107) 07/05/17 05:40 Carbon Dioxide 35.0 mEq/L (21.0-31.0) H 07/05/17 05:40 Anion Gap 7.5 (7.0-16.0) 07/05/17 05:40 BUN 26 mg/dL (7-25) H 07/05/17 05:40 Creatinine 2.1 mg/dL (0.6-1.2) H 07/05/17 05:40 Est GFR ( Amer) TNP 07/05/17 05:40 Est GFR (Non-Af Amer) [facility] 07/05/17 05:40 BUN/Creatinine Ratio 12.4 07/05/17 05:40 Glucose 101 mg/dL (70-105) 07/05/17 05:40 Uric Acid 4.1 mg/dL (2.3-6.6) 07/03/17 05:20 Calcium 8.9 mg/dL (8.6-10.3) 07/05/17 05:40 Phosphorus 4.7 mg/dL (2.5-5.0) 07/03/17 05:20 Magnesium 2.8 mg/dL (1.9-2.7) H 07/03/17 05:20 Total Bilirubin 0.3 mg/dL (0.3-1.0) 07/03/17 05:20 AST 19 U/L (13-39) 07/03/17 05:20 ALT 23 U/L (7-52) 07/03/17 05:20 Alkaline Phosphatase 101 U/L (34-104) 07/03/17 05:20 Total Protein 6.1 gm/dL (6.0-8.3) 07/03/17 05:20 Albumin 3.4 gm/dL (3.7-5.3) L 07/03/17 05:20 Globulin 2.7 gm/dL 07/03/17 05:20 Albumin/Globulin Ratio 1.3 (1.0-1.8) 07/03/17 05:20 - Physical Exam Vitals and I&O: Vital Signs Temp 98.1 F 07/05/17 12:09 Pulse 80 07/05/17 12:09 Resp 18 07/05/17 12:09 BP 140/86 07/05/17 12:09 Pulse Ox 98 07/05/17 12:09 Intake & Output 07/04/17 07/05/17 07/05/17 18:59 06:59 18:59 Intake Total 500 Balance 500 Weight (lbs) 117.027 kg Intake: Oral 500 Other: # Voids 3 # Bowel Movements 1 Stool Characteristics Formed Soft Weight Source Bedscale Active Medications: Current Medications Acetaminophen (Tylenol) 650 mg PO Q4HR PRN PRN Reason: Mild Pain / Temp above 100 Stop: 08/31/17 08:22 Last Admin: 07/04/17 20:14 Dose: 650 mg Acetaminophen/Hydrocodone Bitart ([place] 10 Mg/325 Mg) 1 tab PO Q4H PRN PRN Reason: Pain (Severe) Stop: 08/31/17 08:22 Last Admin: 07/05/17 09:23 Dose: 1 tab Al Hydrox/Mg Hydrox/Simethicone (Maalox) 30 ml PO Q4HR PRN PRN Reason: GI DISTRESS Stop: 08/31/17 08:22 Albuterol Sulfate (Albuterol 2.5mg/3ml Neb Ud) 2.5 mg HHN Q4HRT PRN PRN Reason: Respiratory Distress Stop: 08/31/17 17:31 Last Admin: 07/03/17 23:11 Dose: 2.5 mg Albuterol/Ipratropium (Duoneb Neb) 3 ml HHN Q12HRT [facility] Stop: 08/31/17 18:59 Last Admin: 07/05/17 07:34 Dose: Not Given Amiodarone HCl (Cordarone) 400 mg PO DAILY [facility] Stop: 08/31/17 08:59 Last Admin: 07/05/17 09:23 Dose: 400 mg Aripiprazole (Abilify) 2 mg PO DAILY [facility] PRN Reason: Protocol Stop: 08/31/17 08:59 Last Admin: 07/05/17 09:26 Dose: 2 mg Artificial Tears (Artificial Tears Ophth Soln) 2 drop EACH EYE BID [facility] Stop: 08/31/17 08:59 Last Admin: 07/05/17 09:26 Dose: 2 drop Aspirin (Aspirin Chewable) 81 mg PO DAILY [facility] Stop: 08/31/17 08:59 Last Admin: 07/05/17 09:25 Dose: Not Given Atorvastatin Calcium (Lipitor) 20 mg PO HS [facility] PRN Reason: Protocol Stop: 08/31/17 20:59 Last Admin: 07/04/17 20:14 Dose: 20 mg Diltiazem HCl (Cardizem Cd) 120 mg PO BID [facility] Stop: 08/31/17 08:59 Last Admin: 07/05/17 09:24 Dose: 120 mg Docusate Sodium (Colace) 200 mg PO DAILY [facility] Stop: 08/31/17 08:59 Last Admin: 07/05/17 09:24 Dose: 200 mg Ferrous Sulfate (Iron) 325 mg PO DAILY [facility] Stop: 08/31/17 08:59 Last Admin: 07/05/17 09:24 Dose: 325 mg Folic Acid (Folate) 1 mg PO DAILY [facility] Stop: 08/31/17 08:59 Last Admin: 07/05/17 09:24 Dose: 1 mg Ceftriaxone Sodium 1 gm/ (Sodium Chloride) 50 mls @ 100 mls/hr IV Q24H [facility] Stop: 08/31/17 06:29 Last Admin: 07/05/17 06:20 Dose: 100 mls/hr Sodium Chloride (Nacl 0.45%) 1,000 mls @ 75 mls/hr IV .[id number] [facility] Stop: 08/31/17 06:12 Last Admin: 07/04/17 05:53 Dose: 75 mls/hr Lactobacillus Rhamnosus (Culturelle 15b) 1 each PO DAILY [facility] Stop: 09/01/17 08:59 Last Admin: 07/05/17 09:24 Dose: 1 each Levothyroxine Sodium 0.1 mg/ (Levothyroxine Sodium 0.075 mg) 0.175 mg PO QDAC [facility] Stop: 08/31/17 10:29 Last Admin: 07/05/17 09:23 Dose: 0.175 mg Lorazepam (Ativan) 0.5 mg PO Q4HR PRN; Protocol PRN Reason: Anxiety Stop: 08/31/17 08:22 Last Admin: 07/04/17 20:14 Dose: 0.5 mg Magnesium Hydroxide (Milk Of Magnesia) 30 ml PO HS PRN PRN Reason: Constipation Stop: 08/31/17 08:22 Last Admin: 07/04/17 22:32 Dose: 30 ml Miscellaneous (Probiotic Screen) 1 ea MC PRN PRN PRN Reason: PROTOCOL Stop: 09/01/17 08:59 Nifedipine (Procardia Xl) 30 mg PO DAILY [facility] Stop: 08/31/17 08:59 Last Admin: 07/05/17 09:24 Dose: 30 mg Nitroglycerin (Nitrostat) 0.4 mg SL Q5MIN PRN PRN Reason: Chest Pain Stop: 08/31/17 08:22 Last Admin: 07/02/17 20:36 Dose: 0.4 mg Pantoprazole Sodium (Protonix) 40 mg IVP DAILY [facility] Stop: 09/03/17 10:44 Last Admin: 07/05/17 10:59 Dose: 40 mg Rivaroxaban (Xarelto) 15 mg PO DAILY [facility] Stop: 08/31/17 16:59 Last Admin: 07/05/17 09:25 Dose: Not Given Sertraline HCl (Zoloft) 50 mg PO HS [facility] PRN Reason: Protocol Stop: 08/31/17 20:59 Last Admin: 07/04/17 20:14 Dose: 50 mg Zolpidem Tartrate (Ambien) 5 mg PO HS PRN PRN Reason: Insomnia Stop: 08/31/17 08:22 Last Admin: 07/05/17 00:14 Dose: 5 mg General: Alert, Oriented x3, Cooperative HEENT: Atraumatic, PERRLA Neck: Supple, +2 carotid pulse wo bruit Cardiovascular: Regular rate, Normal S1, Normal S2 Lungs: Clear to auscultation Abdomen: Bowel sounds, Soft Extremities: no Edema Neurological: Sensation intact Skin: no Rash Psych/Mental Status: Mood NL - Procedures Procedures: Procedures Procedure Code Date REPAIR R LOW LEG SUBCU/FASCIA, OPEN APPROACH [id number] 10/06/16 SKIN TISSUE PROCEDURE 61883 10/06/16 Assessment/Plan - Assessment Assessment: CKD S/P bleeding tongue Hypothyroid Bipolar disorder w/ Psychosis Alzh Dementia Chronic A. Fib Morbid Obesity - Plan Plan: Lab - Result Diagrams 07/05/17 05:40 07/05/17 05:40 Current Medications Acetaminophen (Tylenol) 650 mg PO Q4HR PRN PRN Reason: Mild Pain / Temp above 100 Stop: 08/31/17 08:22 Last Admin: 07/04/17 20:14 Dose: 650 mg Acetaminophen/Hydrocodone Bitart ([place] 10 Mg/325 Mg) 1 tab PO Q4H PRN PRN Reason: Pain (Severe) Stop: 08/31/17 08:22 Last Admin: 07/05/17 09:23 Dose: 1 tab Al Hydrox/Mg Hydrox/Simethicone (Maalox) 30 ml PO Q4HR PRN PRN Reason: GI DISTRESS Stop: 08/31/17 08:22 Albuterol Sulfate (Albuterol 2.5mg/3ml Neb Ud) 2.5 mg HHN Q4HRT PRN PRN Reason: Respiratory Distress Stop: 08/31/17 17:31 Last Admin: 07/03/17 23:11 Dose: 2.5 mg Albuterol/Ipratropium (Duoneb Neb) 3 ml HHN Q12HRT [facility] Stop: 08/31/17 18:59 Last Admin: 07/05/17 07:34 Dose: Not Given Amiodarone HCl (Cordarone) 400 mg PO DAILY [facility] Stop: 08/31/17 08:59 Last Admin: 07/05/17 09:23 Dose: 400 mg Aripiprazole (Abilify) 2 mg PO DAILY [facility] PRN Reason: Protocol Stop: 08/31/17 08:59 Last Admin: 07/05/17 09:26 Dose: 2 mg Artificial Tears (Artificial Tears Ophth Soln) 2 drop EACH EYE BID [facility] Stop: 08/31/17 08:59 Last Admin: 07/05/17 09:26 Dose: 2 drop Aspirin (Aspirin Chewable) 81 mg PO DAILY [facility] Stop: 08/31/17 08:59 Last Admin: 07/05/17 09:25 Dose: Not Given Atorvastatin Calcium (Lipitor) 20 mg PO HS [facility] PRN Reason: Protocol Stop: 08/31/17 20:59 Last Admin: 07/04/17 20:14 Dose: 20 mg Diltiazem HCl (Cardizem Cd) 120 mg PO BID [facility] Stop: 08/31/17 08:59 Last Admin: 07/05/17 09:24 Dose: 120 mg Docusate Sodium (Colace) 200 mg PO DAILY [facility] Stop: 08/31/17 08:59 Last Admin: 07/05/17 09:24 Dose: 200 mg Ferrous Sulfate (Iron) 325 mg PO DAILY [facility] Stop: 08/31/17 08:59 Last Admin: 07/05/17 09:24 Dose: 325 mg Folic Acid (Folate) 1 mg PO DAILY [facility] Stop: 08/31/17 08:59 Last Admin: 07/05/17 09:24 Dose: 1 mg Ceftriaxone Sodium 1 gm/ (Sodium Chloride) 50 mls @ 100 mls/hr IV Q24H [facility] Stop: 08/31/17 06:29 Last Admin: 07/05/17 06:20 Dose: 100 mls/hr Sodium Chloride (Nacl 0.45%) 1,000 mls @ 75 mls/hr IV .[id number] [facility] Stop: 08/31/17 06:12 Last Admin: 07/04/17 05:53 Dose: 75 mls/hr Lactobacillus Rhamnosus (Culturelle 15b) 1 each PO DAILY [facility] Stop: 09/01/17 08:59 Last Admin: 07/05/17 09:24 Dose: 1 each Levothyroxine Sodium 0.1 mg/ (Levothyroxine Sodium 0.075 mg) 0.175 mg PO QDAC [facility] Stop: 08/31/17 10:29 Last Admin: 07/05/17 09:23 Dose: 0.175 mg Lorazepam (Ativan) 0.5 mg PO Q4HR PRN; Protocol PRN Reason: Anxiety Stop: 08/31/17 08:22 Last Admin: 07/04/17 20:14 Dose: 0.5 mg Magnesium Hydroxide (Milk Of Magnesia) 30 ml PO HS PRN PRN Reason: Constipation Stop: 08/31/17 08:22 Last Admin: 07/04/17 22:32 Dose: 30 ml Miscellaneous (Probiotic Screen) 1 ea MC PRN PRN PRN Reason: PROTOCOL Stop: 09/01/17 08:59 Nifedipine (Procardia Xl) 30 mg PO DAILY [facility] Stop: 08/31/17 08:59 Last Admin: 07/05/17 09:24 Dose: 30 mg Nitroglycerin (Nitrostat) 0.4 mg SL Q5MIN PRN PRN Reason: Chest Pain Stop: 08/31/17 08:22 Last Admin: 07/02/17 20:36 Dose: 0.4 mg Pantoprazole Sodium (Protonix) 40 mg IVP DAILY [facility] Stop: 09/03/17 10:44 Last Admin: 07/05/17 10:59 Dose: 40 mg Rivaroxaban (Xarelto) 15 mg PO DAILY [facility] Stop: 08/31/17 16:59 Last Admin: 07/05/17 09:25 Dose: Not Given Sertraline HCl (Zoloft) 50 mg PO HS [facility] PRN Reason: Protocol Stop: 08/31/17 20:59 Last Admin: 07/04/17 20:14 Dose: 50 mg Zolpidem Tartrate (Ambien) 5 mg PO HS PRN PRN Reason: Insomnia Stop: 08/31/17 08:22 Last Admin: 07/05/17 00:14 Dose: 5 mg Lab - Result Diagrams 07/05/17 05:40 07/05/17 05:40 no further bleeding tongue KIdney fnc stable w/ BUN/Cr. 26/2.1 Hgb/Hct stable ASA/Xarelto on hold
--- NOTE | 2017-07-05 19:46 | Consultation ---
DATE OF CONSULTATION: 07/05/2017 GASTROENTEROLOGY CONSULTATION REQUESTING PHYSICIAN: Dr. Altagracia Hughes. REASON FOR CONSULTATION: Anemia and possible hematemesis. HISTORY OF PRESENT ILLNESS: A 76-year-old female with obesity, chronic kidney disease, and anemia, admitted for possible hematemesis versus hemoptysis versus tongue bleeding. Aspirin was held. There has been no further bleeding. She did have anemia without needing blood transfusions. There is no reported melena. She has some chronic pain for which she takes [place]. She at this point is a poor historian. She reports having not had a previous endoscopy or colonoscopy. PAST MEDICAL HISTORY: As above. MEDICATIONS: Here are Tylenol; [place]; Maalox p.r.n.; DuoNeb nebulizer; amiodarone; Abilify; baby aspirin, which is held; Lipitor; Rocephin; Cardizem; Colace; iron; folic acid; Culturelle; levothyroxine; Ativan; milk of magnesia; probiotics; Nitrostat; Xarelto held; Zoloft; Ambien. ALLERGIES: LEVAQUIN, NIACIN, PREGABALIN, AND TETRACYCLINE. SOCIAL HISTORY: Unknown tobacco, alcohol, or drug status. FAMILY HISTORY: Noncontributory. REVIEW OF SYSTEMS: A comprehensive 12-point review of systems conducted and is only positive for those signs and symptoms present in the history of present illness. PHYSICAL EXAMINATION: VITAL SIGNS: Temperature 98.0, blood pressure is 139/92, pulse of 84, respirations 19, O2 sat 97% on 2 liters O2 nasal cannula. GENERAL: The patient is well-developed, well-nourished, obese female who is somewhat lethargic after being given [place]. HEENT: Sclerae nonicteric. Oropharynx is clear. CARDIOVASCULAR: Regular rate and rhythm. LUNGS: Clear to auscultation bilaterally. ABDOMEN: Soft, obese, nontender, nondistended. EXTREMITIES: No clubbing, cyanosis or edema. RECTAL: Deferred. LABORATORY DATA AND IMAGING: WBC 4.5, hemoglobin 10.7, platelet count 162. INR 1.0. Creatinine was 2.1. Liver enzymes normal. Albumin 3.4. IMPRESSION: 1. Upper gastrointestinal bleed versus hemoptysis versus tongue bleeding, likely exacerbated by blood thinners including aspirin and Xarelto. No active bleeding at this point. 2. Anemia, mild, which could be from slow blood loss versus vitamin deficiency versus anemia of chronic disease or chronic kidney disease. 3. Obesity. 4. Hypothyroidism. 5. Psych disorder. 6. Chronic kidney disease. 7. Previous cholecystectomy. RECOMMENDATIONS: 1. Upper endoscopy in the morning. 2. Monitor hemoglobin. 3. Protonix. 4. Check stool OB. If positive, then may need colonoscopy later on as well. 5. Hold aspirin and Xarelto for now. Thank you Dr. Hughes for involving us in the care of your patient. If you have any further questions, please call us. JOB# [id number]
[2017-07-05] MEDS: Atorvastatin Calcium 10 MG TAB PO SCH (21:03)
[2017-07-06] MEDS: Hydrocodone/APAP 10 mg/325 mg Tab PO PRN ×3 (03:34→22:08)
[2017-07-06 05:24] LABS: % BASOPHILS 0.6 % (0.0-2.0); % EOSINOPHILS 3.8 % (0.0-5.0); % LYMPHOCYTES 23.9 % (20.0-50.0); % MONOCYTES 10.4 % (2.0-10.0); % NEUTROPHILS 61.3 % (40.0-80.0); EOSINOPHILE ABSOLUTE 0.2 Th/cmm (0.1-0.4); HEMATOCRIT 30.3 % (41.0-60); HEMOGLOBIN 10.1 gm/dL (12-16); LYMPHOCYTE ABSOLUTE 1.2 Th/cmm (1.5-3.0); MEAN CELL VOLUME 100.5 fl (81-100); MEAN CORPUSCULAR HEMOGLOBIN 33.6 pg (27.0-31.0); MEAN CORPUSCULAR HGB CONC 33.4 pg (28.0-36.0); MEAN PLATELET VOLUME 7.3 fl; MONOCYTE ABSOLUTE 0.5 Th/cmm (0.3-1.0); PLATELET COUNT 171 Th/cmm (150-400); RED BLOOD COUNT 3.01 Mil/cmm (3.80-5.20); RED CELL DISTRIBUTION WIDTH 13.9 % (11.5-20.0); WHITE BLOOD COUNT 4.9 Th/cmm (4.8-10.8)
[2017-07-06 05:44] LABS: INR 0.95 (0.5-1.4); PROTHROMBIN TIME (TEST) 9.9 SECONDS (9.5-11.5)
[2017-07-06 05:59] LABS: ANION GAP 9.2 (7.0-16.0); BUN - UREA NITROGEN 24 mg/dL (7-25); CALCIUM SERUM 8.8 mg/dL (8.6-10.3); CARBON DIOXIDE 34.2 mEq/L (21.0-31.0); CHLORIDE 97 mEq/L (98-107); GLUCOSE 111 mg/dL (70-105); POTASSIUM SERUM 4.4 mEq/L (3.5-5.1); SODIUM SERUM 136 mEq/L (136-145)
[2017-07-06] MEDS: cefTRIAXone 1 GM in Sodium Chloride 0.9% 50 ML IV SCH (06:34)
[2017-07-06] MEDS: Albuterol/Ipratropium Neb 3 ML AERS HHN SCH ×2 (07:10→19:15)
[2017-07-06] MEDS: Multivitamin w/ Minerals Tab PO SCH (08:45)
[2017-07-06] MEDS: NIFEdipine 30 mg ER Tab PO SCH (08:45)
[2017-07-06] MEDS: Diltiazem CD 120 mg 24H PO SCH ×2 (08:46→16:41)
[2017-07-06] MEDS: Lactobacillus Rhamnosus GG 15 Billion CFU CAP.SPRINK PO SCH (08:47)
[2017-07-06] MEDS: Ferrous Sulfate 325 MG TAB PO SCH (08:47)
[2017-07-06] MEDS: Aspirin 81mg Chewable Tab PO SCH (08:49)
[2017-07-06] MEDS: Polyvinyl Alcohol Ophth Soln 15 mL Bottle EACH EYE SCH ×2 (08:56→16:40)
[2017-07-06] MEDS: Sodium Chloride 0.45% 1,000 ML IV SCH (11:29)
--- NOTE | 2017-07-06 13:30 | Infectious Disease Prog Note ---
Infectious Disease Subjective - Review of Systems Service Date: 07/06/17 Subjective: There is no new change, no fever. Infectious Disease Objective - Results Result Diagrams: 07/06/17 05:00 07/06/17 05:00 Recent Labs: Laboratory Last Values WBC 4.9 Th/cmm (4.8-10.8) 07/06/17 05:00 RBC 3.01 Mil/cmm (3.80-5.20) L 07/06/17 05:00 Hgb 10.1 gm/dL (12-16) L 07/06/17 05:00 Hct 30.3 % (41.0-60) L 07/06/17 05:00 MCV 100.5 fl (81-100) H 07/06/17 05:00 MCH 33.6 pg (27.0-31.0) H 07/06/17 05:00 MCHC Differential 33.4 pg (28.0-36.0) 07/06/17 05:00 RDW 13.9 % (11.5-20.0) 07/06/17 05:00 Plt Count 171 Th/cmm (150-400) 07/06/17 05:00 MPV 7.3 fl 07/06/17 05:00 Neutrophils % 61.3 % (40.0-80.0) 07/06/17 05:00 Lymphocytes % 23.9 % (20.0-50.0) 07/06/17 05:00 Monocytes % 10.4 % (2.0-10.0) H 07/06/17 05:00 Eosinophils % 3.8 % (0.0-5.0) 07/06/17 05:00 Basophils % 0.6 % (0.0-2.0) 07/06/17 05:00 PT 9.9 SECONDS (9.5-11.5) 07/06/17 05:00 INR 0.95 (0.5-1.4) 07/06/17 05:00 PTT (Actin FS) 22.3 SECONDS (26.0-38.0) L 07/06/17 05:00 Sodium 136 mEq/L (136-145) 07/06/17 05:00 Potassium 4.4 mEq/L (3.5-5.1) 07/06/17 05:00 Chloride 97 mEq/L (98-107) L 07/06/17 05:00 Carbon Dioxide 34.2 mEq/L (21.0-31.0) H 07/06/17 05:00 Anion Gap 9.2 (7.0-16.0) 07/06/17 05:00 BUN 24 mg/dL (7-25) 07/06/17 05:00 Creatinine 2.0 mg/dL (0.6-1.2) H 07/06/17 05:00 Est GFR ( Amer) TNP 07/06/17 05:00 Est GFR (Non-Af Amer) TNP 07/06/17 05:00 BUN/Creatinine Ratio 12.0 07/06/17 05:00 Glucose 111 mg/dL (70-105) H 07/06/17 05:00 Uric Acid 4.1 mg/dL (2.3-6.6) 07/03/17 05:20 Calcium 8.8 mg/dL (8.6-10.3) 07/06/17 05:00 Phosphorus 4.7 mg/dL (2.5-5.0) 07/03/17 05:20 Magnesium 2.8 mg/dL (1.9-2.7) H 07/03/17 05:20 Total Bilirubin 0.3 mg/dL (0.3-1.0) 07/03/17 05:20 AST 19 U/L (13-39) 07/03/17 05:20 ALT 23 U/L (7-52) 07/03/17 05:20 Alkaline Phosphatase 101 U/L (34-104) 07/03/17 05:20 Total Protein 6.1 gm/dL (6.0-8.3) 07/03/17 05:20 Albumin 3.4 gm/dL (3.7-5.3) L 07/03/17 05:20 Globulin 2.7 gm/dL 07/03/17 05:20 Albumin/Globulin Ratio 1.3 (1.0-1.8) 07/03/17 05:20 - Physical Exam Vitals and I&O: Vital Signs Temp 97.8 F 07/06/17 12:00 Pulse 81 07/06/17 12:00 Resp 20 07/06/17 12:00 BP 127/72 07/06/17 12:00 Pulse Ox 96 05/29/18 12:00 Intake & Output 07/05/17 07/06/17 07/06/17 18:59 06:59 18:59 Intake Total 840 Balance 840 Weight (lbs) 117.027 kg Intake: Oral 840 Other: # Voids 3 # Bowel Movements 0 Stool Characteristics Soft Soft Weight Source Bedscale Active Medications: Current Medications Acetaminophen (Tylenol) 650 mg PO Q4HR PRN PRN Reason: Mild Pain / Temp above 100 Stop: 08/31/17 08:22 Last Admin: 07/04/17 20:14 Dose: 650 mg Acetaminophen/Hydrocodone Bitart ([place] 10 Mg/325 Mg) 1 tab PO Q4H PRN PRN Reason: Pain (Severe) Stop: 08/31/17 08:22 Last Admin: 07/06/17 10:46 Dose: 1 tab Al Hydrox/Mg Hydrox/Simethicone (Maalox) 30 ml PO Q4HR PRN PRN Reason: GI DISTRESS Stop: 08/31/17 08:22 Albuterol Sulfate (Albuterol 2.5mg/3ml Neb Ud) 2.5 mg HHN Q4HRT PRN PRN Reason: Respiratory Distress Stop: 08/31/17 17:31 Last Admin: 07/03/17 23:11 Dose: 2.5 mg Albuterol/Ipratropium (Duoneb Neb) 3 ml HHN Q12HRT [facility] Stop: 08/31/17 18:59 Last Admin: 07/06/17 07:10 Dose: 3 ml Amiodarone HCl (Cordarone) 400 mg PO DAILY [facility] Stop: 08/31/17 08:59 Last Admin: 07/06/17 08:44 Dose: 400 mg Aripiprazole (Abilify) 2 mg PO DAILY [facility] PRN Reason: Protocol Stop: 08/31/17 08:59 Last Admin: 07/06/17 08:48 Dose: 2 mg Artificial Tears (Artificial Tears Ophth Soln) 2 drop EACH EYE BID [facility] Stop: 08/31/17 08:59 Last Admin: 07/06/17 08:56 Dose: 2 drop Aspirin (Aspirin Chewable) 81 mg PO DAILY [facility] Stop: 08/31/17 08:59 Last Admin: 07/06/17 08:49 Dose: Not Given Atorvastatin Calcium (Lipitor) 20 mg PO HS [facility] PRN Reason: Protocol Stop: 08/31/17 20:59 Last Admin: 07/05/17 21:03 Dose: Not Given Diltiazem HCl (Cardizem Cd) 120 mg PO BID [facility] Stop: 08/31/17 08:59 Last Admin: 07/06/17 08:46 Dose: 120 mg Docusate Sodium (Colace) 200 mg PO DAILY [facility] Stop: 08/31/17 08:59 Last Admin: 07/06/17 08:45 Dose: 200 mg Ferrous Sulfate (Iron) 325 mg PO DAILY [facility] Stop: 08/31/17 08:59 Last Admin: 07/06/17 08:47 Dose: 325 mg Folic Acid (Folate) 1 mg PO DAILY [facility] Stop: 08/31/17 08:59 Last Admin: 07/06/17 08:46 Dose: 1 mg Sodium Chloride (Nacl 0.45%) 1,000 mls @ 75 mls/hr IV .[id number] [facility] Stop: 08/31/17 06:12 Last Admin: 07/06/17 11:29 Dose: 75 mls/hr Ceftriaxone Sodium 1 gm/ (Dextrose) 50 mls @ 100 mls/hr IV Q24H [facility] Stop: 08/31/17 06:29 Lactobacillus Rhamnosus (Culturelle 15b) 1 each PO DAILY [facility] Stop: 09/01/17 08:59 Last Admin: 07/06/17 08:47 Dose: 1 each Levothyroxine Sodium 0.1 mg/ (Levothyroxine Sodium 0.075 mg) 0.175 mg PO QDAC [facility] Stop: 08/31/17 10:29 Last Admin: 07/06/17 08:46 Dose: 0.175 mg Lorazepam (Ativan) 0.5 mg PO Q4HR PRN; Protocol PRN Reason: Anxiety Stop: 08/31/17 08:22 Last Admin: 07/05/17 17:26 Dose: 0.5 mg Magnesium Hydroxide (Milk Of Magnesia) 30 ml PO HS PRN PRN Reason: Constipation Stop: 08/31/17 08:22 Last Admin: 07/04/17 22:32 Dose: 30 ml Miscellaneous (Probiotic Screen) 1 ea MC PRN PRN PRN Reason: PROTOCOL Stop: 09/01/17 08:59 Nifedipine (Procardia Xl) 30 mg PO DAILY [facility] Stop: 08/31/17 08:59 Last Admin: 07/06/17 08:45 Dose: 30 mg Nitroglycerin (Nitrostat) 0.4 mg SL Q5MIN PRN PRN Reason: Chest Pain Stop: 08/31/17 08:22 Last Admin: 07/02/17 20:36 Dose: 0.4 mg Pantoprazole Sodium (Protonix) 40 mg IVP DAILY [facility] Stop: 09/03/17 10:44 Last Admin: 07/06/17 08:55 Dose: 40 mg Rivaroxaban (Xarelto) 15 mg PO DAILY [facility] Stop: 08/31/17 16:59 Last Admin: 07/06/17 08:49 Dose: Not Given Sertraline HCl (Zoloft) 50 mg PO HS [facility] PRN Reason: Protocol Stop: 08/31/17 20:59 Last Admin: 07/05/17 21:03 Dose: 50 mg Zolpidem Tartrate (Ambien) 5 mg PO HS PRN PRN Reason: Insomnia Stop: 08/31/17 08:22 Last Admin: 07/05/17 21:02 Dose: 5 mg General: no acute distress, well developed, well nourished HEENT: atraumatic, normocephalic, PERRLA, EOMI Neck: supple, no thyromegaly, no lymphadenopathy Cardiovascular: S1S2, regular Lungs: clear to auscultation bilaterally, clear to percussion Abdomen: soft, no tender, no distended Extremities: no cyanosis, no clubbing, no edema Neurological: awake, alert, oriented Skin: intact - Procedures Procedures: Procedures Procedure Code Date REPAIR R LOW LEG SUBCU/FASCIA, OPEN APPROACH [id number] 10/06/16 SKIN TISSUE PROCEDURE 10594 10/06/16 Infectious Disease Assmt/Plan - Assessment Assessment: 1. Leukopenia. 2. Left lower lobe pneumonia with parapneumonic effusion. 3. Tongue ulcer. 4. Bipolar disorder. 5. Dementia. 6. Chronic kidney disease. 7. Chronic atrial fibrillation. 8. Morbid obesity. 9. Anemia of chronic disease. 10. Major depression. 11. Essential hypertension. 12. Chronic obstructive pulmonary disease. 13. May have sleep apnea. 14. Acute kidney injury on chronic kidney disease. Creatinine improving. - Plan Plan: Continue rocephin
--- NOTE | 2017-07-06 14:08 | GI Progress Note ---
Subjective - Review of Systems Service Date: 07/06/17 Subjective: No hematemesis, refused EGD this morning Objective - Results Result Diagrams: 07/06/17 05:00 07/06/17 05:00 Recent Labs: Laboratory Last Values WBC 4.9 Th/cmm (4.8-10.8) 07/06/17 05:00 RBC 3.01 Mil/cmm (3.80-5.20) L 07/06/17 05:00 Hgb 10.1 gm/dL (12-16) L 07/06/17 05:00 Hct 30.3 % (41.0-60) L 07/06/17 05:00 MCV 100.5 fl (81-100) H 07/06/17 05:00 MCH 33.6 pg (27.0-31.0) H 07/06/17 05:00 MCHC Differential 33.4 pg (28.0-36.0) 07/06/17 05:00 RDW 13.9 % (11.5-20.0) 07/06/17 05:00 Plt Count 171 Th/cmm (150-400) 07/06/17 05:00 MPV 7.3 fl 07/06/17 05:00 Neutrophils % 61.3 % (40.0-80.0) 07/06/17 05:00 Lymphocytes % 23.9 % (20.0-50.0) 07/06/17 05:00 Monocytes % 10.4 % (2.0-10.0) H 07/06/17 05:00 Eosinophils % 3.8 % (0.0-5.0) 07/06/17 05:00 Basophils % 0.6 % (0.0-2.0) 07/06/17 05:00 PT 9.9 SECONDS (9.5-11.5) 07/06/17 05:00 INR 0.95 (0.5-1.4) 07/06/17 05:00 PTT (Actin FS) 22.3 SECONDS (26.0-38.0) L 07/06/17 05:00 Sodium 136 mEq/L (136-145) 07/06/17 05:00 Potassium 4.4 mEq/L (3.5-5.1) 07/06/17 05:00 Chloride 97 mEq/L (98-107) L 07/06/17 05:00 Carbon Dioxide 34.2 mEq/L (21.0-31.0) H 07/06/17 05:00 Anion Gap 9.2 (7.0-16.0) 07/06/17 05:00 BUN 24 mg/dL (7-25) 07/06/17 05:00 Creatinine 2.0 mg/dL (0.6-1.2) H 07/06/17 05:00 Est GFR ( Amer) TNP 07/06/17 05:00 Est GFR (Non-Af Amer) TNP 07/06/17 05:00 BUN/Creatinine Ratio 12.0 07/06/17 05:00 Glucose 111 mg/dL (70-105) H 07/06/17 05:00 Uric Acid 4.1 mg/dL (2.3-6.6) 07/03/17 05:20 Calcium 8.8 mg/dL (8.6-10.3) 07/06/17 05:00 Phosphorus 4.7 mg/dL (2.5-5.0) 07/03/17 05:20 Magnesium 2.8 mg/dL (1.9-2.7) H 07/03/17 05:20 Total Bilirubin 0.3 mg/dL (0.3-1.0) 07/03/17 05:20 AST 19 U/L (13-39) 07/03/17 05:20 ALT 23 U/L (7-52) 07/03/17 05:20 Alkaline Phosphatase 101 U/L (34-104) 07/03/17 05:20 Total Protein 6.1 gm/dL (6.0-8.3) 07/03/17 05:20 Albumin 3.4 gm/dL (3.7-5.3) L 07/03/17 05:20 Globulin 2.7 gm/dL 07/03/17 05:20 Albumin/Globulin Ratio 1.3 (1.0-1.8) 07/03/17 05:20 - Physical Exam Vitals and I&O: Vital Signs Temp 97.8 F 07/06/17 12:00 Pulse 81 07/06/17 12:00 Resp 20 07/06/17 12:00 BP 127/72 07/06/17 12:00 Pulse Ox 96 07/06/17 12:00 Intake & Output 07/05/17 07/06/17 07/06/17 18:59 06:59 18:59 Intake Total 840 Balance 840 Weight (lbs) 117.027 kg Intake: Oral 840 Other: # Voids 3 # Bowel Movements 0 Stool Characteristics Soft Soft Weight Source Bedscale Active Medications: Current Medications Acetaminophen (Tylenol) 650 mg PO Q4HR PRN PRN Reason: Mild Pain / Temp above 100 Stop: 08/31/17 08:22 Last Admin: 07/04/17 20:14 Dose: 650 mg Acetaminophen/Hydrocodone Bitart ([place] 10 Mg/325 Mg) 1 tab PO Q4H PRN PRN Reason: Pain (Severe) Stop: 08/31/17 08:22 Last Admin: 07/06/17 10:46 Dose: 1 tab Al Hydrox/Mg Hydrox/Simethicone (Maalox) 30 ml PO Q4HR PRN PRN Reason: GI DISTRESS Stop: 08/31/17 08:22 Albuterol Sulfate (Albuterol 2.5mg/3ml Neb Ud) 2.5 mg HHN Q4HRT PRN PRN Reason: Respiratory Distress Stop: 08/31/17 17:31 Last Admin: 07/03/17 23:11 Dose: 2.5 mg Albuterol/Ipratropium (Duoneb Neb) 3 ml HHN Q12HRT [facility] Stop: 08/31/17 18:59 Last Admin: 07/06/17 07:10 Dose: 3 ml Amiodarone HCl (Cordarone) 400 mg PO DAILY [facility] Stop: 08/31/17 08:59 Last Admin: 07/06/17 08:44 Dose: 400 mg Aripiprazole (Abilify) 2 mg PO DAILY [facility] PRN Reason: Protocol Stop: 08/31/17 08:59 Last Admin: 07/06/17 08:48 Dose: 2 mg Artificial Tears (Artificial Tears Ophth Soln) 2 drop EACH EYE BID [facility] Stop: 08/31/17 08:59 Last Admin: 07/06/17 08:56 Dose: 2 drop Aspirin (Aspirin Chewable) 81 mg PO DAILY [facility] Stop: 08/31/17 08:59 Last Admin: 07/06/17 08:49 Dose: Not Given Atorvastatin Calcium (Lipitor) 20 mg PO HS [facility] PRN Reason: Protocol Stop: 08/31/17 20:59 Last Admin: 07/05/17 21:03 Dose: Not Given Diltiazem HCl (Cardizem Cd) 120 mg PO BID [facility] Stop: 08/31/17 08:59 Last Admin: 07/06/17 08:46 Dose: 120 mg Docusate Sodium (Colace) 200 mg PO DAILY [facility] Stop: 08/31/17 08:59 Last Admin: 07/06/17 08:45 Dose: 200 mg Ferrous Sulfate (Iron) 325 mg PO DAILY [facility] Stop: 08/31/17 08:59 Last Admin: 07/06/17 08:47 Dose: 325 mg Folic Acid (Folate) 1 mg PO DAILY [facility] Stop: 08/31/17 08:59 Last Admin: 07/06/17 08:46 Dose: 1 mg Sodium Chloride (Nacl 0.45%) 1,000 mls @ 75 mls/hr IV .[id number] [facility] Stop: 08/31/17 06:12 Last Admin: 07/06/17 11:29 Dose: 75 mls/hr Ceftriaxone Sodium 1 gm/ (Dextrose) 50 mls @ 100 mls/hr IV Q24H [facility] Stop: 08/31/17 06:29 Lactobacillus Rhamnosus (Culturelle 15b) 1 each PO DAILY [facility] Stop: 09/01/17 08:59 Last Admin: 07/06/17 08:47 Dose: 1 each Levothyroxine Sodium 0.1 mg/ (Levothyroxine Sodium 0.075 mg) 0.175 mg PO QDAC [facility] Stop: 08/31/17 10:29 Last Admin: 07/06/17 08:46 Dose: 0.175 mg Lorazepam (Ativan) 0.5 mg PO Q4HR PRN; Protocol PRN Reason: Anxiety Stop: 08/31/17 08:22 Last Admin: 07/05/17 17:26 Dose: 0.5 mg Magnesium Hydroxide (Milk Of Magnesia) 30 ml PO HS PRN PRN Reason: Constipation Stop: 08/31/17 08:22 Last Admin: 07/04/17 22:32 Dose: 30 ml Miscellaneous (Probiotic Screen) 1 ea [facility] PRN PRN PRN Reason: PROTOCOL Stop: 09/01/17 08:59 Nifedipine (Procardia Xl) 30 mg PO DAILY [facility] Stop: 08/31/17 08:59 Last Admin: 07/06/17 08:45 Dose: 30 mg Nitroglycerin (Nitrostat) 0.4 mg SL Q5MIN PRN PRN Reason: Chest Pain Stop: 08/31/17 08:22 Last Admin: 07/02/17 20:36 Dose: 0.4 mg Pantoprazole Sodium (Protonix) 40 mg IVP DAILY [facility] Stop: 09/03/17 10:44 Last Admin: 07/06/17 08:55 Dose: 40 mg Rivaroxaban (Xarelto) 15 mg PO DAILY [facility] Stop: 08/31/17 16:59 Last Admin: 07/06/17 08:49 Dose: Not Given Sertraline HCl (Zoloft) 50 mg PO HS [facility] PRN Reason: Protocol Stop: 08/31/17 20:59 Last Admin: 07/05/17 21:03 Dose: 50 mg Zolpidem Tartrate (Ambien) 5 mg PO HS PRN PRN Reason: Insomnia Stop: 08/31/17 08:22 Last Admin: 07/05/17 21:02 Dose: 5 mg General: Alert, Oriented x3, Cooperative HEENT: Atraumatic Neck: Supple Cardiovascular: Regular rate Abdomen: Bowel sounds, Soft, no Tender, no Hepatomegaly, no Splenomegaly, no Distended, no Mass, no Guarding Extremities: no Edema Neurological: Sensation intact Skin: no Rash Psych/Mental Status: Mood NL - Procedures Procedures: Procedures Procedure Code Date REPAIR R LOW LEG SUBCU/FASCIA, OPEN APPROACH [id number] 10/06/16 SKIN TISSUE PROCEDURE 82076 10/06/16 Assessment/Plan - Assessment Assessment: # Possible hematemesis vs oral tongue bleeding # Obesity # Afib on AC Pt refused EGD this morning, but now wants this done. Suspect there may be some secondary gain as the pt is trying to avoid leaving the hospital. Nevertheless, she did have vomiting or spitting up blood, thus we will try and perform EGD tomorrow AM Plan: - try for EGD tomorrow AM. If she refuses, will not again attempt - protonix - NPO at midnight - hold AC - trend H/H, keep hgb above 7
--- NOTE | 2017-07-06 14:41 | General Progress Note ---
Subjective - Review of Systems Service Date: 07/06/17 Subjective: alert, uncooperative Objective - Results Result Diagrams: 07/06/17 05:00 07/06/17 05:00 Recent Labs: Laboratory Last Values WBC 4.9 Th/cmm (4.8-10.8) 07/06/17 05:00 RBC 3.01 Mil/cmm (3.80-5.20) L 07/06/17 05:00 Hgb 10.1 gm/dL (12-16) L 07/06/17 05:00 Hct 30.3 % (41.0-60) L 07/06/17 05:00 MCV 100.5 fl (81-100) H 07/06/17 05:00 MCH 33.6 pg (27.0-31.0) H 07/06/17 05:00 MCHC Differential 33.4 pg (28.0-36.0) 07/06/17 05:00 RDW 13.9 % (11.5-20.0) 07/06/17 05:00 Plt Count 171 Th/cmm (150-400) 07/06/17 05:00 MPV 7.3 fl 07/06/17 05:00 Neutrophils % 61.3 % (40.0-80.0) 07/06/17 05:00 Lymphocytes % 23.9 % (20.0-50.0) 07/06/17 05:00 Monocytes % 10.4 % (2.0-10.0) H 07/06/17 05:00 Eosinophils % 3.8 % (0.0-5.0) 07/06/17 05:00 Basophils % 0.6 % (0.0-2.0) 07/06/17 05:00 PT 9.9 SECONDS (9.5-11.5) 07/06/17 05:00 INR 0.95 (0.5-1.4) 07/06/17 05:00 PTT (Actin FS) 22.3 SECONDS (26.0-38.0) L 07/06/17 05:00 Sodium 136 mEq/L (136-145) 07/06/17 05:00 Potassium 4.4 mEq/L (3.5-5.1) 07/06/17 05:00 Chloride 97 mEq/L (98-107) L 07/06/17 05:00 Carbon Dioxide 34.2 mEq/L (21.0-31.0) H 07/06/17 05:00 Anion Gap 9.2 (7.0-16.0) 07/06/17 05:00 BUN 24 mg/dL (7-25) 07/06/17 05:00 Creatinine 2.0 mg/dL (0.6-1.2) H 07/06/17 05:00 Est GFR ( Amer) TNP 07/06/17 05:00 Est GFR (Non-Af Amer) TNP 07/06/17 05:00 BUN/Creatinine Ratio 12.0 07/06/17 05:00 Glucose 111 mg/dL (70-105) H 07/06/17 05:00 Uric Acid 4.1 mg/dL (2.3-6.6) 07/03/17 05:20 Calcium 8.8 mg/dL (8.6-10.3) 07/06/17 05:00 Phosphorus 4.7 mg/dL (2.5-5.0) 07/03/17 05:20 Magnesium 2.8 mg/dL (1.9-2.7) H 07/03/17 05:20 Total Bilirubin 0.3 mg/dL (0.3-1.0) 07/03/17 05:20 AST 19 U/L (13-39) 07/03/17 05:20 ALT 23 U/L (7-52) 07/03/17 05:20 Alkaline Phosphatase 101 U/L (34-104) 07/03/17 05:20 Total Protein 6.1 gm/dL (6.0-8.3) 07/03/17 05:20 Albumin 3.4 gm/dL (3.7-5.3) L 07/03/17 05:20 Globulin 2.7 gm/dL 07/03/17 05:20 Albumin/Globulin Ratio 1.3 (1.0-1.8) 07/03/17 05:20 - Physical Exam Vitals and I&O: Vital Signs Temp 97.8 F 07/06/17 12:00 Pulse 81 07/06/17 12:00 Resp 20 07/06/17 12:00 BP 127/72 07/06/17 12:00 Pulse Ox 96 07/06/17 12:00 Intake & Output 07/05/17 07/06/17 07/06/17 18:59 06:59 18:59 Intake Total 840 Balance 840 Weight (lbs) 117.027 kg Intake: Oral 840 Other: # Voids 3 # Bowel Movements 0 Stool Characteristics Soft Soft Weight Source Bedscale Active Medications: Current Medications Acetaminophen (Tylenol) 650 mg PO Q4HR PRN PRN Reason: Mild Pain / Temp above 100 Stop: 08/31/17 08:22 Last Admin: 07/04/17 20:14 Dose: 650 mg Acetaminophen/Hydrocodone Bitart ([place] 10 Mg/325 Mg) 1 tab PO Q4H PRN PRN Reason: Pain (Severe) Stop: 08/31/17 08:22 Last Admin: 07/06/17 10:46 Dose: 1 tab Al Hydrox/Mg Hydrox/Simethicone (Maalox) 30 ml PO Q4HR PRN PRN Reason: GI DISTRESS Stop: 08/31/17 08:22 Albuterol Sulfate (Albuterol 2.5mg/3ml Neb Ud) 2.5 mg HHN Q4HRT PRN PRN Reason: Respiratory Distress Stop: 08/31/17 17:31 Last Admin: 07/03/17 23:11 Dose: 2.5 mg Albuterol/Ipratropium (Duoneb Neb) 3 ml HHN Q12HRT [facility] Stop: 08/31/17 18:59 Last Admin: 07/06/17 07:10 Dose: 3 ml Amiodarone HCl (Cordarone) 400 mg PO DAILY [facility] Stop: 08/31/17 08:59 Last Admin: 07/06/17 08:44 Dose: 400 mg Aripiprazole (Abilify) 2 mg PO DAILY [facility] PRN Reason: Protocol Stop: 08/31/17 08:59 Last Admin: 07/06/17 08:48 Dose: 2 mg Artificial Tears (Artificial Tears Ophth Soln) 2 drop EACH EYE BID [facility] Stop: 08/31/17 08:59 Last Admin: 07/06/17 08:56 Dose: 2 drop Aspirin (Aspirin Chewable) 81 mg PO DAILY [facility] Stop: 08/31/17 08:59 Last Admin: 07/06/17 08:49 Dose: Not Given Atorvastatin Calcium (Lipitor) 20 mg PO HS [facility] PRN Reason: Protocol Stop: 08/31/17 20:59 Last Admin: 07/05/17 21:03 Dose: Not Given Diltiazem HCl (Cardizem Cd) 120 mg PO BID [facility] Stop: 08/31/17 08:59 Last Admin: 07/06/17 08:46 Dose: 120 mg Docusate Sodium (Colace) 200 mg PO DAILY [facility] Stop: 08/31/17 08:59 Last Admin: 07/06/17 08:45 Dose: 200 mg Ferrous Sulfate (Iron) 325 mg PO DAILY [facility] Stop: 08/31/17 08:59 Last Admin: 07/06/17 08:47 Dose: 325 mg Folic Acid (Folate) 1 mg PO DAILY [facility] Stop: 08/31/17 08:59 Last Admin: 07/06/17 08:46 Dose: 1 mg Sodium Chloride (Nacl 0.45%) 1,000 mls @ 75 mls/hr IV .[id number] [facility] Stop: 08/31/17 06:12 Last Admin: 07/06/17 11:29 Dose: 75 mls/hr Ceftriaxone Sodium 1 gm/ (Dextrose) 50 mls @ 100 mls/hr IV Q24H [facility] Stop: 08/31/17 06:29 Lactobacillus Rhamnosus (Culturelle 15b) 1 each PO DAILY [facility] Stop: 09/01/17 08:59 Last Admin: 07/06/17 08:47 Dose: 1 each Levothyroxine Sodium 0.1 mg/ (Levothyroxine Sodium 0.075 mg) 0.175 mg PO QDAC [facility] Stop: 08/31/17 10:29 Last Admin: 07/06/17 08:46 Dose: 0.175 mg Lorazepam (Ativan) 0.5 mg PO Q4HR PRN; Protocol PRN Reason: Anxiety Stop: 08/31/17 08:22 Last Admin: 07/05/17 17:26 Dose: 0.5 mg Magnesium Hydroxide (Milk Of Magnesia) 30 ml PO HS PRN PRN Reason: Constipation Stop: 08/31/17 08:22 Last Admin: 07/04/17 22:32 Dose: 30 ml Miscellaneous (Probiotic Screen) 1 ea [facility] PRN PRN PRN Reason: PROTOCOL Stop: 09/01/17 08:59 Nifedipine (Procardia Xl) 30 mg PO DAILY [facility] Stop: 08/31/17 08:59 Last Admin: 07/06/17 08:45 Dose: 30 mg Nitroglycerin (Nitrostat) 0.4 mg SL Q5MIN PRN PRN Reason: Chest Pain Stop: 08/31/17 08:22 Last Admin: 07/02/17 20:36 Dose: 0.4 mg Pantoprazole Sodium (Protonix) 40 mg IVP DAILY [facility] Stop: 09/03/17 10:44 Last Admin: 07/06/17 08:55 Dose: 40 mg Sertraline HCl (Zoloft) 50 mg PO HS [facility] PRN Reason: Protocol Stop: 08/31/17 20:59 Last Admin: 07/05/17 21:03 Dose: 50 mg Zolpidem Tartrate (Ambien) 5 mg PO HS PRN PRN Reason: Insomnia Stop: 08/31/17 08:22 Last Admin: 07/05/17 21:02 Dose: 5 mg General: Alert, Oriented x3, Cooperative HEENT: Atraumatic Neck: Supple Cardiovascular: Regular rate Lungs: Clear to auscultation Abdomen: Bowel sounds, Soft, no Tender, no Hepatomegaly, no Splenomegaly, no Distended, no Mass, no Guarding Extremities: no Edema Neurological: Sensation intact Skin: no Rash Psych/Mental Status: Mood NL - Procedures Procedures: Procedures Procedure Code Date REPAIR R LOW LEG SUBCU/FASCIA, OPEN APPROACH [id number] 10/06/16 SKIN TISSUE PROCEDURE 72254 10/06/16 Assessment/Plan - Assessment Assessment: CKD S/P bleeding tongue Hypothyroid Bipolar disorder w/ Psychosis Alzh Dementia Chronic A. Fib Morbid Obesity - Plan Plan: Lab - Result Diagrams 07/05/17 05:40 07/05/17 05:40 Current Medications Acetaminophen (Tylenol) 650 mg PO Q4HR PRN PRN Reason: Mild Pain / Temp above 100 Stop: 08/31/17 08:22 Last Admin: 07/04/17 20:14 Dose: 650 mg Acetaminophen/Hydrocodone Bitart ([place] 10 Mg/325 Mg) 1 tab PO Q4H PRN PRN Reason: Pain (Severe) Stop: 08/31/17 08:22 Last Admin: 07/05/17 09:23 Dose: 1 tab Al Hydrox/Mg Hydrox/Simethicone (Maalox) 30 ml PO Q4HR PRN PRN Reason: GI DISTRESS Stop: 08/31/17 08:22 Albuterol Sulfate (Albuterol 2.5mg/3ml Neb Ud) 2.5 mg HHN Q4HRT PRN PRN Reason: Respiratory Distress Stop: 08/31/17 17:31 Last Admin: 07/03/17 23:11 Dose: 2.5 mg Albuterol/Ipratropium (Duoneb Neb) 3 ml HHN Q12HRT [facility] Stop: 08/31/17 18:59 Last Admin: 07/05/17 07:34 Dose: Not Given Amiodarone HCl (Cordarone) 400 mg PO DAILY [facility] Stop: 08/31/17 08:59 Last Admin: 07/05/17 09:23 Dose: 400 mg Aripiprazole (Abilify) 2 mg PO DAILY [facility] PRN Reason: Protocol Stop: 08/31/17 08:59 Last Admin: 07/05/17 09:26 Dose: 2 mg Artificial Tears (Artificial Tears Ophth Soln) 2 drop EACH EYE BID [facility] Stop: 08/31/17 08:59 Last Admin: 07/05/17 09:26 Dose: 2 drop Aspirin (Aspirin Chewable) 81 mg PO DAILY [facility] Stop: 08/31/17 08:59 Last Admin: 07/05/17 09:25 Dose: Not Given Atorvastatin Calcium (Lipitor) 20 mg PO HS [facility] PRN Reason: Protocol Stop: 08/31/17 20:59 Last Admin: 07/04/17 20:14 Dose: 20 mg Diltiazem HCl (Cardizem Cd) 120 mg PO BID [facility] Stop: 08/31/17 08:59 Last Admin: 07/05/17 09:24 Dose: 120 mg Docusate Sodium (Colace) 200 mg PO DAILY [facility] Stop: 08/31/17 08:59 Last Admin: 07/05/17 09:24 Dose: 200 mg Ferrous Sulfate (Iron) 325 mg PO DAILY [facility] Stop: 08/31/17 08:59 Last Admin: 07/05/17 09:24 Dose: 325 mg Folic Acid (Folate) 1 mg PO DAILY [facility] Stop: 08/31/17 08:59 Last Admin: 07/05/17 09:24 Dose: 1 mg Ceftriaxone Sodium 1 gm/ (Sodium Chloride) 50 mls @ 100 mls/hr IV Q24H [facility] Stop: 08/31/17 06:29 Last Admin: 07/05/17 06:20 Dose: 100 mls/hr Sodium Chloride (Nacl 0.45%) 1,000 mls @ 75 mls/hr IV .[id number] [facility] Stop: 08/31/17 06:12 Last Admin: 07/04/17 05:53 Dose: 75 mls/hr Lactobacillus Rhamnosus (Culturelle 15b) 1 each PO DAILY [facility] Stop: 09/01/17 08:59 Last Admin: 07/05/17 09:24 Dose: 1 each Levothyroxine Sodium 0.1 mg/ (Levothyroxine Sodium 0.075 mg) 0.175 mg PO QDAC [facility] Stop: 08/31/17 10:29 Last Admin: 07/05/17 09:23 Dose: 0.175 mg Lorazepam (Ativan) 0.5 mg PO Q4HR PRN; Protocol PRN Reason: Anxiety Stop: 08/31/17 08:22 Last Admin: 07/04/17 20:14 Dose: 0.5 mg Magnesium Hydroxide (Milk Of Magnesia) 30 ml PO HS PRN PRN Reason: Constipation Stop: 08/31/17 08:22 Last Admin: 07/04/17 22:32 Dose: 30 ml Miscellaneous (Probiotic Screen) 1 ea [facility] PRN PRN PRN Reason: PROTOCOL Stop: 09/01/17 08:59 Nifedipine (Procardia Xl) 30 mg PO DAILY [facility] Stop: 08/31/17 08:59 Last Admin: 07/05/17 09:24 Dose: 30 mg Nitroglycerin (Nitrostat) 0.4 mg SL Q5MIN PRN PRN Reason: Chest Pain Stop: 08/31/17 08:22 Last Admin: 07/02/17 20:36 Dose: 0.4 mg Pantoprazole Sodium (Protonix) 40 mg IVP DAILY [facility] Stop: 09/03/17 10:44 Last Admin: 07/05/17 10:59 Dose: 40 mg Rivaroxaban (Xarelto) 15 mg PO DAILY [facility] Stop: 08/31/17 16:59 Last Admin: 07/05/17 09:25 Dose: Not Given Sertraline HCl (Zoloft) 50 mg PO HS [facility] PRN Reason: Protocol Stop: 08/31/17 20:59 Last Admin: 07/04/17 20:14 Dose: 50 mg Zolpidem Tartrate (Ambien) 5 mg PO HS PRN PRN Reason: Insomnia Stop: 08/31/17 08:22 Last Admin: 07/05/17 00:14 Dose: 5 mg Lab - Result Diagrams 07/06/17 05:00 07/06/17 05:00 no further bleeding tongue [place] fnc stable w/ BUN/Cr. 24/2 Hgb/Hct stable ASA/Xarelto on hold
[2017-07-06] MEDS: Atorvastatin Calcium 10 MG TAB PO SCH (21:58)
== END 2017-07-06 23:40 | DRG 157 ==
LOC: ER 21:14 → TELE 07-02 04:30 → MSI 07-06 16:53
PROVIDERS: ADMIT Internal Medicine; ATTEND Internal Medicine
DX: K14.0 Glossitis (principal); J18.1 Lobar pneumonia, unspecified organism; N17.9 Acute kidney failure, unspecified; I13.0 Hypertensive heart and chronic kidney disease with heart failure and stage 1 through stage 4 chronic kidney disease, or unspecified chronic kidney disease; E87.1 Hypo-osmolality and hyponatremia; J44.1 Chronic obstructive pulmonary disease with (acute) exacerbation; K92.2 Gastrointestinal hemorrhage, unspecified; N18.9 Chronic kidney disease, unspecified; E66.01 Morbid (severe) obesity due to excess calories; K21.9 Gastro-esophageal reflux disease without esophagitis; I50.9 Heart failure, unspecified; E78.5 Hyperlipidemia, unspecified; R56.9 Unspecified convulsions; F31.9 Bipolar disorder, unspecified; D50.9 Iron deficiency anemia, unspecified; G30.9 Alzheimer's disease, unspecified; F02.80 Dementia in other diseases classified elsewhere, unspecified severity, without behavioral disturbance, psychotic disturbance, mood disturbance, and anxiety; I48.2 Chronic atrial fibrillation; D63.8 Anemia in other chronic diseases classified elsewhere; Z53.29 Procedure and treatment not carried out because of patient's decision for other reasons; E03.9 Hypothyroidism, unspecified; Z68.39 Body mass index [BMI] 39.0-39.9, adult
CPT/HCPCS: 36415-UA; 71045-TC; 76700-TC; 80048-TC; 80053-TC; 82043-90; 83735-TC; 84100-TC; 84550-TC; 85025-TC; 85610-TC; 85730-TC; 87070; 94760; C9113; J0696; J1885; J7030; J7613; Z7610